=== PATIENT | female | born 1940 | race Caucasian/White ===

== ENCOUNTER 2019-05-14 12:31 | Outpatient (CLI) | payer MEDICARE, SELFPAY ==
--- NOTE | ~2019-05-14 | DEXA_ITS ---
Bone Density Report Name: Jacqueline Farmer Age: 78 Sex: Female Ethnicity: White Date of : 1940 Indication: osteopenia; height loss; hysterectomy; rheumatoid arthritis; Referring Provider: MONIKA DEJESUS Study: Bone densitometry was performed. Exam Date: May 14, 2019 Accession number: [id number] Bone Density: Region BMD T-score Z-score Classification AP Spine (L1, L2, L3) 0.872 -1.3 1.3 Osteopenia Femoral Neck (Left) 0.685 -1.5 0.9 Osteopenia Total Hip (Left) 0.930 -0.1 2.0 Normal Total Hip Bilateral Avg 0.899 -0.4 1.8 Normal Femoral Neck (Right) 0.734 -1.0 1.3 Normal Total Hip (Right) 0.868 -0.6 1.5 Normal World Health Organization criteria for BMD impression classify patients as: Normal (T-score at or above -1.0), Osteopenia (T-score between -1.0 and -2.5), or Osteoporosis (T-score at or below -2.5). 10-year Fracture Risk(1): Major Osteoporotic Fracture 17% Hip Fracture 4.3% Reported Risk Factors: [place] (), Neck BMD=0.685, BMI=29.3, rheumatoid arthritis (1) FRAX(R) Version 3.08. Fracture probability calculated for an untreated patient. Fracture probability may be lower if the patient has received treatment. Previous Exams: Region Exam Age BMD T-score BMD Change BMD Change Date g/cm2 vs Baseline vs Previous AP Spine(L1, L2, L3) 05/14/2019 78 0.872 -1.3 -0.013(-1.4%) -0.013(-1.4%) 02/16/2017 76 0.885 -1.2 Total Hip(Left) 05/14/2019 78 0.930 -0.1 0.018(1.9%) 0.018(1.9%) 02/16/2017 76 0.912 -0.2 Total Hip(Right) 05/14/2019 78 0.868 -0.6 -0.011(-1.3%) -0.011(-1.3%) 02/16/2017 76 0.879 -0.5 *Denotes significance at 95% confidence level, LSC for AP Spine = 0.022 g/cm2, LSC for Total Hip = 0.027 g/cm2 Clinical Information Provided by Patient: Has rheumatoid arthritis Has used the following medications: Vitamin D, Calcium Has the following medical conditions: Hysterectomy Patient maximum height was 61 Menopause Age: 42 Does not regularly consume dairy products Onset of menses at age 10 Number of children 1 Impression: The patient has low bone mass, based on the Left Femoral Neck T-score. The patient has an estimated ten-year risk of hip fracture of 4.3% and an estimated ten-year risk of major fracture of 17%, based on the WHO FRAX algorithm. No significant bone loss was observed. Discussion: BONE DENSITY IS LOW AT ONE OR MORE SKELETAL SITES. THE PATIENT'S BMD AND CLINICAL RISK FAC
--- NOTE | ~2019-05-14 | MM_ITS ---
EXAMINATION: MM screening pardeep BI w rhonda HISTORY: Screening mammogram TECHNIQUE: Craniocaudal and mediolateral oblique 3-D tomosynthesis images were obtained and synthetic 2-D images were generated. CAD analysis was submitted and interpreted. COMPARISON: 08/12/2018 bilateral diagnostic digital mammogram 03/06/2018 bilateral digital screening mammogram 02/01/2017 bilateral diagnostic digital mammogram 03/13/2016 bilateral digital screening BREAST PARENCHYMAL COMPOSITION: The breasts are heterogeneously dense, which may obscure small masses . FINDINGS: There is a biopsy marker overlying left subareolar area laterally; history of benign left b reast biopsy January 2019. Stable fibroglandular asymmetry since 03/13/2016. There is no evidence of suspicious mass, calcificat ion, or architectural distortion to suggest malignancy in either breast. There has been no suspicious interval change. IMPRESSION: 1. No mammographic evidence of malignancy. 2. Recommend routine screening mammography in one year. BI-RADS Category 2: Benign finding(s). Reviewed, dictated and finalized at location A. LL PERFORMER
== END 2019-05-14 12:32 | disposition home or self-care (01) ==
PROVIDERS: PCP Internal Medicine; Visit Provider Obstetrics & Gynecology
DX: Z12.31 Encounter for screening mammogram for malignant neoplasm of breast (principal); Z78.0 Asymptomatic menopausal state; M85.852 Other specified disorders of bone density and structure, left thigh
CPT/HCPCS: 77063; 77067; 77080

== ENCOUNTER → 2020-09-09 12:13 | Outpatient (CLI) | payer MEDICARE, SELFPAY ==
--- NOTE | ~2020-09-09 | MR_ITS ---
EXAMINATION: MR cervical spine wo con DATE: 09/09/2020 13:04 INDICATION: Cervical radiculopathy. TECHNIQUE: Magnetic resonance imaging (MRI) of the cervical spine was performed without intravenous c ontrast. Sequences included sagittal T2-weighted FSE, sagittal STIR FSE, sagittal T1-weighted FSE, ax ial MERGE, and axial T2-weighted FSE. COMPARISON: Neck CT 01/16/2017 FINDINGS: There is 6 degrees dextrocurvature of cervical spine. There is 2 mm anterolisthesis of C5 o n C6 and C6 on C7. There are chronic erosions of the dens with bone marrow edema. Bone marrow edema o bscures the definition of much of the bone at C1-C2. There is chronic soft tissue around the dens wit h moderate central canal stenosis with ventral and dorsal indentation of the spinal cord at C1-C2. Ve rtebral body heights are normal. There is mildly decreased disc height at C3-C4, C5-C6, and C6-C7. Th e spinal cord signal intensity is normal. The following disc levels are specifically discussed: C2-C3: The disc does not extend beyond the endplate margin. There is mild bilateral uncovertebral axel nt osteoarthritis. There is severe bilateral facet joint osteoarthritis. There is mild bilateral neur al foraminal stenosis. There is no central canal stenosis. C3-C4: The disc is bulging. There is mild bilateral uncovertebral joint osteoarthritis. There is gustavo re right facet joint osteoarthritis. There is ankylosis of left facet joint with severe hypertrophy. There is mild right and moderate left neural foraminal stenosis. There is mild central canal stenosis . C4-C5: The disc is bulging. There is mild left uncovertebral joint osteoarthritis. There is severe bi lateral facet joint osteoarthritis. There is mild bilateral neural foraminal stenosis. There is mild central canal stenosis. C5-C6: The disc is bulging. There is mild bilateral uncovertebral joint osteoarthritis. There is gustavo re bilateral facet joint osteoarthritis. There is mild bilateral neural foraminal stenosis. There is mild central canal stenosis. C6-C7: The disc is bulging. There is mild bilateral uncovertebral joint osteoarthritis. There is gustavo re bilateral facet joint osteoarthritis. There is mild bilateral neural foraminal stenosis. There is mild central canal stenosis. C7-T1: The disc does not extend beyond the endplate margin. There is no uncovertebral joint osteoarth ritis. There is severe bilateral facet joint osteoarthritis. There is mild bilateral neural foraminal stenosis. There is no central canal stenosis. IMPRESSION: 1. 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 Given the poor bone definition at C1-C2 by MRI, consider noncontra st cervical spine CT. 2. Moderate cervical spondylosis at other levels. Reviewed, dictated and finalized at location B. IMPRESSION: 1. 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 Given the poor bone de finition at C1-C2 by MRI, consider noncontrast cervical spine CT. 2. Moderate cervical spondylosis at other levels.
== END ==
PROVIDERS: PCP Nurse Practitioner; Visit Provider Nurse Practitioner Adult Health
DX: M47.23 Other spondylosis with radiculopathy, cervicothoracic region (principal); M48.03 Spinal stenosis, cervicothoracic region
CPT/HCPCS: 72141

== ENCOUNTER → 2020-11-22 11:38 | Outpatient (CLI) | payer MEDICARE, SELFPAY ==
--- NOTE | ~2020-11-22 | US_ITS ---
EXAMINATION: US renal BI DATE: 11/22/2020 12:00 INDICATION: Chronic kidney disease stage III TECHNIQUE: Multiple grayscale and Doppler ultrasound images of the kidneys were obtained. COMPARISON: None. FINDINGS: The right kidney measures 8.4 x 3.4 x 4.2 cm. The left kidney measures 9.7 x 4.1 x 4.7 cm. The kidneys demonstrate normal parenchymal echogenicity. There is no hydronephrosis. The bladder is n ormal. IMPRESSION: 1. Mild atrophy of the kidneys. Reviewed, dictated and finalized at location B.
== END ==
PROVIDERS: PCP Nurse Practitioner; Visit Provider Internal Medicine Nephrology
DX: N18.32 Chronic kidney disease, stage 3b (principal)
CPT/HCPCS: 76775

== ENCOUNTER 2021-03-14 16:00 | Emergency (ER) | payer MEDICARE, SELFPAY ==
--- NOTE | ~2021-03-14 | CT_ITS ---
EXAMINATION: CT brain wo con DATE: 03/14/2021 19:59 INDICATION: Head injury. TECHNIQUE: Computed tomography (CT) of the head was performed without intravenous contrast. The mA wa s adjusted according to patient size. Iterative reconstruction technique was employed. The dose-lengt h product was 529.67 mGy-cm. COMPARISON: None FINDINGS: There are scattered areas of low attenuation in the cerebral white matter, which is within normal limits for the patient's age. There is no intracranial hemorrhage, acute infarction, or abnorm al intracranial mass lesion. The ventricles are normal in size. There is mild mucosal thickening in t he paranasal sinuses. There are likely changes of ocular lens replacement surgeries. There is a trace left mastoid effusion. IMPRESSION: 1. Normal aging brain. Reviewed, dictated and finalized at location A. ING PRESS OPERATOR IMPRESSION: 1. Normal aging brain.
--- NOTE | ~2021-03-14 | CT_ITS ---
EXAMINATION: CT cervical spine wo con DATE: 03/14/2021 19:59 INDICATION: Neck pain. Fall. TECHNIQUE: Computed tomography (CT) of the cervical spine was performed without intravenous contrast. Automated exposure control and iterative reconstruction technique were employed. The dose-length pro duct was 140.85 mGy-cm. COMPARISON: CT neck 02/16/2019 FINDINGS: There is mild scarring at the lung apices. There is 2 mm anterolisthesis of C3 on C4, C4 on C5, C5 on C6, C6 on C7, and C7 on T1. There is 16 degrees dextroscoliosis of cervical spine. Vertebr al body heights are normal. There is a soft tissue around the dens with chronic erosions of C2 and an terior C1 arch with mild central canal stenosis. There is mildly decreased disc height at C2-C3, mode rately decreased disc height at C3-C4, mildly decreased disc height at C5-C6, and moderately decrease d disc height at C6-C7. The following disc levels are specifically discussed: C2-C3: There is no uncovertebral joint osteoarthritis. There is severe bilateral facet joint osteoart hritis. There is no neural foraminal stenosis. There is no central canal stenosis. C3-C4: There is moderate bilateral uncovertebral joint osteoarthritis. There is severe bilateral face t joint osteoarthritis. There is mild bilateral neural foraminal stenosis. There is mild central leroy l stenosis. C4-C5: There is mild bilateral uncovertebral joint osteoarthritis. There is severe bilateral facet allan int osteoarthritis. There is mild bilateral neural foraminal stenosis. There is mild central canal st enosis. C5-C6: There is moderate right and mild left uncovertebral joint osteoarthritis. There is severe bila teral facet joint osteoarthritis. There is mild bilateral neural foraminal stenosis. There is mild ce ntral canal stenosis. C6-C7: There is mild bilateral uncovertebral joint osteoarthritis. There is severe bilateral facet allan int osteoarthritis. There is mild bilateral neural foraminal stenosis. There is mild central canal st enosis. C7-T1: There is no uncovertebral joint osteoarthritis. There is severe bilateral facet joint osteoart hritis. There is mild bilateral neural foraminal stenosis. There is no central canal stenosis. IMPRESSION: 1. No fracture. 2. Moderate cervical spondylosis. 3. Chronic soft tissue around the dens with erosions of bone. The differential diagnosis includes pyr ophosphate arthropathy and rheumatoid arthritis. Reviewed, dictated and finalized at location A. BORER HELPER IMPRESSION: 1. No fracture. 2. Moderate cervical spondylosis. 3. Chronic soft tissue around the dens with erosions of bone. The differential diagnosis includes pyrophosphate arthropathy and rheumatoid arthritis.
--- NOTE | ~2021-03-14 | XR_ITS ---
EXAMINATION: XR chest 1V portable DATE: 03/14/2021 19:53 INDICATION: Weakness. TECHNIQUE: A single frontal view of the chest was obtained. COMPARISON: Chest 2 views 12/28/2011 FINDINGS: There is mild scarring at the lung apices. No pneumonia or pleural effusion. The heart size is normal. Surgical clips in the right upper quadrant are likely from cholecystectomy. There are sirena nges of distal right clavicle resection. IMPRESSION: 1. Mild scarring at the lung apices. Reviewed, dictated and finalized at location A. TIONAL TRAINING DIRECTOR
[2021-03-14 17:09] VITALS: BP 159/88; PULSE 80; RESP 18; TEMP 36.5; O2SAT 98
--- NOTE | 2021-03-14 17:21 | ECG_ITS ---
Measurements Intervals [place] Rate: 76 P: 51 NE: 172 QRS: -16 QRSD: 87 T: 41 QT: 346 QTc: 389 Interpretive Statements SINUS RHYTHM DELAYED PRECORDIAL R/S TRANSITION BASELINE ARTIFACT- I, II, III, AVR, AVL BORDERLINE ECG Electronically Signed On 03-15-2021 9:50:55 PIPE LINE REPAIRER by Raúl Chao D.O.
[2021-03-14 17:25] VITALS: BP 122/59; PULSE 75
[2021-03-14 18:01] LABS: Basophils Absolute Auto 0.1 K/mm3 (0.0-0.1); Basophils Percent Auto 0.5 % (0.2-1.2); Eosinophils Absolute Auto 0.2 K/mm3 (0-0.3); Eosinophils Percent Auto 1.8 % (0-4.4); Hemoglobin 12.5 g/dL (12.0-15.0); Immature Granulocyte Absolute 0.06 K/mm3 (0.00-0.031); Immature Granulocyte Percent A 0.6 % (0-0.5); Lymphocytes Absolute Auto 2.98 K/mm3 (0.9-3.2); Lymphocytes Percent Auto 28.6 % (18.3-44.2); Mean Corpuscular HGB Conc 34.7 g/dl (32-36); Mean Corpuscular Volume 100.8 fl (80-100); Mean Platelet Volume 9.1 fl (7.4-10.4); Monocytes Absolute Auto 1.2 K/mm3 (0.1-0.6); Monocytes Percent Auto 11.6 % (2.6-8.5); Neutrophils Absolute Auto 5.9 K/mm3 (1.3-6.7); Neutrophils Percent Auto 56.9 % (45.5-73.1); Platelet Count Result 260 k/mm3 (150-375); Red Blood Count 3.57 M/mm3 (4.2-5.4); Red Cell Distribution Width 12.5 % (11.5-14.5); White Blood Count 10.4 K/mm3 (4.5-10.0)
[2021-03-14 18:18] LABS: Alanine Aminotransferase 44 U/L (4-35); Albumin Level 4.1 g/dL (3.5-5.1); Alkaline Phosphatase 101 U/L (38-126); Anion Gap 7 mmol/L (8-16); Aspartate Amino Transferase 58 U/L (14-36); Bilirubin,Total 0.5 mg/dL (0.2-1.3); Blood Urea Nitrogen 30 mg/dL (7-17); Calcium 9.4 mg/dL (8.4-10.2); Carbon Dioxide 25 mmol/L (22-30); Chloride 100 mmol/L (98-107); Estimated CRCL calculation 24 ml/min; Estimated Glomerular Filt Rate 36; Glucose 134 mg/dL (65-110); Potassium 4.2 mmol/L (3.4-5.0); Sodium 132 mmol/L (137-145)
[2021-03-14 19:39] VITALS: BP 128/60; PULSE 79
[2021-03-14] MEDS: SODIUM CHLORIDE 0.9% IV 1,000 ML 999 ML IV CONT (20:10)
[2021-03-14 20:38] VITALS: BP 117/54; PULSE 73
[2021-03-14 20:43] LABS: Troponin I < 0.012 ng/mL (0.000-0.034)
[2021-03-14 21:00] LABS: Lactic Acid Reflex 0.7 mmol/L (0.7-2.1)
[2021-03-14 21:41] LABS: Add Urine Microscopic? YES; Amorphous Sediment Urine Few; Appearance Urine Cloudy (Clear); Bacteria Urine 4+ /hpf; Bilirubin Urine Negative (Negative); Blood Urine Negative (Negative); Color Urine Yellow (Yellow); Glucose Urine UA Negative (Negative); Ketones Urine Negative (Negative); Leukocyte Esterase Ur 3+ LEU/UL (Negative); Mucus Urine Rare /lpf; Nitrate Urine Negative (Negative); Protein Urine Negative (Negative); Specific Grav Ur 1.011 (1.001-1.035); Squamous Epithelial Cell Urine Many /hpf (Few); Urobilinogen Urine Negative mg/dL (<2.0); WBC Clumps Urine Present /HPF; WBC Urine 51-75 /hpf
--- NOTE | 2021-03-14 22:01 | ED.GENADULT ---
HPI - General Adult General Chief complaint: Fall Stated complaint: Fall. Head pain. Yesterday. Time Seen by Provider: 03/14/21 19:31 History of Present Illness HPI narrative: Patient 80-year-old female presents the emergency department with chief complaint of generalized weakness. Patient reports that she has had several episodes of falling reports she fell struck her head reports is also had some pain in her neck with this as well. The patient denies vomiting denies diarrhea denies abdominal pain patient denies chest pain. The patient states she is felt a little unsteady with this as well Related Data Home Medications Medication Instructions Recorded Confirmed cinnamon bark 500 mg capsule 500 mg PO DAILY 12/30/19 07/12/20 coenzyme Q10 10 mg capsule 10 mg PO ONCE 12/30/19 07/12/20 Allergies Allergy/AdvReac Type Severity Reaction Status Date / Time morphine Allergy Severe N/V Verified 01/12/21 13:04 ARM AND HAMMER WITH OXYCLEAN Allergy Unknown HIVES ALL Uncoded 01/12/21 13:04 LAUNDRY SOAP OVER BODY BANDAID / ADHESIVES Allergy Unknown RASH Uncoded 01/12/21 13:04 Review of Systems Review of Systems: A 10 system review of systems was completed on the patient and is negative except for what is stated in the HPI. Nursing and ancillary documentation was reviewed. [facility] Past Medical History Medical History Basal cell carcinoma CKD (chronic kidney disease) Prolapsed bladder Rectal vaginal fistula Restless legs syndrome Rotator cuff arthropathy Vitamin D deficiency Surgical History Surgical History H/O: hysterectomy History of cholecystectomy Family History Family History Mother Hypertension Heart disease Father , age 92 No problems noted. Social History Social History Social History: 2 cups of caffeine daily Smoking status: Never smoker Alcohol intake: current Alcohol use details: rarely Exam Narrative: GENERAL: Well-appearing, well-nourished, and in no acute distress. HEAD: Normocephalic, atraumatic. EYES: PERRLA and EOMI. ENT: Nares clear, no rhinorrhea or epistaxis. Mucous membranes moist. NECK: Supple. CHEST: Clear to auscultation. No respiratory distress. HEART: Regular rate and rhythm. No murmur heard. Normal peripheral pulses. ABDOMEN: Soft, nontender, nondistended, normal active bowel sounds. EXTREMITIES: Normal range of motion. No edema. SKIN: Warm, dry, no rash. NEURO: No focal deficits. Alert and oriented x3. PSYCH: Normal mood and affect. Course Vital Signs Vital signs: Vital Signs Temperature 36.5 C 03/14/21 17:09 Pulse Rate 80 03/14/21 17:09 Respiratory Rate 18 03/14/21 17:09 Blood Pressure 159/88 H 03/14/21 17:09 Pulse Oximetry 98 03/14/21 17:09 Temperature 36.5 C 03/14/21 17:09 Pulse Rate 73 03/14/21 20:38 Respiratory Rate 18 03/14/21 17:09 Blood Pressure 117/54 L 03/14/21 20:38 Pulse Oximetry 98 03/14/21 17:09 Medical Decision Making Vital Signs Vital Signs: Vital Signs Temperature 36.5 C 03/14/21 17:09 Pulse Rate 80 03/14/21 17:09 Respiratory Rate 18 03/14/21 17:09 Blood Pressure 159/88 H 03/14/21 17:09 Pulse Oximetry 98 03/14/21 17:09 Temperature 36.5 C 03/14/21 17:09 Pulse Rate 73 03/14/21 20:38 Respiratory Rate 18 03/14/21 17:09 Blood Pressure 117/54 L 03/14/21 20:38 Pulse Oximetry 98 03/14/21 17:09 Lab Data Result diagrams: 03/14/21 17:51 03/14/21 17:51 Labs: Lab Results 03/14/21 03/14/21 03/14/21 Range/Units 17:51 17:51 19:39 WBC 10.4 H (4.5-10.0) K/mm3 RBC 3.57 L (4.2-5.4) M/mm3 Hgb 12.5 (12.0-15.0) g/dL Hct 36.0 L (37.0-47.0) % MCV 100.8 H (
[2021-03-14 22:21] VITALS: BP 122/78; PULSE 65; RESP 18; O2SAT 100
== END 2021-03-14 22:22 | disposition home or self-care (01) ==
PROVIDERS: Emergency Medicine; Emergency Provider Emergency Medicine; PCP Internal Medicine
DX: N39.0 Urinary tract infection, site not specified (principal); S16.1XXA Strain of muscle, fascia and tendon at neck level, initial encounter; N18.9 Chronic kidney disease, unspecified; G25.81 Restless legs syndrome; E55.9 Vitamin D deficiency, unspecified; N81.10 Cystocele, unspecified; Z85.828 Personal history of other malignant neoplasm of skin; Z79.82 Long term (current) use of aspirin; R94.31 Abnormal electrocardiogram [ECG] [EKG]; M47.812 Spondylosis without myelopathy or radiculopathy, cervical region; R93.7 Abnormal findings on diagnostic imaging of other parts of musculoskeletal system; W19.XXXA Unspecified fall, initial encounter
CPT/HCPCS: 36415; 70450; 71045; 72125; 80053; 81001; 83605; 83735; 84484; 85025; 87077; 87086; 87186; 93005; 96360; 96361; 99284; J7030

== ENCOUNTER 2021-04-13 07:30 | Outpatient (CLI) | payer MEDICARE, SELFPAY ==
--- NOTE | 2021-04-26 21:11 | WPDSLEEPSTUD ---
Sleep Study Date of Study: 04/13/21 <Courtney Armijo DO - Last Filed: 04/27/21 17:17> Ordering Provider: Courtney Armijo DO <Courtney Armijo DO - Last Filed: 04/27/21 17:17> Interpreting Physician: Courtney Armijo DO <Courtney Armijo DO - Last Filed: 04/27/21 17:17> Sleep Study Type: Polysomnogram <Courtney Armijo DO - Last Filed: 04/27/21 17:17> Height: 1.52 m <Courtney Armijo DO - Last Filed: 04/27/21 17:17> Weight: 68.039 kg <Courtney Armijo DO - Last Filed: 04/27/21 17:17> Body Mass Index: 29.2 <Courtney Armijo DO - Last Filed: 04/27/21 17:17> Neck Circumference (inches): 14.5 <Courtney Armijo DO - Last Filed: 04/27/21 17:17> [place]: 1 <Courtney Armijo DO - Last Filed: 04/27/21 17:17> Reason for Sleep Study Difficulty falling asleep and maintaining sleep <Courtney Armijo DO - Last Filed: 04/27/21 17:17> Sleep History The patient is an 80-year-old female with CC restless leg syndrome, chronic kidney disease, rotator cuff arthropathy, vitamin-D deficiency stand bladder prolapse as had a sleep study due to issues falling asleep and maintaining sleep. The patient denies awakening from sleep short of breath. She denies awakening at night with heartburn, belching or cough. She occasionally snores but it is never loud enough that others complaint. She rarely has trouble sleeping when she has a cold. she denies sweating excessively at night. She denies heart palpitations or irregular heartbeats during the night. He denies falling asleep during the day and while driving. She denies sleep paralysis, cataplexy and hypnagogic /hypnopompic hallucinations. She denies having nightmares. She occasionally has thoughts racing through her mind. She denies feeling sad or depressed. She occasionally feels anxious. She rarely has muscular tension. She denies noticing parts of her body jerk as well as kicking during the night. She rarely experiences crawling and aching feelings in her legs. She frequently has leg pain during the night. She occasionally grinds her teeth during sleep but rarely awakens with soft pain. She is occasionally bothered by pain during the day and frequently awakened by pain during the night. She frequently wakes up feeling stiff in the morning with sore and achy muscles. She frequently wakes up with pain in the neck, spine and other joints. She goes to bed at midnight on both weekdays and weekends. It takes her 2 hours to fall asleep. She wakes up at least 4 times throughout the night. When she awakens, she will walk around the house or read. A contained a while for her to fall back asleep. She does not have a set wake up time. She typically gets 4-6 hours of sleep per night. When she awakens, she will get out of bed. She currently lives with her . She does not engage in physical exercise before bedtime. She denies consuming any caffeinated beverages within 2 hours of bedtime. She will read and watch television before falling asleep. She denies taking naps in the afternoon or the evening. She drinks 1 glass of COVID in 2 cups of coffee per day. She denies tobacco, alcohol and recreational drug use. <Courtney Armijo DO - Last Filed: 04/27/21 17:17> [facility] Past Medical History Medical History: Medical History Basal cell carcinoma CKD (chronic kidney disease) Prolapsed bladder Rectal vaginal fistula Restless legs syndrome Rotator cuff arthropathy Vitamin D deficiency <Courtney Armijo DO - Last Filed: 04/27/21 17:17> Surgical History Surgical History: Surgical History H/O: hysterectomy History of cholecystectomy <Courtney Armijo DO - Last Filed: 04/27/21 17:17> Family History Family History: Family History (Reviewed 04/26/21 @
[2021-04-27 17:16] VITALS: BMI 29.2
== END 2021-04-14 06:19 | disposition home or self-care (01) ==
LOC: ANHCSM 07:33
PROVIDERS: PCP Internal Medicine; Visit Provider Family Medicine
DX: G47.10 Hypersomnia, unspecified (principal); G47.33 Obstructive sleep apnea (adult) (pediatric); G47.61 Periodic limb movement disorder
CPT/HCPCS: 95810

== ENCOUNTER 2022-01-25 10:58 | Outpatient (CLI) | payer MEDICARE, SELFPAY ==
[2022-01-25 19:31] LABS: Basophils Absolute Auto 0.1 K/mm3 (0.0-0.1); Basophils Percent Auto 0.8 % (0.2-1.2); Eosinophils Absolute Auto 0.2 K/mm3 (0-0.3); Eosinophils Percent Auto 1.8 % (0-4.4); Hematocrit 42.6 % (37.0-47.0); Hemoglobin 13.4 g/dL (12.0-15.0); Immature Granulocyte Absolute 0.03 K/mm3 (0.00-0.031); Immature Granulocyte Percent A 0.3 % (0-0.5); Lymphocytes Absolute Auto 2.82 K/mm3 (0.9-3.2); Lymphocytes Percent Auto 26.8 % (18.3-44.2); Mean Corpuscular HGB Conc 31.5 g/dl (32-36); Mean Corpuscular Hemoglobin 33.8 pg (26-34); Mean Corpuscular Volume 107.6 fl (80-100); Mean Platelet Volume 9.9 fl (7.4-10.4); Monocytes Absolute Auto 1.2 K/mm3 (0.1-0.6); Monocytes Percent Auto 10.9 % (2.6-8.5); Neutrophils Absolute Auto 6.3 K/mm3 (1.3-6.7); Neutrophils Percent Auto 59.4 % (45.5-73.1); Platelet Count Result 316 k/mm3 (150-375); Red Blood Count 3.96 M/mm3 (4.2-5.4); Red Cell Distribution Width 12.9 % (11.5-14.5); White Blood Count 10.5 K/mm3 (4.5-10.0)
[2022-01-25 20:04] LABS: Hemoglobin A1C 6.8 % (<5.7)
[2022-01-25 20:15] LABS: Alanine Aminotransferase 33 U/L (6-35); Albumin Level 4.6 g/dL (3.5-5.1); Alkaline Phosphatase 108 U/L (38-126); Anion Gap 11 mmol/L (8-16); Aspartate Amino Transferase 40 U/L (14-36); Bilirubin,Total 0.7 mg/dL (0.2-1.3); Blood Urea Nitrogen 29 mg/dL (7-17); Calcium 9.8 mg/dL (8.4-10.2); Carbon Dioxide 24 mmol/L (22-30); Chloride 105 mmol/L (98-107); Cholesterol 190 mg/dL (0-200); Estimated Glomerular Filt Rate 39; Glucose 152 mg/dL (65-110); HDL Direct 42 mg/dL; Potassium 4.5 mmol/L (3.4-5.0); Sodium 140 mmol/L (137-145); Triglycerides 183 mg/dL (<150)
[2022-01-25 20:19] LABS: Hypochromasia 1+ (NORMAL); Platelet Estimate Adequate (Adequate); Schistocytes None Seen (NORMAL)
[2022-01-25 20:26] LABS: LDL Cholesterol Direct 90 mg/dL
[2022-01-25 20:32] LABS: Vitamin D 25 Hydroxy 82.3 ng/mL
[2022-01-26 14:17] LABS: Folic Acid > 20.0 ng/mL (2.76->20); Vitamin B12 > 1000.0 pg/mL (239-931)
== END 2022-01-25 10:59 | disposition home or self-care (01) ==
PROVIDERS: PCP Internal Medicine; Visit Provider Nurse Practitioner
DX: E55.9 Vitamin D deficiency, unspecified (principal); E11.9 Type 2 diabetes mellitus without complications; D53.1 Other megaloblastic anemias, not elsewhere classified
CPT/HCPCS: 36415; 80053; 80061; 82306; 82607; 82746; 83036; 85025

== ENCOUNTER → 2022-01-31 09:09 | Outpatient (CLI) | payer MEDICARE, SELFPAY ==
--- NOTE | ~2022-01-31 | DEXA_ITS ---
Bone Density Report Name: DAGOBERTO SAN Age: 81 Sex: Female Ethnicity: White Date of : 1940 Indication: osteopenia; height loss; hysterectomy; rheumatoid arthritis; secondary osteoporosis; postmenopausal Referring Provider: LOBO, ELSIE Stallings Study: Bone densitometry was performed. Exam Date: January 31, 2022 Accession number: [id number] Bone Density: Region BMD T-score Z-score Classification AP Spine (L1, L2, L3) 0.964 -0.5 2.3 Normal Femoral Neck (Left) 0.663 -1.7 0.8 Osteopenia Total Hip (Left) 0.902 -0.3 1.9 Normal Femoral Neck (Right) 0.724 -1.1 1.3 Osteopenia Total Hip (Right) 0.862 -0.7 1.6 Normal Total Hip Mean 0.882 -0.5 1.8 Normal World Health Organization criteria for BMD impression classify patients as: Normal (T-score at or above -1.0), Osteopenia (T-score between -1.0 and -2.5), or Osteoporosis (T-score at or below -2.5). 10-year Fracture Risk(1): Major Osteoporotic Fracture 17% Hip Fracture 5.2% Reported Risk Factors: [place] (), Neck BMD=0.663, BMI=30.6, rheumatoid arthritis, secondary osteoporosis (1) FRAX(R) Version 3.08. Fracture probability calculated for an untreated patient. Fracture probability may be lower if the patient has received treatment. Previous Exams: Region Exam Age BMD T-score BMD Change BMD Change Date g/cm2 vs Baseline vs Previous AP Spine(L1, L2, L3) 01/31/2022 81 0.964 -0.5 0.082* 0.089* 12/23/2008 68 0.875 -1.3 -0.007 -0.007 12/14/2006 66 0.882 -1.2 Total Hip(Left) 01/31/2022 81 0.902 -0.3 -0.060* -0.049* 12/23/2008 68 0.950 0.1 -0.012 -0.012 12/14/2006 66 0.962 0.2 Total Hip(Right) 01/31/2022 81 0.862 -0.7 -0.096* -0.058* 12/23/2008 68 0.920 -0.2 -0.039* -0.039* 12/14/2006 66 0.958 0.1 *Denotes significance at 95% confidence level, LSC for AP Spine = 0.022 g/cm2, LSC for Total Hip = 0.027 g/cm2 Clinical Information Provided by Patient: Has rheumatoid arthritis Has secondary osteoporosis Has used the following medications: Vitamin D, Calcium Has the following medical conditions: Hysterectomy Patient maximum height was 61 Menopause Age: 42 No regular weight bearing exercise Does not regularly consume dairy products Drinks caffeinated beverages Onset of menses at age 9 Number of children 2 Impression: The patient has low bone
== END ==
PROVIDERS: PCP Internal Medicine; Visit Provider Neurological Surgery
DX: Z78.0 Asymptomatic menopausal state (principal); M85.89 Other specified disorders of bone density and structure, multiple sites
CPT/HCPCS: 77080

== ENCOUNTER → 2022-02-13 11:50 | Outpatient (CLI) | payer MEDICARE, SELFPAY ==
--- NOTE | ~2022-02-13 | MR_ITS ---
EXAMINATION: MR lumbar spine wo con DATE: 02/13/2022 12:51 INDICATION: Lumbar spondylosis. TECHNIQUE: Magnetic resonance imaging (MRI) of the lumbar spine was performed without intravenous con trast. Sequences included sagittal T2-weighted FSE, sagittal T2-weighted FS FSE, sagittal T1-weighted FSE, and axial T2-weighted FSE. COMPARISON: Lumbar spine MRI 01/22/2008 FINDINGS: There is 8 degrees dextrocurvature of thoracolumbar spine. There is 3 mm anterolisthesis of of L3 on L4 and 3 mm retrolisthesis of L5 on S1. Vertebral body heights are normal. There is severel y decreased disc height at L2-L3, moderately decreased disc height at L3-L4, and severely decreased d isc height at L4-L5 and L5-S1 with endplate remodeling. The distal spinal cord signal intensity is no rmal. The conus medullaris is at L2. The following disc levels are specifically discussed: L1-L2: There is a central protrusion. There is mild right facet joint osteoarthritis. There is no ashly ral foraminal stenosis. There is mild central canal stenosis. L2-L3: The disc is bulging and has an annular fissure. There is moderate bilateral facet joint osteoa rthritis. There is mild bilateral neural foraminal stenosis. There is mild central canal stenosis. L3-L4: The disc is bulging and has an annular fissure. There is severe bilateral facet joint osteoart hritis. There is mild bilateral neural foraminal stenosis. There is mild central canal stenosis. L4-L5: The disc is bulging and has an annular fissure. There is severe bilateral facet joint osteoart hritis. There is mild bilateral neural foraminal stenosis. There is mild central canal stenosis. L5-S1: The disc is bulging and has an annular fissure. There is severe bilateral facet joint osteoart hritis. There is mild right and moderate left neural foraminal stenosis. There is mild central canal stenosis. IMPRESSION: 1. Severe lumbar spondylosis, worsened from 01/22/2008. Reviewed, dictated and finalized at location A.
--- NOTE | ~2022-02-13 | MR_ITS ---
EXAMINATION: MR cervical spine wo con DATE: 02/13/2022 12:50 INDICATION: Cervical spondylosis. TECHNIQUE: Magnetic resonance imaging (MRI) of the cervical spine was performed without intravenous c ontrast. Sequences included sagittal T2-weighted FSE, sagittal T2-weighted FS FSE, sagittal T1-weight ed FSE, axial MERGE, and axial T2-weighted FSE. COMPARISON: Cervical spine MRI 09/09/20, CT cervical spine 03/14/21 FINDINGS: There is 2 mm anterolisthesis of C4 on C5, 3 mm anterolisthesis of C5 on C6 and C6 on C7, a nd 2 mm anterolisthesis of C7 on T1. Vertebral body heights are normal. There are are erosions of the dens with peridens pannus causing severe central canal stenosis and ventral and dorsal indentation o f the spinal cord. There is mildly decreased disc height at C3-C4, C5-C6, and C6-C7. The following di sc levels are specifically discussed: C2-C3: The disc does not extend beyond the endplate margin. There is no uncovertebral joint osteoarth ritis. There is severe bilateral facet joint osteoarthritis. There is mild left neural foraminal sten osis. There is no central canal stenosis. C3-C4: The disc is bulging. There is mild bilateral uncovertebral joint osteoarthritis. There is gustavo re right facet joint osteoarthritis. There is ankylosis of left facet joint with severe hypertrophy. There is mild bilateral neural foraminal stenosis. There is mild central canal stenosis. C4-C5: The disc is bulging. There is mild right and moderate left uncovertebral joint osteoarthritis. There is severe bilateral facet joint osteoarthritis. There is mild bilateral neural foraminal steno sis. There is mild central canal stenosis. C5-C6: The disc is bulging. There is mild bilateral uncovertebral joint osteoarthritis. There is gustavo re bilateral facet joint osteoarthritis. There is mild bilateral neural foraminal stenosis. There is mild central canal stenosis. C6-C7: The disc is bulging. There is mild bilateral uncovertebral joint osteoarthritis. There is gustavo re bilateral facet joint osteoarthritis. There is mild bilateral neural foraminal stenosis. There is mild central canal stenosis. C7-T1: The disc does not extend beyond the endplate margin. There is no uncovertebral joint osteoarth ritis. There is severe bilateral facet joint osteoarthritis. There is mild bilateral neural foraminal stenosis. There is no central canal stenosis. IMPRESSION: 1. Worsened erosions of the dens with peridens pannus with worsened severe central canal stenosis. Th e etiology may be rheumatoid arthritis or pyrophosphate arthropathy. 2. Moderate spondylosis at other levels. Reviewed, dictated and finalized at location A. IMPRESSION: 1. Worsened erosions of the dens with peridens pannus with worsened severe cent ral canal stenosis. The etiology may be rheumatoid arthritis or pyrophosphate a rthropathy. 2. Moderate spondylosis at other levels.
== END ==
PROVIDERS: PCP Internal Medicine; Visit Provider Neurological Surgery
DX: Z78.0 Asymptomatic menopausal state (principal); M47.812 Spondylosis without myelopathy or radiculopathy, cervical region; M47.816 Spondylosis without myelopathy or radiculopathy, lumbar region; M48.02 Spinal stenosis, cervical region
CPT/HCPCS: 72141; 72148

== ENCOUNTER 2022-03-27 14:13 | Outpatient (CLI) | payer MEDICARE, SELFPAY ==
[2022-03-27 15:34] LABS: Basophils Absolute Auto 0.1 K/mm3 (0.0-0.1); Basophils Percent Auto 0.6 % (0.2-1.2); Eosinophils Absolute Auto 0.3 K/mm3 (0-0.3); Eosinophils Percent Auto 2.6 % (0-4.4); Hematocrit 37.7 % (37.0-47.0); Hemoglobin 12.2 g/dL (12.0-15.0); Immature Granulocyte Absolute 0.03 K/mm3 (0.00-0.031); Immature Granulocyte Percent A 0.3 % (0-0.5); Lymphocytes Absolute Auto 2.41 K/mm3 (0.9-3.2); Lymphocytes Percent Auto 24.8 % (18.3-44.2); Mean Corpuscular HGB Conc 32.4 g/dl (32-36); Mean Corpuscular Hemoglobin 33.8 pg (26-34); Mean Corpuscular Volume 104.4 fl (80-100); Mean Platelet Volume 9.5 fl (7.4-10.4); Monocytes Absolute Auto 1.1 K/mm3 (0.1-0.6); Monocytes Percent Auto 10.8 % (2.6-8.5); Neutrophils Absolute Auto 5.9 K/mm3 (1.3-6.7); Neutrophils Percent Auto 60.9 % (45.5-73.1); Platelet Count Result 237 k/mm3 (150-375); Red Blood Count 3.61 M/mm3 (4.2-5.4); Red Cell Distribution Width 12.7 % (11.5-14.5); White Blood Count 9.7 K/mm3 (4.5-10.0)
[2022-03-27 15:48] LABS: Anion Gap 8 mmol/L (8-16); Blood Urea Nitrogen 24 mg/dL (7-17); Calcium 9.3 mg/dL (8.4-10.2); Carbon Dioxide 25 mmol/L (22-30); Chloride 107 mmol/L (98-107); Estimated Glomerular Filt Rate 47; Glucose 149 mg/dL (65-110); Potassium 4.2 mmol/L (3.4-5.0); Sodium 140 mmol/L (137-145)
[2022-03-27 15:52] LABS: Partial Thromboplastin Time 27.2 SECONDS (22.3-36.8)
[2022-03-27 16:50] LABS: Appearance Urine Clear (Clear); Bilirubin Urine Negative (Negative); Blood Urine Negative (Negative); Color Urine Yellow (Yellow); Glucose Urine UA Negative (Negative); Ketones Urine Negative (Negative); Leukocyte Esterase Ur Trace LEU/UL (Negative); Nitrate Urine Negative (Negative); Protein Urine Negative (Negative); Specific Grav Ur <= 1.005 (1.001-1.035); Urobilinogen Urine 0.2 mg/dL (<2.0)
[2022-03-27 17:01] LABS: Mucus Urine Rare /lpf; RBC Urine 0-2 /hpf (0-2); WBC Urine 0-3 /hpf
[2022-03-27 17:03] LABS: Add Urine Microscopic? YES
== END 2022-03-27 14:14 | disposition home or self-care (01) ==
PROVIDERS: PCP Internal Medicine; Visit Provider Neurological Surgery
DX: Z01.818 Encounter for other preprocedural examination (principal); M79.609 Pain in unspecified limb
CPT/HCPCS: 36415; 80048; 81001; 85025; 85730

== ENCOUNTER 2022-07-31 12:29 | Outpatient (CLI) | payer MEDICARE, SELFPAY ==
[2022-07-31 19:16] LABS: Basophils Absolute Auto 0.1 K/mm3 (0.0-0.1); Basophils Percent Auto 0.7 % (0.2-1.2); Eosinophils Absolute Auto 0.3 K/mm3 (0-0.3); Eosinophils Percent Auto 3.2 % (0-4.4); Hematocrit 37.5 % (37.0-47.0); Hemoglobin 12.1 g/dL (12.0-15.0); Immature Granulocyte Absolute 0.03 K/mm3 (0.00-0.031); Immature Granulocyte Percent A 0.4 % (0-0.5); Immature Reticulocyte Fraction 15.5 % (3.0-15.9); Lymphocytes Absolute Auto 2.31 K/mm3 (0.9-3.2); Lymphocytes Percent Auto 27.7 % (18.3-44.2); Mean Corpuscular HGB Conc 32.3 g/dl (32-36); Mean Corpuscular Hemoglobin 33.2 pg (26-34); Mean Corpuscular Volume 102.7 fl (80-100); Mean Platelet Volume 9.8 fl (7.4-10.4); Monocytes Absolute Auto 0.9 K/mm3 (0.1-0.6); Monocytes Percent Auto 11.2 % (2.6-8.5); Neutrophils Absolute Auto 4.7 K/mm3 (1.3-6.7); Neutrophils Percent Auto 56.8 % (45.5-73.1); Platelet Count Result 304 k/mm3 (150-375); Red Blood Count 3.65 M/mm3 (4.2-5.4); Red Cell Distribution Width 13.4 % (11.5-14.5); Reticulocyte Percent 1.87 % (0.7-4.3); Reticulocytes Absolute 0.07 B/L (32.2-175.7); White Blood Count 8.3 K/mm3 (4.5-10.0)
[2022-07-31 20:06] LABS: Iron 123 ug/dL (37-170)
[2022-07-31 20:24] LABS: Percent Iron Saturation 38 % (20-50)
[2022-07-31 20:32] LABS: Alanine Aminotransferase 27 U/L (6-35); Albumin Level 4.4 g/dL (3.5-5.1); Alkaline Phosphatase 99 U/L (38-126); Anion Gap 6 mmol/L (8-16); Aspartate Amino Transferase 40 U/L (14-36); Bilirubin,Total 0.7 mg/dL (0.2-1.3); Blood Urea Nitrogen 43 mg/dL (7-17); Calcium 9.4 mg/dL (8.4-10.2); Carbon Dioxide 32 mmol/L (22-30); Chloride 102 mmol/L (98-107); Estimated Glomerular Filt Rate 33; Glucose 114 mg/dL (65-110); Potassium 4.6 mmol/L (3.4-5.0); Sodium 140 mmol/L (137-145)
[2022-07-31 21:02] LABS: Thyroid Stimulating Hormone 0.132 uIU/mL (0.465-4.680)
[2022-07-31 21:13] LABS: Hemoglobin A1C 6.2 % (<5.7)
== END 2022-07-31 12:30 | disposition home or self-care (01) ==
LOC: ANHGOSHLAB 12:31
PROVIDERS: PCP Internal Medicine; Visit Provider Nurse Practitioner
DX: D64.9 Anemia, unspecified (principal); E11.9 Type 2 diabetes mellitus without complications
CPT/HCPCS: 36415; 80053; 82728; 83036; 83540; 83550; 84443; 85025; 85046

== ENCOUNTER 2022-12-26 18:31 | Emergency (ER) | payer MEDICARE, SELFPAY ==
--- NOTE | 2022-12-26 18:34 | ED.FEMALEGU ---
HPI - Female Genitourinary General Chief complaint: Urogenital-Female Stated complaint: Uti symptoms Source: patient and RN notes reviewed Mode of arrival: ambulatory Limitations: no limitations History of Present Illness HPI Narrative: Patient is an 82-year-old female who presents to the [facility] with complaints of dysuria and pelvic pain with urination for the past 3 weeks. She states that her pain is only present when she urinates. She also reports urinary frequency. States that she has been waking up 4-5 times a night to urinate which is unusual for her. Patient states that within the last week, she notices small amounts of blood in the urine. She denies flank pain. Denies recent fevers. Related Data Home Medications Medication Instructions Recorded Confirmed cinnamon bark 500 mg capsule 500 mg PO DAILY 12/30/19 12/26/22 (Cinnamon) coenzyme Q10 10 mg capsule (Co 10 mg PO ONCE 12/30/19 12/26/22 Q-10) clobetasol 0.05 % shampoo 0.05 ml topical DIRECTED 12/05/21 12/26/22 Allergies Allergy/AdvReac Type Severity Reaction Status Date / Time morphine Allergy Severe N/V Verified 09/12/22 13:24 adhesive Allergy Rash Verified 12/26/22 18:38 ARM AND HAMMER WITH OXYCLEAN Allergy Unknown HIVES ALL Uncoded 09/12/22 13:24 LAUNDRY SOAP OVER BODY Review of Systems Review of Systems: CONSTITUTIONAL: Denies fever, chills, or sweats. EYES: Denies visual changes, redness, or discharge. ENT: Denies otalgia and sore throat CARDIOVASCULAR: Denies chest pain, palpitations, or edema. RESPIRATORY: Denies cough or dyspnea. GASTROINTESTINAL: Denies abdominal pain, nausea, vomiting, or diarrhea. GENITOURINARY: Reports dysuria or hematuria. Reports urinary frequency. SKIN: Denies rash or itching. MUSCULOSKELETAL: Denies back pain, joint pain, or myalgia. NEUROLOGIC: Denies headache, numbness, or weakness. Pertinent positives per HPI. COUNTS INCLUDE 234 BEDS AT THE [facility] Past Medical History Medical History Basal cell carcinoma CKD (chronic kidney disease) Prolapsed bladder Rectal vaginal fistula Restless legs syndrome Rotator cuff arthropathy Vitamin D deficiency Surgical History Surgical History H/O craniotomy (~03/2022) H/O toe surgery 11/2021 H/O: hysterectomy History of cholecystectomy Family History Family History Mother Hypertension Heart disease Father , age 92 No problems noted. Social History Social History Social History: 2 cups of caffeine daily Smoking status: Never smoker Alcohol intake: current Alcohol use details: rarely Substance use: never Lack of Transportation: No Lack of Food: Never True Current Housing: I Have Housing Concerned About Future Housing: No Difficulty Paying Gas/Electric Bills: No Difficulty Paying for Meds: No Currently Unemployed: No Education: High School Diploma/GED Difficulty w/ Childcare or Family Care: No Comments At the time of my signature, I reviewed and agree with the nursing past medical, surgical, social, and family history. There is no relevant family history pertinent to the patient complaint. Exam Narrative: GENERAL: This is a well-nourished, well-developed patient, in no apparent distress. HEAD: normocephalic, atraumatic. EYES: Sclera clear/white. Vision is grossly intact. EARS: External ears normal. Hearing grossly intact. NOSE: External nose normal with no obvious nasal discharge, nares without redness, no rhinorrhea. THROAT: Mucous membranes moist, posterior pharynx clear. NECK: Neck supple, non-tender without lymphadenopathy, masses or thyromegaly. CARDIOVASCULAR: Regular rate and rhythm without murmurs, gallops, or rubs. RESPIRATORY: Clear to auscultation. Breath sounds equal bilaterally. No wheezes,
[2022-12-26 18:37] VITALS: BP 149/66; PULSE 76; RESP 16; TEMP 36.4; O2SAT 96
[2022-12-26 18:41] VITALS: BP 149/66; PULSE 76; RESP 16; TEMP 36.4; O2SAT 96
== END 2022-12-26 18:52 | disposition home or self-care (01) ==
PROVIDERS: Emergency Provider Nurse Practitioner; PCP Internal Medicine
DX: N30.01 Acute cystitis with hematuria (principal); N18.9 Chronic kidney disease, unspecified
CPT/HCPCS: 81003; 87077; 87086; 87186; 99213; G0463

== ENCOUNTER 2023-01-16 10:54 | Outpatient (CLI) | payer MEDICARE, SELFPAY ==
[2023-01-16 18:27] LABS: Basophils Percent Auto 0.5 % (0.2-1.2); Eosinophils Absolute Auto 0.3 K/mm3 (0-0.3); Eosinophils Percent Auto 3.7 % (0-4.4); Hematocrit 34.5 % (37.0-47.0); Immature Granulocyte Absolute 0.02 K/mm3 (0.00-0.031); Immature Granulocyte Percent A 0.2 % (0-0.5); Lymphocytes Absolute Auto 2.33 K/mm3 (0.9-3.2); Lymphocytes Percent Auto 28.6 % (18.3-44.2); Mean Corpuscular HGB Conc 31.9 g/dl (32-36); Mean Corpuscular Hemoglobin 34.2 pg (26-34); Mean Corpuscular Volume 107.1 fl (80-100); Mean Platelet Volume 9.8 fl (7.4-10.4); Monocytes Percent Auto 12.6 % (2.6-8.5); Neutrophils Absolute Auto 4.4 K/mm3 (1.3-6.7); Neutrophils Percent Auto 54.4 % (45.5-73.1); Platelet Count Result 262 k/mm3 (150-375); Red Blood Count 3.22 M/mm3 (4.2-5.4); Red Cell Distribution Width 13.1 % (11.5-14.5); White Blood Count 8.2 K/mm3 (4.5-10.0)
[2023-01-16 19:26] LABS: Alanine Aminotransferase 26 U/L (6-35); Albumin Level 4.1 g/dL (3.5-5.1); Alkaline Phosphatase 81 U/L (38-126); Anion Gap 4 mmol/L (8-16); Aspartate Amino Transferase 41 U/L (14-36); Bilirubin,Total 0.8 mg/dL (0.2-1.3); Blood Urea Nitrogen 31 mg/dL (7-17); Calcium 9.5 mg/dL (8.4-10.2); Carbon Dioxide 30 mmol/L (22-30); Chloride 104 mmol/L (98-107); Cholesterol 153 mg/dL (0-200); Estimated Glomerular Filt Rate 39; Glucose 127 mg/dL (65-110); HDL Direct 37 mg/dL; Potassium 4.2 mmol/L (3.4-5.0); Sodium 138 mmol/L (137-145); Triglycerides 164 mg/dL (<150)
[2023-01-16 19:38] LABS: LDL Cholesterol Direct 79 mg/dL
[2023-01-16 20:01] LABS: Hemoglobin A1C 6.1 % (<5.7)
== END 2023-01-16 10:55 | disposition home or self-care (01) ==
PROVIDERS: PCP Internal Medicine; Visit Provider Nurse Practitioner
DX: E11.69 Type 2 diabetes mellitus with other specified complication (principal); E03.9 Hypothyroidism, unspecified; E78.5 Hyperlipidemia, unspecified
CPT/HCPCS: 36415; 80053; 80061; 83036; 84443; 85025

== ENCOUNTER → 2023-03-29 14:33 | Outpatient (CLI) | payer MEDICARE, SELFPAY ==
--- NOTE | ~2023-03-29 | MR_ITS ---
EXAMINATION: MR brain/brain stem wo con DATE: 03/29/2023 15:35 INDICATION: Recurrent headache. TECHNIQUE: Magnetic resonance imaging (MRI) of the brain and brainstem was performed without intraven ous contrast. COMPARISON: Head CT 03/14/2021 FINDINGS: There are scattered areas of nonspecific increased T2-weighted signal intensity in the cere bral white matter and adarsh, which is within normal limits for the patient's age. There is no intracra nial hemorrhage, acute infarction, or abnormal intracranial mass lesion. The ventricles are normal in size. There are trace bilateral mastoid effusions. The paranasal sinuses are clear. There are likely changes of ocular lens replacement surgeries. IMPRESSION: 1. Normal aging brain. Reviewed, dictated and finalized at location A. L AND PINION INSPECTOR IMPRESSION: 1. Normal aging brain.
== END ==
PROVIDERS: PCP Internal Medicine
DX: R51.9 Headache, unspecified (principal)
CPT/HCPCS: 70551

== ENCOUNTER 2023-07-17 13:07 | Outpatient (CLI) | payer MEDICARE, SELFPAY ==
--- NOTE | ~2023-07-17 | MMUS_ITS ---
EXAMINATION: MM diagnostic pardeep BI w rhonda, US breast RT limited HISTORY: Palpable right breast lump. TECHNIQUE: Additional 3-D tomosynthesis images of the breasts were performed and synthetic 2-D images were generated. CAD analysis was submitted and interpreted. High resolution Limited right breast ult rasound was performed. COMPARISON: Comparison to multiple prior studies sequentially, with oldest reviewed study dated 02/15. BREAST PARENCHYMAL COMPOSITION: Dense: The breasts are heterogeneously dense, which may obscure small masses FINDINGS: MAMMOGRAPHIC FINDINGS: The left breast is stable without evidence for malignancy. There is a new spiculated mass in the uppe r outer quadrant of the right breast with associated irregular calcifications. ULTRASOUND: Limited right breast ultrasound: There is an irregular shaped hypoechoic mass with posterior shadowin g at 10:00, 4 cm from the nipple measuring 2.6 x 2 x 1.6 cm. No internal vascularity. IMPRESSION: 1. Irregular shaped 2.6 cm right breast mass at 10:00, 4 cm from the nipple corresponding to the mass seen on mammography. 2. Ultrasound-guided right breast biopsy recommended. BI-RADS category 5, highly suggestive of malignancy. Reviewed, dictated and finalized at location A. IMPRESSION: 1. Irregular shaped 2.6 cm right breast mass at 10:00, 4 cm from the nipple cor responding to the mass seen on mammography. 2. Ultrasound-guided right breast biopsy recommended. BI-RADS category 5, highly suggestive of malignancy.
== END 2023-07-17 13:08 | disposition home or self-care (01) ==
PROVIDERS: PCP Internal Medicine; Visit Provider Nurse Practitioner
DX: R92.8 Other abnormal and inconclusive findings on diagnostic imaging of breast (principal)
CPT/HCPCS: 76642; 77062; 77066; G0279

== ENCOUNTER 2023-07-26 11:14 | Outpatient (CLI) | payer MEDICARE, SELFPAY ==
[2023-07-26 12:10] LABS: Basophils Absolute Auto 0.1 K/mm3 (0.0-0.1); Basophils Percent Auto 0.7 % (0.2-1.2); Eosinophils Absolute Auto 0.3 K/mm3 (0-0.3); Eosinophils Percent Auto 2.5 % (0-4.4); Hematocrit 39.3 % (37.0-47.0); Hemoglobin 12.5 g/dL (12.0-15.0); Immature Granulocyte Absolute 0.03 K/mm3 (0.00-0.031); Immature Granulocyte Percent A 0.3 % (0-0.5); Lymphocytes Absolute Auto 2.58 K/mm3 (0.9-3.2); Lymphocytes Percent Auto 25.4 % (18.3-44.2); Mean Corpuscular HGB Conc 31.8 g/dl (32-36); Mean Corpuscular Hemoglobin 33.7 pg (26-34); Mean Corpuscular Volume 105.9 fl (80-100); Mean Platelet Volume 9.8 fl (7.4-10.4); Monocytes Percent Auto 9.8 % (2.6-8.5); Neutrophils Absolute Auto 6.2 K/mm3 (1.3-6.7); Neutrophils Percent Auto 61.3 % (45.5-73.1); Platelet Count Result 270 k/mm3 (150-375); Red Blood Count 3.71 M/mm3 (4.2-5.4); Red Cell Distribution Width 12.4 % (11.5-14.5); White Blood Count 10.2 K/mm3 (4.5-10.0)
[2023-07-26 12:51] LABS: Platelet Estimate Adequate (Adequate); Schistocytes None Seen
[2023-07-26 12:52] LABS: Macrocytosis 1+ (NORMAL)
[2023-07-26 12:53] LABS: Anisocytosis 1+
[2023-07-26 12:56] LABS: Atypical Lymphocytes Present
[2023-07-26 14:59] LABS: Alanine Aminotransferase 26 U/L (6-35); Albumin Level 4.3 g/dL (3.5-5.1); Alkaline Phosphatase 89 U/L (38-126); Anion Gap 6 mmol/L (4-12); Aspartate Amino Transferase 55 U/L (14-36); Bilirubin,Total 0.8 mg/dL (0.2-1.3); Blood Urea Nitrogen 36 mg/dL (7-17); Carbon Dioxide 28 mmol/L (22-30); Chloride 105 mmol/L (98-107); Estimated Glomerular Filt Rate 36; Glucose 128 mg/dL (65-110); Potassium 4.9 mmol/L (3.4-5.0); Sodium 139 mmol/L (137-145)
[2023-07-26 15:26] LABS: Thyroid Stimulating Hormone 0.133 uIU/mL (0.465-4.680)
[2023-07-26 22:17] LABS: Hemoglobin A1C 6.5 % (<5.7)
== END 2023-07-26 11:15 | disposition home or self-care (01) ==
PROVIDERS: PCP Internal Medicine; Visit Provider Nurse Practitioner
DX: E11.9 Type 2 diabetes mellitus without complications (principal); E03.9 Hypothyroidism, unspecified
CPT/HCPCS: 36415; 80053; 83036; 84443; 85025

== ENCOUNTER 2023-08-01 07:59 | Outpatient (CLI) | payer MEDICARE, SELFPAY ==
--- NOTE | ~2023-08-01 | MMUS_ITS ---
MM post biopsy invasive RT, US breast biopsy RT w image EXAMINATION: US GUIDED NEEDLE BIOPSY WITH VACUUM ASSISTANCE DATE: 08/01/2023 09:54 CDT INDICATION: Right breast mass seen on prior examination. Ultrasound-guided core biopsy is requested to evaluate for malignancy. TECHNIQUE AND FINDINGS: The risks and potential benefits of the procedure were discussed with the patient, and written inform ed consent was obtained. After sterile preparation of the right breast, 1% lidocaine was utilized fo r local anesthesia. 1% lidocaine with epinephrine was used for deep anesthesia. A 10G vacuum-assisted biopsy gun needle was advanced through to the outer edge of the region of inter est from a lateral approach utilizing sonographic guidance. A total of 5 tissue core samples were ob tained through the lesion. An Inrad tissue marker clip was then placed at the biopsy site. Hemostasi s was achieved. The patient tolerated procedure well and there was no evidence of immediate complication. The patien t was given verbal instructions partly is from the department. Right breast mammograms to document t issue marker clip placement. The tissue samples were submitted to surgical pathology for histologic a nalysis. IMPRESSION: 1. Successful ultrasound-guided vacuum-assisted biopsy of left/right breast mass with tissue marker placement. Right the tissue marker is located approximately 5 mm from the mass along the posterior ma rgin. Please refer to pathology report for histologic analysis. Reviewed, dictated and finalized at location B. IMPRESSION: 1. Successful ultrasound-guided vacuum-assisted biopsy of left/right breast ma ss with tissue marker placement. Right the tissue marker is located approximate ly 5 mm from the mass along the posterior margin. Please refer to pathology rep ort for histologic analysis.
== END 2023-08-01 08:00 | disposition home or self-care (01) ==
PROVIDERS: PCP Internal Medicine; Visit Provider Nurse Practitioner
DX: R68.89 Other general symptoms and signs (principal); C50.911 Malignant neoplasm of unspecified site of right female breast; R92.8 Other abnormal and inconclusive findings on diagnostic imaging of breast
CPT/HCPCS: 19083; 88305; 88360; A4648

== ENCOUNTER 2023-08-15 09:37 | Outpatient (CLI) | payer MEDICARE, SELFPAY ==
--- NOTE | ~2023-08-15 | MM_ITS ---
EXAMINATION: MM_MAGSEEDRT_MG INDICATION: Right breast cancer TECHNIQUE: The procedure for a ultrasound -guided Magseed localization was discussed with the patient . Risks discussed included bleeding and infection. The patient verbalized understanding and agreed to proceed. The time out was performed to verify the patient's name, date of , and site of procedure. The s kin overlying the right breast was prepared in usual fashion. Utilizing mammographic guidance, the ne edle was advanced into the right breast. Confirmation of Magseed position was achieved with mammograp hy and subsequent mediolateral and craniocaudal mammogram. The patient tolerated procedure without im mediate complication. FINDINGS: Mammographic images demonstrate deployment of the Magseed device of the biopsy-proven right breast cancer. IMPRESSION: 1. Successful ultrasound-guided right breast Magseed localization. Reviewed, dictated and finalized at location B.
== END 2023-08-15 09:38 | disposition home or self-care (01) ==
PROVIDERS: PCP Nurse Practitioner; Visit Provider Surgery
DX: C50.911 Malignant neoplasm of unspecified site of right female breast (principal)
CPT/HCPCS: 19281; A4648

== ENCOUNTER 2023-08-21 12:15 | Outpatient (CLI) | payer MEDICARE, SELFPAY ==
--- NOTE | 2023-08-21 12:43 | ECG_ITS ---
SEE SCANNED COPY FOR CONFIRMED REPORT. MTDD
== END 2023-08-21 12:16 | disposition home or self-care (01) ==
PROVIDERS: PCP Nurse Practitioner; Visit Provider Surgery
DX: Z01.818 Encounter for other preprocedural examination (principal); I10 Essential (primary) hypertension
CPT/HCPCS: 93005

== ENCOUNTER 2023-08-27 00:56 | Day surgery (SDC) | payer MEDICARE, SELFPAY ==
--- NOTE | 2023-08-17 15:40 | PC.NURSE ---
Report to the Outpatient Waiting Room, entrance under the green pavilion located off [facility], at time __1000 on date 08/27/23 . Planned Procedure Time: _1200 . NUCLEAR MED AT 1115 Time changes happen often and if your time is changed the preop area will call you the afternoon before. - You and your visitor will be asked to self-screen and do not enter if you have any COVID symptoms. - A mask is optional within the hospital at this time. Patients may have clear liquids (water, carbonated beverages, clear teas, apple juice) until 3 hours prior to surgery ( 9:00 AM)with a maximum of 20 ounces. - No food from midnight until time of surgery - Infants may have breast milk until 4 hours before surgery, infant formula 6 hours prior to surgery. - Children will be allowed to drink immediately following surgery. If applicable, please bring a bottle or sippy cup to assist with drinking. Juice, water, soda, and popsicles are readily available. For infants on formula, please bring formula the day of surgery. Pacifiers are allowed. Take the following medications with a SIP of water the morning of surgery: __NONE DO NOT STOP ANY OF YOUR OTHER PRESCRIPTION MEDICATIONS PRIOR TO SURGERY ?EXCEPT THE FOLLOWING Medications to discontinue per physician ____HOLD ALL VITAMINS AND SUPPLEMENTS 3 DAYS PRE OP .LAST DOSE 08/23/23 . PT STATES LAST DOSE ASPIRIN WAS 08/07/23 Please no make-up, nail cameroonian, hairspray, perfume, deodorant, or body powder the day of surgery. No jewelry (including any body piercings) or valuables the day of surgery, leave them at home. Please take a shower or bath the night before, or the morning of, surgery with an antibacterial soap. Wear comfortable, loose fitting clothing. Children are encouraged to wear pajamas. - Jewelry must be removed prior to entering the operating room. Rings and piercings that are not removed may be cut off. - The hospital will not accept responsibility for valuables. - Please leave all valuables, including medications, at home the day of surgery. If you are going home after surgery, a licensed bulk delivery driver must drive you home. - NO public transportation without another adult if you receive anesthesia. - We recommend that an adult stay with you for 24 hours following discharge. - We also recommend that you do not drive, make important decision, drink alcoholic beverages, or take any drugs that were not prescribed by your health care provider for at least 24 hours after your discharge time. Follow any additional instructions given to you from your surgeon. If you or anyone in your household have experienced Covid symptoms in the past week, please notify your surgeon or the nurse liaison at the phone number below for possible testing. Telephone instructions given to __PATIENT and asked if any additional questions and then verbalized understanding. Patient advised to call surgeon office or pre surgery nurse liaison [phone] if any additional questions.
[2023-08-17 15:50] VITALS: BMI 29.0
[2023-08-27] VITALS (10 sets, daily range): BP systolic 143–182; BP diastolic 52–93; PULSE 59–80; RESP 12–18; TEMP 36.2–36.3; O2SAT 97–100
--- NOTE | ~2023-08-27 | NM_ITS ---
EXAMINATION: NM sentinel node inject only DATE: 08/27/2023 12:13 INDICATION: Right breast cancer TECHNIQUE: 0.998 mCi Tc-99m filtered sulfur colloid was injected in 4 aliquots in the anterior right breast near the areola. No images were obtained. IMPRESSION: 1. Right breast sentinel lymph node radiopharmaceutical injection. Reviewed, dictated and finalized at location A.
--- NOTE | ~2023-08-27 | MM_ITS ---
MM_FAXITRON_MG DATE: 08/27/2023 14:20 INDICATION: Specimen mammogram; invasive carcinoma at 10:00 4 cm from nipple TECHNIQUE: Single digital mammographic exposure of surgical soft tissue specimen COMPARISON: None FINDINGS: Irregular soft tissue mass, multiple calcifications and biopsy marker are present within th e surgical soft tissue specimen. IMPRESSION: Successful surgical excision of soft tissue mass and biopsy marker Reviewed, dictated and finalized at Location A. Reviewed, dictated and finalized at location A.
--- NOTE | 2023-08-27 10:57 | WPDANESEPPF ---
Anes - Initial Pre Proc Eval Procedure: Operation Date: 08/27/23 12:00 Proposed Procedures p Right Breast Lumpectomy with Mag Seed Localization, Right [place] Lymph Node Biopsy with Lymphoseek and Methylene Blue - Eli Pires MD Date/Time: 08/27/23 10:57 Surgeon: Eli Pires MD Pre Op Diagnosis: right breast CA Patient Data Age: 83 Gender: F Height: 1.49 m Weight: 63.4 kg Last Vital Signs Temp 97.3 F L 08/27/23 10:22 Pulse 73 08/27/23 10:22 Resp 18 08/27/23 10:22 BP 163/67 H 08/27/23 10:22 Pulse Ox 97 08/27/23 10:22 O2 Del Method Room Air 08/27/23 10:22 Allergies Allergy/AdvReac Type Severity Reaction Status Date / Time morphine Allergy Severe N/V Verified 08/27/23 10:32 adhesive Allergy Rash Verified 08/27/23 10:32 ARM AND HAMMER WITH OXYCLEAN Allergy Unknown HIVES ALL Uncoded 08/27/23 10:32 LAUNDRY SOAP OVER BODY Home Medications Medication Instructions Recorded Confirmed Type aspirin 81 mg tablet,delayed 81 mg PO DAILY #30 tabs 02/20/19 08/27/23 Rx release (Aspir-Low) calcium carbonate 600 mg PO DAILY #90 tabs 02/20/19 08/27/23 Rx cholecalciferol (vitamin D3) 25 1,000 unit PO DAILY #30 caps 02/20/19 08/27/23 Rx mcg (1,000 unit) capsule vitamin B complex (B 1 tablet PO DAILY #30 tabs 02/20/19 08/27/23 Rx Complex-Vitamin B12 tablet) blood sugar diagnostic (Blood #100 ea 02/21/19 08/16/23 Rx Glucose Test strips) ascorbic acid (vitamin C) 1,000 mg 3,000 mg PO DAILY #0 tabs 08/05/19 08/27/23 Rx tablet,extended release cinnamon bark 500 mg capsule 500 mg PO DAILY 12/30/19 08/27/23 History (Cinnamon) coenzyme Q10 10 mg capsule (Co 100 mg PO DAILY 12/30/19 08/17/23 History Q-10) clobetasol 0.05 % shampoo 0.05 ml topical DIRECTED 12/05/21 08/17/23 History fluticasone propionate 50 See Rx Instructions .Route 12/16/21 08/17/23 Rx mcg/actuation nasal .COMPLEX #48 mL spray,suspension celecoxib 200 mg capsule 200 mg PO DAILY PRN pain #90 caps 09/21/22 08/17/23 Rx olmesartan 20 mg tablet (Benicar) 20 mg PO DAILY #90 tabs 04/17/23 08/17/23 Rx omeprazole 40 mg capsule,delayed 40 mg PO DAILY #90 caps 05/21/23 08/17/23 Rx release ketoconazole 2 % topical cream 1 applic topical DAILY #60 grams 08/06/23 08/17/23 Rx ropinirole 0.5 mg tablet 1.5 mg PO QHS #270 tabs 08/06/23 08/17/23 Rx simvastatin 10 mg tablet 10 mg PO DAILY #90 tabs 08/06/23 08/17/23 Rx sumatriptan succinate 50 mg tablet See Rx Instructions PO .COMPLEX #9 08/06/23 08/17/23 Rx (Imitrex) tabs alprazolam 0.25 mg tablet (Xanax) 0.25 mg PO DAILY PRN anxiety #20 08/16/23 08/17/23 Rx tabs gabapentin 300 mg capsule 600 mg PO HS 08/17/23 08/17/23 History doxycycline hyclate 100 mg tablet 100 mg PO BID 7 days #14 tabs 08/21/23 Rx Patient hx anesthesia problems: post op nausea/vomiting Family hx anesthesia problems: none Results Review: All pre-operative results and documents have been reviewed as part of the pre-operative evaluation. [facility] Past Medical History Medical History Basal cell carcinoma CKD (chronic kidney disease) Prolapsed bladder Rectal vaginal fistula Restless legs syndrome Rotator cuff arthropathy Vitamin D deficiency Surgical History Surgical History H/O craniotomy (~03/2022) H/O toe surgery 11/2021 H/O: hysterectomy History of cholecystectomy Family History Family History Mother Hypertension Heart disease Father , age 92 No problems noted. Social History Social History (Updated 08/07/23 @ 13:14 by Cathleen Martinez [facility]) Social History: 2 cups of caffeine daily Smoking packs per day: 0 Smoking cigarettes per day: 0.0 Years smoked: 0 Smoking pack-years: 0.00 Smoking status: Never smoker Second hand tobacco smoke exposure: No Alcohol intake: curr
[2023-08-27] MEDS: LIDOCAINE/PRILOCAINE CREAM 2.5-2.5% TUBE 1 EACH TOPICAL (11:00)
[2023-08-27] MEDS: ACETAMINOPHEN 500 MG TABLET 1000 MG PO (11:05)
--- NOTE | 2023-08-27 11:10 | WPDHPUPDATE1 ---
History and Physical Update Update Date/Time: 08/27/23 11:10 - right breast lumpectomy with magseed localization and sentinel lymph node biopsy History and Physical has been reviewed, including an updated exam of the patient. There are NO changes in the patient's condition. Risks, benefits, and alternatives have been discussed and questions answered. Patient agrees to proceed with procedure.
[2023-08-27] MEDS: LACTATED RINGERS 1,000 ML 30 ML IV CONT ×3 (11:15→15:18)
--- NOTE | 2023-08-27 11:24 | SUR.PREOP ---
1123 PT TO NUCLEAR MED PER WHEELCHAIR
[2023-08-27] MEDS: ceFAZolin 2 GM/D5W 50 ML 2 GM/50 ML BAG IVPB (11:55)
[2023-08-27] MEDS: SODIUM CHLORIDE 0.9% IV 250 ML BAG 10 ML IRRIGATION (12:33)
[2023-08-27] MEDS: METHYLENE BLUE 0.5% INJ 10 ML AMPULE IRRIGATION (12:34)
[2023-08-27] MEDS: BUPIVACAINE/EPINEPHRINE 0.5% 50 ML VIAL 20 ML INFILTRATE (12:35)
--- NOTE | 2023-08-27 15:03 | W.PM.PROC2 ---
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 Right breast lumpectomy with Mag seed localization 2. Right axillary sentinel lymph node biopsy 3. Injection of methylene blue for sentinel lymph node mapping Surgeon Eli Pires MD Anesthesia General Description of Procedure Patient was identified in the pre-operative area and brought to the OR suite. She underwent tumor localization previously by IR with magseed placement and Lymphoseek injection by nuclear med for sentinel lymph node mapping. She was laid supine in the operating table and sequential compression devices were applied. General anesthesia was induced without difficulties. The right chest and right axilla were prepped and draped in a sterile fashion. The gamma probe was used to scan the axilla and a small incision was made overlying the area of highest radio activity. Dissection was carried down through the subcutaneous tissue and the clavipectoral fascia was encountered and opened. The gamma probe was again used to identify a lymph node that was high radio activity of approximately 171 count. This was carefully excised using the LigaSure device and sent to pathology of a fresh specimen. A 2nd lymph node was identified that appeared to be slightly nodular on exam and this was also excised and sent to pathology as the fresh specimen. The axilla was scanned and no other areas of radio activity were detected. The wound was irrigated with saline and hemostasis was assured. The clavipectoral fascia was approximated with a running 3-0 Vicryl. The deep dermal layer was then closed with interrupted 3-0 Vicryl followed by the skin with 4-0 Monocryl in a subcuticular fashion. Attention was then turned to the right breast. The sentimag probe was used to identify the area where the magseed was placed and a superior lateral curvilinear incision was made. Dissection was carried down through the subcutaneous tissue into the breast tissue. The tumor was identified with palpation and using sentimag probe, and a rim of normal breast tissue was excised along with the tumor as our lumpectomy specimen. Once the specimen was completely excised, it was oriented using surgical paint according to mapping engineer instructions. The specimen was placed in the faxitron and 2 radiographs were obtained and sent to Radiology for radiographic confirmation of Tumor, biopsy marker and magseed within the specimen. An additional posterior margin was excised and oriented with surgical paints and sent to pathology as a fresh specimen. Once the radiographic confirmation was received, the wound was irrigated with saline and hemostasis was assured. The deep dermal layer was approximated using interrupted 3-0 vicryl followed by 4-0 monocryl for the skin. Dermabond was applied followed by a surgical bra. Patient was awoken from anesthesia and taken to the recovery area in stable condition. All needles, instruments and sponge counts were correct as reported by the operating room staff. Patient tolerated the procedure well with no immediate complications. Estimated Blood Loss 20 Drains No Pathology Yes Complications No immediate complications Condition Stable Disposition PACU [facility] Billing Surgery - Charge Forward: Surgery Billing ( CPT 13952, [id number], [id number])
[2023-08-27] MEDS: fentaNYL CITRATE INJ (*CRX) 100 MCG/2 ML VIAL 25 MCG IV PUSH ×8 (15:34→16:38)
[2023-08-27] MEDS: traMADol HCL (*CRX) 50 MG TABLET PO (16:36)
== END 2023-08-27 18:14 | disposition home or self-care (01) ==
PROVIDERS: PCP Nurse Practitioner; Visit Provider Surgery
PROC: (CPT 19301; principal; 2023-08-27 12:00)
DX: C50.911 Malignant neoplasm of unspecified site of right female breast (principal); Z17.1 Estrogen receptor negative status [ER-]; D05.11 Intraductal carcinoma in situ of right breast; C77.3 Secondary and unspecified malignant neoplasm of axilla and upper limb lymph nodes; N18.9 Chronic kidney disease, unspecified; N81.10 Cystocele, unspecified; G25.81 Restless legs syndrome; E55.9 Vitamin D deficiency, unspecified; K60.4 Rectal fistula; Z79.51 Long term (current) use of inhaled steroids; Z98.890 Other specified postprocedural states; Z90.49 Acquired absence of other specified parts of digestive tract; Z85.828 Personal history of other malignant neoplasm of skin; Z82.49 Family history of ischemic heart disease and other diseases of the circulatory system
CPT/HCPCS: 19301; 38525; 38792; 76098; 88305; 88307; 93005; A9270; A9520; C1713; J0690; J1100; J2405; J2704; J3010; J7050; J7120; Q9968

== ENCOUNTER 2023-09-19 13:20 | Outpatient (CLI) | payer MEDICARE, SELFPAY ==
[2023-09-19 14:04] LABS: Prothrombin Time 13.4 Seconds (11.1-14.7)
[2023-09-19 14:11] LABS: Basophils Absolute Auto 0.1 K/mm3 (0.0-0.1); Basophils Percent Auto 0.7 % (0.2-1.2); Eosinophils Absolute Auto 0.4 K/mm3 (0-0.3); Eosinophils Percent Auto 3.9 % (0-4.4); Hematocrit 34.7 % (37.0-47.0); Hemoglobin 11.6 g/dL (12.0-15.0); Immature Granulocyte Absolute 0.04 K/mm3 (0.00-0.031); Immature Granulocyte Percent A 0.4 % (0-0.5); Lymphocytes Absolute Auto 2.43 K/mm3 (0.9-3.2); Lymphocytes Percent Auto 25.2 % (18.3-44.2); Mean Corpuscular HGB Conc 33.4 g/dl (32-36); Mean Corpuscular Hemoglobin 34.4 pg (26-34); Mean Platelet Volume 9.8 fl (7.4-10.4); Monocytes Absolute Auto 1.2 K/mm3 (0.1-0.6); Neutrophils Absolute Auto 5.6 K/mm3 (1.3-6.7); Neutrophils Percent Auto 57.8 % (45.5-73.1); Platelet Count Result 293 k/mm3 (150-375); Red Blood Count 3.37 M/mm3 (4.2-5.4); Red Cell Distribution Width 12.8 % (11.5-14.5); White Blood Count 9.6 K/mm3 (4.5-10.0)
== END 2023-09-19 13:21 | disposition home or self-care (01) ==
PROVIDERS: PCP Nurse Practitioner; Visit Provider Surgery
DX: Z01.812 Encounter for preprocedural laboratory examination (principal); C50.919 Malignant neoplasm of unspecified site of unspecified female breast
CPT/HCPCS: 36415; 85025; 85610; 85730

== ENCOUNTER 2023-09-24 00:34 | Day surgery (SDC) | payer MEDICARE, SELFPAY ==
--- NOTE | 2023-09-18 13:03 | PC.NURSE ---
PRE-OP INSTRUCTIONS, PLEASE READ CAREFULLY Report to the Outpatient Waiting Room, entrance under the green pavilion located off [facility], at time _0600_ on date _09/24/23_. Planned Procedure Time: _0730_. Time changes happen often and if your time is changed the preop area will call you the afternoon before. - You and your visitor will be asked to self-screen and do not enter if you have any COVID symptoms. - A mask is optional within the hospital at this time. Patients may have clear liquids (water, carbonated beverages, clear teas, apple juice) until 3 hours prior to surgery (0430 AM) with a maximum of 20 ounces. - No food from midnight until time of surgery Take the following medications with a SIP of water the morning of surgery: __CELECOXIB, GABAPENTIN, & ALPRAZOLAM, TRAMADOL IF NEEDED_ DO NOT STOP ANY OF YOUR OTHER PRESCRIPTION MEDICATIONS PRIOR TO SURGERY ?EXCEPT THE FOLLOWING Medications to discontinue per ANESTHESIA - _VITAMINS/SUPPLEMENTS 3 DAYS PRIOR TO SURGERY, Date to take last dose 09/20/23_ Please no make-up, nail uzbek, hairspray, perfume, deodorant, or body powder the day of surgery. No jewelry (including any body piercings) or valuables the day of surgery, leave them at home. Please take a shower or bath the night before, or the morning of, surgery with an antibacterial soap. Wear comfortable, loose fitting clothing. Children are encouraged to wear pajamas. - Jewelry must be removed prior to entering the operating room. Rings and piercings that are not removed may be cut off. - The hospital will not accept responsibility for valuables. - Please leave all valuables, including medications, at home the day of surgery. If you are going home after surgery, a licensed bellman driver must drive you home. - NO public transportation without another adult if you receive anesthesia. - We recommend that an adult stay with you for 24 hours following discharge. - We also recommend that you do not drive, make important decision, drink alcoholic beverages, or take any drugs that were not prescribed by your health care provider for at least 24 hours after your discharge time. Follow any additional instructions given to you from your surgeon. If you or anyone in your household have experienced Covid symptoms in the past week, please notify your surgeon or the nurse liaison at the phone number below for possible testing. Telephone instructions given to _PATIENT_and asked if any additional questions and then verbalized understanding. Patient advised to call surgeon office or pre surgery nurse liaison [phone] if any additional questions.
[2023-09-18 13:16] VITALS: BMI 29.2
[2023-09-24] VITALS (7 sets, daily range): BP systolic 131–171; BP diastolic 61–76; PULSE 74–97; RESP 12–18; TEMP 36.2–36.7; O2SAT 94–100
--- NOTE | ~2023-09-24 | XR_ITS ---
XR chest port-a-cath/central Ordering provider: Shruthi Bell MD History: 83 years Female with . POST INSERTION PARAM CATH . Comparison: March 14, 2021 FINDINGS: MEDIASTINUM: The cardiac silhouette is not enlarged. Left Port-A-Cath is noted with the tip overlying the superior vena cava. Slightly prominent leslye. LUNGS: No infiltrates, effusions or pneumothorax. OTHER: Degenerative changes of the spine. No free air under the diaphragm. IMPRESSION: No acute cardiopulmonary pathology. Reviewed, dictated and finalized at location A.
--- NOTE | ~2023-09-24 | XR_ITS ---
EXAMINATION: XR fl guide central line place DATE: 09/24/2023 08:19 INDICATION: Port catheter insertion TECHNIQUE: Fluoroscopic images of the upper chest were obtained during procedure performed by Dr. Ace wilcox. Radiologist was not present for the imaging or procedure. The amount of fluoroscopy time used dur ing this procedure was 0.5 minutes. COMPARISON: None. FINDINGS: Left subclavian central venous port catheter with distal tip projecting over the mid superi or vena cava. No evident pneumothorax although portions of the lungs are excluded from the field-of-v iew. IMPRESSION: 1. Tip of a left subclavian central venous port catheter in the midsuperior vena cava. Reviewed, dictated and finalized at location A. IMPRESSION: 1. Tip of a left subclavian central venous port catheter in the midsuperior jw a cava.
--- NOTE | 2023-09-24 07:16 | WPDANESEPPF ---
Anes - Initial Pre Proc Eval Procedure: Operation Date: 09/24/23 07:30 Proposed Procedures p Insertion Karuna Cath - Shruthi Bell MD Date/Time: 09/24/23 07:16 Surgeon: Shruthi Bell MD Pre Op Diagnosis: Malig Neoplasm Right Breast Patient Data Age: 83 Gender: F Height: 1.47 m Weight: 64.1 kg Last Vital Signs Temp 97.9 F 09/24/23 06:12 Pulse 74 09/24/23 06:12 Resp 18 09/24/23 06:12 BP 171/71 H 09/24/23 06:12 Pulse Ox 98 09/24/23 06:12 O2 Del Method Room Air 09/24/23 06:12 Allergies Allergy/AdvReac Type Severity Reaction Status Date / Time morphine Allergy Severe N/V Verified 09/24/23 06:39 adhesive Allergy Rash Verified 09/24/23 06:39 ARM AND HAMMER WITH OXYCLEAN Allergy Unknown HIVES ALL Uncoded 09/24/23 06:39 LAUNDRY SOAP OVER BODY Home Medications Medication Instructions Recorded Confirmed Type aspirin 81 mg tablet,delayed 81 mg PO DAILY #30 tabs 02/20/19 09/24/23 Rx release (Aspir-Low) calcium carbonate 600 mg PO DAILY #90 tabs 02/20/19 09/24/23 Rx cholecalciferol (vitamin D3) 25 1,000 unit PO DAILY #30 caps 02/20/19 09/24/23 Rx mcg (1,000 unit) capsule vitamin B complex (B 1 tablet PO DAILY #30 tabs 02/20/19 09/24/23 Rx Complex-Vitamin B12 tablet) blood sugar diagnostic (Blood #100 ea 02/21/19 09/24/23 Rx Glucose Test strips) ascorbic acid (vitamin C) 1,000 mg 3,000 mg PO DAILY #0 tabs 08/05/19 09/24/23 Rx tablet,extended release cinnamon bark 500 mg capsule 500 mg PO DAILY 12/30/19 09/24/23 History (Cinnamon) coenzyme Q10 10 mg capsule (Co 100 mg PO DAILY 12/30/19 09/24/23 History Q-10) clobetasol 0.05 % shampoo 0.05 ml topical DIRECTED 12/05/21 09/24/23 History fluticasone propionate 50 See Rx Instructions .Route 12/16/21 09/24/23 Rx mcg/actuation nasal .COMPLEX #48 mL spray,suspension celecoxib 200 mg capsule 200 mg PO DAILY PRN pain #90 caps 09/21/22 09/24/23 Rx omeprazole 40 mg capsule,delayed 40 mg PO DAILY #90 caps 05/21/23 09/24/23 Rx release ketoconazole 2 % topical cream 1 applic topical DAILY #60 grams 08/06/23 09/24/23 Rx ropinirole 0.5 mg tablet 1.5 mg PO QHS #270 tabs 08/06/23 09/24/23 Rx simvastatin 10 mg tablet 10 mg PO DAILY #90 tabs 08/06/23 09/24/23 Rx sumatriptan succinate 50 mg tablet See Rx Instructions PO .COMPLEX #9 08/06/23 09/24/23 Rx (Imitrex) tabs alprazolam 0.25 mg tablet (Xanax) 0.25 mg PO DAILY PRN anxiety #20 08/16/23 09/24/23 Rx tabs gabapentin 300 mg capsule 600 mg PO HS 08/17/23 09/24/23 History tramadol 50 mg tablet 50 mg PO Q6H PRN pain #6 tabs 08/27/23 09/24/23 Rx olmesartan 20 mg tablet (Benicar) 20 mg PO DAILY #90 tabs 09/21/23 09/24/23 Rx Patient hx anesthesia problems: none Family hx anesthesia problems: none Results Review: All pre-operative results and documents have been reviewed as part of the pre-operative evaluation. [facility] Past Medical History Medical History Basal cell carcinoma CKD (chronic kidney disease) Prolapsed bladder Rectal vaginal fistula Restless legs syndrome Rotator cuff arthropathy Vitamin D deficiency Surgical History Surgical History H/O craniotomy (~03/2022) H/O toe surgery 11/2021 H/O: hysterectomy History of cholecystectomy Family History Family History Mother Hypertension Heart disease Father , age 92 No problems noted. Social History Social History (Updated 08/07/23 @ 13:14 by Cathleen Martinez CMA) Social History: 2 cups of caffeine daily Smoking packs per day: 0 Smoking cigarettes per day: 0.0 Years smoked: 0 Smoking pack-years: 0.00 Smoking status: Never smoker Second hand tobacco smoke exposure: No Alcohol intake: never Alcohol use details: rarely Substance use: never Substance use type: does not use Do You Feel Safe in you
--- NOTE | 2023-09-24 07:21 | PM.IMHP ---
H&P: HPI History of Present Illness Date/Time: 09/24/23 07:21 Chief Complaint: Right breast cancer Narrative: The patient is an 83-year-old female presenting port placement for chemotherapy access. Patient recently with triple negative right breast cancer status post lumpectomy. The patient also noted to have 1 of 2 positive lymph nodes. The patient is no adjuvant chemo radiation. The patient denies any previous history central venous catheterization. Review of Systems Review of Systems: All systems reviewed & are unremarkable except as noted in HPI and below PMFSH Past Medical History Medical History Basal cell carcinoma CKD (chronic kidney disease) Prolapsed bladder Rectal vaginal fistula Restless legs syndrome Rotator cuff arthropathy Vitamin D deficiency Surgical History Surgical History H/O craniotomy (~03/2022) H/O toe surgery 11/2021 H/O: hysterectomy History of cholecystectomy Family History Family History Mother Hypertension Heart disease Father , age 92 No problems noted. Social History Social History Social History: 2 cups of caffeine daily Smoking packs per day: 0 Smoking cigarettes per day: 0.0 Years smoked: 0 Smoking pack-years: 0.00 Smoking status: Never smoker Second hand tobacco smoke exposure: No Alcohol intake: never Alcohol use details: rarely Substance use: never Substance use type: does not use Do You Feel Safe in your Home?: Yes Lack of Transportation: No Lack of Food: Never True Current Housing: I Do Not Have Housing Concerned About Future Housing: No Difficulty Paying Gas/Electric Bills: No Difficulty Paying for Meds: No Currently Unemployed: No Education: High School Diploma/GED Difficulty w/ Childcare or Family Care: No Living arrangements: with family Spiritual care concerns: No Meds Home Medications and Allergies Home Medications Medication Instructions Recorded Confirmed Type aspirin 81 mg tablet,delayed 81 mg PO DAILY #30 tabs 02/20/19 09/24/23 Rx release (Aspir-Low) calcium carbonate 600 mg PO DAILY #90 tabs 02/20/19 09/24/23 Rx cholecalciferol (vitamin D3) 25 1,000 unit PO DAILY #30 caps 02/20/19 09/24/23 Rx mcg (1,000 unit) capsule vitamin B complex (B 1 tablet PO DAILY #30 tabs 02/20/19 09/24/23 Rx Complex-Vitamin B12 tablet) blood sugar diagnostic (Blood #100 ea 02/21/19 09/24/23 Rx Glucose Test strips) ascorbic acid (vitamin C) 1,000 mg 3,000 mg PO DAILY #0 tabs 08/05/19 09/24/23 Rx tablet,extended release cinnamon bark 500 mg capsule 500 mg PO DAILY 12/30/19 09/24/23 History (Cinnamon) coenzyme Q10 10 mg capsule (Co 100 mg PO DAILY 12/30/19 09/24/23 History Q-10) clobetasol 0.05 % shampoo 0.05 ml topical DIRECTED 12/05/21 09/24/23 History fluticasone propionate 50 See Rx Instructions .Route 12/16/21 09/24/23 Rx mcg/actuation nasal .COMPLEX #48 mL spray,suspension celecoxib 200 mg capsule 200 mg PO DAILY PRN pain #90 caps 09/21/22 09/24/23 Rx omeprazole 40 mg capsule,delayed 40 mg PO DAILY #90 caps 05/21/23 09/24/23 Rx release ketoconazole 2 % topical cream 1 applic topical DAILY #60 grams 08/06/23 09/24/23 Rx ropinirole 0.5 mg tablet 1.5 mg PO QHS #270 tabs 08/06/23 09/24/23 Rx simvastatin 10 mg tablet 10 mg PO DAILY #90 tabs 08/06/23 09/24/23 Rx sumatriptan succinate 50 mg tablet See Rx Instructions PO .COMPLEX #9 08/06/23 09/24/23 Rx (Imitrex) tabs alprazolam 0.25 mg tablet (Xanax) 0.25 mg PO DAILY PRN anxiety #20 08/16/23 09/24/23 Rx tabs gabapentin 300 mg capsule 600 mg PO HS 08/17/23 09/24/23 History tramadol 50 mg tablet 50 mg PO Q6H PRN pain #6 tabs 08/27/23 09/24/23 Rx olmesartan 20 mg tablet (Benicar) 20 mg PO DAILY #90 tabs
--- NOTE | 2023-09-24 07:24 | WPDHPUPDATE1 ---
History and Physical Update Update Date/Time: 09/24/23 07:24 History and Physical has been reviewed, including an updated exam of the patient. There are NO changes in the patient's condition. Risks, benefits, and alternatives have been discussed and questions answered. Patient agrees to proceed with procedure.
[2023-09-24] MEDS: LACTATED RINGERS 1,000 ML 30 ML IV CONT (07:26)
[2023-09-24] MEDS: KETOROLAC 15 MG/ML VIAL (*BKC) IV PUSH (07:27)
[2023-09-24] MEDS: ceFAZolin 2 GM/D5W 50 ML 2 GM/50 ML BAG IVPB (07:37)
[2023-09-24] MEDS: HEPARIN SODIUM, PORCINE 10,000 UNITS/10 ML VIAL 10000 UNITS IRRIGATION (08:02)
[2023-09-24] MEDS: HEPARIN SODIUM 5,000 UNITS/ML VIAL 5000 UNITS IRRIGATION (08:03)
[2023-09-24] MEDS: BUPIVACAINE/EPINEPHRINE 0.5% 10 ML VIAL 20 ML INFILTRATE (08:04)
--- NOTE | 2023-09-24 09:04 | W.PM.PROC2 ---
Procedure Note - Detailed Date of Procedure 09/24/23 Pre-op Diagnosis right breast cancer Post-op Diagnosis Same Procedure Performed placement of left subclavian venous access device under fluoroscopic guidance Surgeon Shruthi Bell MD Anesthesia General and Local Indications 83 y/o F needing access for adjuvant chemotherapy for R breast cancer. Findings first stick L SCV Description of Procedure Patient was brought into the operating room and placed in the supine position. After adequate induction of general anesthesia, the patient was prepped and draped in normal sterile fashion. Time-out was then done to verify the patient's identity, as well as the procedure being performed. I began by making a small incision in the left chest, I then gained access into the left subclavian vein with an 18 gauge needle. I then placed the guidewire into the vein and confirmed placement via fluoroscopic guidance. I then locally anesthetized the area in the left chest. I then enlarged the incision around the guidewire including making a subcutaneous pocket inferiorly to allow placement of the port itself. I then placed a dilating sheath over the guidewire into the left subclavian vein via sterile Seldinger technique. This was once again done and confirmed via fluoroscopic guidance. I then removed the dilator and the guidewire, now just leaving the sheath in the vein. I then fed the previously flushed catheter into the left subclavian vein under fluoroscopic guidance. At approximately 20 cm, the catheter was noted to be near the atrial caval junction. I then peeled away the sheath, now just leaving the catheter in the vein. I then was able to easily draw and flush from the catheter. The catheter was cut to fit and attached to the port itself. The port was placed into the previously made subcutaneous pocket and sutured in with 0 Ethibond suture. Final fluoroscopic view showed the termination of the catheter at the atrial caval junction with a nice smooth curvature back to the port itself. I was able to gain access to the port with a Way needle and was able to easily draw and flush from the port. I then flushed 4 cc of a final heparin flush into the port. The incision was closed with 3 0 Vicryl suture in the subcutaneous tissue and the skin was closed with 4 O Monocryl subcuticular suture. Dermabond was then placed on wound. The patient tolerated the procedure well and will be sent to the recovery room in stable condition. Implants L SCV VAD Estimated Blood Loss 5 Drains No Packing No Pathology None sent Complications No immediate complications Condition Stable Disposition PACU [facility] Billing Surgery - Charge Forward: Surgery Billing
== END 2023-09-24 09:52 | disposition home or self-care (01) ==
PROVIDERS: PCP Nurse Practitioner; Visit Provider Surgery
PROC: (CPT 36561; principal; 2023-09-24 07:30)
DX: C50.911 Malignant neoplasm of unspecified site of right female breast (principal); E55.9 Vitamin D deficiency, unspecified; N18.9 Chronic kidney disease, unspecified; Z79.82 Long term (current) use of aspirin
CPT/HCPCS: 36561; 36415; 77001; 85025; 85610; 85730; C1788; J0690; J1100; J1596; J1644; J1885; J2405; J2704; J3010; J7030; J7040; J7120

== ENCOUNTER 2023-10-09 13:06 | Emergency (ER) | payer MEDICARE, SELFPAY ==
[2023-10-09 13:16] VITALS: BP 117/59; PULSE 87; RESP 20; TEMP 36.5; O2SAT 98
--- NOTE | 2023-10-09 13:44 | ED.SKABFB ---
HPI - Skin/Abscess/Foreign Bdy General Chief complaint: Skin/Abscess/Foreign Body Stated complaint: SORE ON GROIN AREA Source: patient Mode of arrival: ambulatory Limitations: no limitations History of Present Illness HPI narrative: 83-year-old female with a history of right breast cancer presented for complaint rash to the left groin over the last 2 weeks. She states the rash has been itchy and over the past 2 days has started to bleed when she is cleansed it. She was prescribed ketoconazole by PCP but reports minimal improvement. Also using Ivory soap and applying a gauze to the site. Denies lip, tongue, or throat swelling, shortness of breath or wheezing. Denies changes to soap, detergent, lotion, or any other exposures. No one else in the house or any contacts with similar symptoms. Related Data Home Medications Medication Instructions Recorded Confirmed cinnamon bark 500 mg capsule 500 mg PO DAILY 12/30/19 10/01/23 (Cinnamon) coenzyme Q10 10 mg capsule (Co 100 mg PO DAILY 12/30/19 10/01/23 Q-10) clobetasol 0.05 % shampoo 0.05 ml topical DIRECTED 12/05/21 10/01/23 gabapentin 300 mg capsule 600 mg PO HS 08/17/23 10/01/23 Allergies Allergy/AdvReac Type Severity Reaction Status Date / Time morphine Allergy Severe N/V Verified 10/08/23 14:52 adhesive Allergy Rash Verified 10/08/23 14:52 ARM AND HAMMER WITH OXYCLEAN Allergy Unknown HIVES ALL Uncoded 10/08/23 14:52 LAUNDRY SOAP OVER BODY Review of Systems Review of Systems: CONSTITUTIONAL: Denies body aches, fever, chills, or sweats. EYES: Denies visual changes, redness, or discharge. ENT: Denies rhinorrhea, congestion CARDIOVASCULAR: Denies chest pain, palpitations, or edema. RESPIRATORY: Denies cough or dyspnea. GASTROINTESTINAL: Denies abdominal pain, nausea, vomiting, or diarrhea. SKIN: reports rash left groing MUSCULOSKELETAL: Denies back pain, joint pain, or myalgia. NEUROLOGIC: Denies headache, numbness, tingling, or weakness. [facility] Past Medical History Medical History (Updated 10/09/23 @ 13:58 by Wendy Higgins, EQUAL OPPORTUNITY REPRESENTATIVE) Basal cell carcinoma CKD (chronic kidney disease) Prolapsed bladder Rectal vaginal fistula Restless legs syndrome Rotator cuff arthropathy Triple negative malignant neoplasm of breast Vitamin D deficiency Surgical History Surgical History H/O craniotomy (~03/2022) H/O toe surgery 11/2021 H/O: hysterectomy History of cholecystectomy Family History Family History Mother Hypertension Heart disease Father , age 92 No problems noted. Social History Social History Social History: 2 cups of caffeine daily Smoking packs per day: 0 Smoking cigarettes per day: 0.0 Years smoked: 0 Smoking pack-years: 0.00 Smoking status: Never smoker Second hand tobacco smoke exposure: No Alcohol intake: never Alcohol use details: rarely Substance use: never Substance use type: does not use Do You Feel Safe in your Home?: Yes Lack of Transportation: No Lack of Food: Never True Current Housing: I Do Not Have Housing Concerned About Future Housing: No Difficulty Paying Gas/Electric Bills: No Difficulty Paying for Meds: No Currently Unemployed: No Education: High School Diploma/GED Difficulty w/ Childcare or Family Care: No Living arrangements: with family Spiritual care concerns: No Comments At time of signature, I have reviewed and agree with nursing past medical, surgical, social and family history unless otherwise noted. Please see nursing chart for further information. There is no relevant family history pertinent to the presenting complaint Exam Narrative: GENERAL: Well-appearing ENT: Mucous membranes moist. Oropharynx without edema, erythema or lesions. CHEST: Clear to auscultation.
== END 2023-10-09 13:57 | disposition home or self-care (01) ==
PROVIDERS: Emergency Provider Nurse Practitioner Family; PCP Nurse Practitioner
DX: B37.2 Candidiasis of skin and nail (principal); G25.81 Restless legs syndrome; N28.9 Disorder of kidney and ureter, unspecified; Z85.828 Personal history of other malignant neoplasm of skin; Z85.3 Personal history of malignant neoplasm of breast
CPT/HCPCS: 99213; G0463

== ENCOUNTER 2023-12-13 13:02 | Outpatient (CLI) | payer MEDICARE, SELFPAY | END 2023-12-13 13:03 | disposition home or self-care (01) | LOC: ANHAUDIO 13:02 | PROVIDERS: PCP Nurse Practitioner; Visit Provider Otolaryngology | DX: H90.6 Mixed conductive and sensorineural hearing loss, bilateral (principal); H74.02 Tympanosclerosis, left ear; M26.622 Arthralgia of left temporomandibular joint; H93.13 Tinnitus, bilateral; H72.92 Unspecified perforation of tympanic membrane, left ear | CPT/HCPCS: 92557; 92567 ==

== ENCOUNTER 2024-05-22 17:16 | Outpatient (NON) | payer MEDICARE, SELFPAY ==
--- OUTSIDE RECORDS SUMMARY | 2024-05-22 17:21 | XMS_ITS | Continuity of Care Document ---
Author Organization [facility] Address [address] [place] [address] Phone Care Team Providers Care Electrical Installation Inspector Name Role Phone Doser Mason ELDRIDGE Unavailable Unavailable Allergies, Adverse Reactions, Alerts Substance Reaction Status Criticality morphine Other Active No Information Medications Medication Instructions Dosage Effective Dates (start - stop) Status Comments [place] 5 mg-325 mg tablet take 1 tablet by oral route every 6 hours as needed for pain for Pain - Active Celebrex 50 mg capsule - Active Procedures Procedure Date X-ray exam foot, minimum 3 views 2021 Global/Postop followup visit Foot insert, Removable, Molded T Patient Model, ucb Type, shona shell Foot insert, Removable, Molded T Patient Model, ucb Type, shona shell Global/Postop followup visit Foot/Ankle Carbon Fiber Insert X-ray exam foot, minimum 3 views 2021 Global/Postop followup visit Post Op Shoe Hammertoe Correction Incision of toe flexor tendon X-ray exam foot, minimum 3 views 2021 [facility]patient visit,[facility] [place] 2021 Advance Directives Directive Yes / No Effective Date File Name No Information Encounters Encounter Description Practice Location Reason(s) For Visit Diagnoses Date Provider Providers Copied on Encounter [facility] [employer] [facility] [employer], [address], [place], [place], [address], [place] tel:[phone] [facility] [employer] [facility] worm picker orthotics (chief complaint) No Information 2 2 Doser Mason. [address], [address], [place], [place], [id number] , [place]. tel: [phone] Referring Provider: Mason Cardona, [address] [facility] [address], [place], [address] . tel:[phone] [facility], [address], [place], [place], [address], [place] tel:[phone] [facility] [employer] [facility] No Information 0 2 Doser Mason. [address] [facility], [address], [place], [place], [address] , [place]. tel:[phone] [facility] [employer] [facility], [address] [place] [address], [place], [place], [address], [place] tel:[phone] [facility] [employer] [facility] Pain in left footOther acquired hammer toes of left foot Aug-0 2 Doser Mason. [address] [facility], [address], [place], [place], [address] , [place]. tel: [phone] Referring Provider: Mason Cardona, [address] [facility] [address], [place], [address] . tel:[phone] [facility], [address] [place] [address], [place], [place], [address], [place] tel:[phone] [facility] No Information 0 2 Doser Mason. [address] [facility], [address], [place], [place], [address] , [place]. tel:[phone] Referring Provider: Mason Cardona, [address] [facility] [address], [place], [address] . tel:[phone] [facility], [address] [place] [address], [place], [place], [address], [place] tel:[phone] [facility] Other acquired hammer toes of left footPain in left foot 2 Doser Mason. [address] [facility], [place] [address], [place], [place], [address] , [place]. tel:[phone] Referring Provider: Mason Cardona, [facility] [facility] [address] [facility], [place], [address] . tel:[phone] [facility], [address] [address], [place], [place], [address], [place] tel:[phone] [facility] Follow Up of left foot sx 09/26/21 (chief complaint) Pain in left footOther acquired hammer toes of left foot 2 Doser Mason. [address] [place] [address], [place] [address], [place], [place], [address] , [place]. tel:[phone] Referring Provider: Mason Cardona, [address] [place] [address] [address] [facility], [place], [address] . tel:[phone] [facility], [facility] [place] [address], [place], [place], [address], [place] tel:[phone] [facility] Pain in left foot 2 Doser Mason. [address] [place] [address], [facility], [place], [place], [address] , [place]. tel:[phone] Referring Provider: Mason Cardona, [address] [facility] [address], [place], [address] . tel:[phone] [facility], [address] [address], [place], [place], [address], [place] tel:[phone] [facility] No Information 2 Doser Mason. [address] [place] [address], [place] [address], [place], [place], [address] , [place]. tel:[phone] Referring Provider: Mason Cardona, [address] [place] [address] [address], [place], [address] . tel:[phone] Office/outpat ient visit,new, mod [facility], [address], [place], [place], [address], tel:[phone] [facility] Toes (chief complaint) Pain in left footOther acquired hammer toes of left foot Mike Cuevas. [address] [facility], [address], [place], [place], [address] , . tel:[phone] Referring Provider: Mason Cardona, [address] [facility] [address], [place], [address] . tel:[phone] Family History Family Member Type Diagnosis Age At Onset Brother Problem (finding) Gout Mother Problem (finding) Osteoarthritis Mother Problem (finding) Hypertension Father Problem (finding) Gout Mother Problem (finding) Heart Disease Father Problem (finding) Osteoarthritis Brother Problem (finding) Hypertension Payers Payer name Insurance type Covered green party ID Mary nelson(s) [employer] Medicare CI [id number] Social History Type Description Quantity Date Captured Comments Alcohol Use Details Unknown Caffeine Use Details Unknown Tobacco Use Status Current non-smoker Smoking Status Never smoker Sex Female Chief Complaint And Reason For Visit From encounter dated '12/06/2021 13:25'. worm picker orthotics (chief complaint) Reason For Referral Reason For Referral No Information Plan Of Treatment Date Type Action Status Referral Ordered: X-ray exam foot, minimum 3 views LT ordered History Of Present Illness Encounter Date Complaint History Of Prese nt Illness worm picker orthotics Follow Up of left foot sx 2 Toes Functional Status Date Functional Assessmen t No Information Instructions Date Instruction Additional Infor mation No Information Assessments Type Assessment Date No Information Patient Care Teams Name Effective Dates (start - stop) Status Members No Information
--- OUTSIDE RECORDS SUMMARY | 2024-05-22 17:21 | XMS_ITS | Encounter Summary ---
Author Organization [facility] Address [address] [facility] [place] [address] Care Team Providers Care Airline Counter Agent Name Role Phone Robert Celis MD Primary Care Provider [phone] Encounter Details Date Type Department Care Team (Late st Contact Info) Description 02/11/2014 [facility] Visit EXTERNAL NON-[facility] DEPT David Cuevas MD Social History Tobacco Use Types Packs/Day Years Used Date Smoking Tobacco: Never Smokeless Tobacco: Never Alcohol Use Standard Drinks/Week Comments Yes 0 (1 standard drink = 0.6 oz pur e alcohol) couple times a year Sex and Gender Information Value Date Recorded Sex Assigned at Not on file Gender Identity Not on file Sexual Orientation Not on file documented as of this encounter Plan of Treatment Not on file documented as of this encounter Visit Diagnoses Not on filedocumented in this encounter Care Teams Airline Counter Agent Relationship Specialty Start Date End Date Robert Celis MD [address] [place] [address] PCP - General Internal Medicine 09/13/12 documented as of this encounter
--- OUTSIDE RECORDS SUMMARY | 2024-05-22 17:21 | XMS_ITS | Referral Summary ---
Author Organization [facility] Address [address] [place] [address] Care Team Providers Care Softball Coach Name Role Phone Robert Celis MD Primary Care Provider [phone] Source Comments [facility],non-[facility] Affiliates and Associated Physician Practices is amultiple site organization consisting of ambulatory clinics and hospital sitesin [place], [place], [place] and [place]. This disclosure is being madepursuant to the Care Everywhere program and may not contain all information available regarding this patient. Last updated 18.[facility] Allergies Active Allergy Reactions Criticality Noted Date Comments Metformin Diarrhea 02/02/2014 Trazodone Dizziness 08/04/2013 Medications * Be aware that medications may not be up to date on this document. Alwaysverify current medications with the patient. Medication Sig Dispensed Refills Start Date End Date Status omeprazole (PRILOSEC) 20 MG capsule Take 20 mg by mouth daily before breakfast. Active potassium chloride (KLOR-CON) 20 MEQ packet Take 20 mEq by mouth once daily. Active Loratadine (CLARITIN) 10 MG CAPS Take by mouth. Active rosuvastatin (CRESTOR) 10 MG tablet Take 10 mg by mouth once daily. Active carbidopa-levodopa (SINEMET) 25-100 MG tablet Take 1 Tab by mouth once daily. Active vitamin B-12 (CYANOCOBALAMIN) 1000 MCG tablet Take 1,000 mcg by mouth once daily. Active olmesartan (BENICAR) 20 MG tablet Take 20 mg by mouth once daily. Active aspirin 81 MG tablet Take 81 mg by mouth once daily. Active clonazePAM (KLONOPIN) 1 MG tablet Take 1 mg by mouth 3 times daily as needed. Active Cholecalciferol (VITAMIN D-3 PO) Take by mouth. Acti ve linagliptin (TRADJENTA) 5 MG tablet Take 5 mg by mouth once daily. Active gabapentin (NEURONTIN) 100 MG capsuleIndications :Insomnia Take 1-3 Caps by mouth at bedtime. 90 Cap 12 02/02/2014 Active calcium carbonate (TUMS) 500 MG chew tabletIndications: Osteopenia Take 1 Tab by mouth 2 times daily with morning and evening meal. 90 Tab 0 02/02/2014 Active acetaminophen (TYLENOL) 500 MG tabletIndications: RA (rheumatoid arthritis) ([facility]) Take 2 Tabs by mouth 3 times daily. Maximum allowable Acetaminophen amount = 4 Grams (4000 mg) / 24 hours. 02/02/2014 Active celecoxib (CELEBREX) 200 MG capsuleIndications :RA (rheumatoid arthritis) (HCC) Take 1 Cap by mouth once daily. For 7 days for flare ups of arthritis 90 Cap 2 02/02/2014 Active folic acid (FOLVITE) 1 MG tabletIndications: RA (rheumatoid arthritis) (HCC) Take 1 Tab by mouth once daily. 90 Tab 3 02/02/2014 Active predniSONE (DELTASONE) 2.5 MG tabletIndications: RA (rheumatoid arthritis) (HCC) Take 1-2 Tabs by mouth once daily. 60 Tab 12 05/06/2014 Active methotrexate 2.5 MG tabletIndications: RA (rheumatoid arthritis) (HCC) Take 8 Tabs by mouth every 7 days before meal. 96 Tab 3 05/06/2014 Active Additional Information Patient not taking.Reported on 08/01/2017 Tuberculin-Allergy Syringes 25G X 5/8 1 ML MISCIndications:RA (rheumatoid arthritis) ([facility]) Inject 1 mL subcutaneously every 7 days. 4 Each 11 08/11/2014 Active methotrexate 25 MG/ML injectionIndicatio ns:RA (rheumatoid arthritis) ([facility]) Inject 1 mL subcutaneously every 7 days. 6 mL 12 08/11/2014 Active Additional Information Patient not taking.Reported on 08/01/2017 ciprofloxacin-dexa methasone (CIPRODEX) 0.3-0.1 % otic suspensionIndicati ons:Other infective acute otitis externa of left ear Instill 4 Drops into both ears 2 times daily Shake well before using. 7.5 mL 02/19/2016 Active naproxen (NAPROSYN) 500 MG tabletIndications: Right shoulder pain, unspecified chronicity Take 1 tablet by mouth 2 times daily 60 tablet 1 08/01/2017 Active Active Problems Problem Noted Date Diagnosed Date High risk medications (not anticoagulants) long- term use 02/03/2013 Overview (02/03/2013): 02/03/2013 CBC and CMP every three to 6 months. RA (rheumatoid arthritis) 10/04/2012 Overview (02/03/2013): 12/05/2012 starting MTX and using celebrex daily 02/03/2013 tolerates MTX well Flared yesterday starting Celebrex Has been on MTX for several weeks. Hand pain 10/04/2012 Overview (02/03/2013): 02/03/2013 combined features of DJD and RA Social History Tobacco Use Types Packs/Day Years Used Date Smoking Tobacco: Never Smokeless Tobacco: Never Alcohol Use Standard Drinks/Week Comments Yes 0 (1 standard drink = 0.6 oz pur e alcohol) couple times a year Sex and Gender Information Value Date Recorded Sex Assigned at Not on file Gender Identity Not on file Sexual Orientation Not on file Last Filed Vital Signs Vital Sign Reading Time Taken Comments Blood Pressure 111/71 08/01/2017 9:58 AM CDT Pulse 68 08/01/2017 9:58 AM CDT Temperature 36.2 C (97.1 F) 08/01/2017 9:58 AM CDT Respiratory Rate 16 02/19/2016 10:52 AM CDT Oxygen Saturation - - Inhaled Oxygen Concentration - - Weight 69.7 kg (153 lb 9.6 oz) 08/01/2017 9:58 A M CDT Height 149.9 cm (4' 11 ) 08/01/2017 9:58 AM CDT Body Mass Index 31.02 08/01/2017 9:58 AM CDT Plan of Treatment Not on file Insurance Payer Benefit Plan / Group Subscriber ID Effective Dates Phone Address Type AETNA MEDICARE ADV AETNA MEDICARE ADV HMO/PPO/PFFS [id number] Effective for all dates [address] [place] [address] Medicare -Managed Care SELF PAY NO INSURANCE SELF PAY NO INSURANCE Effective for all dates [facility] [place] Self Pay AETNA MEDICARE ADV AETNA MEDICARE ADV HMO/PPO/PFFS [id number] Effective for all dates [address] [place] [address] Medicare -Managed Care SELF PAY NO INSURANCE SELF PAY NO INSURANCE Effective for all dates [place] Self Pay AETNA MEDICARE ADV AETNA MEDICARE ADV HMO/PPO/PFFS [id number] Effective for all dates [address] [place] [address] Medicare -Managed Care SELF PAY NO INSURANCE SELF PAY NO INSURANCE Effective for all dates [place] Self Pay A[place] MEDICARE ADV AETNA MEDICARE ADV HMO/PPO/PFFS [id number] Effective for all dates [address] [place] [address] Medicare -Managed Care SELF PAY NO INSURANCE SELF PAY NO INSURANCE Effective for all dates [place] Self Pay A[place] MEDICARE ADV AETNA MEDICARE ADV HMO/PPO/PFFS [id number] Effective for all dates [address] [place] [address] Medicare -Managed Care SELF PAY NO INSURANCE SELF PAY NO INSURANCE Effective for all dates [facility] Self Pay AET[place] MEDICARE ADV AETNA MEDICARE ADV HMO/PPO/PFFS [id number] Effective for all dates [address] [place] [address] Medicare -Managed Care SELF PAY NO INSURANCE SELF PAY NO INSURANCE Effective for all dates [facility] [place] Self Pay AET[place] AETNA PPO/POS/OA [id number] 11/27/2019-Pres ent [address] [place] [address] PPO AETNA AETNA MEDICARE ADV HMO [id number] 08/22/2016-Prese nt [address] [place] [address] Medicare -Managed Care Care Teams Softball Coach Relationship Specialty Start Date End Date Robert Celis MD [address] [place] [address] PCP - General Internal Medicine 09/13/12
--- OUTSIDE RECORDS SUMMARY | 2024-05-22 17:21 | XMS_ITS | Encounter Summary ---
Author Organization [facility] Address 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 Contact Info) Description 04/03/2022 Telephone [facility] Admitting [address] [place] [address] Anthony Mendoza MD [address] [place] [phone] Post op (Spoke w/Grace at Dr. Melvin'kalyn exchange/COIN MACHINE COLLECTOR Franky fire prevention specialist) Social History Tobacco Use Types Packs/Day Years Used Date Smoking Tobacco: Never Smokeless Tobacco: Never Alcohol Use Standard Drinks/Week Comments Yes 1 (1 standard drink = 0.6 oz pur e alcohol) occ Comments No Sex and Gender Information Value Date Recorded Sex Assigned at Not on file Legal Sex Female 10:53 AM CDT Gender Identity Not on file Sexual Orientation Not on file COVID-19 Exposure Response Date Recorded In the last 10 days, have yo u been in contact with someone who was confirmed or suspected to have Coronavirus/COVID-19? No / Unsure 04/03/2022 8:20 AM STRIPPER OPAQUER documented as of this encounter Plan of Treatment Upcoming Encounters Date Type Department Care Team ([facility] Contact Info) Description 06/11/2024 1:00 PM STRIPPER OPAQUER Office Visit [facility] Oncology and Hematology - [place] [address] [place] [phone] Kwadwo Barrios MD [address] [facility] [address] [place] [address] documented as of this encounter Visit Diagnoses Not on filedocumented in this encounter Additional Health Concerns Infection Onset Date Last Indicated Resolved Time R/O COVID-19 04/05/2022 04/05/2022 04/05/2022 1:59 PM STRIPPER OPAQUER documented as of this encounter Care Teams Corporate Sales Trainer Relationship Specialty Start Date End Date Atif Cartagena DO [address] [facility] [address] [place] [address] PCP - General Internal Medicine 03/15/22 documented as of this encounter
--- OUTSIDE RECORDS SUMMARY | 2024-05-22 17:21 | XMS_ITS | Clinical Summary ---
Author Organization [facility] Address [address] [place] [address] Care Team Providers Care Youth Coordinator Name Role Phone UrmilaAtif waldron Christiano Primary Care Provider Allergies Active Allergy Reactions Criticality Noted Date Comments Metformin Diarrhea Low 02/02/2014 Morphine Nausea and Vomiting Low 09/27/2020 Trazodone Dizziness Low 08/04/2013 Medications ONETOUCH ULTRA BLUE TEST STRIP Strip USE ONE TIME DAILY 0 9 Active calcium as carbonate (CALCI-CHEW) 1,250 mg (500 mg elemental) Tablet, Chewable Take 1 Tablet by mouth 1 time daily as needed. 4 Active celecoxib (CeleBREX) 200 mg capsule Take 200 mg by mouth daily. 9 Active cholecalcifero l, Vitamin D3, (VITAMIN D3) 1,000 unit Capsule Take 4,000 Units by mouth daily. Active clobetasol (TEMOVATE) 0.05 % Solution Apply to affected area every 7 days. Weekly prn to scalp Active cyanocobalamin 1,000 mcg Tablet Take 1,000 mcg by mouth daily. Active fluticasone propionate (FLONASE) 50 mcg/spray [place], Suspension nasal inhaler Administer 1 [place] in each nostril 1 time daily as needed. 9 Active hydroCHLOROthi azide (HYDRODIURIL) 12.5 mg tablet Take 12.5 mg by mouth every 7 days. Active ketoconazole (NIZORAL) 2 % Shampoo Apply to affected area every 7 days. Prn to scalp 3 9 Active olmesartan (BENICAR) 20 mg tablet Take 20 mg by mouth daily at bedtime. 9 Active omeprazole (PriLOSEC) 40 mg Capsule, Delayed Release(E.C.) Take 40 mg by mouth daily. 9 Active aspirin (ECOTRIN EC) 81 mg Tablet, Delayed Release (E.C.) Take 81 mg by mouth daily. Active GABAPENTIN ORAL Take 200 mg by mouth daily at bedtime. Active docusate sodium (COLACE) 100 mg capsule Take 1 Capsule (100 mg) by mouth 2 times daily. 60 Capsule 04/07/2022 1:21 PM VICTIMS ADVOCATE CLERK/SPECIALIST 2 Active simvastatin (ZOCOR) 10 mg tablet Take 10 mg by mouth daily. 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 30 Gram 1 4 Active dexAMETHasone (DECADRON) 2 mg tablet Take 1 Tablet by mouth BID day before treatment, day of treatment, and day after treatment. 6 Tablet 3 4 Active mometasone (ELOCON) 0.1 % Cream Apply to affected area daily. 45 Gram 3 4 Active Active Problems Problem Noted Date Diagnosed Date Chronic low back pain 04/07/2022 Type 2 diabetes mellitus with hyperglycemia 03/17 Trigger point 11/25/2018 Abnormal ultrasound of breast 10/15/2018 Nipple tenderness 10/02/2018 Mastodynia of left breast 10/02/2018 Other signs and symptoms in breast 10/02/2018 Encounters Date Type Department Care Team Description 05/09/2024 Orders Only [facility] Oncology and Hematology - [place] [address] [place] [phone] Kwadwo Barrios MD 05/08/2024 External Device Data ST[facility] ABSTRACTION Provider, Abstract 05/08/2024 Orders Only [facility] Oncology and Hematology - [place] [address] Kwadwo Barrios MD 04/28/[address] [facility] Oncology and Hematology - [place] [address] [place] [phone] Kwadwo Barrios MD Malignant neoplasm of upper-outer quadrant of right breast in female, estrogen receptor negative (CMS/HCC) 04/14/[address] [facility] Oncology and Hematology - [place] [address] [place] [phone] Kwadwo Barrios MD Malignant neoplasm of upper-outer quadrant of right breast in female, estrogen receptor negative (CMS/HCC) 03/31/[address] [facility] Oncology and Hematology - [place] [address] [place] [phone] Kwadwo Barrios MD Malignant neoplasm of upper-outer quadrant of right breast in female, estrogen receptor negative (CMS/HCC) 03/17/[address] [facility] Oncology and [facility]ematology - [place] [address] [place] [id number] Kwadwo Barrios MD Malignant neoplasm of upper-outer quadrant of right breast in female, estrogen receptor negative (CMS/HCC) 03/03/[address] [facility] Oncology and Hematology - [place] [address] [place] [phone] Kwadwo Barrios MD Malignant neoplasm of upper-outer quadrant of right breast in female, estrogen receptor negative (CMS/HCC) from Last 3 Months Family History Medical History Relation Name Comments No Known Problems Brother No Known Problems Child 1 No Known Problems Child 2 No Known Problems Father Arthritis-osteo Maternal Grandmother No Known Problems Mother Relation Name Status Comments Brother Alive Child 1 Alive Child 2 Alive Father Maternal Grandmother Mother Social History Tobacco Use Types Packs/Day Years Used Date Smoking Tobacco: Never Smokeless Tobacco: Never Tobacco Cessation:Counseling Given: Not Answered Alcohol Use Standard Drinks/Week Comments Yes 1 (1 standard drink = 0.6 oz pur e alcohol) occ Comments No Sex and Gender Information Value Date Recorded Sex Assigned at Not on file Legal Sex Female 10:53 AM CDT Gender Identity Not on file Sexual Orientation Not on file Last Filed Vital Signs Vital Sign Reading Time Taken Comments Blood Pressure 136/69 02/05/2024 11:41 AM CDT Pulse 80 02/05/2024 11:41 AM CDT Temperature 36.9 C (98.4 F) 02/05/2024 11:41 AM CDT Respiratory Rate 16 02/05/2024 11:41 AM CDT Oxygen Saturation 95% 02/05/2024 11:41 AM CDT Inhaled Oxygen Concentration - - Weight 60.1 kg (132 lb 9.6 oz) 02/05/2024 11:41 AM CDT Height 149.9 cm (4' 11 ) 08/08/2023 3:01 PM CDT Body Mass Index 26.78 08/08/2023 3:01 PM CDT Plan of Treatment Upcoming Encounters Date Type Department Care Team (Late st Contact Info) Description 06/11/2024 1:00 PM VICTIMS ADVOCATE CLERK/SPECIALIST Office Visit [facility] Oncology and Hematology - [place] [address] [facility] [address] [place] [address] Kwadwo Barrios MD [address] [facility] [address] [place] [address] Health Maintenance Due Date Last Done Comments DIABETES ANNUAL FOOT EXAM 1958 DIABETES ANNUAL RETINAL EXAM 1956 DIABETES MICROALBUMIN ANNUAL SCREEN 1956 LDL CHOLESTEROL ANNUAL 1956 DTAP/TDAP/TD VACCINES (1 - Tdap) 1957 PNEUMOCOCCAL VACCINE 65+ YEARS (1 of 2 - PCV) 05/22/18 58 ZOSTER VACCINE (1 of 2) 1988 OSTEOPOROSIS SCREENING 2003 RSV VACCINE (60+ or ) (1 - 1-dose 75+ series) 2013 DIABETES HBA1C Q 6 MONTHS 10/03/2022 04/04/2022 INFLUENZA VACCINE (#1) 2023 Medicare [place] ([place] Prev entative Visit/Annual Wellness Visit 04/16/2024 Medical Devices Implanted Type Area Tool Repairer Bench Device Identifier Shelf Expiration Date Model / Serial / Lot Hemostatic Surgiflo 8ml W/ Thrombin 2994 - [id number] Implanted:Qty : 1 on 04/03/2022 by Anthony Mendoza MD at [facility] Hemostatic N/A: Spine Cervical Posterior [employer] 05/16/2023 [id number] / / [id number] Procedures Procedure Name Priority Date/Time Associated Diagnosis Comments CANCER ANTIGEN 15-3 Routine 05/07/2024 4 :21 PM VICTIMS ADVOCATE CLERK/SPECIALIST COMPREHENSIVE METABOLIC PANEL Routine 05/07/2024 2:00 PM VICTIMS ADVOCATE CLERK/SPECIALIST HEMOGLOBIN A1C Routine 04/04/2022 4:18 AM VICTIMS ADVOCATE CLERK/SPECIALIST from Last 3 Months or Most Recently Relevant to Health Maintenance Results * CANCER ANTIGEN 15-3 (05/07/2024 4:21 PM VICTIMS ADVOCATE CLERK/SPECIALIST) Blood us Kwadwo Barrios MD CHEMISTRY ORDERABLES Final Resu lt * COMPREHENSIVE METABOLIC PANEL (05/07/2024 2:00 PM VICTIMS ADVOCATE CLERK/SPECIALIST) Blood us Kwadwo Barrios MD CHEMISTRY ORDERABLES Final Resu lt * (ABNORMAL) HEMOGLOBIN A1C (04/04/2022 4:18 AM VICTIMS ADVOCATE CLERK/SPECIALIST) HEMOGLOBIN A1C 6.6(H) <=5.6 % 04/04/2022 8:17 AM VICTIMS ADVOCATE CLERK/SPECIALIST [facility] EST. AVG GLUCOSE, A1C 143 mg/dL 04/04/2022 8:17 AM VICTIMS ADVOCATE CLERK/SPECIALIST [facility] Blood Venipuncture / Unknown 04/04/2022 4:18 AM VICTIMS ADVOCATE CLERK/SPECIALIST 04/04/2022 4:24 AM VICTIMS ADVOCATE CLERK/SPECIALIST Narrative [facility] - 04/04/2022 8:17 AM VICTIMS ADVOCATE CLERK/SPECIALIST HGB A1C INTERPRETATION NORMAL: <5.7% PRE-DIABETES: 5.7 - 6.4% DIABETES: 6.5% OR GREATER us Rubina Rosario MD CHEMISTRY ORDERABLES Final Resul t [facility] [id number] [place] [address] from Last 3 Months or Most Recently Relevant to Health Maintenance Insurance AETNA [facility] RX AETNA Medicare Part D RX [employer] (INTERNAL) [facility] AETNA [facility] Advance Directives For more information, please contact: [phone] * Full Code (Latest Code Status on File) Date Activated Date Inactivated Comments 04/03/2022 2:48 PM 04/07/2022 5:46 PM Care Teams Youth Coordinator Relationship Specialty Start Date End Date Atif Cartagena DO [address] [address] PCP - General Internal Medicine 03/15/22
--- OUTSIDE RECORDS SUMMARY | 2024-05-22 17:21 | XMS_ITS | Clinical Summary ---
Author Organization [facility] Address [address] [place] [address] Phone Care Team Providers Care Patient Access Director Name Role Phone Atif Cartagena DO Primary Care Provider [phone] Allergies Active Allergy Reactions Criticality Noted Date Comments Metformin Diarrhea Low 02/02/2014 Morphine Nausea & Vomiting,Vo miting,Nausea And Vomiting,Other (See comments) Low 09/27/2020 Trazodone Dizziness Low 08/04/2013 Medications omeprazole (PriLOSEC) 40 mg capsule 2 Active cyanocobalamin (Vitamin B-12) 1,000 mcg tablet Take 1 tablet (1,000 mcg total) by mouth Active clonazePAM (KlonoPIN) 2 mg tablet TAKE 1 TABLET BY ORAL ROUTE EVERY DAY AT BED TIME 9 Active celecoxib (CeleBREX) 200 mg capsule 2 Active aspirin-calcium carbonate 81 mg-300 mg calcium(777 mg) tablet Take 81 mg by mouth Active bacitracin 500 unit/gram ointment Per instructions DAILY (route: topical) 2 Active gabapentin (NEURONTIN) 100 mg capsule 1 capsule DAILY (route: oral) 2 Active olmesartan (BENICAR) 20 mg tablet 1 tablet EVERY DAY (route: oral) 2 Active simvastatin (ZOCOR) 10 mg tablet 1 tablet DAILY (route: oral) 2 Active aspirin 81 mg enteric coated tablet Take 1 tablet (81 mg total) by mouth daily Active clobetasoL (CLOBEX) 0.05 % shampoo SHAMPOO TO SCALP TWICE A WEEK (LEAVE ON FOR 10 MINUTES AND RINSE OFF) 3 Active docusate sodium (COLACE) 100 mg capsule Take 1 capsule (100 mg total) by mouth 2 (two) times a day 2 Active methocarbamoL (ROBAXIN) 500 mg tablet Take 1 tablet (500 mg total) by mouth 4 (four) times a day as needed 2 Active oxyBUTYnin (DITROPAN) 5 mg tablet Take 1 tablet (5 mg total) by mouth 2 (two) times a day 3 Active polyethylene glycol (MIRALAX) 17 gram/dose powder Take 17 g by mouth daily 2 Active timoloL (ISTALOL) 0.5 % drops, once daily ophthalmic solution USE 1 DROP IN LEFT EYE IN THE MORNING DAILY. 3 Active Active Problems No known active problems Surgical History Surgery Date Site/Laterality Comments KNEE SURGERY HAND SURGERY HYSTERECTOMY CHOLECYSTECTOMY Medical History Medical History Date Comments Rheumatoid arthritis (HCC) Osteoporosis GERD (gastroesophageal reflux disease) Gastric reflux Hiatal hernia Social History Tobacco Use Types Packs/Day Years Used Date Smoking Tobacco: Never Personal Safety Answer Date Recorded Getting School Help Needed Not on file 04/17 Comments Unknown Sex and Gender Information Value Date Recorded Sex Assigned at Not on file Legal Sex Female 2:18 AM BOX SORTER Gender Identity Not on file Sexual Orientation Not on file Obstetrics History Last Filed Vital Signs Vital Sign Reading Time Taken Comments Blood Pressure 134/71 10/18/2022 2:06 PM CDT Pulse 62 10/18/2022 2:06 PM CDT Temperature - - Respiratory Rate - - Oxygen Saturation - - Inhaled Oxygen Concentration - - Weight 64 kg (141 lb) 10/18/2022 2:06 PM CDT Height 144.8 cm (4' 9 ) 10/18/2022 2:06 PM CDT Body Mass Index 30.51 10/18/2022 2:06 PM CDT Plan of Treatment Health Maintenance Due Date Last Done Comments Depression Screening 1938 Fall Risk Assessment 1940 Osteoporosis Screening-Bone Density Scan 1938 Hepatitis B Screening 1956 Well Visit 65+ 2003 Zoster Vaccine (3 of 3) 09/13/2017 07/19/2017, 01/23 Pneumococcal vaccine 65+ (2 of 2 - PPSV23 or PCV20) 02/05/2018 02/05/2017, 01/23/2005 Covid-19 Vaccine (2023-2 5 season) 2023 01/10/2021, 07/04/2020, 06/13/2020 Influenza Vaccine (#1) 2023 , 01/20/2020, 01/27/2019, Additional history exists DTaP/Tdap/Td Vaccine (2 - Td or Tdap) 02/09/2031 02/09/2021 Insurance AETNA MEDICARE on file [facility] MEDICARE [id number] [id number] Care Teams Patient Access Director Relationship Specialty Start Date End Date Atif Cartagena DO PCP - General Internal Medicine 09/05/21
--- OUTSIDE RECORDS SUMMARY | 2024-05-22 17:21 | XMS_ITS | Clinical Summary ---
Author Organization [facility] Address [address] [place] [address] Care Team Providers Care Laboratory Miller Name Role Phone Robert Celis MD Primary Care Provider Source Comments [facility],non-owned Affiliates and Associated Physician Practices is amultiple site organization consisting of ambulatory clinics and hospital sitesin [place], [place], [place] and [place]. This disclosure is being madepursuant to the Care Everywhere program and may not contain all information available regarding this patient. Last updated 18.[facility] [employer] Allergies Active Allergy Reactions Criticality Noted Date [...] (TYLENOL) 500 MG tabletIndications: RA (rheumatoid arthritis) ([facility]) Take 2 Tabs by mouth 3 times [...] X 5/8 1 ML MISCIndications:RA (rheumatoid arthritis) ([facility]) Inject 1 mL subcutaneously every 7 days. 4 Each 11 08/11/2014 Active methotrexate 25 MG/ML injectionIndicatio ns:RA (rheumatoid arthritis) ([facility]) Inject 1 mL subcutaneously every 7 days. [...] 02/03/2013 combined features of DJD and RA Family History Medical History Relation Name Comments Gout Brother Gout Father Relation Name Status Comments Brother Father Social History Tobacco Use Types Packs/Day Years [...] 08/01/2017 9:58 AM CDT Plan of Treatment Health Maintenance Due Date Last Done Comments BONE DENSITY TESTING 1938 COVID-19 VACCINE (#1) 1943 DTAP/TDAP/TD VACCINES (1 - Tdap) 1957 PNEUMOCOCCAL VACCINE 50+ (1 of 2 - PCV) 1957 ZOSTER VACCINE (1 of 2) 1957 Respiratory Syncytial Virus (RSV) Vaccine Pt: or over 60 yrs (1 - 1-dose 75+ series) 2013 INFLUENZA VACCINE (#1) 2023 DEPRESSION SCREENING 04/16/2024 HEPATITIS B VACCINE Aged Out No longe r eligible based on patient's age to complete this topic HIB VACCINE Aged Out No longer eligi ble based on patient's age to complete this topic HPV VACCINE Aged Out No longer eligi ble based on patient's age to complete this topic MENINGOCOCCAL (Group B) VACCINE Aged Out No longer eligible based on patient's age to complete this topic MENINGOCOCCAL VACCINE Aged Out No eloise davon eligible based on patient's age to complete this topic Insurance Payer Benefit Plan / Group Subscriber ID Effective Dates Phone Address Type AETNA MEDICARE ADV AETNA MEDICARE ADV HMO/PPO/PFFS [id number] Effective for all dates [address] [place] [address] Medicare -Managed Care SELF PAY NO INSURANCE SELF PAY NO INSURANCE Effective for all dates [place] Self Pay AETNA MEDICARE ADV AETNA MEDICARE ADV HMO/PPO/PFFS [id number] Effective for all dates [address] [place] [address] Medicare -Managed Care SELF PAY NO INSURANCE SELF PAY NO INSURANCE Effective for all dates [place] A[place] MEDIC[place] ADV AETNA MEDICARE ADV HMO/PPO/PFFS [id number] Effective for all dates [address] [place] [address] Medicare -Managed Care SELF PAY NO INSURANCE SELF PAY NO INSURANCE Effective for all dates [place] Self [place] MEDIC[place] ADV AETNA MEDICARE ADV HMO/PPO/PFFS [id number] Effective for all dates [address] [place] [address] Medicare -Managed Care SELF PAY NO INSURANCE SELF PAY NO INSURANCE Effective for all dates [place] Self [place] MEDIC[place] ADV AETNA MEDICARE ADV HMO/PPO/PFFS [id number] Effective for all dates [address] [place] [address] Medicare -Managed Care SELF PAY NO INSURANCE SELF PAY NO INSURANCE Effective for all dates [place] Self Pay AETNA MEDICARE ADV AETNA MEDICARE ADV HMO/PPO/PFFS [id number] Effective for all dates [address] [place] [address] Medicare -Managed Care SELF PAY NO INSURANCE SELF PAY NO INSURANCE Effective for all dates [place] Self Pay AETNA AETNA PPO/POS/OA [id number] 11/27/2019-Pres ent [address] [place] [address] PPO AETNA AETNA MEDICARE ADV HMO [id number] 08/22/2016-Prese nt [address] [place] [address] Medicare -Managed Care Care Teams Laboratory Miller Relationship Specialty Start Date End Date Robert Celis MD [address] [place] [address] PCP - General Internal Medicine 09/13/12
--- OUTSIDE RECORDS SUMMARY | 2024-05-22 17:21 | XMS_ITS | Referral Summary ---
Author Organization [facility] Address [address] [place] [address] Phone Care Team Providers Care Zig Zag Spring Machine Operator Name Role Phone Atif Cartagena DO Primary Care Provider [phone] Allergies Active Allergy Reactions Criticality Noted Date [...] Active Active Problems No known active problems Social History Tobacco Use Types Packs/Day Years Used Date Smoking Tobacco: Never Personal Safety Answer Date Recorded Getting School Help Needed Not on file 04/17 Comments Unknown Sex and Gender Information Value Date Recorded Sex Assigned at Not on file Legal 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
--- OUTSIDE RECORDS SUMMARY | 2024-05-22 17:21 | XMS_ITS | Continuity of Care Document ---
Author Organization [facility] Address [address] [place] [address] Phone Care Team Providers Care Sr Community Manager Name Role Phone Santi Leigh DO Unavailable Unavailable Advance Directives Directive Yes / No Effective Date File Name No Information Encounters Encounter Description Practice Location Reason(s) For Visit Diagnoses Date Provider Providers Copied on Encounter [facility], [address], [place], [place], [id number], tel:[phone] [facility] No Information [facility] Manuel. [address] [place], [address], [place]. tel: [phone] Family History Family Member Type Diagnosis Age At Onset No Information Payers Payer name Insurance type Covered democrat ID Authoriza tion(s) [place] [id number] Social History Type Description Quantity Date Captured Comments Sex Female Smoking Status No Information Chief Complaint And Reason For Visit No Information Reason For Referral Reason For Referral No Information History Of Present Illness Encounter Date Complaint History Of Prese nt Illness No Information Functional Status Date Functional Assessmen t No Information Instructions Date Instruction Additional Infor mation No Information Assessments Type Assessment Date No Information Patient Care Teams Name Effective Dates (start - stop) Status Members No Information
--- OUTSIDE RECORDS SUMMARY | 2024-05-22 17:21 | XMS_ITS | Patient Health Summary ---
Author Organization [facility] Address [address] [place] [address] Care Team Providers Care [employer] Name Role Phone Robert Celis MD Primary Care Provider [phone] Note from [facility],non-owned Affiliates and Associated Physician Practices is amultiple site organization consisting of ambulatory clinics and hospital sitesin [place], [place], [place] and [place]. This disclosure is being madepursuant to the Care Everywhere program and may not contain all information available regarding this patient. Last updated 18.[facility] Allergies * Metformin(Diarrhea) * Trazodone(Dizziness) Medications * Be aware that medications may not be up to date on this document. Alwaysverify current medications with the patient. * omeprazole (PRILOSEC) 20 MG capsule Take 20 mg by mouth daily before breakfast. * potassium chloride (KLOR-CON) 20 MEQ packet Take 20 mEq by mouth once daily. * Loratadine (CLARITIN) 10 MG CAPS Take by mouth. * rosuvastatin (CRESTOR) 10 MG tablet Take 10 mg by mouth once daily. * carbidopa-levodopa (SINEMET) 25-100 MG tablet Take 1 Tab by mouth once daily. * vitamin B-12 (CYANOCOBALAMIN) 1000 MCG tablet Take 1,000 mcg by mouth once daily. * olmesartan (BENICAR) 20 MG tablet Take 20 mg by mouth once daily. * aspirin 81 MG tablet Take 81 mg by mouth once daily. * clonazePAM (KLONOPIN) 1 MG tablet Take 1 mg by mouth 3 times daily as needed. * Cholecalciferol (VITAMIN D-3 PO) Take by mouth. * linagliptin (TRADJENTA) 5 MG tablet Take 5 mg by mouth once daily. * gabapentin (NEURONTIN) 100 MG capsule(Started 02/02/2014) Take 1-3 Caps by mouth at bedtime. 12 refills left * calcium carbonate (TUMS) 500 MG chew tablet(Started 02/02/2014) Take 1 Tab by mouth 2 times daily with morning and evening meal. * acetaminophen (TYLENOL) 500 MG tablet(Started 02/02/2014) Take 2 Tabs by mouth 3 times daily. Maximum allowable Acetaminophen amount = 4 Grams (4000 mg) / 24hours. * celecoxib (CELEBREX) 200 MG capsule(Started 02/02/2014) Take 1 Cap by mouth once daily. For 7 days for flare ups of arthritis 2 refills left * folic acid (FOLVITE) 1 MG tablet(Started 02/02/2014) Take 1 Tab by mouth once daily. 3 refills left * predniSONE (DELTASONE) 2.5 MG tablet(Started 05/06/2014) Take 1-2 Tabs by mouth once daily. 12 refills left * methotrexate 2.5 MG tablet(Started 05/06/2014) Take 8 Tabs by mouth every 7 days before meal. 3 refills left * Tuberculin-Allergy Syringes 25G X 5/8 1 ML MISC(Started 08/11/2014) Inject 1 mL subcutaneously every 7 days. 11 refills left * methotrexate 25 MG/ML injection(Started 08/11/2014) Inject 1 mL subcutaneously every 7 days. 12 refills left * ciprofloxacin-dexamethasone (CIPRODEX) 0.3-0.1 % otic suspension(Started 02/19/2016) Instill 4 Drops into both ears 2 times daily Shake well before using. * naproxen (NAPROSYN) 500 MG tablet(Started 08/01/2017) Take 1 tablet by mouth 2 times daily 1 refill remaining Active Problems Problem Noted Date Diagnosed Date High risk medications (not anticoagulants) long- term use 02/03/2013 RA (rheumatoid arthritis) 10/04/2012 Hand pain 10/04/2012 Social History Tobacco Use Types Packs/Day Years [...] Mass Index 31.02 08/01/2017 9:58 AM CDT Procedures * XR SHOULDER BILAT 2VW OR MORE(Performed 08/01/2017) Performed for Bilateral shoulder pain, unspecified chronicity * XR KNEE BILAT 3VW(Performed 08/22/2016) Performed for Right knee pain, unspecified chronicity * LAB RESULTS ORDER(Performed 08/14/2014) * CULTURE STOOL+ E COLI SHIGA-LIKE TOXIN(Performed 01/26/2014) * CRYPTOSPORIDIUM ANTIGEN(Performed 01/26/2014) * GIARDIA SCREEN DFA(Performed 01/26/2014) * C DIFFICILE GDH AG + TOXIN A+B(Performed 01/26/2014) * XR SI JOINTS 3VW OR MORE(Performed 12/25/2012) Performed for Polyarthritis * US EXTREMITY LEFT COMP JOINT(Performed 10/04/2012) Performed for Hand pain * US EXTREMITY NON VASCULAR RIGHT(Performed 10/04/2012) Performed for Hand pain * URIC ACID BLOOD(Performed 10/04/2012) Performed for Polyarthritis * RHEUMATOID FACTOR BLOOD QUANTITATIVE(Performed 10/04/2012) Performed for Polyarthritis * HLA TYPING B27(Performed 10/04/2012) Performed for Polyarthritis * C-REACTIVE PROTEIN(Performed 10/04/2012) Performed for Polyarthritis * IMAGING/RADIOLOGY/XRAY RESULTS ORDER(Performed 09/05/2012) * LAB RESULTS ORDER(Performed 08/19/2012) Results * XR SHOULDER BILAT 2VW (08/01/2017 9:46 AM CDT) Anatomical Region Laterality Modality Upper Extremity Radiographic Caitlin ging 08/01/2017 9:51 AM CDT Narrative 08/01/2017 10:00 AM CDT PROCEDURE: XR SHOULDER BILAT 2VW 08/01/2017 9:51 AM HISTORY: Pain in right shoulder. FINDINGS AND IMPRESSION: COMPARISON: No comparison. No acute fracture, dislocation, or destructive process. Severe osteoarthrosis of right glenohumeral joint. Osteopenia. No osseous erosive changes. Mild osteoarthritic changes of left shoulder. Surrounding soft tissue structures are normal. Edited by Gaby Caal on 08/01/2017 10:00 AM Procedure Note Kelsea Mackay MD - 08/01/2017 PROCEDURE: XR SHOULDER BILAT 2VW 08/01/2017 9:51 AM HISTORY: Pain in right shoulder. FINDINGS AND IMPRESSION: COMPARISON: No comparison. No acute fracture, dislocation, or destructive process. Severe osteoarthrosis of right glenohumeral joint. Osteopenia. No osseous erosive changes. Mild osteoarthritic changes of left shoulder. Surrounding soft tissue structures are normal. Edited by Gaby Caal on 08/01/2017 10:00 AM Demian Schulz MD DIAGNOSTIC IMAGING O RDERABLES * XR KNEE 3 VW BILAT 67812 X 2 (08/22/2016 10:27 AM CDT) Anatomical Region Laterality Modality Lower Extremity Radiographic Caitlin ging 08/22/2016 11:0 0 AM CDT Narrative 08/22/2016 11:16 AM CDT BILATERAL KNEE JOINTS (08/22/2016) CLINICAL HISTORY: Bilateral knee pain. FINDINGS AND IMPRESSION: 1. Standing view of both knee joints. 2. No acute fracture, dislocation or destructive process. 3. No evidence of significant joint space narrowing. 4. Bilateral knee arthroplasties. 5. Alignment is anatomic. 6. No complicating features. Procedure Note Kelsea Mackay MD - 08/22/2016 BILATERAL KNEE JOINTS (08/22/2016) CLINICAL HISTORY: Bilateral knee pain. FINDINGS AND IMPRESSION: 1. Standing view of both knee joints. 2. No acute fracture, dislocation or destructive process. 3. No evidence of significant joint space narrowing. 4. Bilateral knee arthroplasties. 5. Alignment is anatomic. 6. No complicating features. Demian Schulz MD DIAGNOSTIC IMAGING O RDERABLES * LAB RESULTS ORDER (08/14/2014) Only the most recent of2 resultswithin the time period is included. David Cuevas MD LAB - THERAPEUTIC DR UG MONITORING ORDERABLES * GIARDIA SCREEN DFA (01/26/2014 8:36 AM CDT) Giardia Antigen Screen No Giardia Lamblia Cysts seen. Negative [facility] Stool specimen (specimen) STOOL SPECIMEN / Unknown 01/26/2014 8:36 AM CDT 01/26/2014 2:08 PM CDT Narrative [facility] - 01/29/2014 3:14 PM CDT AndersonSpecimen#[id number] Angel Loc/Rm/Bed: SURG CENTR// Historical Provider LAB - MICROBIOLOG Y ORDERABLES Performing Organization Address [facility] Co de Phone Number [address] [phone] * CULTURE STOOL+ E COLI SHIGA-LIKE TOXIN (01/26/2014 8:36 AM CDT) Culture Feces No Salmonella, Shigella, Yersinia, Campylobacter or Escherichia Coli 0157:H7 isolated. Negative for Shiga Toxin by Immunoassay. [facility] Stool specimen (specimen) STOOL SPECIMEN / Unknown 01/26/2014 8:36 AM CDT 01/26/2014 2:08 PM CDT Narrative [facility] - 01/30/2014 1:40 PM CDT AndersonSpecimen#[id number] Angel Loc/Rm/Bed: SURG CENTR// Historical Provider LAB - MICROBIOLOG Y ORDERABLES Performing Organization Address [facility] Co de Phone Number [address] [phone] * CLOSTRIDIUM DIFFICILE [facility] AG + TOXIN A+B (01/26/2014 8:36 AM CDT) C difficile Antigen Negative Negative [facility] C difficile Toxin Negative Negative [facility] Stool specimen (specimen) STOOL SPECIMEN / Unknown 01/26/2014 8:36 AM CDT 01/26/2014 2:08 PM CDT Narrative [facility] - 01/26/2014 11:03 PM CDT AndersonSpecimen#[id number] Angel Loc/Rm/Bed: SURG CENTR// Historical Provider LAB - MICROBIOLOG Y ORDERABLES Performing Organization Address City/[facility]/ZIP Co de Phone Number [address] [phone] * CRYPTOSPORIDIUM ANTIGEN (01/26/2014 8:36 AM CDT) Cryptosporidium Antigen Screen No Cryptosporidium Oocysts seen. Negative [facility] Stool specimen (specimen) STOOL SPECIMEN / Unknown 01/26/2014 8:36 AM CDT 01/26/2014 2:08 PM CDT Narrative [facility] - 01/29/2014 3:14 PM CDT AndersonSpecimen#[id number] Angel Loc/Rm/Bed: SURG CENTR// Historical Provider LAB - MICROBIOLOG Y ORDERABLES Performing Organization Address City/[facility] Co de Phone Number [address] [phone] * XR SACROILIAC JOINTS 3+ VW (12/25/2012 5:07 PM CDT) Anatomical Region Laterality Modality Pelvis, Lower Extremity Other Narrative 12/25/2012 5:07 PM CDT David Cuevas MD 12/25/2012 5:07 PM NAD Procedure Note David Cuevas MD - 12/25/2012 5:07 PM CDT NAD David Cuevas MD DIAGNOSTIC IMAGING O RDERABLES * US EXTREMITY NON VASCULAR RIGHT (10/04/2012 4:51 PM CDT) Anatomical Region Laterality Modality Lower Extremity, Upper Extremity Other Narrative 10/04/2012 4:51 PM CDT David Cuevas MD 10/04/2012 4:51 PM Bilateral Hand Ultrasound Protocol: Complete Bilateral Hand Study for RA Activity and Median nerve dimensions using MyLab5 with a 438 probe at 18mHz or [employer] M7 with a L14-6s probe at 14 mHz . This standardized study consists of dorsal and volar views of the MCP (2,3,5) and PIP (2,3) joints, with medial and lateral views as clinically indicated to show erosive change. The wrists are evaluated with medial dorsal views (combined as PW ) and a transverse volar view (AW). The median nerve is identified using a sweep technique starting in the mid forearm and measured at the proximal margin of the Quadratus and at the entrance to the carpal tunnel wrist crease immediately proximal to the carpal tunnel. An increase in median nerve cross section area of over 4 mm2 immediately proximal the flexor retinaculum or an overall median nerve cross section >10 mm2 suggests significant Median nerve compression. Synovitis, erosions and power doppler signal are recorded as 0-3. Tenosynovitis is noted when present. Incidental findings of tophi, crystal deposition, that might effect the diagnostic impression are recorded by the insight leader under the direction of the attending physician and interpreted by Dr Cuevas. Right Synovitis Erosion Doppler Left Synovitis Erosion Doppler C1 2 Postop 0 C1 2 Postop 0 2M 2 2 0 2M 2 D 0 2P 0 D 0 2P 0 D 0 3M 2 0 0 3M 2 0 0 3P 0 0 0 3P 0 0 0 5M 0 0 0 5M 0 0 0 PW 0 0 0 PW 0 0 0 RMN 5-11 mm2 LMN -mm2 Findings : Joint damage is DJD with erosions at second MCP. Synovitis is compatible with Mild without PDUS. Median nerve changes are enlarged on right left not reviewed. 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 Procedure Note David Cuevas MD - 10/04/2012 4:45 PM CDT Bilateral Hand Ultrasound Protocol: Complete Bilateral Hand Study for RA Activity and Median nerve dimensionsusing MyLab5 with a 438 probe at 18mHz or [employer] M7 with a L14-6s probeat 14 mHz . This standardized study consists of dorsal and volar views ofthe MCP (2,3,5) and PIP (2,3) joints, with medial and lateral views asclinically indicated to show erosive change. The wrists are evaluatedwith medial dorsal views (combined as PW ) and a transverse volar view(AW). The median nerve is identified using a sweep technique starting inthe mid forearm and measured at the proximal margin of the Quadratus andat the entrance to the carpal tunnel wrist crease immediately proximal tothe carpal tunnel. An increase in median nerve cross section area of over4 mm2 immediately proximal the flexor retinaculum or an overall mediannerve cross section >10 mm2 suggests significant Median nerve compression.Synovitis, erosions and power doppler signal are recorded as 0-3.Tenosynovitis is noted when present. Incidental findings of tophi,crystal deposition, that might effect the diagnostic impression arerecorded by the insight leader under the direction of the attendingphysician and interpreted by Dr Cuevas. Right Synovitis Erosion Doppler Left Synovitis Erosion Doppler C1 2 Postop 0 C1 2 Postop 0 2M 2 2 0 2M 2 D 0 2P 0 D 0 2P 0 D 0 3M 2 0 0 3M 2 0 0 3P 0 0 0 3P 0 0 0 5M 0 0 0 5M 0 0 0 PW 0 0 0 PW 0 0 0 RMN 5-11 mm2 LMN -mm2 Findings : Joint damage is DJD with erosions at second MCP. Synovitis iscompatible with Mild without PDUS. Median nerve changes are enlarged onright left not reviewed. 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 David Cuevas MD US ORDERABLES * US EXTREMITY LEFT COMPLT NONVASC (10/04/2012 4:51 PM CDT) Anatomical Region Laterality Modality Lower Extremity, Upper Extremity Other Narrative 10/04/2012 4:51 PM CDT Davdi Cuevas MD 10/04/2012 4:51 PM Bilateral Hand Ultrasound Protocol: Complete Bilateral Hand Study for RA Activity and Median nerve dimensions using MyLab5 with a 438 probe at 18mHz or [employer] M7 with a L14-6s probe at 14 mHz . This standardized study consists of dorsal and volar views of the MCP (2,3,5) and PIP (2,3) joints, with medial and lateral views as clinically indicated to show erosive change. The wrists are evaluated with medial dorsal views (combined as PW ) and a transverse volar view (AW). The median nerve is identified using a sweep technique starting in the mid forearm and measured at the proximal margin of the Quadratus and at the entrance to the carpal tunnel wrist crease immediately proximal to the carpal tunnel. An increase in median nerve cross section area of over 4 mm2 immediately proximal the flexor retinaculum or an overall median nerve cross section >10 mm2 suggests significant Median nerve compression. Synovitis, erosions and power doppler signal are recorded as 0-3. Tenosynovitis is noted when present. Incidental findings of tophi, crystal deposition, that might effect the diagnostic impression are recorded by the insight leader under the direction of the attending physician and interpreted by Dr Cuevas. Right Synovitis Erosion Doppler Left Synovitis Erosion Doppler C1 2 Postop 0 C1 2 Postop 0 2M 2 2 0 2M 2 D 0 2P 0 D 0 2P 0 D 0 3M 2 0 0 3M 2 0 0 3P 0 0 0 3P 0 0 0 5M 0 0 0 5M 0 0 0 PW 0 0 0 PW 0 0 0 RMN 5-11 mm2 LMN -mm2 Findings : Joint damage is DJD with erosions at second MCP. Synovitis is compatible with Mild without PDUS. Median nerve changes are enlarged on right left not reviewed. 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 Procedure Note David Cuevas MD - 10/04/2012 4:45 PM CDT Bilateral Hand Ultrasound Protocol: Complete Bilateral Hand Study for RA Activity and Median nerve dimensionsusing MyLab5 with a 438 probe at 18mHz or [employer] M7 with a L14-6s probeat 14 mHz . This standardized study consists of dorsal and volar views ofthe MCP (2,3,5) and PIP (2,3) joints, with medial and lateral views asclinically indicated to show erosive change. The wrists are evaluatedwith medial dorsal views (combined as PW ) and a transverse volar view(AW). The median nerve is identified using a sweep technique starting inthe mid forearm and measured at the proximal margin of the Quadratus andat the entrance to the carpal tunnel wrist crease immediately proximal tothe carpal tunnel. An increase in median nerve cross section area of over4 mm2 immediately proximal the flexor retinaculum or an overall mediannerve cross section >10 mm2 suggests significant Median nerve compression.Synovitis, erosions and power doppler signal are recorded as 0-3.Tenosynovitis is noted when present. Incidental findings of tophi,crystal deposition, that might effect the diagnostic impression arerecorded by the insight leader under the direction of the attendingphysician and interpreted by Dr Cuevas. Right Synovitis Erosion Doppler Left Synovitis Erosion Doppler C1 2 Postop 0 C1 2 Postop 0 2M 2 2 0 2M 2 D 0 2P 0 D 0 2P 0 D 0 3M 2 0 0 3M 2 0 0 3P 0 0 0 3P 0 0 0 5M 0 0 0 5M 0 0 0 PW 0 0 0 PW 0 0 0 RMN 5-11 mm2 LMN -mm2 Findings : Joint damage is DJD with erosions at second MCP. Synovitis iscompatible with Mild without PDUS. Median nerve changes are enlarged onright left not reviewed. 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 David Cuevas MD US ORDERABLES * URIC ACID BLOOD (10/04/2012 2:10 PM CDT) Uric Acid 6.2 2.5 - 7.1 mg/dL [facility] ACCOUNT BILL Comment:Therapeutic target f or gout patients: <6.0 Blood specimen (specimen) BLOOD SPECIMEN / Unknown 10/04/2012 2:10 PM CDT 10/04/2012 4:08 PM CDT Narrative Resulting Agency Comment [address] [id number] David Cuevas MD LAB - CHEMISTRY ASHLY WODOS [facility] ACCOUNT BILL * (ABNORMAL) RHEUMATOID FACTOR BLOOD QUANTITATIVE (10/04/2012 2:10 PM CDT) Rheumatoid Factor 20.7(H) 0.0 - 13.9 IU/mL [facility] ACCOUNT BILL Blood specimen (specimen) BLOOD SPECIMEN / Unknown 10/04/2012 2:10 PM CDT 10/04/2012 4:08 PM CDT Narrative Resulting Agency [facility] [address] [facility] [id number] David Cuevas MD LAB - CHEMISTRY ASHLY WOODS [facility] ACCOUNT BILL * (ABNORMAL) C-REACTIVE PROTEIN (10/04/2012 2:10 PM CDT) C-Reactive Protein 6.6(H) 0.0 - 4.9 mg/L [facility] ACCOUNT BILL Blood specimen (specimen) BLOOD SPECIMEN / Unknown 10/04/2012 2:10 PM CDT 10/04/2012 4:08 PM CDT Narrative Resulting Agency Comment [address] [phone] David Cuevas MD LAB - CHEMISTRY ASHLY WOODS [facility] ACCOUNT BILL * HLA TYPING B27 (10/04/2012 2:10 PM CDT) HLA-B27 Positive [facility] ACCOUNT BILL Comment: HLA-B*27 Positive 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 This procedure rules out the B*27:06 and 27:09 alleles, which the literature suggests are not associated with spondyloarthropathies. . This test was performed using PCR (Polymerase Chain Reaction)/SSOP (Sequence Specific Oligonucleotide Probes) technique. SBT (Sequence Based Typing) and/or SSP (Sequence Specific Primers) may be used as supplemental methods when necessary. Please contact [facility] Customer Service at if you have any questions. . Director of HLA Laboratory Dr Ilan Champagne, PhD Blood specimen (specimen) BLOOD SPECIMEN / Unknown 10/04/2012 2:10 PM CDT 10/04/2012 4:08 PM CDT Narrative Resulting Agency Comment [facility] [address] [facility] [id number] David Cuevas MD LAB - CHEMISTRY [facility] Organization Address City/State/ZIP Co de Phone Number [facility] ACCOUNT BILL * IMAGING/RADIOLOGY/XRAY RESULTS ORDER (09/05/2012) Anatomical Region Laterality Modality Other David Cuevas MD IMAGING Care Teams [employer] Relationship Specialty Start Date End Date Robert Celis MD [address] [place] [id number] PCP - General Internal Medicine 09/13/12
--- OUTSIDE RECORDS SUMMARY | 2024-05-22 17:21 | XMS_ITS | Clinical Summary ---
Author Organization [facility] Address [address] [place] [id number] Phone Care Team Providers Care General Worker Name Role Phone UrmilaAtif waldron Primary Care Provider [phone] Allergies Active Allergy Reactions Criticality Noted Date Comments Metformin Diarrhea Low 02/02/2014 Morphine And Codeine Vomiting,nausea 09/27/2020 Trazodone Dizziness Low 08/04/2013 Medications Medication Sig Dispensed Refills Start Date End Date Status Aspirin Buf,CaCarb-MgCar b-MgO, 81 MG tablet Take 81 mg by mouth daily Active calcium carbonate (OS-MARIE) 1250 (500 Ca) MG chewable tablet Chew 1 tablet 02/02/2014 Active celecoxib (CeleBREX) 200 MG capsule 02/02/2014 Active cholecalciferol (D 1000) 25 MCG (1000 UT) capsule Take by mouth Active cyanocobalamin (VITAMIN B-12) 1000 MCG tablet Take 1,000 mcg by mouth Active folic acid (FOLVITE) 1 MG tablet Take 1 mg by mouth 02/02/2014 Active gabapentin (NEURONTIN) 100 MG capsule Take 100-300 mg by mouth 02/02/2014 Active hydroCHLOROthiaz rambo (HYDRODIURIL) 12.5 MG tablet hydrochlorothiazide 12.5 mg tablet Active olmesartan (BENICAR) 20 MG tablet 10/01/2018 Active omeprazole (PriLOSEC) [address] capsule 04/18/2018 Active simvastatin (ZOCOR) 10 MG tablet Take 10 mg by mouth every night Active Clobetasol Propionate 0.05 % shampoo SHAMPOO TO SCALP TWICE A WEEK (LEAVE ON FOR 10 MINUTES AND RINSE OFF) 11/28/2020 Activ e ketoconazole (NIZORAL) 2 % cream APPLY TO AFFECTED AREA EVERY DAY 11/28/2020 Active ketoconazole (NIZORAL) 2 % shampoo SHAMPOO TWICE WEEKLY TO SCALP 11/28/2020 Active rOPINIRole (REQUIP) 1 MG tablet TAKE 1 OR 2 TABLETS BY MOUTH EVERY DAY AT BEDTIME 11/28/2020 Active Active Problems Problem Noted Date Diagnosed Date Muscle pain 11/25/2018 Ultrasonography of breast abnormal 10/15/2018 Mastodynia of left breast 10/02/2018 Nipple tenderness 10/02/2018 Hand pain 10/04/2012 Overview (09/27/2020): 02/03/2013 combined features of DJD and RA Rheumatoid arthritis 10/04/2012 Overview (09/27/2020): 12/05/2012 starting MTX and using celebrex daily 02/03/2013 tolerates MTX well Flared yesterday starting Celebrex Has been on MTX for several weeks. Family History Medical History Relation Comments Heart disease Mother Hypertension Mother Relation Status Comments Mother Social History Tobacco Use Types Packs/Day Years Used Date Smoking Tobacco: Never Smokeless Tobacco: Never Alcohol Use Standard Drinks/Week Comments Yes 0 (1 standard drink = 0.6 oz pur e alcohol) Sex and Gender Information Value Date Recorded Sex Assigned at Not on file Gender Identity Not on file Sexual Orientation Not on file Last Filed Vital Signs Vital Sign Reading Time Taken Comments Blood Pressure 132/76 01/10/2021 3:03 PM CDT Pulse - - Temperature 36.6 C (97.9 F) 01/10/2021 3:03 PM CDT Respiratory Rate 18 01/10/2021 3:03 PM CDT Oxygen Saturation - - Inhaled Oxygen Concentration - - Weight 67.1 kg (148 lb) 01/10/2021 3:03 PM CDT Height 152.4 cm (5') 01/10/2021 3:03 PM CDT Body Mass Index 28.9 01/10/2021 3:03 PM CDT Plan of Treatment Health Maintenance Due Date Last Done Comments Pneumococcal PPSV23/PCV13 65 + Years / Low and Medium Risk (1 of 4 - PCV) 2003 Influenza Vaccine (#1) 2023 Care Teams General Worker Relationship Specialty Start Date End Date Atif Cartagena DO [address] [place] [address] PCP - General Internal Medicine 09/02/20
== END 2024-05-22 17:17 | disposition home or self-care (01) ==
PROVIDERS: PCP Internal Medicine; Visit Provider Surgery
DX: C50.911 Malignant neoplasm of unspecified site of right female breast (principal); Z98.890 Other specified postprocedural states
CPT/HCPCS: 87070; 87075; 87077; 87186; 87205

== ENCOUNTER 2024-05-23 09:07 | Outpatient (CLI) | payer MEDICARE, SELFPAY ==
--- NOTE | ~2024-05-23 | US_ITS ---
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 TECHNIQUE: Targeted sonographic evaluation of the right breast was performed. INTERPRETATION: There is irregular fluid collection extending about the 10:00 region of the right breast near the reg ion of the scar, extending to 9:00 position. IMPRESSION: Irregular fluid collection of the 9:00-10:00 positions right breast. This could reflect evolving sero ma versus possibly abscess. Correlate clinically for signs or symptoms of infection. There is been no mammography at this institution since previous pre-lumpectomy diagnostic workup from July 2023. Rose gnostic mammography advised at this time as well to complete evaluation. BI-RADS CATEGORY: BI-RADS 0: Needs additional imaging Reviewed, dictated and finalized at [facility]. MOLD LABORATORY TECHNICIAN IMPRESSION: Irregular fluid collection of the 9:00-10:00 positions right breast. This could reflect evolving seroma versus possibly abscess. Correlate clinically for sign s or symptoms of infection. There is been no mammography at this institution si nce previous pre-lumpectomy diagnostic workup from July 2023. Diagnostic mammo graphy advised at this time as well to complete evaluation. BI-RADS CATEGORY: BI-RADS 0: Needs additional imaging
--- OUTSIDE RECORDS SUMMARY | 2024-05-23 09:36 | XMS_ITS ---
Author Organization [facility] Address [address] [place] [address] Care Team Providers Care Food Safety Auditor Name Role Phone Atif Cartagena Primary Care Provider Unavailab Dr. Stefano Stone Unavailable [phone] Araceli Ambrosio Unavailable Unavailable ZZ-Migration, Provider Unavailable Unavailab le REASON FOR VISIT [facility] To [facility] Conversion Encounter Medications Medication SIG (Take, Route, [...] Active Encounters Encounter Location Date Provider Diagnosis [address] [address] 09/29/2023 Provider CASEY-Migration Plan Of Treatment No Information Progress Notes * Jacqueline SANDOB: 9 (84 yo F)Acc No.[id number]:09/29/2023 Patient: Jacqueline MADRID Provider: Gracie Molina :1940 A ge:83 Y S ex:Female Date:09/29/2023 Address:[facility] Pcp:Atif Cartagena Subjective: * Chief Complaints: * [...] Procedure Codes: * Electronic signature of Laina chaudhary ZZ-Migration on 05/23/2024 at 09:36 AM HEAVY EQUIPMENT RENTAL MANAGER Sign off status: Pending * Provider: Gracie Molina Date: 0 09/29/2023 Generated for Suman wilcox/Olga/Megitting on: 0 05/23/2024 09:36 AM HEAVY EQUIPMENT RENTAL MANAGER
--- OUTSIDE RECORDS SUMMARY | 2024-05-23 09:36 | XMS_ITS ---
Author Organization [facility] Address [address] [place] [address] Care Team Providers Care Dinkey Motor Operator Name Role Phone Atif Cartagena Primary Care Provider Unavailab Dr. Stefano Stone Unavailable [phone] Araceli Ambrosio Unavailable Unavailable REASON FOR VISIT Headache follow-up Encounters Encounter Location Date Provider Diagnosis [facility] [address] [place] [address] 08/08/2023 Stefano Cramer Plan Of Treatment No Information Progress Notes * Jacqueline SANDOB: 9 (84 yo F)Acc No.[id number]:08/08/2023 Progress Notes Patient: Jacqueline MADRID Provider: Skip Cramer MD :1940 A ge:83 Y S ex:Female Date:08/08/2023 Address:[address], [id number] Pcp:Atif Cartagena Subjective: * Chief Complaints: * 1 . Headache follow-up. * Medical History: Objective: * Vitals: Assessment: Plan: * Treatment: * Billing Information: * Visit Code: * Procedure Codes: * Electronic signature of Dr. Stefano Cramer MD on 05/23/2024 at 09:36 AM OUTBOARD MOTORBOAT OPERATOR Sign off status: Pending * Provider: Skip Cramer MD Date: 08/08/2023 Generated for Suman wilcox/Olga/Megitting on: 0 05/23/2024 09:36 AM OUTBOARD MOTORBOAT OPERATOR
--- OUTSIDE RECORDS SUMMARY | 2024-05-23 09:37 | XMS_ITS | Continuity of Care Document ---
Author Organization [facility] Address [address] [place] [address] Phone Care Team Providers Care Chain Maker Machine Name Role Phone Doser Mason ELDRIDGE Unavailable Unavailable Allergies, Adverse Reactions, Alerts Substance Reaction Status Criticality morphine Other Active No Information Medications Medication Instructions Dosage Effective Dates (start - stop) Status Comments [place] 5 mg-325 mg tablet take 1 tablet [...] exam foot, minimum 3 views 2021 [facility]patient [facility] [place] Advance Directives Directive Yes / No Effective Date File Name No Information Encounters Encounter Description Practice Location Reason(s) For Visit Diagnoses Date Provider Providers Copied on Encounter [facility], [address], [place], [place], [address], [place] tel:[phone] [email or web address] 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 [address] [facility] [address], [address], [place], [place], [address] , [place]. tel: [phone] Referring Provider: Mason Cardona, [address], [place], [address] . tel:[phone] [facility], [address] [facility] [address], [place], [place], [address], [place] tel:[phone] [email or web address] No Information 0 [address] [facility] [facility] [address], [address], [place], [place], [address] , [place]. tel:[phone] [email or web address], [address] [place] [address], [place], [place], [address], [place] tel:[phone] [email or web address] Pain in left footOther acquired hammer toes of left foot Aug-0 [address] [facility] [address], [address], [place], [place], [address] , [place]. tel: [phone] Referring Provider: Mason Cardona, [address], [place], [address] . tel:[phone] [facility], [address] [place] [address], [place], [address], [place] tel:[phone] [facility] No Information 0 [address] [facility] [facility] [address], [address], [place], [place], [address] , [place]. tel:[phone] Referring Provider: Mason Cardona, [address] [facility] [address], [place], [address] . tel:[phone] [facility], [address] [place] [address], [place], [address], [place] tel:[phone] [facility] Other acquired hammer toes of left footPain in left foot [address] [facility] [address] [place] [address], [place], [place], [address] , [place]. tel:[phone] Referring Provider: Mason Cardona, [facility] [facility] [address] [facility], [place], [address] . tel:[phone] [facility], [address] [address], [place], [place], [address], [place] tel:[phone] [facility] Follow Up of left foot sx 09/26/21 (chief complaint) Pain in left footOther acquired hammer toes of left foot 2 Doser Mason. [address] [place] [address], [place] [address], [place], [place], [address] , [place]. tel:[phone] Referring Provider: Mason Cardona, [address] [place] [address] Suite [facility], [place], [address] . tel:[phone] [facility], [facility] [place] [address], [place], [place], [address], [place] tel:[phone] [facility] Pain in left foot 2 Doser Mason. [address] [place] [address], [facility] [address], [place], [place], [address] , [place]. tel:[phone] Referring Provider: Mason Cardona, [address] [facility] [address], [place], [address] . tel:[phone] [facility], [address] [address], [place], [place], [address], [place] tel:[phone] [facility] No Information 2 Doser Mason. [address] [place] [address], [place] [address], [place], [place], [address] , [place]. tel:[phone] Referring Provider: Mason Cardona, [address] [place] [address] [address], [place], [address] . tel:[phone] Office/outpat ient visit,new, mod [facility], [address], [place], [place], [address], tel:[phone] [facility] Toes (chief complaint) Pain in left footOther acquired hammer toes of left foot Mike Cuevas. [address] [facility] [address], [address], [place], [place], [address] , . tel:[phone] Referring Provider: Mason Cardona, [address], [place], [address] . tel:[phone] Family History Family Member Type Diagnosis Age At Onset Brother Problem (finding) Gout Mother Problem (finding) Osteoarthritis Mother Problem (finding) Hypertension Father Problem (finding) Gout Mother Problem (finding) Heart Disease Father Problem (finding) Osteoarthritis Brother Problem (finding) Hypertension Payers Payer name Insurance type Covered libertarian ID Mary nelson(s) Aetna Medicare CI [id number] Social History Type Description Quantity Date Captured Comments Alcohol Use Details Unknown Caffeine Use Details Unknown Tobacco Use Status Current non-smoker Smoking Status Never smoker Sex Female Chief Complaint And Reason For Visit From encounter dated '12/06/2021 13:25'. 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
--- OUTSIDE RECORDS SUMMARY | 2024-05-23 09:37 | XMS_ITS | Clinical Summary ---
Author Organization [facility] Address [address] [place] [address] Care Team Providers Care Artists' Model Name Role Phone UrmilaAtif waldron Christiano Primary [...] daily. Active fluticasone propionate (FLONASE) 50 mcg/spray [place], Suspension nasal inhaler Administer 1 [place] in each nostril 1 time daily as [...] times daily. 60 Capsule 04/07/2022 1:21 PM RESEARCH QUALITY ASSURANCE SPECIALIST 2 Active simvastatin (ZOCOR) 10 mg tablet [...] Department Care Team Description 05/09/2024 Orders Only [facility] - [address] [place] [phone] Kwadwo Barrios MD 05/08/2024 External Device Data STL ABSTRACTION Provider, Abstract 05/08/2024 Orders Only [facility] - [place] [address] Kwadwo Barrios MD 04/28/2024 [facility] - [place] [address] [place] [phone] Kwadwo Barrios MD Malignant neoplasm of upper-outer quadrant of right breast in female, estrogen receptor negative (CMS/HCC) 04/14/2024 [facility] - [place] [address] [place] [phone] Kwadwo Barrios MD Malignant neoplasm of upper-outer quadrant of right breast in female, estrogen receptor negative (CMS/HCC) 03/31/2024 [facility] - [place] [address] [place] [phone] Kwadwo Barrios MD Malignant neoplasm of upper-outer quadrant of right breast in female, estrogen receptor negative (CMS/HCC) 03/17/2024 [facility] - [place] [address] [place] [phone] Kwadwo Barrios MD Malignant neoplasm of upper-outer quadrant of right breast in female, estrogen receptor negative (CMS/HCC) 03/03/2024 [facility] - [place] [address] [place] [phone] Kwadwo Barrios MD Malignant neoplasm of upper-outer [...] st Contact Info) Description 06/11/2024 1:00 PM RESEARCH QUALITY ASSURANCE SPECIALIST Office Visit [facility] - [place] [address] [facility] [address] [place] [address] Kwadwo Barrios MD [address] [facility] [address] [place] [address] Health Maintenance Due Date Last [...] MONTHS 10/03/2022 04/04/2022 INFLUENZA VACCINE (#1) 2023 Medical Devices Implanted Type Area Social Work Msw Device Identifier Shelf Expiration Date Model / Serial / Lot Hemostatic Surgiflo 8ml W/ Thrombin 2994 - [id number] Implanted:Qty : 1 on 04/03/2022 by Anthony Mendoza MD at [facility] Hemostatic N/A: Spine Cervical Posterior [employer] 05/16/2023 [id number] / / [id number] Procedures Procedure Name Priority Date/Time Associated Diagnosis Comments CANCER ANTIGEN 15-3 Routine 05/07/2024 4 :21 PM RESEARCH QUALITY ASSURANCE SPECIALIST COMPREHENSIVE METABOLIC PANEL Routine 05/07/2024 2:00 PM RESEARCH QUALITY ASSURANCE SPECIALIST HEMOGLOBIN A1C Routine 04/04/2022 4:18 AM RESEARCH QUALITY ASSURANCE SPECIALIST from Last 3 Months or Most Recently Relevant to Health Maintenance Results * CANCER ANTIGEN 15-3 (05/07/2024 4:21 PM RESEARCH QUALITY ASSURANCE SPECIALIST) Blood Kwadwo Barrios MD CHEMISTRY ORDERABLES Final Resu lt * COMPREHENSIVE METABOLIC PANEL (05/07/2024 2:00 PM RESEARCH QUALITY ASSURANCE SPECIALIST) Blood us Kwadwo Barrios MD CHEMISTRY ORDERABLES Final Resu lt * (ABNORMAL) HEMOGLOBIN A1C (04/04/2022 4:18 AM RESEARCH QUALITY ASSURANCE SPECIALIST) HEMOGLOBIN A1C 6.6(H) <=5.6 % 04/04/2022 8:17 AM RESEARCH QUALITY ASSURANCE SPECIALIST [facility] EST. AVG GLUCOSE, A1C 143 mg/dL 04/04/2022 8:17 AM RESEARCH QUALITY ASSURANCE SPECIALIST [facility] Blood Venipuncture / Unknown 04/04/2022 4:18 AM RESEARCH QUALITY ASSURANCE SPECIALIST 04/04/2022 4:24 AM RESEARCH QUALITY ASSURANCE SPECIALIST Narrative [facility] - 04/04/2022 8:17 AM RESEARCH QUALITY ASSURANCE SPECIALIST HGB A1C INTERPRETATION NORMAL: <5.7% PRE-DIABETES: 5.7 - 6.4% DIABETES: 6.5% OR GREATER us Rubina Rosario MD CHEMISTRY ORDERABLES Final Resul t [facility] CLIA# [id number] [address] [place] [address] from Last 3 Months or Most Recently Relevant to Health Maintenance Insurance AETNA O [facility] RX AETNA Medicare Part D RX [employer] [facility]INTERNAL) [facility] Plans AETNA PPO [facility] Advance Directives For more information, please contact: [phone] * Full Code (Latest Code Status on File) Date Activated Date Inactivated Comments 04/03/2022 2:48 PM 04/07/2022 5:46 PM Care Teams Artists' Model Relationship Specialty Start Date End Date Atif Cartagena DO [address] [address] PCP - General Internal Medicine 03/15/22
--- OUTSIDE RECORDS SUMMARY | 2024-05-23 09:37 | XMS_ITS | Clinical Summary ---
Author Organization 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
--- OUTSIDE RECORDS SUMMARY | 2024-05-23 09:37 | XMS_ITS | Referral Summary ---
Author Organization [facility] Address [address] [place] [address] Phone Care Team Providers Care Psych Specialist Name Role Phone Atif Cartagena DO Primary Care Provider [phone] Allergies Active Allergy Reactions Criticality Noted Date [...] on file Legal Sex Female 2:18 AM COUNTER SUPERVISOR Gender Identity Not on file Sexual Orientation [...] on file Insurance AETNA MEDICARE on file [facility] MEDIC[facility] Care Teams Psych Specialist Relationship Specialty Start Date End Date Atif Cartagena DO PCP - General Internal Medicine 09/05/21
--- OUTSIDE RECORDS SUMMARY | 2024-05-23 09:37 | XMS_ITS | Encounter Summary ---
Author Organization [facility] Address [address] [address] Care Team Providers Care Business Banker Name Role Phone Robert Celis MD Primary Care Provider [phone] Encounter Details Date Type Department Care Team [...] on filedocumented in this encounter Care Teams Business Banker Relationship Specialty Start Date End Date Robert Celis MD [address] [place] [address] PCP - General Internal Medicine 09/13/12 documented as of this encounter
--- OUTSIDE RECORDS SUMMARY | 2024-05-23 09:37 | XMS_ITS | Clinical Summary ---
Author Organization [facility] Address [address] [place] [address] Care Team Providers Care Leasing Director Name Role Phone Robert Celis MD Primary Care Provider [phone] Source Comments [facility],non-owned Affiliates and Associated Physician Practices is amultiple site organization consisting of ambulatory clinics and hospital sitesin [place], [place], [place] and [place]. This disclosure is being madepursuant to the Care Everywhere program and may not contain all information available regarding this patient. Last updated 18.[facility] [employer] Allergies Active Allergy Reactions Criticality Noted Date [...] (TYLENOL) 500 MG tabletIndications: RA (rheumatoid arthritis) ([facility]) Take 2 Tabs by mouth 3 times [...] X 5/8 1 ML MISCIndications:RA (rheumatoid arthritis) ([facility]) Inject 1 mL subcutaneously every 7 days. 4 Each 11 08/11/2014 Active methotrexate 25 MG/ML injectionIndicatio ns:RA (rheumatoid arthritis) ([facility]) Inject 1 mL subcutaneously every 7 days. [...] AETNA MEDICARE ADV AETNA MEDICARE ADV HMO/PPO/PFFS [id number] Effective for all dates [address] [place] [address] Medicare -Managed Care SELF PAY NO INSURANCE SELF PAY NO INSURANCE Effective for all dates [place] Self Pay AETNA MEDICARE ADV AETNA MEDICARE ADV HMO/PPO/PFFS [id number] Effective for all dates [address] [place] [address] Medicare -Managed Care SELF PAY NO INSURANCE SELF PAY NO INSURANCE Effective for all dates [place] Self Pay AETNA MEDICARE ADV AETNA MEDICARE ADV HMO/PPO/PFFS [id number] Effective for all dates [address] [place] [address] Medicare -Managed Care SELF PAY NO INSURANCE SELF PAY NO INSURANCE Effective for all dates [place] Self Pay AETNA MEDICARE ADV AETNA MEDICARE ADV HMO/PPO/PFFS [id number] Effective for all dates [address] [place] [address] Medicare -Managed Care SELF PAY NO INSURANCE SELF PAY NO INSURANCE Effective for all dates [place] Self Pay AETNA MEDICARE ADV AETNA MEDICARE ADV HMO/PPO/PFFS [id number] Effective for all dates [address] [place] [address] Medicare -Managed Care SELF PAY NO INSURANCE SELF PAY NO INSURANCE Effective for all dates [place] Self Pay AETNA MEDICARE ADV AETNA MEDICARE ADV HMO/PPO/PFFS [id number] Effective for all dates [address] [facility] [place] [address] Medicare -Managed Care SELF PAY NO INSURANCE SELF PAY NO INSURANCE Effective for all dates [place] Self Pay AETNA AETNA PPO/POS/OA [id number] 11/27/2019-Pres ent [address] [place] [address] PPO AETNA AETNA MEDICARE ADV HMO [id number] 08/22/2016-Prese nt [address] [facility] [place] [address] Medicare -Managed Care Care Teams Leasing Director Relationship Specialty Start Date End Date Roebrt Celis MD [address] [place] [address] PCP - General Internal Medicine 09/13/12
--- OUTSIDE RECORDS SUMMARY | 2024-05-23 09:37 | XMS_ITS | Patient Health Record ---
Author Organization [facility] Address [address] [place] [address] Care Team Providers Care Director Style Name Role Phone Atif Cartagena Primary Care Provider Unavailab Dr. Stefano Stone Unavailable [phone] Araceli Ambrosio Unavailable Unavailable [facility], Provider Unavailable Unavailab le Allergies No Known Allergies Reason For Referral Reason Xeomin 200u q 12 wee ks Diagnosis 1 Spasmodic torticolli s (G24.3) Referral Organization [facility] Referring Provider First Name Stefano Referring Provider Last Name Bela Referring Provider Speciality Neurology General Notes Michelle Pace 04:58:22 PM > PA submitted by phone to [facility] team [phone] Referral Priority Routine Medications Medication SIG (Take, Route, Frequency, Duration) Notes Start Date End Date Status Vitamin C 1000 MG 1 tab(s) orally once a day Active Vitamin D3 25 MCG 1 tab(s) orally once a day Active Cinnamon 500 MG 2 tab(s) orally once a day Active CINNAMON 500 mg 2 tab(s) orally once a day Active B-12 1000 MCG 1 tab(s) orally once a day Active CLONAZEPAM 2 mg 1 tab(s) orally daily Active OMEPRAZOLE 40 mg 1 cap(s) orally once a day Active HYDROCHLOROTHIAZIDE 12.5 mg 1 tab(s) orally two times per week As needed Active Omeprazole 40 MG 1 cap(s) orally once a day Active CALCIUM CARBONATE 600 mg 2 tab(s) orally once a day Active clonazePAM 2 MG 1 tab(s) orally daily Active Olmesartan Medoxomil 20 MG 1 tab(s) oral ly once a day Active Simvastatin 10 MG 1 tab(s) orally once a day (in the evening) Active SIMVASTATIN 10 mg 1 tab(s) orally once a day (in the evening) Active Gabapentin 300 MG 2 cap(s) orally at bedtime Active OLMESARTAN 20 mg 1 tab(s) orally once a day Active rOPINIRole HCl 0.5 MG 1 tab(s) orally at bedtime Active ROPINIROLE 0.5 mg 1 tab(s) orally at bedtime Active Calcium Carbonate 600 MG 2 tab(s) orally once a day Active GABAPENTIN 300 mg 2 cap(s) orally at bedtime Active hydroCHLOROthiazide 12.5 MG 1 tab(s) ora lly two times per week Active COQ10 100 mg 2 cap(s) orally once a day Active Co Q 10 100 MG 2 cap(s) orally once a day Active VITAMIN B12 1000 mcg 1 tab(s) orally onc e a day Active Aspirin Low Dose 81 MG 1 tab(s) orally o nce a day Active VITAMIN D3 25 mcg 1 tab(s) orally once a day Active VITAMIN C 1000 mg 1 tab(s) orally once a day Active ASPIRIN LOW DOSE 81 mg 1 tab(s) orally o nce a day Active Immunizations Vaccine Route Administration Date Status Comme nts Influenza Unknown 01/14/2023 Administered Portal Infor mation Problems Problem Type SNOMED Code ICD Code Onset Dates Problem Status W/U Status Risk Notes Problem Spasmodic torticollis (77015537) Spasmodic torticollis (G24.3) Active confirmed Problem Chronic migraine without aura, non-refractory (disorder) (322189562985732 ) Migraine without aura, not intractable, without status migrainosus (G43.009) Active confirmed Problem Migraine with aura (7207701) Migraine with aura, not intractable, without status migrainosus (G43.109) Active confirmed Problem Chronic migraine without aura, non-intractable (092640143139071 ) Chronic migraine without aura, not intractable, without status migrainosus (G43.709) Active confirmed Problem Neuralgia (34755511) Neuralgia and neuritis, unspecified (M79.2) Active confirmed Vital Signs Respiratory Rate 18 /min 07/12/2023 Oximetry 96 % 07/12/2023 Blood pressure diastolic 79 mm Hg 07/12/2023 Height 60 in 07/12/2023 Blood pressure systolic 151 mm Hg 07/12/2023 Weight 141.6 lbs 07/12/2023 BMI 27.65 kg/m2 07/12/2023 Encounters Encounter Location Date Provider Diagnosis [address] [address] 09/29/2023 Provider [facility] [address] [facility] [address] [address] 06/07/2023 Stefano Cramer Spasmodic torticollis G24.3 and Neuralgia and neuritis, unspecified M79.[address] [address] 06/21/2023 Stefano Cramer Spasmodic torticollis G24.[address] [address] 07/12/2023 Stefano Cramer Spasmodic torticollis G24.3 and Neuralgia and neuritis, unspecified M79.[address] [address] 05/28/2023 Stefano Cramer [address] [address] 06/06/2023 Stefano Cramer Assessments Encounter Date Diagnosis (ICD Code) Assessment Notes Treatment Notes Treatment Clinical Notes Section Notes 06/07/2023 Spasmodic torticollis (ICD-10 - G24.3) [place] for Xeomin Recommend botulinum toxin injections. She will need R trapezius, L trapezius, L levator, L longissimus, L scalene, and I may also put injections in the left occipitalis. I would anticipate starting with 100-120 Units. 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 She will need R trapezius, L trapezius, L levator, L longissimus, L scalene, and I may also put injections in the left occipitalis. I would anticipate starting with 100-120 Units. 06/21/2023 Spasmodic torticollis (ICD-10 - G24.3) 07/12/2023 Spasmodic torticollis (ICD-10 - G24.3) She needs higher dose in L levator, L scalene, R trap, needs dosing in R Splenius. Would increase overall dose 07/12/2023 Neuralgia and neuritis, unspecified (ICD-10 - M79.2) She needs higher dose in L levator, L scalene, R trap, needs dosing in R Splenius. Would increase overall dose 09/13/2023 She needs higher dose in L levator, L scalene, R trap, needs dosing in R Splenius. Would increase overall dose Plan Of Treatment No Information Insurance Providers Payer Name Payer Address Payer Phone Subscriber Number Group Number Insured Name Patient Relationship to Insured Coverage Start Date Coverage End Date [employer] Medicare [address] [place] [address] [id number] Jacqueline Farmer Self - patient is the insured 4 Medical (General) History Medical History History ICD Code DM2 PIEDAD HTN RA OA Hypothyroidism HLD Osteoporosis CKD3 GERD/HH Gout RLS/PLMD Cervical dystonia Surgical History Surgery Date(Month/Year) Craniotomy and C1/C2 laminectomy
--- OUTSIDE RECORDS SUMMARY | 2024-05-23 09:37 | XMS_ITS | Clinical Summary ---
Author Organization [facility] Address [address] [place] [address] Phone Care Team Providers Care Travel Money Advisor Name Role Phone UrmilaAtif waldron Primary Care Provider [phone] Allergies Active Allergy Reactions Criticality Noted Date [...] 2003 Influenza Vaccine (#1) 2023 Care Teams Travel Money Advisor Relationship Specialty Start Date End Date Atif Cartagena DO [address] [place] [address] PCP - General Internal Medicine 09/02/20
--- OUTSIDE RECORDS SUMMARY | 2024-05-23 09:37 | XMS_ITS ---
Author Organization [facility] Address [address] [place] [address] Care Team Providers Care Drafter Geophysical Name Role Phone Atif Cartagena Primary Care Provider Unavailab Dr. 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 * Initial [...] Age of carpet? 1, Do you have vgvd-oy-ezhr carpeting? Yes, What is the age of [...] Management) * Billing Information: * Visit Code: 60660 Office Visit, Est Pt., Level 4. Modifiers: 25 10516 Office Visit, Est Pt., Level 3. Modifiers: 25 * Procedure Codes: 24567 PT-FOCUSED HLTH RISK ASSMT. G8427 DOC MEDS VERIFIED W/PT OR RE. * Electronic signature of Dr. Stefano Cramer MD on 05/23/2024 at 09:37 AM CASK MAKER Sign off status: Pending * Provider: Skip Cramer MD Date: 0 09/13/2023 Generated for Suman wilcox/Olga/Ramone on: 05/23/2024 09:37 AM CASK MAKER History and Physical Notes * HPI (History of Present Illness) Category Sub-Category Detail Notes Category Not es *Introduction I had the pleasure of seeing who presented for follow-up for headaches *Initial History INITIAL VISIT [...]
--- OUTSIDE RECORDS SUMMARY | 2024-05-23 09:37 | XMS_ITS | Patient Health Summary ---
Author Organization [facility] Address [address] [place] [address] Care Team Providers Care Office Technologist Name Role Phone Robert Celis MD Primary Care Provider Note from [facility],non-owned Affiliates and Associated Physician Practices is amultiple site organization consisting of ambulatory clinics and hospital sitesin [place], [place], [place] and [place]. This disclosure is being madepursuant to the Care Everywhere program and may not contain all information available regarding this patient. Last updated 18.[facility] Allergies * Metformin(Diarrhea) * Trazodone(Dizziness) [...] RDERABLES * XR KNEE 3 VW BILAT 37830 X 2 (08/22/2016 10:27 AM CDT) Anatomical [...] [place] - 01/29/2014 3:14 PM CDT AndersonSpecimen#[id number] Angel Loc/Rm/Bed: SURG CENTR// Historical Provider LAB - MICROBIOLOG Y ORDERABLES Performing Organization Address [facility] Co de Phone Number [address] [phone] * CULTURE STOOL+ E COLI SHIGA-LIKE TOXIN (01/26/2014 8:36 AM CDT) Culture Feces No Salmonella, Shigella, Yersinia, Campylobacter or Escherichia Coli 0157:H7 isolated. Negative for Shiga Toxin by Immunoassay. [facility] Stool specimen (specimen) STOOL SPECIMEN / Unknown 01/26/2014 8:36 AM CDT 01/26/2014 2:08 PM CDT Narrative [facility] - 01/30/2014 1:40 PM CDT AndersonSpecimen#[id number] Angel Loc/Rm/Bed: SURG CENTR// Historical Provider LAB - MICROBIOLOG Y ORDERABLES Performing Organization Address [facility] Co de Phone Number [address] [phone] * CLOSTRIDIUM DIFFICILE [facility] + TOXIN A+B (01/26/2014 8:36 AM CDT) C difficile Antigen Negative Negative [facility] C difficile Toxin Negative Negative [facility] Stool specimen (specimen) STOOL SPECIMEN / Unknown 01/26/2014 8:36 AM CDT 01/26/2014 2:08 PM CDT Narrative [facility] - 01/26/2014 11:03 PM CDT AndersonSpecimen#[id number] Angel Loc/Rm/Bed: SURG CENTR// Historical Provider LAB - MICROBIOLOG Y ORDERABLES Performing Organization Address City/[facility]/ZIP Co de Phone Number [address] [phone] * CRYPTOSPORIDIUM ANTIGEN (01/26/2014 8:36 AM CDT) Cryptosporidium Antigen Screen No Cryptosporidium Oocysts seen. Negative [facility] Stool specimen (specimen) STOOL SPECIMEN / Unknown 01/26/2014 8:36 AM CDT 01/26/2014 2:08 PM CDT Narrative [facility] - 01/29/2014 3:14 PM CDT AndersonSpecimen#[id number] Angel Loc/Rm/Bed: SURG CENTR// Historical Provider LAB - MICROBIOLOG Y ORDERABLES Performing Organization Address City/[facility] Co de Phone Number [address] [phone] * XR SACROILIAC JOINTS 3+ VW (12/25/2012 [...] with a 438 probe at 18mHz or Plutora M7 with a L14-6s probe at 14 [...] the diagnostic impression are recorded by the sheepskin pickler under the direction of the attending physician [...] MD directly to discuss this case at [phone] or via TalkTo messaging at: [employer]. Procedure Note David Cuevas MD - 10/04/2012 [...] effect the diagnostic impression arerecorded by the sheepskin pickler under the direction of the attendingphysician and [...] MD directly to discuss this case at [phone] Swapferit messaging at: [employer]. David Cuevas MD US ORDERABLES * US EXTREMITY LEFT COMPLT NONVASC (10/04/2012 4:51 PM CDT) Anatomical Region Laterality Modality Lower Extremity, Upper Extremity Other Narrative 10/04/2012 4:51 PM CDT David Cuevas MD 10/04/2012 4:51 PM Bilateral Hand Ultrasound Protocol: Complete Bilateral Hand Study for RA Activity and Median nerve dimensions using MyLab5 with a 438 probe at 18mHz or [employer] incray M7 with a L14-6s probe at 14 [...] the diagnostic impression are recorded by the sheepskin pickler under the direction of the attending physician [...] MD directly to discuss this case at [phone] or via TalkTo messaging at: [employer]. Procedure Note David Cuevas MD - 10/04/2012 [...] effect the diagnostic impression arerecorded by the sheepskin pickler under the direction of the attendingphysician and [...] by ultrasound criteria consider furthertesting Contact David uCevas MD directly to discuss this case at [phone] [employer] messaging at: [employer]. David Cuevas MD US ORDERABLES * URIC ACID BLOOD (10/04/2012 2:10 PM CDT) Uric Acid 6.2 2.5 - 7.1 mg/dL [facility] ACCOUNT BILL Comment:Therapeutic target f or gout patients: <6.0 Blood specimen (specimen) BLOOD SPECIMEN / Unknown 10/04/2012 2:10 PM CDT 10/04/2012 4:08 PM CDT Narrative Resulting Agency Comment [address] [phone] David Cuevas MD LAB - CHEMISTRY ASHLY WOODS [facility] ACCOUNT BILL * (ABNORMAL) RHEUMATOID FACTOR BLOOD QUANTITATIVE (10/04/2012 2:10 PM CDT) Rheumatoid Factor 20.7(H) 0.0 - 13.9 IU/mL [facility] ACCOUNT BILL Blood specimen (specimen) BLOOD SPECIMEN / Unknown 10/04/2012 2:10 PM CDT 10/04/2012 4:08 PM CDT Narrative Resulting Agency [facility] [address] [facility] [id number] David Cuevas MD LAB - CHEMISTRY ASHLY WOODS [facility] ACCOUNT BILL * (ABNORMAL) C-REACTIVE PROTEIN (10/04/2012 2:10 PM CDT) C-Reactive Protein 6.6(H) 0.0 - 4.9 mg/L [facility] ACCOUNT BILL Blood specimen (specimen) BLOOD SPECIMEN / Unknown 10/04/2012 2:10 PM CDT 10/04/2012 4:08 PM CDT Narrative Resulting Agency Comment [address] [phone] David Cuevas MD LAB - CHEMISTRY ASHLY [...] PM CDT Narrative Resulting Agency Comment [facility] [address] [facility] [id number] David Cuevas MD LAB - CHEMISTRY [facility] Organization Address City/State/ZIP Co de Phone Number [facility] ACCOUNT BILL * IMAGING/RADIOLOGY/XRAY RESULTS ORDER (09/05/2012) Anatomical Region Laterality Modality Other David Cuevas MD IMAGING Care Teams Office Technologist Relationship Specialty Start Date End Date Robert Celis MD [address] [place] [address] PCP - General Internal Medicine 09/13/12
--- OUTSIDE RECORDS SUMMARY | 2024-05-23 09:37 | XMS_ITS | Continuity of Care Document ---
Author Organization [facility] Address [address] [place] [address] Phone Care Team Providers Care Recycling Operations Manager Name Role Phone Santi Leigh DO Unavailable Unavailable Advance Directives Directive Yes / No Effective Date File Name No Information Encounters Encounter Description Practice Location Reason(s) For Visit Diagnoses Date Provider Providers Copied on Encounter [facility], [address], [place], [place], [address], tel:[phone] [facility] No Information [address]. [address] [place], [address], [place]. tel: [phone] Family History Family Member Type Diagnosis Age At Onset No Information Payers Payer name Insurance type Covered constitution party ID Authoriza tion(s) [place] [id number] Social History Type Description Quantity Date Captured [...]
--- OUTSIDE RECORDS SUMMARY | 2024-05-23 09:37 | XMS_ITS | Referral Summary ---
Author Organization [facility] Address [address] [place] [address] Care Team Providers Care Road Train Driver Name Role Phone Robert Celis MD Primary Care Provider [phone] Source Comments [facility] Affiliates and Associated Physician Practices is amultiple site organization consisting of ambulatory clinics and hospital sitesin [place], [place], [place] and [place]. This disclosure is being madepursuant to the Care Everywhere program and may not contain all information available regarding this patient. Last updated 18.[facility] Allergies Active Allergy Reactions Criticality Noted Date [...] (TYLENOL) 500 MG tabletIndications: RA (rheumatoid arthritis) ([facility]) Take 2 Tabs by mouth 3 times [...] X 5/8 1 ML MISCIndications:RA (rheumatoid arthritis) ([facility]) Inject 1 mL subcutaneously every 7 days. 4 Each 11 08/11/2014 Active methotrexate 25 MG/ML injectionIndicatio ns:RA (rheumatoid arthritis) ([facility]) Inject 1 mL subcutaneously every 7 days. [...] AETNA MEDICARE ADV AETNA MEDICARE ADV HMO/PPO/PFFS [id number] Effective for all dates [address] [place] [address] Medicare -Managed Care SELF PAY NO INSURANCE SELF PAY NO INSURANCE Effective for all dates [facility] [place] Self Pay AETNA MEDICARE ADV AETNA MEDICARE ADV HMO/PPO/PFFS [id number] Effective for all dates [address] [place] [address] Medicare -Managed Care SELF PAY NO INSURANCE SELF PAY NO INSURANCE Effective for all dates [facility] Self Pay AETNA MEDICARE ADV AETNA MEDICARE ADV HMO/PPO/PFFS [id number] Effective for all dates [address] [place] [address] Medicare -Managed Care SELF PAY NO INSURANCE SELF PAY NO INSURANCE Effective for all dates [facility] Self Pay AETNA MEDICARE ADV AETNA MEDICARE ADV HMO/PPO/PFFS [id number] Effective for all dates [address] [place] [address] Medicare -Managed Care SELF PAY NO INSURANCE SELF PAY NO INSURANCE Effective for all dates [facility] Self Pay AETNA MEDICARE ADV AETNA MEDICARE ADV HMO/PPO/PFFS [id number] Effective for all dates [address] [place] [address] Medicare -Managed Care SELF PAY NO INSURANCE SELF PAY NO INSURANCE Effective for all dates [facility] Self Pay AETNA MEDICARE ADV AETNA MEDICARE ADV HMO/PPO/PFFS [id number] Effective for all dates [address] [place] [address] Medicare -Managed Care SELF PAY NO INSURANCE SELF PAY NO INSURANCE Effective for all dates [facility] Self Pay AETNA AETNA PPO/POS/OA [id number] 11/27/2019-Pres ent [address] [place] [address] PPO AETNA AETNA MEDICARE ADV HMO [id number] 08/22/2016-Prese nt [address] [place] [address] Medicare -Managed Care Care Teams Road Train Driver Relationship Specialty Start Date End Date Robert Celis MD [address] [place] [address] PCP - General Internal Medicine 09/13/12
--- OUTSIDE RECORDS SUMMARY | 2024-05-23 09:37 | XMS_ITS | Encounter Summary ---
Author Organization [facility] Address [address] [place] [address] Care Team Providers Care Dog Groomer Name Role Phone Atif Cartagena DO Primary Care Provider Reason for Visit * Reason Onset Date Comments Post op 04/03/2022 Spoke w/Grace at Dr. Melvin's exchange/COMBINE MECHANIC Franky cushion gum applicator Encounter Details Date Type Department Care Team ([facility] Contact Info) Description 04/03/2022 Telephone [facility] Admitting [address] [place] [address] Anthony Mendoza MD [address] [place] [phone] Post op (Spoke w/Grace at Dr. Melvin'kalyn exchange/COMBINE MECHANIC Franky cushion gum applicator) Social History Tobacco Use Types Packs/Day Years [...] Coronavirus/COVID-19? No / Unsure 04/03/2022 8:20 AM CAPACITOR PACK PRESS OPERATOR documented as of this encounter Plan of Treatment Upcoming Encounters Date Type Department Care Team ([facility] Contact Info) Description 06/11/2024 1:00 PM CAPACITOR PACK PRESS OPERATOR Office Visit [facility] [place] [address] [place] [address] Kwadwo Barrios MD [address] [facility] [address] [place] [address] documented as of this encounter Visit Diagnoses Not on filedocumented in this encounter Additional Health Concerns Infection Onset Date Last Indicated Resolved Time R/O COVID-19 04/05/2022 04/05/2022 04/05/2022 1:59 PM CAPACITOR PACK PRESS OPERATOR documented as of this encounter Care Teams Dog Groomer Relationship Specialty Start Date End Date Atif Cartagena DO [address] [facility] [address] [place] [address] PCP - General Internal Medicine 03/15/22 documented as of this encounter
== END 2024-05-23 09:08 | disposition home or self-care (01) ==
LOC: ANHIMG 09:13
PROVIDERS: PCP Internal Medicine; Visit Provider Surgery
DX: C50.911 Malignant neoplasm of unspecified site of right female breast (principal); R92.8 Other abnormal and inconclusive findings on diagnostic imaging of breast; Z98.890 Other specified postprocedural states
CPT/HCPCS: 76642

== ENCOUNTER 2024-06-06 10:25 | Outpatient (CLI) | payer MEDICARE, SELFPAY ==
--- NOTE | ~2024-06-06 | MR_ITS ---
EXAMINATION: MR breast BI wo/w con INDICATION: Status post lumpectomy, seroma TECHNIQUE: Axial VIBRANT pre and dynamic post contrast, Sagittal VIBRANT post contrast, Axial T2 STIR ASSET COMPARISON: Ultrasound dated 05/23/2024 CONTRAST: Multihance, 11 cc BREAST COMPOSITION: Heterogeneous fibroglandular tissue FINDINGS: RIGHT BREAST: There is moderate background parenchymal enhancement. There is an irregular peripherall y enhancing fluid collection in the central right breast measuring up to 8.1 x 2.8 x 3.5 cm in size. There is mild amorphous soft tissue enhancement surrounding fluid collection without discrete mass cl early identified. There is distortion of the right breast, compatible with postoperative change. Ther e is skin thickening of the right breast diffusely. No pathologically enlarged axillary or internal m ammary lymph nodes are identified. LEFT BREAST: There is moderate background parenchymal enhancement. No abnormal enhancement is present after contrast administration. No pathologically enlarged axillary or internal mammary lymph nodes a re identified. IMPRESSION: 8.1 x 2.8 x 3.5 cm complex fluid collection the central right breast with mild surrounding amorphous soft tissue enhancement. Findings suggest seroma versus possibly abscess. Amorphous soft tissue priscilla a is likely reactive/inflammatory in nature. No definite evidence to suggest recurrent neoplasm, thou gh this is difficult to completely exclude given the abnormalities which are present. Clinical follow -up advised. Consider repeat imaging in 6 months, or an appropriate clinical interval, depending on e volution of clinical findings. BI-RADS category 3, probably benign findings. Reviewed, dictated and finalized at [facility]. UCT TESTER FIBERGLASS IMPRESSION: 8.1 x 2.8 x 3.5 cm complex fluid collection the central right breast with mild surrounding amorphous soft tissue enhancement. Findings suggest seroma versus possibly abscess. Amorphous soft tissue edema is likely reactive/inflammatory i n nature. No definite evidence to suggest recurrent neoplasm, though this is di fficult to completely exclude given the abnormalities which are present. Clinic al follow-up advised. Consider repeat imaging in 6 months, or an appropriate cl inical interval, depending on evolution of clinical findings. BI-RADS category 3, probably benign findings.
--- OUTSIDE RECORDS SUMMARY | 2024-06-06 10:58 | XMS_ITS | Continuity of Care Document ---
Author Organization [facility] Address [address] [place] [address] Phone Care Team Providers Care Manager Business Development Hospice Name Role Phone Santi Leigh DO Unavailable Unavailable Advance Directives Directive Yes / No Effective Date File Name No Information Encounters Encounter Description Practice Location Reason(s) For Visit Diagnoses Date Provider Providers Copied on Encounter [facility], [address], [place], [place], [address], tel:[phone] [facility] No Information Lu Manuel. [address] [place], [address], [place]. tel: [phone] Family History Family Member Type Diagnosis Age At Onset No Information Payers Payer name Insurance type Covered alliance party ID Authoriza tion(s) [place] [id number] Social History Type Description Quantity Date Captured [...]
--- OUTSIDE RECORDS SUMMARY | 2024-06-06 10:58 | XMS_ITS ---
Author Organization [facility] Address [address] [place] [address] Care Team Providers Care Heel Painter Name Role Phone Atif Cartagena Primary Care Provider Unavailab Dr. Stefano Stone Unavailable [phone] Araceli Ambrosio Unavailable Unavailable ZZ-Migration, Provider Unavailable Unavailab le REASON FOR VISIT [facility] Conversion Encounter Medications Medication SIG (Take, [...] Active Encounters Encounter Location Date Provider Diagnosis [address] [address] 09/29/2023 Provider CASEY-Migration Plan Of Treatment No Information Progress Notes * Jacqueline SANDOB: 9 (84 yo F)Acc No.[id number]:09/29/2023 Patient: Jacqueline MADRID Provider: Gracie Molina :1940 A ge:83 Y S ex:Female Date:09/29/2023 Address:[facility] [address] Pcp:Atif Cartagena Subjective: * Chief Complaints: * [...] Electronic signature of Laina chaudhary ZZ-Migration on 06/06/2024 at 10:58 AM PROGRAM COORDINATOR Sign off status: Pending * Provider: Gracie Molina Date: 0 09/29/2023 Generated for Suman wilcox/Olga/Megitting on: 0 06/06/2024 10:58 AM PROGRAM COORDINATOR
--- OUTSIDE RECORDS SUMMARY | 2024-06-06 10:58 | XMS_ITS | Patient Health Summary ---
Author Organization [facility] Address [address] [facility] [place] [address] Care Team Providers Care Sonography Technologist Name Role Phone Robert Celis MD Primary Care Provider [phone] Note from [facility],non-owned Affiliates and Associated Physician Practices is amultiple site organization consisting of ambulatory clinics and hospital sitesin [place], [place], [place] and [place]. This disclosure is being madepursuant to the Care Everywhere program and may not contain all information available regarding this patient. Last updated 18.[facility] Allergies * Metformin(Diarrhea) * Trazodone(Dizziness) Medications * [...] RDERABLES * XR KNEE 3 VW BILAT 76658 X 2 (08/22/2016 10:27 AM CDT) Anatomical [...] Screen No Giardia Lamblia Cysts seen. Negative [facility] Stool specimen (specimen) STOOL SPECIMEN / Unknown 01/26/2014 8:36 AM CDT 01/26/2014 2:08 PM CDT Narrative [facility] - 01/29/2014 3:14 PM CDT AndersonSpecimen#[id number] Angel Loc/Rm/Bed: SURG CENTR// Historical Provider LAB - MICROBIOLOG Y ORDERABLES Performing Organization Address [facility] Co de Phone Number [address] [phone] * CULTURE STOOL+ E COLI SHIGA-LIKE TOXIN (01/26/2014 8:36 AM CDT) Culture Feces No Salmonella, Shigella, Yersinia, Campylobacter or Escherichia Coli 0157:H7 isolated. Negative for Shiga Toxin by Immunoassay. [facility] Stool specimen (specimen) STOOL SPECIMEN / Unknown 01/26/2014 8:36 AM CDT 01/26/2014 2:08 PM CDT Narrative [facility] - 01/30/2014 1:40 PM CDT AndersonSpecimen#[id number] Angel Loc/Rm/Bed: SURG CENTR// Historical Provider LAB - MICROBIOLOG Y ORDERABLES Performing Organization Address [facility] Co de Phone Number [address] [phone] * CLOSTRIDIUM DIFFICILE [facility] + TOXIN A+B (01/26/2014 8:36 AM CDT) C difficile Antigen Negative Negative [facility] C difficile Toxin Negative Negative [facility] Stool specimen (specimen) STOOL SPECIMEN / Unknown 01/26/2014 8:36 AM CDT 01/26/2014 2:08 PM CDT Narrative [facility] - 01/26/2014 11:03 PM CDT AndersonSpecimen#[id number] Angel Loc/Rm/Bed: SURG CENTR// Historical Provider LAB - MICROBIOLOG Y ORDERABLES Performing Organization Address City/[facility]/ZIP Co de Phone Number [address] [phone] * CRYPTOSPORIDIUM ANTIGEN (01/26/2014 8:36 AM CDT) Cryptosporidium Antigen Screen No Cryptosporidium Oocysts seen. Negative [facility] Stool specimen (specimen) STOOL SPECIMEN / Unknown 01/26/2014 8:36 AM CDT 01/26/2014 2:08 PM CDT Narrative [facility] - 01/29/2014 3:14 PM CDT AndersonSpecimen#[id number] Angel Loc/Rm/Bed: SURG CENTR// Historical Provider LAB - MICROBIOLOG Y ORDERABLES Performing Organization Address City/[facility] Co de Phone Number [address] [phone] * XR SACROILIAC JOINTS 3+ VW (12/25/2012 [...] with a 438 probe at 18mHz or CanoP M7 with a L14-6s probe at 14 [...] the diagnostic impression are recorded by the voice over announcer under the direction of the attending physician [...] MD directly to discuss this case at [phone] or via VisuMotion messaging at: [email or web address]. Procedure Note David Cuevas MD - 10/04/2012 [...] effect the diagnostic impression arerecorded by the voice over announcer under the direction of the attendingphysician and [...] MD directly to discuss this case at [phone] The Smart [employer] messaging at: [email or web address]. David Cuevas MD US ORDERABLES * US EXTREMITY LEFT COMPLT NONVASC (10/04/2012 4:51 PM CDT) Anatomical Region Laterality Modality Lower Extremity, Upper Extremity Other Narrative 10/04/2012 4:51 PM CDT David Cuevas MD 10/04/2012 4:51 PM Bilateral Hand Ultrasound Protocol: Complete Bilateral Hand Study for RA Activity and Median nerve dimensions using MyLab5 with a 438 probe at 18mHz or Ykoneray M7 with a L14-6s probe at 14 [...] the diagnostic impression are recorded by the voice over announcer under the direction of the attending physician [...] MD directly to discuss this case at [phone] or via VisuMotion messaging at: [email or web address]. Procedure Note David Cuevas MD - 10/04/2012 [...] effect the diagnostic impression arerecorded by the voice over announcer under the direction of the attendingphysician and [...] MD directly to discuss this case at [phone] The Smart Baker messaging at: [email or web address]. David Cuevas MD US ORDERABLES * URIC ACID BLOOD (10/04/2012 2:10 PM CDT) Uric Acid 6.2 2.5 - 7.1 mg/dL [facility] ACCOUNT BILL Comment:Therapeutic target f or gout patients: <6.0 Blood specimen (specimen) BLOOD SPECIMEN / Unknown 10/04/2012 2:10 PM CDT 10/04/2012 4:08 PM CDT Narrative Resulting Agency Comment [address] [id number] David Cuevas MD LAB - CHEMISTRY ASHLY WOODS [facility] ACCOUNT BILL * (ABNORMAL) RHEUMATOID FACTOR BLOOD QUANTITATIVE (10/04/2012 2:10 PM CDT) Rheumatoid Factor 20.7(H) 0.0 - 13.9 IU/mL [facility] ACCOUNT BILL Blood specimen (specimen) BLOOD SPECIMEN / Unknown 10/04/2012 2:10 PM CDT 10/04/2012 4:08 PM CDT Narrative Resulting Agency Comment [facility] [address] [facility] [id number] David Cuevas MD LAB - CHEMISTRY ASHLY WOOSD [facility] ACCOUNT BILL * (ABNORMAL) C-REACTIVE PROTEIN (10/04/2012 2:10 PM CDT) C-Reactive Protein 6.6(H) 0.0 - 4.9 mg/L [facility] ACCOUNT BILL Blood specimen (specimen) BLOOD SPECIMEN / Unknown 10/04/2012 2:10 PM CDT 10/04/2012 4:08 PM CDT Narrative Resulting Agency Comment [address] [id number] David Cuevas MD LAB - CHEMISTRY ASHLY [...] PM CDT Narrative Resulting Agency Comment [facility] [address] [facility] [id number] David Cuevas MD LAB - CHEMISTRY [facility] Organization Address City/State/ZIP Co de Phone Number [facility] ACCOUNT BILL * IMAGING/RADIOLOGY/XRAY RESULTS ORDER (09/05/2012) Anatomical Region Laterality Modality Other David Cuevas MD IMAGING Care Teams Sonography Technologist Relationship Specialty Start Date End Date Robert Celis MD [address] [place] [address] PCP - General Internal Medicine 09/13/12
--- OUTSIDE RECORDS SUMMARY | 2024-06-06 10:58 | XMS_ITS ---
Author Organization [facility] Address [address] [place] [address] Care Team Providers Care Chemical Educator Name Role Phone Atif Cartagena Primary Care Provider Unavailab Dr. Stefano Stone Unavailable [phone] Araceli Ambrosio Unavailable Unavailable REASON FOR VISIT Headache follow-up Encounters Encounter Location Date Provider Diagnosis [facility] [address] [place] [address] 08/08/2023 Stefano Cramer Plan Of Treatment No Information Progress Notes * Tala SANrobbieDOB: 9 (84 yo F)Acc No.[id number]:08/08/2023 Progress Notes Patient: Jacqueline MADRID Provider: Skip Cramer MD :1940 A ge:83 Y S ex:Female Date:08/08/2023 Address:[address], [place]-[id number] Pcp:Atif Cartagena Subjective: * Chief Complaints: * 1 . Headache follow-up. * Medical History: Objective: * Vitals: Assessment: Plan: * Treatment: * Billing Information: * Visit Code: * Procedure Codes: * Electronic signature of Dr. Stefano Cramer MD on 06/06/2024 at 10:57 AM FIREBRICK LAYER HELPER Sign off status: Pending * Provider: Skip Cramer MD Date: 08/08/2023 Generated for Suman wilcox/Olga/Megitting on: 0 06/06/2024 10:57 AM FIREBRICK LAYER HELPER
--- OUTSIDE RECORDS SUMMARY | 2024-06-06 10:58 | XMS_ITS | Clinical Summary ---
Author Organization [facility] Address [address] [place] [address] Care Team Providers Care Veneer Sorter Name Role Phone UrmilaAtif waldron Christiano Primary [...] daily. Active fluticasone propionate (FLONASE) 50 mcg/spray [place], Suspension nasal inhaler Administer 1 [place] in each nostril 1 time daily as [...] times daily. 60 Capsule 04/07/2022 1:21 PM SUPPORT MANAGER 2 Active simvastatin (ZOCOR) 10 mg tablet [...] Encounters Date Type Department Care Team Description 06/04/2024 External Device Data STL ABSTRACTION Provider, Abstract 05/26/2024 Orders Only [facility] - [place] [address] [address] [place] [address] Kwadwo Barrios MD Malignant neoplasm of upper-outer quadrant of right breast in female, estrogen receptor negative (CMS/HCC) 05/09/2024 Orders Only [facility] - [place] [address] Kwadwo Barrios MD 05/08/2024 External Device Data STL ABSTRACTION Provider, Abstract 05/08/2024 Orders Only [facility] - [place] [address] Kwadwo Barrios MD 04/28/2024 Orders Only [facility] - [place] [address] Kwadwo Barrios MD Malignant neoplasm of upper-outer quadrant of right breast in female, estrogen receptor negative (CMS/HCC) 04/14/2024 Orders Only [facility] - [place] [address] Kwadwo Barrios MD Malignant neoplasm of upper-outer quadrant of right breast in female, estrogen receptor negative (CMS/HCC) 03/31/2024 [facility] - [place] [address] Kwadwo Barrios MD Malignant neoplasm of upper-outer quadrant of right breast in female, estrogen receptor negative (CMS/HCC) 03/17/2024 Orders Only [facility] - [place] [address] [place] [phone] Kwadwo Barrios MD Malignant neoplasm of upper-outer [...] st Contact Info) Description 06/11/2024 1:00 PM SUPPORT MANAGER Office Visit [facility] - [place] [address] [facility] [address] [place] [address] Kwadwo Barrios MD [address] [facility] [address] [place] [address] Health Maintenance Due Date Last [...] 04/04/2022 INFLUENZA VACCINE (#1) 2023 Medicare [place]) Prev entative Visit/Annual Wellness Visit 04/16/2024 Medical Devices Implanted Type Area Clinic Manager Device Identifier Shelf Expiration Date Model / Serial / Lot Hemostatic Surgiflo 8ml W/ Thrombin 2994 - [id number] Implanted:Qty : 1 on 04/03/2022 by Anthony Mendoza MD at [facility] Hemostatic N/A: Spine Cervical Posterior [employer] 05/16/2023 [id number] / / [id number] Procedures Procedure Name Priority Date/Time Associated Diagnosis Comments CANCER ANTIGEN 15-3 Routine 05/07/2024 4 :21 PM SUPPORT MANAGER COMPREHENSIVE METABOLIC PANEL Routine 05/07/2024 2:00 PM SUPPORT MANAGER HEMOGLOBIN A1C Routine 04/04/2022 4:18 AM SUPPORT MANAGER from Last 3 Months or Most Recently Relevant to Health Maintenance Results * CANCER ANTIGEN 15-3 (05/07/2024 4:21 PM SUPPORT MANAGER) Blood Kwadwo Barrios MD CHEMISTRY ORDERABLES Final Resu lt * COMPREHENSIVE METABOLIC PANEL (05/07/2024 2:00 PM SUPPORT MANAGER) Blood us Kwadwo Barrios MD CHEMISTRY ORDERABLES Final Resu lt * (ABNORMAL) HEMOGLOBIN A1C (04/04/2022 4:18 AM SUPPORT MANAGER) HEMOGLOBIN A1C 6.6(H) <=5.6 % 04/04/2022 8:17 AM SUPPORT MANAGER [facility] EST. AVG GLUCOSE, A1C 143 mg/dL 04/04/2022 8:17 AM SUPPORT MANAGER [facility] Airsynergy [facility] Blood Venipuncture / Unknown 04/04/2022 4:18 AM SUPPORT MANAGER 04/04/2022 4:24 AM SUPPORT MANAGER Narrative [facility] - 04/04/2022 8:17 AM SUPPORT MANAGER HGB A1C INTERPRETATION NORMAL: <5.7% PRE-DIABETES: 5.7 - 6.4% DIABETES: 6.5% OR GREATER [facility] Abraham FALCON CHEMISTRY ORDERABLES Final Resul t [facility] CLIA# [id number] [place] [address] from Last 3 Months or Most Recently Relevant to Health Maintenance Insurance AETNA PPO [facility] RX AETNA Medicare Part D RX [employer] (INTERNAL) [facility] Plans AETNA PPO MCR Advance Directives For more information, please contact: [phone] * Full Code (Latest Code Status on File) Date Activated Date Inactivated Comments 04/03/2022 2:48 PM 04/07/2022 5:46 PM Care Teams Veneer Sorter Relationship Specialty Start Date End Date Atif Cartagena DO [address] [address] PCP - General Internal Medicine 03/15/22
--- OUTSIDE RECORDS SUMMARY | 2024-06-06 10:58 | XMS_ITS | Clinical Summary ---
Author Organization [facility] Address [address] [place] [address] Care Team Providers Care Chief Maintenance Supervisor Name Role Phone Robert Celis MD Primary Care Provider [phone] Source Comments [facility],non-owned Affiliates and Associated Physician Practices is amultiple site organization consisting of ambulatory clinics and hospital sitesin [place], [place], [place] and [place]. This disclosure is being madepursuant to the Care Everywhere program and may not contain all information available regarding this patient. Last updated 18.[facility] Allocab Allergies Active Allergy Reactions Criticality Noted Date [...] (TYLENOL) 500 MG tabletIndications: RA (rheumatoid arthritis) ([facility]) Take 2 Tabs by mouth 3 times [...] X 5/8 1 ML MISCIndications:RA (rheumatoid arthritis) ([facility]) Inject 1 mL subcutaneously every 7 days. 4 Each 11 08/11/2014 Active methotrexate 25 MG/ML injectionIndicatio ns:RA (rheumatoid arthritis) ([facility]) Inject 1 mL subcutaneously every 7 days. [...] AETNA MEDICARE ADV AETNA MEDICARE ADV HMO/PPO/PFFS [id number] Effective for all dates [address] [place] [address] Medicare -Managed Care SELF PAY NO INSURANCE SELF PAY NO INSURANCE Effective for all dates [place] Self Pay AETNA MEDICARE ADV AETNA MEDICARE ADV HMO/PPO/PFFS [id number] Effective for all dates [address] [place] [address] Medicare -Managed Care SELF PAY NO INSURANCE SELF PAY NO INSURANCE Effective for all dates [place] Self Pay AET[place] MEDICARE ADV AETNA MEDICARE ADV HMO/PPO/PFFS [id number] Effective for all dates [address] [place] [address] Medicare -Managed Care SELF PAY NO INSURANCE SELF PAY NO INSURANCE Effective for all dates [place] Self Pay A[place] MEDICARE ADV AETNA MEDICARE ADV HMO/PPO/PFFS [id number] Effective for all dates [address] [place] [address] Medicare -Managed Care SELF PAY NO INSURANCE SELF PAY NO INSURANCE Effective for all dates [place] Self Pay AET[place] MEDICARE ADV AETNA MEDICARE ADV HMO/PPO/PFFS [id number] Effective for all dates [address] [place] [address] Medicare -Managed Care SELF PAY NO INSURANCE SELF PAY NO INSURANCE Effective for all dates [place], [place] Self Pay AETNA MEDICARE ADV AETNA MEDICARE ADV HMO/PPO/PFFS [id number] Effective for all dates [address] [place] [address] Medicare -Managed Care SELF PAY NO INSURANCE SELF PAY NO INSURANCE Effective for all dates [place], [place] Self Pay AETNA AETNA PPO/POS/OA [id number] 11/27/2019-Pres ent [address] [place] [address] PPO AETNA AETNA MEDICARE ADV HMO [id number] 08/22/2016-Prese nt [address] [place] [address] Medicare -Managed Care Care Teams Chief Maintenance Supervisor Relationship Specialty Start Date End Date Robert Celis MD [address] [place] [address] PCP - General Internal Medicine 09/13/12
--- OUTSIDE RECORDS SUMMARY | 2024-06-06 10:58 | XMS_ITS | Clinical Summary ---
Author Organization [facility] Address [address] [place] [address] Phone Care Team Providers Care Head Strength And Conditioning Coach Name Role Phone UrmilaAtif waldron Primary Care Provider Allergies Active Allergy Reactions [...] 2003 Influenza Vaccine (#1) 2023 Care Teams Head Strength And Conditioning Coach Relationship Specialty Start Date End Date Atif Cartagena DO [address] [place] [address] PCP - General Internal Medicine 09/02/20
--- OUTSIDE RECORDS SUMMARY | 2024-06-06 10:58 | XMS_ITS | Patient Health Record ---
Author Organization [facility] Address [address] [place] [address] Care Team Providers Care Crop Adjuster Name Role Phone Atif Cartagena Primary Care Provider Unavailab Dr. Stefano Stone Unavailable [phone] Araceli Ambrosio Unavailable Unavailable ZZ-Migration, Provider Unavailable Unavailab le Allergies No Known Allergies Reason For Referral Reason Xeomin 200u q 12 wee ks Diagnosis 1 Spasmodic torticolli s (G24.3) Referral Organization 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 Problem Chronic migraine without aura, non-refractory (disorder) (663134699104929 ) Migraine without aura, not intractable, without status migrainosus (G43.009) Active confirmed Problem Migraine with aura (5335878) Migraine with aura, not intractable, without status migrainosus (G43.109) Active confirmed Problem Chronic migraine without aura, non-intractable (709972395847948 ) Chronic migraine without aura, not intractable, without status migrainosus (G43.709) Active confirmed Problem Neuralgia (44961266) Neuralgia and neuritis, unspecified (M79.2) Active confirmed Vital Signs Respiratory Rate 18 /min 07/12/2023 Blood pressure diastolic 79 mm Hg 07/12/2023 Oximetry 96 % 07/12/2023 Height 60 in 07/12/2023 Blood pressure systolic 151 mm Hg 07/12/2023 Weight 141.6 lbs 07/12/2023 BMI 27.65 kg/m2 07/12/2023 Encounters Encounter Location Date Provider Diagnosis [address] [address] 09/29/2023 Provider ZZ-Migration [address] [employer] [address] [address] 06/07/2023 Stefano Cramer Spasmodic torticollis G24.3 and Neuralgia and neuritis, unspecified M79.[address] [address] 06/21/2023 Stefano Cramer Spasmodic torticollis G24.[address] [address] 07/12/2023 Stefano Cramer Spasmodic torticollis G24.3 and Neuralgia and neuritis, unspecified M79.[address] [address] 06/06/2023 Stefano Chamberser Assessments Encounter Date Diagnosis (ICD Code) Assessment Notes Treatment Notes Treatment Clinical Notes Section Notes 06/07/2023 Spasmodic torticollis (ICD-10 - G24.3) PA for Xeomin Recommend botulinum toxin injections. She [...] Coverage End Date Aetna Medicare [address] [place] [address] [id number] Jacqueline Farmer Self - patient is the insured 4 Medical (General) History Medical History History ICD Code DM2 PIEDAD HTN RA OA Hypothyroidism HLD Osteoporosis CKD3 GERD/HH Gout RLS/PLMD Cervical dystonia Surgical History Surgery Date(Month/Year) Craniotomy and C1/C2 laminectomy
--- OUTSIDE RECORDS SUMMARY | 2024-06-06 10:58 | XMS_ITS | Referral Summary ---
Author Organization [facility] Address [address] [facility] [place] [address] Care Team Providers Care Bariatric Physician Name Role Phone Robert Celis MD Primary Care Provider [phone] Source Comments [facility],non-[facility] Affiliates and Associated Physician Practices is amultiple site organization consisting of ambulatory clinics and hospital sitesin [place], [place], [place] and [place]. This disclosure is being madepursuant to the Care Everywhere program and may not contain all information available regarding this patient. Last updated 18.[facility] Allergies Active Allergy Reactions Criticality Noted Date [...] (TYLENOL) 500 MG tabletIndications: RA (rheumatoid arthritis) ([facility]) Take 2 Tabs by mouth 3 [...] X 5/8 1 ML MISCIndications:RA (rheumatoid arthritis) ([facility]) Inject 1 mL subcutaneously every 7 days. 4 Each 11 08/11/2014 Active methotrexate 25 MG/ML injectionIndicatio ns:RA (rheumatoid arthritis) ([facility]) Inject 1 mL subcutaneously every 7 [...] AETNA MEDICARE ADV AETNA MEDICARE ADV HMO/PPO/PFFS [id number] Effective for all dates [address] [place] [address] Medicare -Managed Care SELF PAY NO INSURANCE SELF PAY NO INSURANCE Effective for all dates [facility] [place] Self Pay AETNA MEDICARE ADV AETNA MEDICARE ADV HMO/PPO/PFFS [id number] Effective for all dates [address] [place] [address] Medicare -Managed Care SELF PAY NO INSURANCE SELF PAY NO INSURANCE Effective for all dates [place] Self Pay AETNA MEDICARE ADV AETNA MEDICARE ADV HMO/PPO/PFFS [id number] Effective for all dates [address] [place] [address] Medicare -Managed Care SELF PAY NO INSURANCE SELF PAY NO INSURANCE Effective for all dates [place] Self Pay AETNA MEDICARE ADV AETNA MEDICARE ADV HMO/PPO/PFFS [id number] Effective for all dates [address] [place] [address] Medicare -Managed Care SELF PAY NO INSURANCE SELF PAY NO INSURANCE Effective for all dates [place] Self Pay AETNA MEDICARE ADV AETNA MEDICARE ADV HMO/PPO/PFFS [id number] Effective for all dates [address] [place] [address] Medicare -Managed Care SELF PAY NO INSURANCE SELF PAY NO INSURANCE Effective for all dates [facility] Self Pay AETNA MEDICARE ADV AETNA MEDICARE ADV HMO/PPO/PFFS [id number] Effective for all dates [address] [place] [address] Medicare -Managed Care SELF PAY NO INSURANCE SELF PAY NO INSURANCE Effective for all dates [facility] Self Pay AETNA AETNA PPO/POS/OA [id number] 11/27/2019-Pres ent [address] [place] [address] PPO AETNA AETNA MEDICARE ADV HMO [id number] 08/22/2016-Prese nt [address] [place] [address] Medicare -Managed Care Care Teams Bariatric Physician Relationship Specialty Start Date End Date Robert Celis MD [address] [place] [address] PCP - General Internal Medicine 09/13/12
--- OUTSIDE RECORDS SUMMARY | 2024-06-06 10:58 | XMS_ITS | Data Portability ---
Author Organization [facility] Address [address] [place] [address] Care Team Providers Care Shuttle Van Driver Name Role Phone ALONZO WISEMAN Primary Care Provider Assessment No assessment recorded. Plan of Treatment Reminders Order Date Submit Date Provider Last Modified By Organization Details Last Modified Time Details Appointments None record ed. Lab None record ed. Referral None record ed. Procedures None record ed. Surgeries None record ed. Imaging None record ed. Medication Orders None record ed. Patient TargetsNo targets recorded. Patient InstructionsNo instructions recorded. Reason for Referral None Reported. Results Created Date Observation Date Name Description Value Unit Range Abnormal Flag Note LastModifiedBy Organization Detail LastModifiedTime Result Notes None recorded. Problems Name Problem SNOMED Code Status Onset Date Resolution Date Notes Provider Name and Address Organization Details Recorded Time Specializ ed medical examinati on Active 2012 Routine gynecologi milagro examinatio n;Practice ID: 0001 Not Available [facility] 0 21:51:03 Screening for malignant neoplasm of cervix Active 2012 Pap Smear;Prac tamika ID: 0001 Not Available [facility] 0 21:51:03 Screening for malignant neoplasm of rectum Active 2012 Screening for malignant neoplasms of the rectum;Pra ctice ID: 0001 Not Available [facility] 0 21:51:03 Urinary tract infectiou s disease 74390694 Active 2013 Urinary tract infection, site not specified; Practice ID: 0001 Not Available [facility] 0 21:51:03 Microscop ic hematuria 468735914 Active 2013 HEMATURIA MICROSCOPI C;Practice ID: 0001 Not Available [facility] 0 21:51:[address] Concept Active 2014 Encntr for general adult medical exam w/o abnormal findings;P ractice ID: 0001 Not Available [facility] 0 21:51:[address] Concept Active 2014 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 for rim roller setter exam (general) (routine) w/o abn findings;P ractice ID: 0001 Not Available [facility] 0 21:51:03 Finding of sensation of breast Active 2016 Mastodynia ;Practice ID: 0001 Not Available [facility] 0 21:[facility]:03 Disorder of breast 38789037 Active 2016 Disorder of breast, unspecifie d;Practice ID: 0001 Not Available [facility] 0 21:51:03 Tinea corporis 67239643 Active 2016 Tinea corporis;P ractice ID: 0001 Not Available [facility] 0 21:51:03 Menopause present 859570960 Active 2016 Menopausal and female climacteri c states;Pra ctice ID: 0001 Not Available [facility] 0 21:51:04 Micturiti on finding Active 2016 Unspecifie d urinary incontinen ce;Practic e ID: 0001 Not Available [facility] 0 21:51:04 Bone density finding 940334088 Active 2019 Oth disrd of bone density and structure, unspecifie d site;Pract ice ID: 0001 Not Available [facility] 0 21:51:04 Vaginitis and vulvovagi nitis Active 2011 Vaginitis; Recorded Elsewhere: No Locatio n: [facility] r[facility]: EHR Chroni c: N Practice ID: 0001 Billa ble Time: 11:45:00 AM Not Available [facility] 0 21:51:05 Adult health examinati on Active 2010 Routine Medical Exam;Recor ded Elsewhere: No Locatio n: [facility] rce: EHR Chroni c: N Practice ID: 0001 Billa ble Time: 09:15:00 AM Not Available [facility] 0 21:51:05 Urinary incontine nce 686990586 Active 2010 Urinary incontinen ce, unspecifie d;Recorded Elsewhere: No Locatio n: [facility] rce: EHR Chroni c: N Practice ID: 0001 Billchery ble Time: 09:15:00 AM Not Available [facility] 0 21:51:05 Pain of breast 12537360 Active 2010 Mastodynia ;Practice ID: 0001 Not Available [facility] 0 21:51:06 Menopausa l symptom 33076187 Active 2011 Menopausal or female climacteri c states;Pra ctice ID: 0001 Not Available [facility] 0 21:51:06 Problem Notes None recorded. Procedures Surgical History Date Name Laterality Status Provider Name and Address Organization Details Recorded Time 018 Date of Last Pap Smear completed [facility] 12/13/2022 14:06:26 hysterectomy completed GUEVARA Mcclelland [address], [place], [address], [facility] 12/13/2022 14:29:07 cholecystectomy completed [facility] 12/13/2022 14:11:42 total replacement of left knee joint completed [facility] 12/13/2022 14:12:04 procedure on urinary bladder completed GUEVARA Mcclelland [address], [place], [address], [facility] 12/13/2022 14:26:03 repair of rectovaginal fistula completed GUEVAR[address], [place], [address], [facility] 12/13/2022 14:26:12 Imaging Results None recorded. Procedure Notes None recorded. Medical Equipment None Reported. Allergies Allergen ID Allergen Name Allergen Category Reaction Reaction Severity Criticality Documentation Date Start Date Code Code System Note Provider Name and Address Organization Details Recorded Time 73380 morphine medicatio n Not available Not available Not available 04/02/2020 7052 RxNorm Comme nt: Locat ion: Joshua Nice r; Not Available [facility] 0 14:24:35 Medications Name Sig Start Date Stop Date Status Note LastModified by Organization Details LastModified Time celecoxib 200 mg capsule TAKE 1 CAPSULE BY MOUTH EVERY DAY NEEDED FOR PAIN active Not Available Not Available No t Available methocarb pascual 500 mg tablet TAKE 1 TABLET BY MOUTH EVERY 6 HOURS 12/13 completed Not Available Not Available Not Available neomycin- polymyxin -hydrocor t 3.5 mg/mL-10, 000 unit/mL-1 % ear solution USE 4 DROPS IN EACH EAR EVERY 8 HOURS FOR 7 DAYS 12/13 completed Not Available Not Available Not Available nystatin 100,000 unit/mL oral suspensio n take 5 millilit er (854172H NITS) by oral route 4 times every day 09/30 completed Prescrib ed Elsewher e: No Locat ion: Jarad goodwin [facility] M odify By: shane neville DateTime : 08/25/19 12 10:44:30 AM Not Available Not Available Not Available ketoconaz ole 2 % shampoo SHAMPOO TWICE WEEKLY TO SCALP 12/13 completed Not Available Not Available Not Available simvastat in 10 mg tablet TAKE 1 TABLET BY MOUTH EVERY DAY active Not Available Not Available No t Available clonazepa m 1 mg tablet TAKE 1.5 TABLETS ORALLY EVERY DAY AT BEDTIME ADMINIST ER 30 MINUTES BEFORE BEDTIME active Not Available Not Available No t Available Diflucan 150 mg tablet take 1 tablet (150MG) by oral route once 09/30 completed Prescrib ed Elsewher e: No Locat ion: Maia buddy [facility] M odify By: shane neville DateTime : 08/25/19 12 10:44:30 AM Not Available Not Available Not Available penicilli n V potassium 500 mg tablet TAKE 1 TABLET BY MOUTH EVERY 8 HOURS UNTIL GONE 12/13 completed Not Available Not Available Not Available omeprazol e 40 mg capsule,d elayed release TAKE 1 CAPSULE BY MOUTH DAILY active Not Available Not Available No t Available Macrobid 100 mg capsule take 1 capsule by oral route every 12 hours with food 12/13 completed Prescrib ed Elsewher e: No Locat ion: Jarad goodwin [facility] odify By: gurpreet cabezas DateTime : 10/30/19 14 09:42:58 AM Not Available Not Available Not Available oxycodone -acetamin ophen 5 mg-325 mg tablet TAKE 1 TABLET BY MOUTH EVERY 6 HOURS NEEDED FOR 7 DAYS 12/13 completed Not Available Not Available Not Available alprazola m 0.25 mg tablet PLEASE SEE ATTACHED FOR DETAILED DIRECTIO NS active Not Available Not Available No t Available Duricef 500 mg capsule take 2 capsule (1G) by oral route every day 09/30 completed Prescrib ed Elsewher e: No Locat ion: Jarad goodwin [facility] odify By: shane neville DateTime : 01/31/20 11 09:00:00 AM Not Available Not Available Not Available docusate sodium 100 mg capsule TAKE 1 CAPSULE BY MOUTH EVERY DAY NEEDED FOR 30 DAYS 12/13 completed Not Available Not Available Not Available gabapenti n 300 mg capsule 600 MG ORALLY EVERY DAY AT BEDTIME 12/13 completed Not Available Not Available Not Available Actos 15 mg tablet take 1 tablet by oral route every day 02/08 completed Prescrib ed Elsewher e: Yes Loca tion: Jarad goodwin [facility] odify By: dale Goodwin ncounter DateTime : 12/24/19 11 09:08:36 AM Not Available Not Available Not Available folic acid 1 mg tablet take 1 tablet by oral route every day 12/13 completed Prescrib ed Elsewher e: Yes Loca tion: Jarad goodwin [facility] odify By: dale Goodwin ncounter DateTime : 01/16/20 17 10:00:00 AM Not Available Not Available Not Available magnesium 250 mg tablet 03/06 completed Prescrib ed Elsewher e: No Locat ion: Jarad goodwin [facility] odify By: doc Goodwin ncounter DateTime : 12/27/19 11 09:15:00 AM Not Available Not Available Not Available gabapenti n 100 mg capsule TAKE 1 CAPSULE BY MOUTH AT BEDTIME active Not Available Not Available No t Available diazepam 10 mg tablet TAKE 1 TABLET BY MOUTH 30 MIN PRIOR TO MRI NEEDED 12/13 completed Not Available Not Available Not Available Vitamin C 250 mg tablet active Prescrib ed Elsewher e: Yes Loca tion: Jarad goodwin [facility] odify By: dale de la rosauntraulito DateTime : 02/13/20 17 11:00:00 AM Not Available Not Available Not Available ketoconaz ole 2 % topical cream APPLY TO AFFECTED AREA EVERY DAY 12/13 completed Not Available Not Available Not Available oxybutyni n chloride 5 mg tablet TAKE 1 TABLET BY MOUTH TWICE A DAY 12/13 completed Not Available Not Available Not Available Centrum oral liquid 12/13 completed Prescrib ed Elsewher e: Yes Loca tion: Jarad goodwin [facility] odify By: mary Felipe ntraulito DateTime : 12/24/19 11 09:08:36 AM Not Available Not Available Not Available Sandee Aspirin 325 mg tablet take 1 tablet by oral route every day active Prescrib ed Elsewher e: Yes Loca tion: Jarad goodwin [facility] odify By: jorge herrera DateTime : 12/27/19 11 09:15:00 AM Not Available Not Available Not Available vitamin E 268 mg (400 unit) capsule active Prescrib ed Elsewher e: Yes Loca tion: Jarad goodwin [facility] odify By: dale graham DateTime : 02/13/20 17 11:00:00 AM Not Available Not Available Not Available Estrace 1 mg tablet take 1 tablet (1MG) by oral route every day 12/27 completed Prescrib ed Elsewher e: No Locat ion: Jarad goodwin [facility] odify By: shane neville DateTime : 12/27/19 11 09:15:00 AM Not Available Not Available Not Available oxycodone 5 mg tablet 12/13 completed Not Available Not Available Not Available Estrace 0.01% (0.1 mg/gram) vaginal cream insert (1G) by vaginal route every other day for a month once weekly 02/14 completed Prescrib ed Elsewher e: No Locat ion: Jarad goodwin [facility] odify By: mary Felipe nter DateTime : 02/13/20 17 11:00:00 AM Not Available Not Available Not Available olmesarta n 20 mg tablet TAKE 1 TABLET BY MOUTH EVERY DAY active Not Available Not Available No t Available Benicar 5 mg tablet take 2 tablet by oral route every day 12/13 completed Prescrib ed Elsewher e: Yes Loca tion: Jarad goodwin [facility] odify By: mary Felipe nter DateTime : 12/24/19 11 09:08:36 AM Not Available Not Available Not Available Methotrex ate (Anti-Rhe umatic) 2.5 mg tablets in a dose pack take 2 tablet by oral route every week 03/06 completed Prescrib ed Elsewher e: Yes Loca tion: Jarad goodwin [facility] odify By: doc de la rosauntraulito DateTime : 10/01/19 14 01:30:00 PM Not Available Not Available Not Available Vitamin D3 25 mcg (1,000 unit) capsule 2010 active Prescrib ed Elsewher e: No Locat ion: Jarad goodwin [facility] odify By: jorge herrera DateTime : 12/27/19 11 09:15:00 AM Not Available Not Available Not Available Stalevo 100 25 mg-100 mg-200 mg tablet take 2 tablet by oral route 4 times every day 01/15 completed Prescrib ed Elsewher e: No Locat ion: Jarad goodwin [facility] odify By: dale de la rosauntraulito DateTime : 12/27/19 11 09:15:00 AM Not Available Not Available Not Available Crestor 5 mg tablet take 2 tablet by oral route every day 12/13 completed Prescrib ed Elsewher e: Yes Loca tion: Jarad goodwin [facility] odify By: mary Felipe nter DateTime : 12/24/19 11 09:08:36 AM Not Available Not Available Not Available Klor-Con M10 mEq tablet,ex tended release take 2 tablet (20MEQ) by oral route every day with food 2010 active Prescrib ed Elsewher e: No Locat ion: Jarad goodwin [facility] odify By: jorge Carty r DateTime : 12/27/19 11 09:15:00 AM Not Available Not Available Not Available Prilosec OTC 20 mg tablet,de layed release 12/13 completed Prescrib ed Elsewher e: No Locat ion: Jarad goodwin [facility] odify By: jorge Carty r DateTime : 12/27/19 11 09:15:00 AM Not Available Not Available Not Available clobetaso l 0.05 % shampoo SHAMPOO TO SCALP TWICE A WEEK (LEAVE ON FOR 10 MINUTES AND RINSE OFF) 12/13 completed Not Available Not Available Not Available timolol maleate 0.5 % once daily eye drops USE 1 DROP IN LEFT EYE IN THE MORNING DAILY. 12/13 completed Not Available Not Available Not Available Calcio Nithin 500 mg tablet 09/30 completed Prescrib ed Elsewher e: Yes Loca tion: Jarad goodwin [facility] odify By: mary gonzalez DateTime : 12/24/19 11 09:08:36 AM Not Available Not Available Not Available oxybutyni n active Not Available Not Available Not Available hydrochlo rothiazid e 12.5 mg tablet Take 1 tablet every day by oral route. active Not Available Not Available No t Available Co Q-10 (with Vit E) 100 mg-5 unit capsule 2010 active Prescrib ed Elsewher e: No Locat ion: Jarad goodwin [facility] odify By: jorge Carty r DateTime : 12/27/19 11 09:15:00 AM Not Available Not Available Not Available Fish Oil 360 mg-1,200 mg capsule 09/30 completed Prescrib ed Elsewher e: Yes Loca tion: Jarad [facility] odify By: shane neville DateTime : 12/24/19 11 09:08:36 AM Not Available Not Available Not Available Vitals Date Recorded Body height Body mass index (BMI) Body weight Systolic blood pressure Diastolic blood pressure Provider Name and Address Organization Details Last Updated DateTime 12/13/2022 149.86 cm 28.9 kg/m2 11779.71 g 122 mm[Hg] 70 mm[Hg] Nishi Snyder [facility] 14:01:37 Social History Question Answer Notes LastModified by Organizat ion Details LastModified Time Tobacco Smoking Status Never Smoker Nishi Snyder null, [facility] 12/13/2022 14:10:57 What Is Your Level Of Alcohol Consumption? None Information not available 12/13/2022 Are You Blind Or Do You Have Difficulty Seeing? No Information not available 12/13/2022 Are You Deaf Or Do You Have Serious Difficulty Hearing? No Information not available 12/13/2022 Sex: Unknown Functional Status Question Answer Note LastModified by Organizat ion Details LastModified Time Do you have difficulty walking or climbing stairs? No Information not available 12/13/2022 Are you able to walk? YESWOREST Information not available 12/13/2022 Are you able to care for yourself? Yes Information not available 12/13/2022 Do you have difficulty dressing or bathing? No Information not available 12/13/2022 Mental Status None recorded. Family History Relationship Description Onset Age of this Age Resolved Age Notes LastModified by Organization Details LastModified Time Maternal Aunt Malignant tumor of breast vschroedter Not available 11/16 14:08:58 Mother Heart disease vschroedter Not available 11/16 14:09:15 Mother Diabetes mellitus vschroedter Not available 11/16 14:10:03 Mother Essential hypertension vschroedter Not available 0 12/13/2022 14:10:22 Mother Disorder of thyroid gland vschroedter Not available 11/16 14:10:35 Maternal Grandmother Diabetes mellitus vschroedter Not available 11/16 14:10:03 Brother Essential hypertension vschroedter Not available 0 12/13/2022 14:10:22 Notes:Daughter: age 16 mva Father: tracheal Trauma Mother: Thyroid disease, Coronary artery disease, Hypertension Paternal grandmother: Diabetes mellitus Medical History Condition Response Allergies (Food, seasonal, environmental ) N Other N Breast Cancer N Drug/Latex Allergies/Reactions N Blood Transfusion N Dermatologic Disorders N Lung Disease N Defects or Inherited Disease N Breast Problem N Gestational Diabetes N Hematologic disorders N Anesthesia Complications N History of STI N Deep Vein Thrombosis N Polycystic ovary syndrome N Anxiety Disorder N Autoimmune disease N Arthritis N Infertility N Polyps N Acid Reflux (GERD) N History of abnormal pap N Cancer N Stroke N Varicosities N Neurologic/Epilepsy N Endometriosis Y High Cholesterol Y Headaches N Fibromyalgia N Kidney Disease N Heart Problems N Kidney or Bladder Problems N Thyroid Problems N GI Problems N Eating Disorder N Anemia N Art (IVF or FET) N Psychiatric Illness N Ovarian Cancer N Diabetes N Pulmonary (TB, Asthma) N Hepatitis/Liver Disease N No Past Medical History N Eczema N Urinary Tract Infection N Abuse/Domestic Violence N Asthma N Trauma/Violence N Depression/ depression N Heart Disease N Pre-Eclampsia N Hypertension Y Osteoporosis N Thrombophilias N Gynecological History Statement/Question Response STIs/STDs N Age of first menstrual cycle 10 HPV Vaccine N Date of Last Pap Smear 03/06/2018 Sexual Problems? N Current Control Method Hysterectom y Sexually Active? Y Obstetrics History GPAL:G 2 P 0 0 0 2 Type Value Living 2 Total 2 Past Encounters Encounter ID Performer Location Encounter Start Date Encounter Closed Date Diagnosis/Indication Diagnosis SNOMED-CT Code Diagnosis ICD10 Code Diagnosis Note [id number] GUEVARA Mcclelland [place] [address] [address] 12/13/2022 13:29:36 12/13/2022 15:05:42 Vaginal discharge 627913214 N89.8 exam wnlvaginit is panel sentdiscus sed normal vaginal d/c characteri sticsvulva r care guidelines discussed (limit panty liner/pad usage if possible, avoid vaginal washes/wip es/product s, water/fing ers to cleanse the vulva, cotton underwear only).we agreed to await vaginitis panel, will update pt with results when available Time spent in visit is a total of 25 mins with at least 50% of visit consisting of counseling and review of plan of care. Health Concerns Section Related Observation LastModified by Organization Detai ls LastModified Time None Recorded Concern Status LastModified by Organization Details LastModified Time None Recorded Advance Directives Directive None Recorded Payers Encounter Date Sequence Insurance Name Policy Number Policy Lew Covered Member ID Lwe Member ID Guarantor Name 12/13/2022 1 [employer] (MEDICARE REPLACEMENT PPO) [id number] 1 Jacqueline Farmer [id number] Jacqueline Farmer Notes Date Note Type Note Provider Name and Address Organization Details Recorded Time 12/13/2022 text/html 82yopresents for evaluation of vaginal dischargenoticed clear/thin discharge on her panty liner a few times throughout the past weekdenies any itching, irritationhas noticed an odor a few timesstarted oxybutynin recently for OAB, since then has not been leaking urine as muchSA with her husbanddenies any pain or bleeding hx of TORI, BSO for endometriosis GUEVARA Mcclelland [address], [place], [address], [facility] 12/13/2022 15:03:53 OBGyn Episode Ob Episode Information Episode Created Date Number of Fetuses Patient Bloodtype Patient rh Status Prepregnancy Weight lbs Domestic Partner Domestic Partner Phone Father Name Intravenous Therapy Nurse Status 12/14/19 23 1 CLOSED Fetus Data First Name Last Name Admitted to NICU Weight (g) Sex Living Outcome Pediatric Complications Fetus ID Race Codes Race Delivery Type 3770.25 [id number] F Full Term [id number] Thierry Calculation Initial Thierry Date Initial Exam Date Initial Exam Provider Initial Ultrasound Date Last Menstrual Period Date Ultra Sound Weeks Gestation 0 Eighteen To Twenty Week Thierry Update Ultra Sound Date Fundal Height At Umbil Quickening Date Ultra Sound Latest Weeks Gestation Final Thierry Confirmed By Final Thierry Confirmed Date Final Thierry Date Ultra Sound Latest Days Gestation 0 0 Menstrual History Last Menstrual Date Menses Monthly On Bcp Conception Prior Menses Frequency Hcg Plus Date Menarche Onset Age Delivery Information Delivery Date Delivery Type Labor Anesthesia Weeks Gestation Incision Type Labor Labor Length Hrs Delivered By Post Complications Tubal Sterilization Discharge Date Comments 9 38 Discharge Information Feeding Method Contraceptive Method Maternal HG B and HCT Levels Ob Episode Information Episode Created Date Number of Fetuses Patient Bloodtype Patient rh Status Prepregnancy Weight lbs Domestic Partner Domestic Partner Phone Father Name Intravenous Therapy Nurse Status 12/14/19 23 1 CLOSED Fetus Data First Name Last Name Admitted to NICU Weight (g) Sex Living Outcome Pediatric Complications Fetus ID Race Codes Race Delivery Type 2863.07 [id number] F Full Term [id number] Thierry Calculation Initial Thierry Date Initial Exam Date Initial Exam Provider Initial Ultrasound Date Last Menstrual Period Date Ultra Sound Weeks Gestation 0 Eighteen To Twenty Week Thierry Update Ultra Sound Date Fundal Height At Umbil Quickening Date Ultra Sound Latest Weeks Gestation Final Thierry Confirmed By Final Thierry Confirmed Date Final Thierry Date Ultra Sound Latest Days Gestation 0 0 Menstrual History Last Menstrual Date Menses Monthly On Bcp Conception Prior Menses Frequency Hcg Plus Date Menarche Onset Age Delivery Information Delivery Date Delivery Type Labor Anesthesia Weeks Gestation Incision Type Labor Labor Length Hrs Delivered By Post Complications Tubal Sterilization Discharge Date Comments 8 38 Discharge Information Feeding Method Contraceptive Method Maternal HG B and HCT Levels
--- OUTSIDE RECORDS SUMMARY | 2024-06-06 10:58 | XMS_ITS | Clinical Summary ---
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
--- OUTSIDE RECORDS SUMMARY | 2024-06-06 10:58 | XMS_ITS | Continuity of Care Document ---
Author Organization [facility] Address [address] [place] [address] Phone Care Team Providers Care Faculty Administrator Name Role Phone Doser Mason ELDRIDGE Unavailable Unavailable Allergies, Adverse Reactions, Alerts Substance Reaction Status Criticality morphine Other Active No Information Medications Medication Instructions Dosage Effective Dates (start - stop) Status Comments [place] 5 mg-325 mg tablet take 1 tablet [...] exam foot, minimum 3 views 2021 [facility], 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 [address] [facility] [address], [place], [place], [address] , [place]. tel: [phone] Referring Provider: Mason Cardona, [address], [place], [address] . tel:[phone] [facility], [address], [place], [place], [id number], [place] tel:[phone] [facility] [employer] [facility] No Information 0 2 Doser Mason. [address], [address], [place], [place], [address] , [place]. tel:[phone] [facility] [employer] [facility], [address] [place] [address], [place], [place], [address], [place] tel:[phone] [facility] [employer] [facility] Pain in left footOther acquired hammer toes of left foot Aug-0 2 Doser Mason. [address], [address], [place], [place], [address] , [place]. tel: [phone] Referring Provider: Mason Cardona, [address], [place], [address] . tel:[phone] [facility], [address] [place] [address], [place], [place], [address], [place] tel:[phone] [facility] No Information 0 2 Doser Mason. [address], [address], [place], [place], [address] , [place]. tel:[phone] Referring Provider: Mason Cardona, [address], [place], [address] . tel:[phone] [facility], [address] [place] [address], [place], [place], [address], [place] tel:[phone] [facility] Other acquired hammer toes of left footPain in left foot 2 Doser Mason. [address] [facility], [place] [address], [place], [place], [address] , [place]. tel:[phone] Referring Provider: Mason Cardona, [facility] [facility] [address] [facility], [place], [address] . tel:[phone] [facility], [address] [address], [place], [place], [address], [place] tel:[phone] [facility] Follow Up of left foot sx 09/26/21 (chief complaint) Pain in left footOther acquired hammer toes of left foot 2 Doser Mason. [address] [place] [address], [place] [address] [address], [place], [place], [address] , [place]. tel:[phone] Referring Provider: Mason Cardona, [address] [place] [address] [address] [facility], [place], [address] . tel:[phone] [facility], [facility] [address], [place], [place], [address], [place] tel:[phone] [facility] Pain in left foot 2 Doser Mason. [address] [place] [address], [facility] [address], [place], [place], [address] , [place]. tel:[phone] Referring Provider: Mason Cardona, [address], [place], [address] . tel:[phone] [facility], [address] [address], [place], [place], [address], [place] tel:[phone] [facility] No Information 2 Doser Mason. [address] [place] [address], [place] [address], [place], [place], [address] , [place]. tel:[phone] Referring Provider: Mason Cardona, [address] [place] [address] [address], [place], [address] . tel:[phone] Office/outpat ient visit,new, [facility], [address], [place], [place], [address], tel:[phone] [facility] Toes (chief complaint) Pain in left footOther acquired hammer toes of left foot Mike Cuevas. [address], [address], [place], [place], [address] , . tel:[phone] Referring Provider: Mason Cardona, [address], [place], [address] . tel:[phone] Family History Family Member Type Diagnosis Age At Onset Brother Problem (finding) Gout Mother Problem (finding) Osteoarthritis Mother Problem (finding) Hypertension Father Problem (finding) Gout Mother Problem (finding) Heart Disease Father Problem (finding) Osteoarthritis Brother Problem (finding) Hypertension Payers Payer name Insurance type Covered libertarian ID Mary nelson(s) A[employer] Medicare CI [id number] Social History Type Description Quantity Date Captured Comments Alcohol Use Details Unknown Caffeine Use Details Unknown Tobacco Use Status Current non-smoker Smoking Status Never smoker Sex Female Chief Complaint And Reason For Visit From encounter dated '12/06/2021 13:25'. 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
--- OUTSIDE RECORDS SUMMARY | 2024-06-06 10:58 | XMS_ITS | Encounter Summary ---
Author Organization [facility] Address [address] [place] [address] Care Team Providers Care Technician Semiconductor Development Name Role Phone Atif Cartagena DO Primary Care Provider Reason for Visit * Reason Onset Date Comments Post op 04/03/2022 Spoke w/Grace at Dr. Melvin's exchange/CROZER OPERATOR Franky national account executive Encounter Details Date Type Department Care Team ([facility] Contact Info) Description 04/03/2022 Telephone Replaced By [facility] Admitting [address] [place] [address] Anthony Mendoza MD [address] [place] [address] Post op (Spoke w/Grace at Dr. Melvin'kalyn exchange/CROZER OPERATOR Franky national account executive) Social History Tobacco Use Types Packs/Day Years [...] Coronavirus/COVID-19? No / Unsure 04/03/2022 8:20 AM STAFF ASSISTANT documented as of this encounter Plan of Treatment Upcoming Encounters Date Type Department Care Team ([facility] Contact Info) Description 06/11/2024 1:00 PM STAFF ASSISTANT Office Visit [facility] Oncology and Hematology - [place] [address] [place] [address] Kwadwo Barrios MD [address] [facility] [address] [place] [address] documented as of this encounter Visit Diagnoses Not on filedocumented in this encounter Additional Health Concerns Infection Onset Date Last Indicated Resolved Time R/O COVID-19 04/05/2022 04/05/2022 04/05/2022 1:59 PM STAFF ASSISTANT documented as of this encounter Care Teams Technician Semiconductor Development Relationship Specialty Start Date End Date Atif Cartagena DO [address] [facility] [address] [place] [address] PCP - General Internal Medicine 03/15/22 documented as of this encounter
--- OUTSIDE RECORDS SUMMARY | 2024-06-06 10:59 | XMS_ITS | Referral Summary ---
Author Organization [facility] Address [address] [place] [address] Phone Care Team Providers Care Free Lance Artist Name Role Phone Atif Cartagena DO Primary Care Provider [phone] Allergies Active Allergy Reactions Criticality Noted Date [...] on file Legal Sex Female 2:18 AM EDUCATION PROFESSIONAL Gender Identity Not on file Sexual Orientation [...] on file Insurance [employer] MEDICARE on file [facility] MEDICARE Care Teams Free Lance Artist Relationship Specialty Start Date End Date Atif Cartagena DO PCP - General Internal Medicine 09/05/21
--- OUTSIDE RECORDS SUMMARY | 2024-06-06 10:59 | XMS_ITS | Encounter Summary ---
Author Organization [facility] Address [address] [place] [address] Care Team Providers Care Hide Spreader Name Role Phone Atif Cartagena DO Primary Care Provider Encounter Details Date Type Department Care Team (Late st Contact Info) Description 06/04/2024 External Device Data STL ABSTRACTION Provider, Abstract NO ADDRESS ON FILE Social History Tobacco Use Types Packs/Day Years [...] st Contact Info) Description 06/11/2024 1:00 PM INFORMATION SYSTEMS ANALYST Office Visit [facility] Oncology and Hematology - [place] [address] [place] [address] [facility] [address] [place] [address] Kwadwo Barrios MD [address] [facility] [address] [place] [address] documented as of this encounter Visit Diagnoses Not on filedocumented in this encounter Care Teams Hide Spreader Relationship Specialty Start Date End Date Atif Cartagena DO [address] [facility] [address] [place] [address] PCP - General Internal Medicine 03/15/22 documented as of this encounter
--- OUTSIDE RECORDS SUMMARY | 2024-06-06 10:59 | XMS_ITS | Encounter Summary ---
Author Organization [facility] Address [address] [place] [address] Care Team Providers Care Tab Machine Operator Name Role Phone Robert Celis MD Primary Care Provider [phone] Encounter Details Date Type Department Care Team [...] on filedocumented in this encounter Care Teams Tab Machine Operator Relationship Specialty Start Date End Date Robert Celis MD [address] [place] [address] PCP - General Internal Medicine 09/13/12 documented as of this encounter
--- OUTSIDE RECORDS SUMMARY | 2024-06-06 10:59 | XMS_ITS ---
Author Organization [facility] Address [address] [place] [address] Care Team Providers Care Senior Sales Assistant Name Role Phone Atif Cartagena Primary Care Provider Unavailab Dr. Stefano Stone Unavailable [phone] Araceli Ambrosio Unavailable Unavailable Medications Medication SIG [...] Active Encounters Encounter Location Date Provider Diagnosis [facility] [address] [place] [address] 09/13/2023 Stefano Cramer Spasmodic torticolli s G24.3 [...] * Jacqueline SANDOB: 9 (84 yo F)Acc No.[id number]:09/13/2023 Progress Notes Patient: Jacqueline MADRID Provider: Skip Cramer MD :1940 A ge:83 Y S ex:Female Date:09/13/2023 Address:[facility] [id number] Pcp:Atif Cartagena Subjective: * Chief Complaints: * [...] Age of carpet? 1, Do you have [id number] carpeting? Yes, What is the age of [...] Management) * Billing Information: * Visit Code: 89261 Office Visit, Est Pt., Level 4. Modifiers: 25 89348 Office Visit, Est Pt., Level 3. Modifiers: 25 * Procedure Codes: 17795 PT-FOCUSED HLTH RISK ASSMT. G8427 DOC MEDS VERIFIED W/PT OR RE. * Electronic signature of Dr. Stefano Cramer MD on 06/06/2024 at 10:58 AM PARTS DEPARTMENT MANAGER Sign off status: Pending * Provider: Skip Cramer MD Date: 0 09/13/2023 Generated for Suman wilcox/Olga/Ramone on: 0 06/06/2024 10:58 AM PARTS DEPARTMENT MANAGER History and Physical Notes * HPI (History [...]
== END 2024-06-06 10:26 | disposition home or self-care (01) ==
PROVIDERS: PCP Internal Medicine; Visit Provider Physician Assistant Surgical
DX: C50.911 Malignant neoplasm of unspecified site of right female breast (principal)
CPT/HCPCS: 77049; A9577; C8908

== ENCOUNTER 2024-07-07 12:46 | Outpatient (CLI) | payer MEDICARE, SELFPAY ==
[2024-07-07 13:47] LABS: Prothrombin Time 13.1 Seconds (11.1-14.7)
[2024-07-07 13:48] LABS: Partial Thromboplastin Time 27.8 Seconds (22.3-36.8)
--- OUTSIDE RECORDS SUMMARY | 2024-07-07 14:30 | XMS_ITS ---
Author Organization [facility] Address [address] [place] [address] Care Team Providers Care Picture Frames Inspector Name Role Phone Atif Cartagena Primary Care Provider Unavailab Dr. Stefano Stone Unavailable [phone] Araceli Ambrosio Unavailable Unavailable REASON FOR VISIT Headache follow-up Encounters Encounter Location Date Provider Diagnosis [facility] [address] [place] [address] 08/08/2023 Stefano Cramer Plan Of Treatment No Information Progress Notes * Jacqueline SANDOB: 9 (84 yo F)Acc No.[id number]:08/08/2023 Progress Notes Patient: Jacqueline MADRID Provider: Skip Cramer MD :1940 A ge:83 Y S ex:Female Date:08/08/2023 Address:[address], [id number] Pcp:Atif Cartagena Subjective: * Chief Complaints: * 1 . Headache follow-up. * Medical History: Objective: * Vitals: Assessment: Plan: * Treatment: * Billing Information: * Visit Code: * Procedure Codes: * Electronic signature of Dr. Stefano Cramer MD on 07/07/2024 at 02:30 PM CDT Sign off status: Pending * Provider: Skip Cramer MD Date: 08/08/2023 Generated for Suman wilcox/Olga/Megitting on: 0 07/07/2024 02:30 PM CDT
--- OUTSIDE RECORDS SUMMARY | 2024-07-07 14:30 | XMS_ITS | Encounter Summary ---
Author Organization [facility] [address] [place] [address] Care Team Providers Care Inside Steward/Stewardess Name Role Phone Atif Cartagena Primary Care Provider Encounter Details Date Type Department Care Team (Late Contact Info) Description 07/07/[address] [facility] [address] [place] [address] Kwadwo Barrios MD [address] [place] [address] [employer] [address] [place] [address] Malignant neoplasm of upper-outer quadrant of right breast in female, estrogen receptor negative (CMS/HCC) Social History Tobacco Use Types Packs/Day Years [...] Care Team (Late st Contact Info) Description 10/09/2024 1:00 PM CDT Office Visit [facility] Oncology and Hematology [facility] [address] [place] [address] [place] [address] [place] [address] [employer] [address] [place] [address] documented as of this encounter Visit Diagnoses Diagnosis Malignant neoplasm of upper-outer quadrant of right breast in female, estrogen receptor negative (CMS/HCC) documented in this encounter Care Teams Inside Steward/Stewardess Relationship Specialty Start Date End Date Atif Cartagena DO [address] [address] PCP - General Internal Medicine 03/15/22 documented as of this encounter
--- OUTSIDE RECORDS SUMMARY | 2024-07-07 14:31 | XMS_ITS | Encounter Summary ---
Author Organization [facility] Address [address] [place] [address] Care Team Providers Care Manager Inventory Management Name Role Phone Atif Cartagena DO Primary Care Provider Reason for Visit * Reason Onset Date Comments Post op 04/03/2022 Spoke w/Grace at Dr. Melvin's exchange/COMMUNITY RECREATION PROGRAMMER Franky aviation technical systems specialist Encounter Details Date Type Department Care Team ([facility] Contact Info) Description 04/03/2022 Telephone [facility] Admitting [address] [place] [address] Anthony Mendoza MD [address] [place] [address] Post op (Spoke w/Grace at Dr. Melvin'kalyn exchange/COMMUNITY RECREATION PROGRAMMER Franky aviation technical systems specialist) Social History Tobacco Use Types Packs/Day [...] Coronavirus/COVID-19? No / Unsure 04/03/2022 8:20 AM FOOD STYLIST documented as of this encounter Plan of Treatment Upcoming Encounters Date Type Department Care Team ([facility] Contact Info) Description 10/09/2024 1:00 PM CDT Office Visit [facility] Oncology and Hematology - [place] [address] [address] Kwadwo Barrios MD [address] [facility] [address] [place] [address] documented as of this encounter Visit Diagnoses Not on filedocumented in this encounter Additional Health Concerns Infection Onset Date Last Indicated Resolved Time R/O COVID-19 04/05/2022 04/05/2022 04/05/2022 1:59 PM FOOD STYLIST documented as of this encounter Care Teams Manager Inventory Management Relationship Specialty Start Date End Date Atif Cartagena DO [address] [facility] [address] [place] [address] PCP - General Internal Medicine 03/15/22 documented as of this encounter
--- OUTSIDE RECORDS SUMMARY | 2024-07-07 14:31 | XMS_ITS ---
Author Organization [facility] Address [address] [place] [address] Care Team Providers Care Senior Hydrogeologist Name Role Phone Atif aCrtagena Primary Care Provider Unavailab Dr. Stefano Stone Unavailable [phone] Araceli Ambrosio Unavailable Unavailable [facility], Provider Unavailable Unavailab le REASON FOR VISIT [facility] Conversion Encounter Medications Medication SIG (Take, [...] Active Encounters Encounter Location Date Provider Diagnosis [address] [address] 09/29/2023 Provider CASEY-Migration Plan Of Treatment No Information Progress Notes * Jacqueline SANDOB: 9 (84 yo F)Acc No.[id number]:09/29/2023 Patient: Jacqueline MADRID Provider: Gracie Molina :1940 A ge:83 Y S ex:Female Date:09/29/2023 Address:[id number] Pcp:Atif Cartagena Subjective: * Chief Complaints: * [...] * Procedure Codes: * Electronic signature of Prov jet [facility]-M[employer] on 07/07/2024 at 02:31 PM CDT Sign off status: Pending * Provider: Gracie Molina Date: 0 09/29/2023 Generated for Suman wilcox/Olga/Ramone on: 0 07/07/2024 02:31 PM CDT
--- OUTSIDE RECORDS SUMMARY | 2024-07-07 14:31 | XMS_ITS | Clinical Summary ---
Author Organization [facility] Address [address] [place] [address] Phone Care Team Providers Care Fish Hatchery Superintendent Name Role Phone UrmilaAtif waldron Primary Care Provider [phone] Allergies Active Allergy Reactions Criticality Noted Date [...] 2003 Influenza Vaccine (#1) 2023 Care Teams Fish Hatchery Superintendent Relationship Specialty Start Date End Date Atif Cartagena DO [address] [place] [address] PCP - General Internal Medicine 09/02/20
--- OUTSIDE RECORDS SUMMARY | 2024-07-07 14:31 | XMS_ITS | Patient Health Record ---
Author Organization [facility] Address [address] [place] [address] Care Team Providers Care Sharepoint Trainer Name Role Phone Atif Cartagena Primary Care Provider Unavailab Dr. 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 Problem Chronic migraine without aura, non-refractory (disorder) (926226247504700 ) Migraine without aura, not intractable, without status migrainosus (G43.009) Active confirmed Problem Migraine with aura (9583517) Migraine with aura, not intractable, without status migrainosus (G43.109) Active confirmed Problem Chronic migraine without aura, non-intractable (086143762773863 ) Chronic migraine without aura, not intractable, without status migrainosus (G43.709) Active confirmed Problem Neuralgia (35986652) Neuralgia and neuritis, unspecified (M79.2) Active confirmed Vital Signs Respiratory Rate 18 /min 07/12/2023 Oximetry 96 % 07/12/2023 Blood pressure diastolic 79 mm Hg 07/12/2023 Height 60 in 07/12/2023 Blood pressure systolic 151 mm Hg 07/12/2023 Weight 141.6 lbs 07/12/2023 BMI 27.65 kg/m2 07/12/2023 Encounters Encounter Location Date Provider Diagnosis [facility]IL[facility] [address] [address] 09/29/2023 Provider Madeline VO - [place] [address] [facility] [address] [place] [address] 07/12/2023 Stefano Cramer Spasmodic torticollis 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 and Neuralgia and neuritis, unspecified M79.2 Assessments Encounter Date Diagnosis (ICD Code) Assessment Notes Treatment Notes Treatment Clinical Notes Section Notes 07/12/2023 Spasmodic torticollis (ICD-10 - G24.3) She [...] Coverage End Date [employer] Medicare [address] [place] [address] [id number] Jacqueline Farmer Self - patient is the insured 4 Medical (General) History Medical History History ICD Code DM2 PIEDAD HTN RA OA Hypothyroidism HLD Osteoporosis CKD3 GERD/HH Gout RLS/PLMD Cervical dystonia Surgical History Surgery Date(Month/Year) Craniotomy and C1/C2 laminectomy
--- OUTSIDE RECORDS SUMMARY | 2024-07-07 14:31 | XMS_ITS | Encounter Summary ---
Author Organization [facility] Address [address] [place] [address] Care Team Providers Care Packing Line Worker Name Role Phone Robert Celis MD Primary Care Provider [phone] Encounter Details Date Type Department Care Team [...] on filedocumented in this encounter Care Teams Packing Line Worker Relationship Specialty Start Date End Date Robert Celis MD [address] [place] [address] PCP - General Internal Medicine 09/13/12 documented as of this encounter
--- OUTSIDE RECORDS SUMMARY | 2024-07-07 14:31 | XMS_ITS | Referral Summary ---
Author Organization [facility] Address [address] [place] [address] Phone Care Team Providers Care Tourist Home Keeper Name Role Phone Atif Cartagena DO Primary Care Provider [phone] Allergies Active Allergy Reactions Criticality Noted Date [...] on file Legal Sex Female 2:18 AM ERP PM Gender Identity Not on file Sexual Orientation [...] on file Insurance AETNA MEDICARE on file [facility] MEDICARE Care Teams Tourist Home Keeper Relationship Specialty Start Date End Date Atif Cartaegna DO PCP - General Internal Medicine 09/05/21
--- OUTSIDE RECORDS SUMMARY | 2024-07-07 14:31 | XMS_ITS | Data Portability ---
Author Organization [facility] Address [address] [place] [address] Care Team Providers Care Project Manager Senior Name Role Phone ALONZO WISEMAN Primary Care [...] 0 21:51:03 Urinary tract infectiou s disease 90353012 Active 2013 Urinary tract infection, site not specified; Practice ID: 0001 Not Available [facility] 0 21:51:03 Microscop ic hematuria 784880466 Active 2013 HEMATURIA MICROSCOPI C;Practice ID: 0001 Not Available [facility] 0 21:51:[address] Concept Active 2014 Encntr for general adult medical exam w/o abnormal findings;P ractice ID: 0001 Not Available [facility] 0 21:51:[address] Concept Active 2014 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 (general) (routine) w/o abn findings;P ractice ID: 0001 Not Available [facility] 0 21:51:03 Finding of sensation of breast Active 2016 Mastodynia ;Practice ID: 0001 Not Available [facility] 0 21:51:03 Disorder of breast 22262200 Active 2016 Disorder of breast, unspecifie d;Practice ID: 0001 Not Available [facility] 0 21:51:03 Tinea corporis 71904496 Active 2016 Tinea corporis;P ractice ID: 0001 Not Available [facility] 0 21:51:03 Menopause present 272643047 Active 2016 Menopausal and female climacteri c states;Pra ctice ID: 0001 Not Available [facility] 0 21:51:04 Micturiti on finding Active 2016 Unspecifie d urinary incontinen ce;Practic e ID: 0001 Not Available [facility] 0 21:51:04 Bone density finding 452603494 Active 2019 Oth disrd of bone density and structure, unspecifie d site;Pract ice ID: 0001 Not Available [facility] 0 21:51:04 Vaginitis and vulvovagi nitis Active 2011 Vaginitis; Recorded Elsewhere: No Locatio n: [facility] Aubrie rce: EHR Chroni c: N Practice ID: 0001 Billa ble Time: 11:45:00 AM Not Available [facility] 0 21:51:05 Adult health examinati on Active 2010 Routine Medical Exam;Recor ded Elsewhere: No Locatio n: [facility] Aubrie rce: EHR Chroni c: N Practice ID: 0001 Billa ble Time: 09:15:00 AM Not Available [facility] 0 21:51:05 Urinary incontine nce 598254735 Active 2010 Urinary incontinen ce, unspecifie d;Recorded Elsewhere: No Locatio n: [facility] Aubrie rce: EHR Chroni c: N Practice ID: 0001 Billchery ble Time: 09:15:00 AM Not Available [facility] 0 21:51:05 Pain of breast 14244029 Active 2010 Mastodynia ;Practice ID: 0001 Not Available [facility] 0 21:51:06 Menopausa l symptom 92015973 Active 2011 Menopausal or female climacteri c states;Pra ctice ID: 0001 Not Available [facility] 0 21:51:06 Problem Notes None recorded. Procedures Surgical History Date Name Laterality Status Provider Name and Address Organization Details Recorded Time 018 Date of Last Pap Smear completed [facility] 12/13/2022 14:06:26 hysterectomy completed GUEVARA Mcclelland [address], [place], [address], [facility] 12/13/2022 14:29:07 cholecystectomy completed [facility] 12/13/2022 14:11:42 total replacement of left knee joint completed [facility] 12/13/2022 14:12:04 procedure on urinary bladder completed GUEVARA Mcclelland [address], [place], [address], [facility] 12/13/2022 14:26:03 repair of rectovaginal fistula completed [address], [place], [address], [facility] 12/13/2022 14:26:12 Imaging Results None recorded. Procedure Notes None recorded. Medical Equipment None Reported. Allergies Allergen ID Allergen Name Allergen Category Reaction Reaction Severity Criticality Documentation Date Start Date Code Code System Note Provider Name and Address Organization Details Recorded Time 02560 morphine medicatio n Not available Not available Not available 04/02/2020 7052 RxNorm Comme nt: Locat ion: Joshua Nice r; Not Available [facility] 0 14:24:35 Medications Name Sig Start Date [...] oral suspensio n take 5 millilit er (811110U NITS) by oral route 4 times every day 09/30 completed Prescrib ed Elsewher e: No Locat ion: Jarad goodwin [facility] M odify By: shane neville DateTime : [...] Elsewher e: No Locat ion: Maia buddy [facility] M odify By: shane neville DateTime : [...] Elsewher e: No Locat ion: Jarad goodwin [facility] odify By: gurpreet cabezas DateTime : 10/30/19 [...] Elsewher e: No Locat ion: Jarad goodwin [facility] odify By: shane neville DateTime : 01/31/20 [...] Elsewher e: Yes Loca tion: Jarad goodwin [facility] odify By: dale Goodwin ncounter DateTime : 12/24/19 11 09:08:36 AM Not Available Not Available Not Available folic acid 1 mg tablet take 1 tablet by oral route every day 12/13 completed Prescrib ed Elsewher e: Yes Loca tion: Jarad goodwin [facility] odify By: dale Goodwin ncounter DateTime : 01/16/20 17 10:00:00 AM Not Available Not Available Not Available magnesium 250 mg tablet 03/06 completed Prescrib ed Elsewher e: No Locat ion: Jarad goodwin [facility] odify By: doc Goodwin ncounter DateTime : [...] Elsewher e: Yes Loca tion: Jarad goodwin [facility] odify By: dale de la rosauntraulito DateTime [...] Elsewher e: Yes Loca tion: Jarad goodwin [facility] odify By: mary Felipe ntraulito DateTime : 12/24/19 11 09:08:36 AM Not Available Not Available Not Available Sandee Aspirin 325 mg tablet take 1 tablet by oral route every day active Prescrib ed Elsewher e: Yes Loca tion: Jarad goodwin [facility] odify By: jorge herrera DateTime : 12/27/19 11 09:15:00 AM Not Available Not Available Not Available vitamin E 268 mg (400 unit) capsule active Prescrib ed Elsewher e: Yes Loca tion: Jarad goodwin [facility] odify By: dale graham DateTime : 02/13/20 17 11:00:00 AM Not Available Not Available Not Available Estrace 1 mg tablet take 1 tablet (1MG) by oral route every day 12/27 completed Prescrib ed Elsewher e: No Locat ion: Jarad goodwin [facility] odify By: shane neville DateTime : 12/27/19 11 09:15:00 AM Not Available Not Available Not Available oxycodone 5 mg tablet 12/13 completed Not Available Not Available Not Available Estrace 0.01% (0.1 mg/gram) vaginal cream insert (1G) by vaginal route every other day for a month once weekly 02/14 completed Prescrib ed Elsewher e: No Locat ion: Jarad goodwin [facility] odify By: mary Felipe nter DateTime : 02/13/20 17 11:00:00 AM Not Available Not Available Not Available olmesarta n 20 mg tablet TAKE 1 TABLET BY MOUTH EVERY DAY active Not Available Not Available No t Available Benicar 5 mg tablet take 2 tablet by oral route every day 12/13 completed Prescrib ed Elsewher e: Yes Loca tion: Jarad goodwin [facility] odify By: mary Felipe nter DateTime : 12/24/19 11 09:08:36 AM Not Available Not Available Not Available Methotrex ate (Anti-Rhe umatic) 2.5 mg tablets in a dose pack take 2 tablet by oral route every week 03/06 completed Prescrib ed Elsewher e: Yes Loca tion: Jarad goodwin [facility] odify By: doc de la rosauntraulito DateTime : 10/01/19 14 01:30:00 PM Not Available Not Available Not Available Vitamin D3 25 mcg (1,000 unit) capsule 2010 active Prescrib ed Elsewher e: No Locat ion: Jarad goodwin [facility] odify By: jorge herrera DateTime : 12/27/19 11 09:15:00 AM Not Available Not Available Not Available Stalevo 100 25 mg-100 mg-200 mg tablet take 2 tablet by oral route 4 times every day 01/15 completed Prescrib ed Elsewher e: No Locat ion: Jarad goodwin [facility] odify By: dale de la rosauntraulito DateTime : 12/27/19 11 09:15:00 AM Not Available Not Available Not Available Crestor 5 mg tablet take 2 tablet by oral route every day 12/13 completed Prescrib ed Elsewher e: Yes Loca tion: Jarad goodwin [facility] odify By: mary Felipe nter DateTime : 12/24/19 11 09:08:36 AM Not Available Not Available Not Available Klor-Con M10 mEq tablet,ex tended release take 2 tablet (20MEQ) by oral route every day with food 2010 active Prescrib ed Elsewher e: No Locat ion: Jarad goodwin [facility] odify By: jorge Carty r DateTime : 12/27/19 11 09:15:00 AM Not Available Not Available Not Available Prilosec OTC 20 mg tablet,de layed release 12/13 completed Prescrib ed Elsewher e: No Locat ion: Jarad goodwin [facility] odify By: jorge Carty r DateTime : [...] Elsewher e: Yes Loca tion: Jarad goodwin [facility] odify By: mary gonzalez DateTime : 12/24/19 [...] Elsewher e: No Locat ion: Jarad goodwin [facility] odify By: jorge Carty r DateTime : 12/27/19 11 09:15:00 AM Not Available Not Available Not Available Fish Oil 360 mg-1,200 mg capsule 09/30 completed Prescrib ed Elsewher e: Yes Loca tion: Jarad [facility] odify By: shane neville DateTime : 12/24/19 11 09:08:36 AM Not Available Not Available Not Available Vitals Date Recorded Body height Body mass index (BMI) Body weight Systolic blood pressure Diastolic blood pressure Provider Name and Address Organization Details Last Updated DateTime 12/13/2022 149.86 cm 28.9 kg/m2 93557.71 g 122 mm[Hg] 70 mm[Hg] Nishi Snyder [facility] 14:01:37 Social History Question Answer Notes LastModified by Organizat ion Details LastModified Time Tobacco Smoking Status Never Smoker Nishi Snyder null, [facility] 12/13/2022 14:10:57 What Is Your Level [...] (Food, seasonal, environmental ) N Other N Drug/Latex Allergies/Reactions N Breast Cancer N Blood Transfusion N Dermatologic Disorders N Lung Disease N Defects or Inherited Disease N Breast Problem N Gestational Diabetes N Hematologic disorders N Anesthesia Complications N History of STI N Deep Vein Thrombosis N Polycystic ovary syndrome N Anxiety Disorder N Autoimmune disease N Arthritis N Polyps N Infertility N Acid Reflux (GERD) N History of abnormal pap N Cancer N Varicosities N Stroke N Neurologic/Epilepsy N Endometriosis Y High Cholesterol Y Fibromyalgia N Headaches N Kidney Disease N Heart Problems N Thyroid Problems N Kidney or Bladder Problems N GI Problems N Eating Disorder [...] SNOMED-CT Code Diagnosis ICD10 Code Diagnosis Note [id number] GUEVARA Mcclelland [place] [address] [address] 12/13/2022 13:29:36 12/13/2022 15:05:42 Vaginal discharge [id number] N89.8 exam wnlvaginit is panel sentdiscus sed [...] Policy Number Policy Lew Covered Member ID Lew Member ID Guarantor Name 12/13/2022 1 [employer] (MEDICARE REPLACEMENT PPO) [id number] Jacqueline Farmer [id number] Jacqueline Farmer Notes Date Note Type Note [...] for endometriosis GUEVARA Mcclelland [address], [place], [address], [facility] 12/13/2022 15:03:53 OBGyn Episode Ob Episode Information Episode Created Date Number of Fetuses Patient Bloodtype Patient rh Status Prepregnancy Weight lbs Domestic Partner Domestic Partner Phone Father Name Dinkey Driver Status 12/14/19 23 1 CLOSED Fetus Data First Name Last Name Admitted to NICU Weight (g) Sex Living Outcome Pediatric Complications Fetus ID Race Codes Race Delivery Type 3770.25 6704 F Full Term 70092 Thierry Calculation Initial Thierry Date Initial Exam [...] Domestic Partner Domestic Partner Phone Father Name Dinkey Driver Status 12/14/19 23 1 CLOSED Fetus Data First Name Last Name Admitted to NICU Weight (g) Sex Living Outcome Pediatric Complications Fetus ID Race Codes Race Delivery Type 0483.07 2704 F Full Term [id number] Thierry Calculation Initial Thierry Date Initial Exam [...]
--- OUTSIDE RECORDS SUMMARY | 2024-07-07 14:31 | XMS_ITS | Clinical Summary ---
Author Organization [facility] Address [address] [place] [address] Care Team Providers Care Charger Operator Helper Name Role Phone Robert Celis MD Primary Care Provider [phone] Source Comments [facility],non-owned Affiliates and Associated Physician Practices is amultiple site organization consisting of ambulatory clinics and hospital sitesin [place], [place], [place] and [place]. This disclosure is being madepursuant to the Care Everywhere program and may not contain all information available regarding this patient. Last updated 18.[facility] [employer] Allergies Active Allergy Reactions Criticality Noted Date [...] (TYLENOL) 500 MG tabletIndications: RA (rheumatoid arthritis) ([facility]) Take 2 Tabs by mouth [...] X 5/8 1 ML MISCIndications:RA (rheumatoid arthritis) ([facility]) Inject 1 mL subcutaneously every 7 days. 4 Each 11 08/11/2014 Active methotrexate 25 MG/ML injectionIndicatio ns:RA (rheumatoid arthritis) ([facility]) Inject 1 mL subcutaneously every [...] INFLUENZA VACCINE (#1) 2023 DEPRESSION SCREENING 04/16/2024 MEDICARE AWV CALENDAR YEAR 2024 HEPATITIS B VACCINE Aged Out No longe r eligible based on patient's age to complete this topic HIB VACCINE Aged Out No longer eligi ble based on patient's age to complete this topic HPV VACCINE Aged Out No longer eligi ble based on patient's age to complete this topic MENINGOCOCCAL (Group B) VACC INE SHARED DECISION-MAKING Aged Out No longer eligibl e based on patient's age to complete this topic MENINGOCOCCAL GROUPS A/C/Y/W VACCINE Aged Out No longer eligible b ased on patient's age to complete this topic Insurance Payer Benefit Plan / Group Subscriber ID Effective Dates Phone Address Type AETNA MEDICARE ADV AETNA MEDICARE ADV HMO/PPO/PFFS [id number] Effective for all dates [address] [place] [address] Medicare -Managed Care SELF PAY NO INSURANCE SELF PAY NO INSURANCE Effective for all dates [facility] [place] Self Pay AETNA MEDICARE ADV AETNA MEDICARE ADV HMO/PPO/PFFS [id number] Effective for all dates [address] [place] [address] Medicare -Managed Care SELF PAY NO INSURANCE SELF PAY NO INSURANCE Effective for all dates [facility] [place] Self Pay AETNA MEDICARE ADV AETNA MEDICARE ADV HMO/PPO/PFFS [id number] Effective for all dates [address] [place] [address] Medicare -Managed Care SELF PAY NO INSURANCE SELF PAY NO INSURANCE Effective for all dates [facility] [place] Self Pay AETNA MEDICARE ADV AETNA MEDICARE ADV HMO/PPO/PFFS [id number] Effective for all dates [address] [place] [address] Medicare -Managed Care SELF PAY NO INSURANCE SELF PAY NO INSURANCE Effective for all dates [facility] Self Pay AETNA MEDICARE ADV AETNA MEDICARE ADV HMO/PPO/PFFS [id number] Effective for all dates [address] [place] [address] Medicare -Managed Care SELF PAY NO INSURANCE SELF PAY NO INSURANCE Effective for all dates [place], [place] Self Pay AETNA MEDICARE ADV AETNA MEDICARE ADV HMO/PPO/PFFS [id number] Effective for all dates [address] [place] [address] Medicare -Managed Care SELF PAY NO INSURANCE SELF PAY NO INSURANCE Effective for all dates [place], [place] Self Pay AETNA AETNA PPO/POS/OA [id number] 11/27/2019-Pres ent [address] [place] [address] PPO AETNA AETNA MEDICARE ADV HMO [id number] 08/22/2016-Prese nt [address] [place] [address] Medicare -Managed Care Care Teams Charger Operator Helper Relationship Specialty Start Date End Date Robert Celis MD [address] [place] [address] PCP - General Internal Medicine 09/13/12
--- OUTSIDE RECORDS SUMMARY | 2024-07-07 14:31 | XMS_ITS | Clinical Summary ---
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 Gender Identity Not on file Sexual Orientation [...] Depression Screening 1938 Fall Risk Assessment 1938 Hepatitis B Screening 1958 Well Visit 65+ 2003 Zoster Vaccine (3 of 3) 09/13/2017 07/19/2017, 01/23 Pneumococcal vaccine 65+ (2 of 2 - PPSV23) 02/05/2018 02/05/2017, 01/23/2005 Covid-19 Vaccine (4 - 2023-2 5 season) 2023 01/10/2021, 07/04/2020, 06/13/2020 Influenza Vaccine (#1) 2023 , 01/20/2020, 01/27/2019, Additional history exists DTaP/Tdap/Td Vaccine (2 - Td or Tdap) 02/09/2031 02/09/2021 Insurance AETNA MEDICARE on file [facility] MEDICARE Care Teams Shuttler Relationship Specialty Start Date End Date Atif Cartagena DO PCP - General Internal Medicine 09/05/21
--- OUTSIDE RECORDS SUMMARY | 2024-07-07 14:31 | XMS_ITS | Clinical Summary ---
Author Organization [facility] Address [address] [place] [address] Care Team Providers Care Cranberry Grower Name Role Phone UrmilaAtif waldron Christiano Primary Care Provider Allergies Active Allergy Reactions Criticality Noted Date Comments Metformin Diarrhea Low 02/02/2014 Morphine Nausea and Vomiting Low 09/27/2020 Trazodone Dizziness Low 08/04/2013 Medications ONETOUCH ULTRA BLUE TEST STRIP Strip USE ONE TIME DAILY 0 08/03/19 19 Active calcium as carbonate (CALCI-CHEW) 1,250 mg (500 mg elemental) Tablet, Chewable Take 1 Tablet by mouth 1 time daily as needed. 02/03/20 Active celecoxib (CeleBREX) 200 mg capsule Take 200 mg by mouth daily. 08/02/19 19 Active cholecalcifero l, Vitamin D3, (VITAMIN D3) 1,000 unit Capsule Take 4,000 Units by mouth daily. Active clobetasol (TEMOVATE) 0.05 % Solution Apply to affected area every 7 days. Weekly prn to scalp Active cyanocobalamin 1,000 mcg Tablet Take 1,000 mcg by mouth daily. Active fluticasone propionate (FLONASE) 50 mcg/spray Norcatur, Suspension nasal inhaler Administer 1 Norcatur in each nostril 1 time daily as needed. 09/24/19 Active hydroCHLOROthi azide (HYDRODIURIL) 12.5 mg tablet Take 12.5 mg by mouth every 7 days. Active ketoconazole (NIZORAL) 2 % Shampoo Apply to affected area every 7 days. Prn to scalp 3 08/16/19 Active olmesartan (BENICAR) 20 mg tablet Take 20 mg by mouth daily at bedtime. 10/02/19 19 Active omeprazole (PriLOSEC) 40 mg Capsule, Delayed Release(E.C.) Take 40 mg by mouth daily. 08/02/19 19 Active aspirin (ECOTRIN EC) 81 mg Tablet, Delayed Release (E.C.) Take 81 mg by mouth daily. Active GABAPENTIN ORAL Take 200 mg by mouth daily at bedtime. Active docusate sodium (COLACE) 100 mg capsule Take 1 Capsule (100 mg) by mouth 2 times daily. 60 Capsule 2 1:[address] TECHNOLOGIST 04/07/20 Active simvastatin (ZOCOR) 10 mg tablet Take 10 mg by mouth daily. 03/15/20 22 Active lidocaine-pril ocaine (EMLA) 2.5-2.5 % CreamIndicatio ns:Malignant neoplasm of upper-outer quadrant of right breast in female, estrogen receptor negative (CMS/HCC) Apply to affected area see administration instructions. 30 Gram 1 09/17/19 24 Active dexAMETHasone (DECADRON) 2 mg tablet Take 1 Tablet by mouth BID day before treatment, day of treatment, and day after treatment. 6 Tablet 3 11/02/19 24 Active mometasone (ELOCON) 0.1 % Cream Apply to affected area daily. 45 Gram 3 01/01/20 24 Active ondansetron (ZOFRAN ODT) 8 mg Tablet, Rapid DissolveIndica tions:Malignan t neoplasm of upper-outer quadrant of right breast in female, estrogen receptor negative (CMS/HCC) Dissolve 1 tablet on top of tongue then swallow with saliva every 8 hours as needed for nausea or vomiting 30 Tablet 1 06/11/19 25 Active ondansetron (ZOFRAN ODT) 8 mg Tablet, Rapid DissolveIndica tions:Malignan t neoplasm of upper-outer quadrant of right breast in female, estrogen receptor negative (CMS/HCC) Dissolve 1 tablet on top of tongue then swallow with saliva every 8 hours as needed for nausea or vomiting 30 Tablet 1 09/17/19 24 025 Discontin ued(Reord er) Active Problems Problem Noted Date Diagnosed Date Chronic low back pain 04/07/2022 Type 2 diabetes mellitus with hyperglycemia 03/17 Trigger point 11/25/2018 Abnormal ultrasound of breast 10/15/2018 Nipple tenderness 10/02/2018 Mastodynia of left breast 10/02/2018 Other signs and symptoms in breast 10/02/2018 Encounters Date Type Department Care Team Description 07/07/2024 Orders Only [facility] Oncology and Hematology - Angel Lizet Cash [address] [id number] Kwadwo Barrios MD Malignant neoplasm of upper-outer quadrant of right breast in female, estrogen receptor negative (CMS/HCC) 06/23/2024 Orders Only [facility] Oncology and Hematology - Angel Lizet Cash [address] Kwadwo Barrios MD Malignant neoplasm of upper-outer quadrant of right breast in female, estrogen receptor negative (CMS/HCC) 06/19/2024 Telephone [facility] Oncology and Hematology - Angel Sarah Cash [address] Kwadwo Barrios MD [place] 06/16/2024 Telephone [facility] Oncology and Hematology - Angel Sarah Cash [address] Kwadwo Barrios MD [place] 06/11/2024 1:[address] TECHNOLOGIST Office Visit [facility] Oncology and Hematology - Angel Sarah Cash [address] Kwadwo Barrios MD Malignant neoplasm of upper-outer quadrant of right breast in female, estrogen receptor negative (CMS/HCC) (Primary Dx) 06/09/2024 Orders Only [facility] Oncology and Hematology - Angel Lizet Cash [address] Kwadwo Barrios MD Malignant neoplasm of upper-outer quadrant of right breast in female, estrogen receptor negative (CMS/HCC) 06/06/2024 Orders Only [facility] Oncology and Hematology - Angel Lizet Cash [address] [place] [place] [id number] Kwadwo Barrios MD 06/04/2024 External Device Data STL ABSTRACTION Provider, Abstract 05/26/2024 Orders Only [facility] Oncology and Hematology - Angel Lizet Cash [address] [place] [address] Kwadwo Barrios MD Malignant neoplasm of upper-outer quadrant of right breast in female, estrogen receptor negative (CMS/HCC) 05/09/2024 Orders Only [facility] Oncology and Hematology - Angel [address] [place] [address] Kwadwo Barrios MD 05/08/2024 External Device Data STL ABSTRACTION Provider, Abstract 05/08/2024 Orders Only [facility] Oncology and Hematology - Angel [address] [place] [address] Kwadwo Barrios MD 04/28/2024 Orders Only [facility] Oncology and Hematology - Angel [address] [place] [address] Kwadwo Barrios MD Malignant neoplasm of upper-outer quadrant of right breast in female, estrogen receptor negative (CMS/HCC) 04/14/2024 Orders Only [facility] Oncology and Hematology - Angel [address] [place] [address] Kwadwo Barrios MD Malignant neoplasm of upper-outer [...] Sign Reading Time Taken Comments Blood Pressure 129/69 06/11/2024 12:[address] TECHNOLOGIST Pulse 80 06/11/2024 12:[address] TECHNOLOGIST Temperature 36.4 C (97.5 F) 06/11/2024 12:[address] TECHNOLOGIST Respiratory Rate 15 06/11/2024 12:[address] TECHNOLOGIST Oxygen Saturation 93% 06/11/2024 12:[address] TECHNOLOGIST Inhaled Oxygen Concentration - - Weight 58.5 kg (129 lb) 06/11/2024 12:[address] TECHNOLOGIST Height 149.9 cm (4' 11 ) 08/08/2023 3:01 PM CDT Body Mass Index 26.05 08/08/2023 3:01 PM CDT Plan of Treatment Upcoming Encounters Date Type Department Care Team (Late st Contact Info) Description 10/09/2024 1:00 PM CDT Office Visit [facility] Oncology and Hematology - Angel [address] [facility] [address] [place] [address] Kwadwo Barrios MD [address] [facility] [address] [place] [address] Health Maintenance Due Date Last Done Comments DIABETES ANNUAL FOOT EXAM 1956 DIABETES ANNUAL RETINAL EXAM 1956 DIABETES MICROALBUMIN ANNUAL SCREEN 1956 LDL CHOLESTEROL ANNUAL 1956 DTAP/TDAP/TD VACCINES (1 - Tdap) 1957 PNEUMOCOCCAL VACCINE 50+ YEARS (1 of 2 - PCV) 05/22/18 58 ZOSTER VACCINE (1 of 2) 1988 OSTEOPOROSIS SCREENING 2003 RSV VACCINE (60+ or ) (1 - 1-dose 75+ series) 2013 DIABETES HBA1C Q 6 MONTHS 10/03/2022 04/04/2022 INFLUENZA VACCINE (#1) 2023 [place] Prev entative Visit/Annual Wellness Visit 04/16/2024 Medical Devices Implanted Type Area Outside Industrial Sales Representative Device Identifier Shelf Expiration Date Model / Serial / Lot Hemostatic Surgiflo 8ml W/ Thrombin 2994 - [id number] Implanted:Qty : 1 on 04/03/2022 by Anthony Mendoza MD at [facility] Hemostatic N/A: Spine Cervical Posterior [employer] 05/16/2023 [id number] / / [id number] Procedures Procedure Name Priority Date/Time Associated Diagnosis Comments CHG CA 15 3 Routine 06/04/2024 11:[address] TECHNOLOGIST CANCER ANTIGEN 15-3 Routine 05/07/2024 4 :[address] TECHNOLOGIST COMPREHENSIVE METABOLIC PANEL Routine 05/07/2024 2:[address] TECHNOLOGIST HEMOGLOBIN A1C Routine 04/04/2022 4:[address] TECHNOLOGIST from Last 3 Months or Most Recently Relevant to Health Maintenance Results * CHG CA 15 3 (06/04/2024 11:[address] TECHNOLOGIST) us Kwadwo Barrios MD CHG - LABORATORY Final Result * CANCER ANTIGEN 15-3 (05/07/2024 4:[address] TECHNOLOGIST) Blood us Kwadwo Barrios MD CHEMISTRY ORDERABLES Final Resu lt * COMPREHENSIVE METABOLIC PANEL (05/07/2024 2:[address] TECHNOLOGIST) Blood us Kwadwo Barrios MD CHEMISTRY ORDERABLES Final Resu lt * (ABNORMAL) HEMOGLOBIN A1C (04/04/2022 4:[address] TECHNOLOGIST) HEMOGLOBIN A1C 6.6(H) <=5.6 % 04/04/2022 8:[address] TECHNOLOGIST [facility] [employer] [facility] EST. AVG GLUCOSE, A1C 143 mg/dL 04/04/2022 8:[address] TECHNOLOGIST [facility] [employer] [facility] Blood Venipuncture / Unknown 04/04/2022 4:[address] TECHNOLOGIST 04/04/2022 4:[address] TECHNOLOGIST Narrative [facility] [employer] [facility] - 04/04/2022 8:[address] TECHNOLOGIST HGB A1C INTERPRETATION NORMAL: <5.7% PRE-DIABETES: 5.7 - 6.4% DIABETES: 6.5% OR GREATER us Rubina Rosario MD CHEMISTRY ORDERABLES Final Resul t [facility]# [id number] [place] [address] from Last 3 Months or Most Recently Relevant to Health Maintenance Insurance AETNA PPO [facility] RX AETNA Medicare Part D RX [employer] (INTERNAL) [facility] Internal Plans AETNA O [facility] Advance Directives For more information, please contact: [phone] * Full Code (Latest Code Status on File) Date Activated Date Inactivated Comments 04/03/2022 2:48 PM 04/07/2022 5:46 PM Care Teams Cranberry Grower Relationship Specialty Start Date End Date Atif Cartagena DO [address] [address] PCP - General Internal Medicine 03/15/22
--- OUTSIDE RECORDS SUMMARY | 2024-07-07 14:31 | XMS_ITS | Continuity of Care Document ---
Author Organization [facility] Address [address] [place] [address] Phone Care Team Providers Care Tool Shaper Setup Operator Name Role Phone Doser Mason ELDRIDGE Unavailable Unavailable Allergies, Adverse Reactions, Alerts Substance Reaction Status Criticality morphine Other Active No Information Medications Medication Instructions Dosage Effective Dates (start - stop) Status Comments [place] 5 mg-325 mg tablet take 1 tablet [...] exam foot, minimum 3 views 2021 Office/outpatient visit,[facility] [place] Advance Directives Directive Yes / No Effective Date File Name No Information Encounters Encounter Description Practice Location Reason(s) For Visit Diagnoses Date Provider Providers Copied on Encounter [facility], 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 [address], [address], [place], [place], [address] , [place]. tel: [phone] Referring Provider: Mason Cardona, [address], [place], [address] . tel:[phone] [facility], [address], [place], [place], [address], [place] tel:[phone] [facility] No Information 0 2 Doser Mason. [address], [address], [place], [place], [address] , [place]. tel:[phone] [facility], [address] [place] [address], [place], [place], [address], [place] tel:[phone] [facility] Pain in left footOther acquired hammer toes of left foot Aug-0 2 Doser Mason. [address], [address], [place], [place], [address] , [place]. tel: [phone] Referring Provider: Mason Cardona, [address], [place], [address] . tel:[phone] [facility], [address] [place] [address], [place], [place], [address], [place] tel:[phone] [facility] No Information 0 2 Doser Mason. [address], [address], [place], [place], [address] , [place]. tel:[phone] Referring Provider: Mason Cardona, [address], [place], [address] . tel:[phone] [facility], [address] [place] [address], [place], [place], [address], [place] tel:[phone] [facility] Other acquired hammer toes of left footPain in left foot 2 Doser Mason. [address] [place] [address], [place], [place], [address] , [place]. tel:[phone] Referring Provider: Mason Cardona, [facility] [facility] [address] [facility], [place], [address] . tel:[phone] [facility], [address] [address], [place], [place], [address], [place] tel:[phone] [facility] Follow Up of left foot sx 09/26/21 (chief complaint) Pain in left footOther acquired hammer toes of left foot [address] [place] [address], [place] [address], [place], [place], [address] , [place]. tel:[phone] Referring Provider: Mason aCrdona, [address] [place] [address] Suite [facility], [place], [address] . tel:[phone] [facility], [facility] [address], [place], [place], [address], [place] tel:[phone] [facility] Pain in left foot [address] Doser Mason[address] [place] [address], [facility] [address], [place], [place], [address] , [place]. tel:[phone] Referring Provider: Mason Cardona, [address], [place], [address] . tel:[phone] [facility], [address] [address], [place], [place], [address], [place] tel:[phone] [facility] No Information 2 Doser Mason. [address] [place] [address], [place] [address], [place], [place], [address] , [place]. tel:[phone] Referring Provider: Mason Cardona, [address] [place] [address] [address], [place], [address] . tel:[phone] Office/outpat ient visit,new, mod [facility], [address], [place], [place], [address], tel:[phone] [facility] Toes (chief complaint) Pain in left footOther acquired hammer toes of left foot Mike Cuevas. [address] [facility], [address], [place], [place], [address] , . tel:[phone] Referring Provider: Mason Cardona, [address] [facility] [address], [place], [address] . tel:[phone] Family History Family Member Type Diagnosis Age At Onset Brother Problem (finding) Gout Mother Problem (finding) Osteoarthritis Mother Problem (finding) Hypertension Father Problem (finding) Gout Mother Problem (finding) Heart Disease Father Problem (finding) Osteoarthritis Brother Problem (finding) Hypertension Payers Payer name Insurance type Covered constitution party ID Mary nelson(s) Aetna Medicare [place] [id number] Social History Type Description Quantity Date Captured Comments Alcohol Use Details Unknown Caffeine Use Details Unknown Tobacco Use Status Current non-smoker Smoking Status Never smoker Sex Female Chief Complaint And Reason For Visit From encounter dated '12/06/2021 13:25'. 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
--- OUTSIDE RECORDS SUMMARY | 2024-07-07 14:31 | XMS_ITS | Continuity of Care Document ---
Author Organization [facility] Address [address] [place] [address] Phone Care Team Providers Care Bulb Grader Name Role Phone Santi Leigh DO Unavailable Unavailable Advance Directives Directive Yes / No Effective Date File Name No Information Encounters Encounter Description Practice Location Reason(s) For Visit Diagnoses Date Provider Providers Copied on Encounter [facility], [address], [place], [place], [address], tel:[phone] [facility] No Information Lu Manuel. [address] [place], [address], [place]. tel: [phone] Family History Family Member Type Diagnosis Age At Onset No Information Payers Payer name Insurance type Covered democrat ID Authoriza tion(s) [place] [id number] Social History Type Description Quantity Date Captured [...]
--- OUTSIDE RECORDS SUMMARY | 2024-07-07 14:32 | XMS_ITS ---
Author Organization [facility] Address [address] [place] [address] Care Team Providers Care Early Morning Babysitter Name Role Phone Atif Cartagena Primary Care Provider Unavailab Dr. 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 1, Do you have pucv-sf-axat carpeting? Yes, What is the age of [...] Management) * Billing Information: * Visit Code: 23346 Office Visit, Est Pt., Level 4. Modifiers: 25 44971 Office Visit, Est Pt., Level 3. Modifiers: 25 * Procedure Codes: 99484 PT-FOCUSED HLTH RISK ASSMT. G8427 DOC MEDS VERIFIED W/PT OR RE. * Electronic signature of Dr. Stefano Cramer MD on 07/07/2024 at 02:31 PM CDT Sign off status: Pending * Provider: Skip Cramer MD Date: 0 09/13/2023 Generated for Suman wilcox/Olga/Ramone on: 0 07/07/2024 02:31 PM CDT History and Physical Notes * [...]
== END 2024-07-07 12:47 | disposition home or self-care (01) ==
LOC: ANHSURGERY 12:50
PROVIDERS: Anesthesiology; PCP Internal Medicine; Visit Provider Surgery
DX: N18.9 Chronic kidney disease, unspecified (principal)
CPT/HCPCS: 36415; 85610; 85730

== ENCOUNTER 2024-07-09 00:20 | Day surgery (SDC) | payer MEDICARE, SELFPAY ==
[2024-07-04 09:34] VITALS: BMI 25.8
--- NOTE | 2024-07-04 09:46 | PC.NURSE ---
Report to the Outpatient Waiting Room, entrance under the green pavilion located off [facility], at time __11:30am on date __07/09/24 . Planned Procedure Time: __1:30pm .? Time changes happen often and if your time is changed the preop area will call you the afternoon before. - You and your visitor will be asked to self-screen and do not enter if you have any COVID symptoms. Please call surgeon if you need to reschedule. - A mask is optional within the hospital at this time. Patients may have clear liquids (water, carbonated beverages, clear teas, apple juice) until 3 hours prior to surgery with a maximum of 20 ounces. - No food from midnight until time of surgery and no smoking, or chewing tobacco (or any form of nicotine). No chewing gum, candy or mints. (1030am) Take only the following medications with a SIP of water on the morning of surgery: ___Gabapentin, Hydrocodone and Tylelol as needed DO NOT STOP ANY OF YOUR OTHER PRESCRIPTION MEDICATIONS PRIOR TO SURGERY EXCEPT THE FOLLOWING Hold all vitamins and supplements for 3 days per anesthesiologist. Date to take last dose is 07/05/24 Medications to discontinue per physician ____Aspirin and NSAIDS for [address] Pires Date to take last dose____06/30/24 Please no make-up, nail belizean, hairspray, perfume, deodorant, or body powder the day of surgery.? No jewelry (including any body piercings) or valuables the day of surgery, leave them at home.? Please take a shower or bath the night before, or the morning of, surgery with an antibacterial soap. Scrub per Dr. Pires ? Wear comfortable, loose fitting clothing.? - Jewelry must be removed prior to entering the operating room.? Rings and piercings that are not removed may be cut off. - The hospital will not accept responsibility for valuables.? - Please leave all valuables, including medications, at home the day of surgery. If you are going home after surgery, a licensed reach lift truck driver must drive you home.? - NO public transportation without another adult if you receive anesthesia. - We recommend that an adult stay with you for 24 hours following discharge. - We also recommend that you do not drive, make important decision, drink alcoholic beverages, or take any drugs that were not prescribed by your health care provider for at least 24 hours after your discharge time. Follow any additional instructions given to you from your surgeon. Telephone instructions given to ___Patient and asked if any additional questions and then verbalized understanding. Patient advised to call surgeon office or pre surgery nurse liaison [phone] if any additional questions.
[2024-07-09] VITALS (7 sets, daily range): BP systolic 124–167; BP diastolic 58–74; PULSE 70–79; RESP 12–14; TEMP 36.1–36.6; O2SAT 97–100
--- OUTSIDE RECORDS SUMMARY | 2024-07-09 00:24 | XMS_ITS | Encounter Summary ---
Author Organization [facility] Address [address] [place] [address] Care Team Providers Care Wheel Polisher Name Role Phone Atif Cartagena DO Primary Care Provider Reason for Visit * Reason Onset Date Comments Post op 04/03/2022 Spoke w/Grace at Dr. 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 Melvin'kalyn exchange/RIGHT OF WAY MANAGER Franky marketing database consultant) Social History Tobacco Use Types Packs/Day Years [...] Coronavirus/COVID-19? No / Unsure 04/03/2022 8:20 AM MEDICAL NURSE documented as of this encounter Plan of Treatment Upcoming Encounters Date Type Department Care Team ([facility] Contact Info) Description 10/09/2024 1:00 PM CDT Office Visit [facility] Oncology and Hematology - Angel [address] [address] Kwadwo Barrios MD [address] [facility] [address] [place] [address] documented as of this encounter Visit Diagnoses Not on filedocumented in this encounter Additional Health Concerns Infection Onset Date Last Indicated Resolved Time R/O COVID-19 04/05/2022 04/05/2022 04/05/2022 1:59 PM MEDICAL NURSE documented as of this encounter Care Teams Wheel Polisher Relationship Specialty Start Date End Date Atif Cartagena DO [address] [facility] [address] [place] [address] PCP - General Internal Medicine 03/15/22 documented as of this encounter
--- OUTSIDE RECORDS SUMMARY | 2024-07-09 00:24 | XMS_ITS | Clinical Summary ---
Author Organization [facility] Address [address] [place] [address] Care Team Providers Care Vocational Ed Instructor Name Role Phone UrmilaAtif waldron Christiano Primary [...] daily. Active fluticasone propionate (FLONASE) 50 mcg/spray H[place]go, Suspension nasal inhaler Administer 1 Hidalgo in each nostril 1 time daily as [...] times daily. 60 Capsule 2 1:21 PM TRAVELING CRANE OPERATOR 04/07/20 Active simvastatin (ZOCOR) 10 mg tablet [...] Department Care Team Description 07/07/2024 Orders Only [facility] - Angel Lizet Cash [address] [place] [id number] Kwadwo Barrios MD Malignant neoplasm of upper-outer quadrant of right breast in female, estrogen receptor negative (CMS/HCC) 06/23/2024 Orders Only [facility] - Angel Lizet Cash [address] Kwadwo Barrios MD Malignant neoplasm of upper-outer quadrant of right breast in female, estrogen receptor negative (CMS/HCC) 06/19/2024 Telephone [facility] - Angel Sarah Cash [address] Kwadwo Barrios MD [place] 06/16/2024 Telephone [facility] - Angel Sarah Cash [address] Kwadwo Barrios MD [place] 06/11/2024 1:00 PM TRAVELING CRANE OPERATOR Office Visit [facility] - Angel Sarah Cash [address] Kwadwo Barrios MD Malignant neoplasm of upper-outer quadrant of right breast in female, estrogen receptor negative (CMS/HCC) (Primary Dx) 06/09/2024 Orders Only [facility] - Angel Lizet Cash [address] Kwadwo Barrios MD Malignant neoplasm of upper-outer quadrant of right breast in female, estrogen receptor negative (CMS/HCC) 06/06/2024 Orders Only [facility] - Angel Lizet Cash [address] [id number] Kwadwo Barrios MD 06/04/2024 External Device Data STL ABSTRACTION Provider, Abstract 05/26/2024 Orders Only [facility] - Angel Lizet Cash [address] [place] [address] Kwadwo Barrios MD Malignant neoplasm of upper-outer quadrant of right breast in female, estrogen receptor negative (CMS/HCC) 05/09/2024 Orders Only [facility] - Angel [address] [place] [address] Kwadwo Barrios MD 05/08/2024 External Device Data STL ABSTRACTION Provider, Abstract 05/08/2024 Orders Only [facility] - Angel [address] [place] [address] Kwadwo Barrios MD 04/28/2024 Orders Only [facility] - Angel [address] [place] [address] Kwadwo Barrios MD Malignant neoplasm of upper-outer quadrant of right breast in female, estrogen receptor negative (CMS/HCC) 04/14/2024 Orders Only [facility] - Angel [address] [place] [address] Kwadwo Barrios MD Malignant neoplasm of upper-outer [...] Comments Blood Pressure 129/69 06/11/2024 12:59 PM TRAVELING CRANE OPERATOR Pulse 80 06/11/2024 12:59 PM TRAVELING CRANE OPERATOR Temperature 36.4 C (97.5 F) 06/11/2024 12:59 PM TRAVELING CRANE OPERATOR Respiratory Rate 15 06/11/2024 12:59 PM TRAVELING CRANE OPERATOR Oxygen Saturation 93% 06/11/2024 12:59 PM TRAVELING CRANE OPERATOR Inhaled Oxygen Concentration - - Weight 58.5 kg (129 lb) 06/11/2024 12:59 PM TRAVELING CRANE OPERATOR Height 149.9 cm (4' 11 ) 08/08/2023 3:01 PM CDT Body Mass Index 26.05 08/08/2023 3:01 PM CDT Plan of Treatment Upcoming Encounters Date Type Department Care Team (Late st Contact Info) Description 10/09/2024 1:00 PM CDT Office Visit [facility] - Angel [address] [facility] [address] [place] [address] Kwadwo Barrios MD [address] [facility] [address] [place] [address] Health Maintenance Due Date Last [...] Visit 04/16/2024 Medical Devices Implanted Type Area Set O Type Operator Device Identifier Shelf Expiration Date Model / Serial / Lot Hemostatic Surgiflo 8ml W/ Thrombin 2994 - [id number] Implanted:Qty : 1 on 04/03/2022 by Anthony Mendoza MD at [facility] Hemostatic N/A: Spine Cervical Posterior [employer] 05/16/2023 [id number] / / [id number] Procedures Procedure Name Priority Date/Time Associated Diagnosis Comments CHG CA 15 3 Routine 06/04/2024 11:41 AM TRAVELING CRANE OPERATOR CANCER ANTIGEN 15-3 Routine 05/07/2024 4 :21 PM TRAVELING CRANE OPERATOR COMPREHENSIVE METABOLIC PANEL Routine 05/07/2024 2:00 PM TRAVELING CRANE OPERATOR HEMOGLOBIN A1C Routine 04/04/2022 4:18 AM TRAVELING CRANE OPERATOR from Last 3 Months or Most Recently Relevant to Health Maintenance Results * CHG CA 15 3 (06/04/2024 11:41 AM TRAVELING CRANE OPERATOR) us Kwadwo Barrios MD CHG - LABORATORY Final Result * CANCER ANTIGEN 15-3 (05/07/2024 4:21 PM TRAVELING CRANE OPERATOR) Blood us Kwadwo Barrios MD CHEMISTRY ORDERABLES Final Resu lt * COMPREHENSIVE METABOLIC PANEL (05/07/2024 2:00 PM TRAVELING CRANE OPERATOR) Blood us Kwadwo Barrios MD CHEMISTRY ORDERABLES Final Resu lt * (ABNORMAL) HEMOGLOBIN A1C (04/04/2022 4:18 AM TRAVELING CRANE OPERATOR) HEMOGLOBIN A1C 6.6(H) <=5.6 % 04/04/2022 8:17 AM TRAVELING CRANE OPERATOR [facility] [employer] [facility] EST. AVG GLUCOSE, A1C 143 mg/dL 04/04/2022 8:17 AM TRAVELING CRANE OPERATOR [facility] [employer] [facility] Blood Venipuncture / Unknown 04/04/2022 4:18 AM TRAVELING CRANE OPERATOR 04/04/2022 4:24 AM TRAVELING CRANE OPERATOR Narrative [facility] [employer] [facility] - 04/04/2022 8:17 AM TRAVELING CRANE OPERATOR HGB A1C INTERPRETATION NORMAL: <5.7% PRE-DIABETES: 5.7 - 6.4% DIABETES: 6.5% OR GREATER us Rubina Rosario MD CHEMISTRY ORDERABLES Final Resul t [facility]# [id number] [address] [place] [address] from Last 3 Months or Most Recently Relevant to Health Maintenance Insurance AETNA PPO [facility] RX AETNA Medicare Part D RX [employer] PLANS (INTERNAL) [facility] Internal Plans AETNA O [facility] Advance Directives For more information, please contact: [phone] * Full Code (Latest Code Status on File) Date Activated Date Inactivated Comments 04/03/2022 2:48 PM 04/07/2022 5:46 PM Care Teams Vocational Ed Instructor Relationship Specialty Start Date End Date Atif Cartagena DO [address] [address] PCP - General Internal Medicine 03/15/22
--- OUTSIDE RECORDS SUMMARY | 2024-07-09 00:24 | XMS_ITS ---
Author Organization [facility] Address [address] [place] [address] Care Team Providers Care Family Support Coordinator Name Role Phone Atif Cartagena Primary Care Provider Unavailab Dr. Stefano Stone Unavailable [phone] Araceli Ambrosio Unavailable Unavailable REASON FOR VISIT Headache follow-up Encounters Encounter Location Date Provider Diagnosis [facility] [address] [place] [address] 08/08/2023 Stefano Cramer Plan Of Treatment No Information Progress Notes * Tala SANrobbieDOB: 9 (84 yo F)Acc No.[id number]:08/08/2023 Progress Notes Patient: Jacqueline MADRID Provider: Skip Cramer MD :1940 A ge:83 Y S ex:Female Date:08/08/2023 Address:[address], [place] Pcp:Atif Cartagena Subjective: * Chief Complaints: * 1 . Headache follow-up. * Medical History: Objective: * Vitals: Assessment: Plan: * Treatment: * Billing Information: * Visit Code: * Procedure Codes: * Electronic signature of Dr. Stefano Cramer MD on 07/09/2024 at 12:23 AM CDT Sign off status: Pending * Provider: Skip Cramer MD Date: 08/08/2023 Generated for Suman wilcox/Olga/Megitting on: 0 07/09/2024 12:23 AM CDT
--- OUTSIDE RECORDS SUMMARY | 2024-07-09 00:24 | XMS_ITS | Encounter Summary ---
Author Organization [facility] Address [address] [facility] [place] [address] Care Team Providers Care Quality Control Inspector Name Role Phone Robert Celis MD Primary Care Provider [phone] Encounter Details Date Type Department Care Team [...] on filedocumented in this encounter Care Teams Quality Control Inspector Relationship Specialty Start Date End Date Robert Celis MD [address] [place] [address] PCP - General Internal Medicine 09/13/12 documented as of this encounter
--- OUTSIDE RECORDS SUMMARY | 2024-07-09 00:24 | XMS_ITS | Clinical Summary ---
Author Organization [facility] Address [address] [place] [address] Care Team Providers Care Command And Control Name Role Phone Robert Celsi MD Primary Care Provider [phone] Source Comments [facility],non-owned Affiliates and Associated Physician Practices is amultiple site organization consisting of ambulatory clinics and hospital sitesin [place], [place], [place] and [place]. This disclosure is being madepursuant to the Care Everywhere program and may not contain all information available regarding this patient. Last updated 18.[facility] [employer] Allergies Active Allergy Reactions Criticality Noted [...] 500 MG tabletIndications: RA (rheumatoid arthritis) (FORMERLY [facility]) Take 2 Tabs by mouth 3 times [...] 5/8 1 ML MISCIndications:RA (rheumatoid arthritis) ([facility]ER[facility]) Inject 1 mL subcutaneously every 7 days. 4 Each 11 08/11/2014 Active methotrexate 25 MG/ML injectionIndicatio ns:RA (rheumatoid arthritis) (FORMERLY [facility]) Inject 1 mL subcutaneously every 7 days. [...] AETNA MEDICARE ADV AETNA MEDICARE ADV HMO/PPO/PFFS [id number] Effective for all dates [address] [place] [address] Medicare -Managed Care SELF PAY NO INSURANCE SELF PAY NO INSURANCE Effective for all dates [facility], [place] Self Pay AETNA MEDICARE ADV AETNA MEDICARE ADV HMO/PPO/PFFS [id number] Effective for all dates [address] [place] [address] Medicare -Managed Care SELF PAY NO INSURANCE SELF PAY NO INSURANCE Effective for all dates [facility] Self Pay AETNA MEDICARE ADV AETNA MEDICARE ADV HMO/PPO/PFFS [id number] Effective for all dates [address] [place] [address] Medicare -Managed Care SELF PAY NO INSURANCE SELF PAY NO INSURANCE Effective for all dates [facility] Self Pay AETNA MEDICARE ADV AETNA MEDICARE ADV HMO/PPO/PFFS [id number] Effective for all dates [address] [place] [address] Medicare -Managed Care SELF PAY NO INSURANCE SELF PAY NO INSURANCE Effective for all dates [facility] [place], [place] Self Pay AETNA MEDICARE ADV AETNA MEDICARE ADV HMO/PPO/PFFS [id number] Effective for all dates [address] [place] [address] Medicare -Managed Care SELF PAY NO INSURANCE SELF PAY NO INSURANCE Effective for all dates [place], [place] Self Pay AETNA MEDICARE ADV AETNA MEDICARE ADV HMO/PPO/PFFS [id number] Effective for all dates [address] [place] [address] Medicare -Managed Care SELF PAY NO INSURANCE SELF PAY NO INSURANCE Effective for all dates [place], [place] Self Pay AETNA AETNA PPO/POS/OA [id number] 11/27/2019-Pres ent [address] [place] [address] PPO AETNA AETNA MEDICARE ADV HMO [id number] 08/22/2016-Prese nt [address] [place] [address] Medicare -Managed Care Care Teams Command And Control Relationship Specialty Start Date End Date Robert Celis MD [address] [place] [address] PCP - General Internal Medicine 09/13/12
--- OUTSIDE RECORDS SUMMARY | 2024-07-09 00:24 | XMS_ITS | Continuity of Care Document ---
Author Organization [facility] Address [address] [place] [address] Phone Care Team Providers Care Roving Can Tender Name Role Phone Doser Mason ELDRIDGE Unavailable Unavailable Allergies, Adverse Reactions, Alerts Substance Reaction Status Criticality morphine Other Active No Information Medications Medication Instructions Dosage Effective Dates (start - stop) Status Comments [place] 5 mg-325 mg tablet take 1 tablet [...] exam foot, minimum 3 views 2021 Office/outpatient visit,[facility], [facility] 2021 Advance Directives Directive Yes / No Effective Date File Name No Information Encounters Encounter Description Practice Location Reason(s) For Visit Diagnoses Date Provider Providers Copied on Encounter [facility], [address], [place], [place], [address], [place] tel:[phone] [facility] tow picker orthotics (chief complaint) No Information 2 2 Doser Mason. [address] [facility], [address], [place], [place], [address] , [place]. tel: [phone] Referring Provider: Mason Cardona, [address] [facility] [place] [facility] [address], [place], [address] . tel:[phone] [facility], [address] [facility] [place] [facility] [address], [place], [place], [address], [place] tel:[phone] [facility] No Information 0 2 Doser Mason. [address] [facility] [place] [facility], [address], [place], [place], [address] , [place]. tel:[phone] [facility], [address] [place] [address], [place], [place], [address], [place] tel:[phone] [facility] Pain in left footOther acquired hammer toes of left foot Aug-0 2 Doser Mason. [address] [facility] [place] [facility], [address], [place], [place], [address] , [place]. tel: [phone] Referring Provider: Mason Cardona, [address] [facility] [place] [facility] [address], [place], [address] . tel:[phone] [facility], [address] [place] [address], [place], [place], [address], [place] tel:[phone] [facility] No Information 0 2 Doser Mason. [address] [facility] [place] [facility], [address], [place], [place], [address] , [place]. tel:[phone] Referring Provider: Mason Cardona, [address] [facility] [place] [facility] [address], [place], [address] . tel:[phone] [facility], [address] [place] [address], [place], [place], [address], [place] tel:[phone] [facility] Other acquired hammer toes of left footPain in left foot 2 Doser Mason. [address] [facility] [place] [facility], [place] [address], [place], [place], [address] , [place]. tel:[phone] Referring Provider: Mason Cardona, [facility] [facility] [place] [facility] [address] [place] [facility], [place], [address] . tel:[phone] [facility], [address] [address], [place], [place], [address], [place] tel:[phone] [facility] Follow Up of left foot sx 09/26/21 (chief complaint) Pain in left footOther acquired hammer toes of left foot [address] [place] [address], [place] [address], [place], [place], [address] , [place]. tel:[phone] Referring Provider: Mason Cardona, [address] [place] [address] [address] [facility], [place], [address] . tel:[phone] [facility], [facility] [place] [address], [place], [place], [address], [place] tel:[phone] [facility] Pain in left foot [address] [place] [address], [facility] [address], [place], [place], [address] , [place]. tel:[phone] Referring Provider: Mason Cardona, [address] [facility] [place] [facility] [address], [place], [address] . tel:[phone] [facility], [address] [address], [place], [place], [address], [place] tel:[phone] [facility] No Information 2 Doser Mason. [address] [place] [address], [place] [address], [place], [place], [address] , [place]. tel:[phone] Referring Provider: Mason Cardona, [address] [place] [address] [address], [place], [address] . tel:[phone] Office/outpat ient visit,new, mod [facility], [address], [place], [place], [address], tel:[phone] [facility] Toes (chief complaint) Pain in left footOther acquired hammer toes of left foot Mike Cuevas. [address] [facility], [address], [place], [place], [address] , . tel:[phone] Referring Provider: Mason Cardona, [address] [facility] [address], [place], [address] . tel:[phone] Family History Family Member Type Diagnosis Age At Onset Brother Problem (finding) Gout Mother Problem (finding) Osteoarthritis Mother Problem (finding) Hypertension Father Problem (finding) Gout Mother Problem (finding) Heart Disease Father Problem (finding) Osteoarthritis Brother Problem (finding) Hypertension Payers Payer name Insurance type Covered democrat ID Mary nelson(s) Aetna Medicare CI [id number] Social History Type Description Quantity Date Captured Comments Alcohol Use Details Unknown Caffeine Use Details Unknown Tobacco Use Status Current non-smoker Smoking Status Never smoker Sex Female Chief Complaint And Reason For Visit From encounter dated '12/06/2021 13:25'. tow picker orthotics (chief complaint) Reason For Referral Reason For Referral No Information Plan Of Treatment Date Type Action Status Referral Ordered: X-ray exam foot, minimum 3 views LT ordered History Of Present Illness Encounter Date Complaint History Of Prese nt Illness tow picker orthotics Follow Up of left foot sx 2 Toes Functional Status Date Functional Assessmen t No Information Instructions Date Instruction Additional Infor mation No Information Assessments Type Assessment Date No Information Patient Care Teams Name Effective Dates (start - stop) Status Members No Information
--- OUTSIDE RECORDS SUMMARY | 2024-07-09 00:24 | XMS_ITS | Encounter Summary ---
Author Organization [facility] Address [address] [place] [address] Care Team Providers Care Cabinet Finisher Name Role Phone Atif Cartagena Primary Care Provider Encounter Details Date Type Department Care Team (Late Contact Info) Description 07/07/2024 Orders Only [facility] and [facility] [address] [place] [address] Kwadwo Barrios MD [address] [place], [place] [email or web address] [address] [place] [address] Malignant neoplasm of upper-outer quadrant of [...] Description 10/09/2024 1:00 PM CDT Office Visit [facility] H[facility]ology [facility] Sarah Cash [address] [place] [address] [place] [address] [place] [address] [employer] [address] [place] [address] documented as of this encounter Visit Diagnoses Diagnosis Malignant neoplasm of upper-outer quadrant of right breast in female, estrogen receptor negative (CMS/HCC) documented in this encounter Care Teams Cabinet Finisher Relationship Specialty Start Date End Date Atif Cartagena DO [address] [address] PCP - General Internal Medicine 03/15/22 documented as of this encounter
--- OUTSIDE RECORDS SUMMARY | 2024-07-09 00:24 | XMS_ITS | Clinical Summary ---
Author Organization [facility] Address [address] [place] [address] Phone Care Team Providers Care Grommet Machine Operator Name Role Phone UrmilaAtif waldron Primary Care [...] 2003 Influenza Vaccine (#1) 2023 Care Teams Grommet Machine Operator Relationship Specialty Start Date End Date Atif Cartagena DO [address] [place] [address] PCP - General Internal Medicine 09/02/20
--- OUTSIDE RECORDS SUMMARY | 2024-07-09 00:24 | XMS_ITS ---
Author Organization [facility] Address [address] [place] [address] Care Team Providers Care Aeronautics Commission Director Name Role Phone Atif Cartagena Primary Care Provider Unavailab Dr. Stefano Stone Unavailable [phone] Araceli Ambrosio Unavailable Unavailable [facility], Provider Unavailable Unavailab le REASON FOR VISIT [facility] Encounter Medications Medication SIG [...] Active Encounters Encounter Location Date Provider Diagnosis [address] [address] 09/29/2023 Provider CASEY-Migration Plan Of Treatment No Information Progress Notes * Jacqueline SANDOB: 9 (84 yo F)Acc No.[id number]:09/29/2023 Patient: Jacqueline MADRID Provider: Gracie Molina :1940 A ge:83 Y S ex:Female Date:09/29/2023 Address:[facility] Pcp:Atif Cartagena Subjective: * Chief Complaints: * [...] Electronic signature of Laina chaudhary [facility] on 07/09/2024 at 12:24 AM CDT Sign off status: Pending * Provider: Gracie Molina Date: 0 09/29/2023 Generated for Suman wilcox/Olga/Ramone on: 0 07/09/2024 12:24 AM CDT
--- OUTSIDE RECORDS SUMMARY | 2024-07-09 00:24 | XMS_ITS | Patient Health Record ---
Author Organization [facility] Address [address] [place] [address] Care Team Providers Care Spring Internship Name Role Phone Atif Cartagena Primary Care Provider Unavailab Dr. 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 Problem Chronic migraine without aura, non-refractory (disorder) (624929593364605 ) Migraine without aura, not intractable, without status migrainosus (G43.009) Active confirmed Problem Migraine with aura (7127927) Migraine with aura, not intractable, without status migrainosus (G43.109) Active confirmed Problem Chronic migraine without aura, non-intractable (901573225567179 ) Chronic migraine without aura, not intractable, without status migrainosus (G43.709) Active confirmed Problem Neuralgia (34753021) Neuralgia and neuritis, unspecified (M79.2) Active confirmed Vital Signs Respiratory Rate 18 /min 07/12/2023 Oximetry 96 % 07/12/2023 Blood pressure diastolic 79 mm Hg 07/12/2023 Height 60 in 07/12/2023 Blood pressure systolic 151 mm Hg 07/12/2023 Weight 141.6 lbs 07/12/2023 BMI 27.65 kg/m2 07/12/2023 Encounters Encounter Location Date Provider Diagnosis GIL[address] [address] 09/29/2023 Provider Madeline VO - [facility] [address] [facility] [address] [place] [address] 07/12/2023 Stefano Cramer Spasmodic torticollis G24.3 and [...] Coverage End Date Aetna Medicare [address] [place] [address] [id number] Jacqueline Farmer Self - patient is the insured 4 Medical (General) History Medical History History ICD Code DM2 PIEDAD HTN RA OA Hypothyroidism HLD Osteoporosis CKD3 GERD/HH Gout RLS/PLMD Cervical dystonia Surgical History Surgery Date(Month/Year) Craniotomy and C1/C2 laminectomy
--- OUTSIDE RECORDS SUMMARY | 2024-07-09 00:24 | XMS_ITS | Referral Summary ---
Author Organization [facility] Address [address] [place] [address] Phone Care Team Providers Care Continuous Pickling Line Pickler Name Role Phone Atif Cartagena DO Primary Care Provider [phone] Allergies Active Allergy Reactions Criticality Noted Date [...] on file Legal Sex Female 2:18 AM MEDIA RELATIONS ASSOCIATE Gender Identity Not on file Sexual Orientation [...] on file Insurance AETNA MEDICARE on file COUNT INCLUDES THE [facility] MEDICARE Care Teams Continuous Pickling Line Pickler Relationship Specialty Start Date End Date Atif Cartagena DO PCP - General Internal Medicine 09/05/21
--- OUTSIDE RECORDS SUMMARY | 2024-07-09 00:24 | XMS_ITS | Data Portability ---
Author Organization [facility] Address [address] [place] [address] Care Team Providers Care Security Alarm Installer Name Role Phone ALONZO WISEMAN Primary Care Provider [phone] Assessment No assessment recorded. 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) w/o abn findings;P ractice ID: 0001 Not Available [facility] 0 21:51:03 Finding of sensation of breast Active 2016 Mastodynia ;Practice ID: 0001 Not Available [facility] 0 21:51:03 Disorder of breast 64475318 Active 2016 Disorder of breast, unspecifie d;Practice ID: 0001 Not Available [facility] 0 21:51:03 Tinea corporis 10939709 Active 2016 Tinea corporis;P ractice ID: 0001 Not Available [facility] 0 21:51:03 Menopause present 055215290 Active 2016 Menopausal and female climacteri c states;Pra ctice ID: 0001 Not Available [facility] 0 21:51:04 Micturiti on finding Active 2016 Unspecifie d urinary incontinen ce;Practic e ID: 0001 Not Available [facility] 0 21:51:04 Bone density finding 955917296 Active 2019 Oth disrd of bone density and structure, unspecifie d site;Pract ice ID: 0001 Not Available [facility] 0 21:51:04 Vaginitis and vulvovagi nitis Active 2011 Vaginitis; Recorded Elsewhere: No Locatio n: [facility] Aubrie rce: EHR Chroni c: N Practice ID: 0001 Billa ble Time: 11:45:00 AM Not Available [facility] 0 21:51:05 Adult health examinati on Active 2010 Routine Medical Exam;Recor ded Elsewhere: No Locatio n: [facility] Aubrie rce: EHR Chroni c: N Practice ID: 0001 Billa ble Time: 09:15:00 AM Not Available [facility] 0 21:51:05 Urinary incontine nce 105236011 Active 2010 Urinary incontinen ce, unspecifie d;Recorded Elsewhere: No Locatio n: [facility] Aubrie rce: EHR Chroni c: N Practice ID: 0001 Billchery ble Time: 09:15:00 AM Not Available [facility] 0 21:51:05 Pain of breast 77928890 Active 2010 Mastodynia ;Practice ID: 0001 Not Available [facility] 0 21:51:06 Menopausa l symptom 55869847 Active 2011 Menopausal or female climacteri c states;Pra ctice ID: 0001 Not Available [facility] 0 21:51:06 Problem Notes None recorded. Procedures Surgical History Date Name Laterality Status Provider Name and Address Organization Details Recorded Time 018 Date of Last Pap Smear completed [facility] 12/13/2022 14:06:26 hysterectomy completed GUEVARA Mcclelland [address], [place], [address], [facility] 12/13/2022 14:29:07 cholecystectomy completed [facility] 12/13/2022 14:11:42 total replacement of left knee joint completed [facility] 12/13/2022 14:12:04 procedure on urinary bladder completed GUEVARA Mcclelland [address], [place], [address], [facility] 12/13/2022 14:26:03 repair of rectovaginal fistula completed [address]UEVAR[address], [place], [address], [facility] 12/13/2022 14:26:12 Imaging Results None recorded. Procedure Notes None recorded. Medical Equipment None Reported. Allergies Allergen ID Allergen Name Allergen Category Reaction Reaction Severity Criticality Documentation Date Start Date Code Code System Note Provider Name and Address Organization Details Recorded Time 37424 morphine medicatio n Not available Not available Not available 04/02/2020 7052 RxNorm Comme nt: Locat ion: Joshua Nice r; Not Available [facility] 0 14:24:35 Medications Name Sig Start Date [...] oral suspensio n take 5 millilit er (878193S NITS) by oral route 4 times every day 09/30 completed Prescrib ed Elsewher e: No Locat ion: Jarad goodwin [facility] M odify By: shane neville DateTime : [...] Elsewher e: No Locat ion: Maia buddy [facility] M odify By: shane neville DateTime : [...] Elsewher e: No Locat ion: Jarad goodwin [facility] odify By: gurpreet cabezas DateTime : 10/30/19 [...] Elsewher e: No Locat ion: Jarad goodwin [facility] odify By: shane neville DateTime : 01/31/20 [...] Elsewher e: Yes Loca tion: Jarad goodwin [facility] odify By: dale Goodwin ncounter DateTime : 12/24/19 11 09:08:36 AM Not Available Not Available Not Available folic acid 1 mg tablet take 1 tablet by oral route every day 12/13 completed Prescrib ed Elsewher e: Yes Loca tion: Jarad goodwin [facility] odify By: dale Goodwin ncounter DateTime : 01/16/20 17 10:00:00 AM Not Available Not Available Not Available magnesium 250 mg tablet 03/06 completed Prescrib ed Elsewher e: No Locat ion: Jarad goodwin [facility] odify By: doc Goodwin ncounter DateTime : [...] Elsewher e: Yes Loca tion: Jarad goodwin [facility] odify By: dale de la rosauntraulito DateTime [...] Elsewher e: Yes Loca tion: Jarad goodwin [facility] odify By: mary Felipe ntraulito DateTime : 12/24/19 11 09:08:36 AM Not Available Not Available Not Available Sandee Aspirin 325 mg tablet take 1 tablet by oral route every day active Prescrib ed Elsewher e: Yes Loca tion: Jarad goodwin [facility] odify By: jorge herrera DateTime : 12/27/19 11 09:15:00 AM Not Available Not Available Not Available vitamin E 268 mg (400 unit) capsule active Prescrib ed Elsewher e: Yes Loca tion: Jarad goodwin [facility] odify By: dale graham DateTime : 02/13/20 17 11:00:00 AM Not Available Not Available Not Available Estrace 1 mg tablet take 1 tablet (1MG) by oral route every day 12/27 completed Prescrib ed Elsewher e: No Locat ion: Jarad goodwin [facility] odify By: shane neville DateTime : 12/27/19 11 09:15:00 AM Not Available Not Available Not Available oxycodone 5 mg tablet 12/13 completed Not Available Not Available Not Available Estrace 0.01% (0.1 mg/gram) vaginal cream insert (1G) by vaginal route every other day for a month once weekly 02/14 completed Prescrib ed Elsewher e: No Locat ion: Jarad goodwin [facility] odify By: mary Felipe nter DateTime : 02/13/20 17 11:00:00 AM Not Available Not Available Not Available olmesarta n 20 mg tablet TAKE 1 TABLET BY MOUTH EVERY DAY active Not Available Not Available No t Available Benicar 5 mg tablet take 2 tablet by oral route every day 12/13 completed Prescrib ed Elsewher e: Yes Loca tion: Jarad goodwin [facility] odify By: mary Felipe nter DateTime : 12/24/19 11 09:08:36 AM Not Available Not Available Not Available Methotrex ate (Anti-Rhe umatic) 2.5 mg tablets in a dose pack take 2 tablet by oral route every week 03/06 completed Prescrib ed Elsewher e: Yes Loca tion: Jarad goodwin [facility] odify By: doc de la rosauntraulito DateTime : 10/01/19 14 01:30:00 PM Not Available Not Available Not Available Vitamin D3 25 mcg (1,000 unit) capsule 2010 active Prescrib ed Elsewher e: No Locat ion: Jarad goodwin [facility] odify By: jorge herrera DateTime : 12/27/19 11 09:15:00 AM Not Available Not Available Not Available Stalevo 100 25 mg-100 mg-200 mg tablet take 2 tablet by oral route 4 times every day 01/15 completed Prescrib ed Elsewher e: No Locat ion: Jarad goodwin [facility] odify By: dale de la rosauntraulito DateTime : 12/27/19 11 09:15:00 AM Not Available Not Available Not Available Crestor 5 mg tablet take 2 tablet by oral route every day 12/13 completed Prescrib ed Elsewher e: Yes Loca tion: Jarad goodwin [facility] odify By: mary Felipe nter DateTime : 12/24/19 11 09:08:36 AM Not Available Not Available Not Available Klor-Con M10 mEq tablet,ex tended release take 2 tablet (20MEQ) by oral route every day with food 2010 active Prescrib ed Elsewher e: No Locat ion: Jarad goodwin [facility] odify By: jorge Carty r DateTime : 12/27/19 11 09:15:00 AM Not Available Not Available Not Available Prilosec OTC 20 mg tablet,de layed release 12/13 completed Prescrib ed Elsewher e: No Locat ion: aJrad goodwin [facility] odify By: jorge Carty r DateTime : [...] Elsewher e: Yes Loca tion: Jarad goodwin [facility] odify By: mary gonzalez DateTime : 12/24/19 [...] Elsewher e: No Locat ion: Jarad goodwin [facility] odify By: jorge Carty r DateTime : 12/27/19 11 09:15:00 AM Not Available Not Available Not Available Fish Oil 360 mg-1,200 mg capsule 09/30 completed Prescrib ed Elsewher e: Yes Loca tion: Jarad [facility] odify By: shane neville DateTime : 12/24/19 11 09:08:36 AM Not Available Not Available Not Available Vitals Date Recorded Body height Body mass index (BMI) Body weight Systolic blood pressure Diastolic blood pressure Provider Name and Address Organization Details Last Updated DateTime 12/13/2022 149.86 cm 28.9 kg/m2 90643.71 g 122 mm[Hg] 70 mm[Hg] Nishi Snyder [facility] 14:01:37 Social History Question Answer Notes LastModified by Organizat ion Details LastModified Time Tobacco Smoking Status Never Smoker Nishi Snyder null, [facility] 12/13/2022 14:10:57 What Is Your Level [...] ) N Other N Drug/Latex Allergies/Reactions N Blood Transfusion N Breast Cancer N Dermatologic Disorders N Lung Disease N [...] SNOMED-CT Code Diagnosis ICD10 Code Diagnosis Note [id number] GUEVARA Mcclelland [place] [address] [address] 12/13/2022 13:29:36 12/13/2022 15:05:42 Vaginal discharge [id number] N89.8 exam wnlvaginit is panel sentdiscus sed [...] Name 12/13/2022 1 [employer] (MEDICARE REPLACEMENT PPO) [id number] Jacqueline Farmer [id number] Jacqueline Farmer Notes Date Note Type Note [...] for endometriosis GUEVARA Mcclelland [address], [place], [address], [facility] 12/13/2022 15:03:53 OBGyn Episode Ob Episode Information Episode Created Date Number of Fetuses Patient Bloodtype Patient rh Status Prepregnancy Weight lbs Domestic Partner Domestic Partner Phone Father Name Acquisitions Librarian Status 12/14/19 23 1 CLOSED Fetus Data First Name Last Name Admitted to NICU Weight (g) Sex Living Outcome Pediatric Complications Fetus ID Race Codes Race Delivery Type 3770.25 6704 F Full Term 84202 Thierry Calculation Initial Thierry Date Initial Exam [...] Domestic Partner Domestic Partner Phone Father Name Acquisitions Librarian Status 12/14/19 23 1 CLOSED Fetus Data First Name Last Name Admitted to NICU Weight (g) Sex Living Outcome Pediatric Complications Fetus ID Race Codes Race Delivery Type 0293.07 2704 F Full Term 18180 Thierry Calculation Initial Thierry Date Initial Exam [...]
--- OUTSIDE RECORDS SUMMARY | 2024-07-09 00:24 | XMS_ITS | Continuity of Care Document ---
Author Organization [facility] Address [address] [place] [address] Phone Care Team Providers Care Technical System Analyst Name Role Phone Santi Leigh DO Unavailable Unavailable Advance Directives Directive Yes / No Effective Date File Name No Information Encounters Encounter Description Practice Location Reason(s) For Visit Diagnoses Date Provider Providers Copied on Encounter [facility], [address], [place], [place], [address], tel:[phone] [facility] No Information Lu Manuel. [address] [place], [address], [place]. tel: [phone] Family History Family Member Type Diagnosis Age At Onset No Information Payers Payer name Insurance type Covered constitution party ID Authoriza tion(s) [place] [id number] Social History Type Description Quantity Date Captured [...]
--- OUTSIDE RECORDS SUMMARY | 2024-07-09 00:24 | XMS_ITS | Clinical Summary ---
Author Organization [facility] Address [address] [place] [address] Phone Care Team Providers Care Bowling Alley Mechanic Name Role Phone tAif Cartagena DO Primary Care Provider [phone] Allergies Active Allergy Reactions Criticality Noted Date [...] on file Legal Sex Female 2:18 AM PE MANAGER Gender Identity Not on file Sexual Orientation [...] 02/09/2031 02/09/2021 Insurance [employer] MEDICARE on file [facility] MEDICARE Care Teams Bowling Alley Mechanic Relationship Specialty Start Date End Date Atif Cartagena DO PCP - General Internal Medicine 09/05/21
--- OUTSIDE RECORDS SUMMARY | 2024-07-09 00:25 | XMS_ITS ---
Author Organization [facility] Address [address] [place] [address] Care Team Providers Care Forest Economics Professor Name Role Phone Atif Cartagena Primary Care Provider Unavailab Dr. 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 1, Do you have bpfe-rx-[id number] carpeting? Yes, What is the age of [...] Management) * Billing Information: * Visit Code: 89044 Office Visit, Est Pt., Level 4. Modifiers: 10830 Office Visit, Est Pt., Level 3. Modifiers: 25 * Procedure Codes: 91080 PT-FOCUSED HLTH RISK ASSMT. G8427 DOC MEDS VERIFIED W/PT OR RE. * Electronic signature of Dr. Stefano Cramer MD on 07/09/2024 at 12:24 AM CDT Sign off status: Pending * Provider: Skip Cramer MD Date: 0 09/13/2023 Generated for Suman wilcox/Olga/Ramone on: 0 07/09/2024 12:24 AM CDT History and Physical Notes * HPI [...]
--- NOTE | 2024-07-09 10:52 | WPDHPUPDATE1 ---
History and Physical Update Update Date/Time: 07/09/24 10:52 - Incision and drainage of right breast abscess with possible debridement and removal of the left chest MediPort. History and Physical has been reviewed, including an updated exam of the patient. There are NO changes in the patient's condition. Risks, benefits, and alternatives have been discussed and questions answered. Patient agrees to proceed with procedure.
[2024-07-09] MEDS: LACTATED RINGERS 1,000 ML 30 ML IV CONT (12:13)
[2024-07-09] MEDS: ACETAMINOPHEN 500 MG TABLET 1000 MG PO (12:14)
[2024-07-09 12:41] LABS: Glucose Point of Care 115 mg/dl (65-105)
--- NOTE | 2024-07-09 13:37 | P.PNAN_ITS ---
Anes - Initial Pre Proc Eval Procedure: Operation Date: 07/09/24 13:30 Proposed Procedures p Incision and Drainage Right Breast Abscess, Possible Debridement - Eli Pires MD s Removal MediPort - Eli Pires MD Date/Time: 07/09/24 13:37 Surgeon: Eli Pires MD Pre Op Diagnosis: right breast abscess, hx breas CA Patient Data Age: 84 Gender: F Height: 1.5 m Weight: 58.2 kg Last Vital Signs Temp 97.9 F 07/09/24 12:15 Pulse 72 07/09/24 12:15 Resp 14 07/09/24 12:15 BP 167/63 H 07/09/24 12:15 Pulse Ox 99 07/09/24 12:15 O2 Del Method Room Air 07/09/24 12:15 Allergies Allergy/AdvReac Type Severity Reaction Status Date / Time morphine Allergy Severe SEVERE N/V Verified 07/09/24 12:02 PREFERS NOT TO RECEIVE adhesive Allergy Rash Verified 07/09/24 12:02 ARM AND HAMMER WITH OXYCLEAN Allergy Unknown HIVES ALL Uncoded 07/09/24 12:02 LAUNDRY SOAP OVER BODY Home Medications ?Medication ?Instructions ?Recorded ?Confirmed ?Type aspirin 81 mg tablet,delayed 81 mg PO DAILY #30 tabs 02/20/19 07/09/24 Rx release (Aspir-Low) calcium carbonate 600 mg PO DAILY #90 tabs 02/20/19 07/04/24 Rx cholecalciferol (vitamin D3) 25 1,000 unit PO DAILY #30 caps 02/20/19 07/04/24 Rx mcg (1,000 unit) capsule vitamin B complex (B 1 tablet PO DAILY #30 tabs 02/20/19 07/04/24 Rx Complex-Vitamin B12 tablet) blood sugar diagnostic (Blood #100 ea 02/21/19 07/04/24 Rx Glucose Test strips) ascorbic acid (vitamin C) 1,000 mg 3,000 mg (3 x 1,000 mg) PO DAILY 08/05/19 07/04/24 Rx tablet,extended release #0 tabs cinnamon bark 500 mg capsule 500 mg PO DAILY 12/30/19 07/04/24 History (Cinnamon) coenzyme Q10 10 mg capsule (Co 100 mg PO DAILY 12/30/19 07/04/24 History Q-10) clobetasol 0.05 % shampoo 0.05 ml topical DIRECTED 12/05/21 07/04/24 History simvastatin 10 mg tablet 10 mg PO DAILY #90 tabs 08/06/23 07/04/24 Rx sumatriptan succinate 50 mg tablet See Rx Instructions PO .COMPLEX #9 08/06/23 07/04/24 Rx (Imitrex) tabs azelastine 137 mcg (0.1 %) nasal 137 mcg (0.137 mL) intranasal . 02/04/24 07/04/24 Rx spray q.h.s. chronic seasonal allergic rhinitis #30 mL olmesartan 20 mg tablet (Benicar) 20 mg PO DAILY #90 tabs 03/21/24 07/04/24 Rx gabapentin 300 mg capsule See Rx Instructions PO .COMPLEX 04/02/24 07/04/24 Rx #270 caps celecoxib 200 mg capsule 200 mg PO DAILY PRN pain #90 caps 04/03/24 07/09/24 Rx fluticasone propionate 50 1 spray intranasal BID #48 grams 04/03/24 07/04/24 Rx mcg/actuation nasal spray,suspension (Flonase Allergy Relief) ropinirole 0.5 mg tablet 1.5 mg (3 x 0.5 mg) PO QHS #270 04/17/24 07/04/24 Rx tabs omeprazole 40 mg capsule,delayed 40 mg PO DAILY #90 caps 06/04/24 07/04/24 Rx release hydrocodone 5 mg-acetaminophen 325 1 tablet PO Q6H PRN pain #12 tabs 07/09/24 Rx mg tablet Laboratory Tests 07/09/24 12:25 POC Capillary Glucose 115 H mg/dl (65-105) Patient hx anesthesia problems: none Family hx anesthesia problems: none Results Review: All pre-operative results and documents have been reviewed as part of the pre- operative evaluation. [facility] Past Medical History Medical History Triple negative malignant neoplasm of breast CKD (chronic kidney disease) Vitamin D deficiency Basal cell carcinoma Rectal vaginal fistula Rotator cuff arthropathy Prolapsed bladder Restless legs syndrome Surgical History Surgical History H/O craniotomy (~03/2022) H/O toe surgery 11/2021 History of cholecystectomy H/O: hysterectomy Family History Family History Mother Hypertension Heart disease Father , age 92 No problems noted. Social History Social History Social History: 2 cups of caffeine daily Smoking packs per day: 0 Smoking cigarettes per day: 0.0 Years smoked: 0 Smoking pack-years: 0.00 Smoking status: Never smoker Second hand tobacco smoke exposure: No Alcohol intake: never Alcohol use details: rarely Substance use: never Substance use type: does not use Do You Feel Safe in your Home?: Yes Lack of Transportation: No Lack of Food: Never True Current Housing: Decline to Answer Concerned About Future Housing: Decline to Answer Difficulty Paying Gas/Electric Bills: Decline to Answer Difficulty Paying for Meds: Decline to Answer Currently Unemployed: Decline to Answer Education: High School Diploma/GED Difficulty w/ Childcare or Family Care: Decline to Answer Living arrangements: with family Additional living arrangements comments: Spiritual care concerns: No Anes - Eval Final PreProcedure Day of Procedure 07/09/24 13:37 Patient weight: normal Lungs: normal air movement Airway: Mallampati scale class II and special considerations (Two upper caps. ) Neurological: alert and oriented Last oral intake: >/= 8 hours ASA classification: III Emergent: no Anesthetic plan: proceed Anesthesia type and monitoring: general GIVS and standard monitoring Results Review: All pre-operative results and documents have been reviewed as part of the pre- operative evaluation. Hx reviewed w pt and her daughter. Informed Consent: The patient's anesthetic plan and its attendant risks and benefits were discussed with the patient/family/POA. Questions were solicited and answers provided to the satisfaction of the patient/family/POA.
[2024-07-09] MEDS: ceFAZolin 2 GM/D5W 50 ML 2 GM/50 ML BAG IVPB (13:45)
[2024-07-09] MEDS: BUPivacaine HCL 0.5% PF 30 ML VIAL INFILTRATE (14:24)
--- NOTE | 2024-07-09 14:49 | W.PM.PROC2 ---
Procedure Note - Detailed Date of Procedure 07/09/24 Pre-op Diagnosis right breast abscess, hx breas CA, lumpectomy and radiation Post-op Diagnosis Same Procedure Performed 1. Incision and drainage of right breast abscess, wound washout, packing 2. Removal of MediPort Surgeon Eli Pires MD Anesthesia MAC Description of Procedure Patient was identified in the preoperative holding area brought to the operating room suite. She was laid supine in the OR table sequential compression devices were applied. Anesthesia was induced without difficulty. Bilateral chest areas were prepped and draped in a sterile fashion. Attention was then turned to the left upper chest where the metal port was placed. A small incision was made overlying the area of the medical floor and the section was carried down through the subcutaneous tissue until the meta port capsule was encountered. This was carefully opened and the MediPort was externalized. A single suture was found and removed. The U-stitch was placed around the catheter entry site into the subcutaneous tissue and this was cinched tight as the metal port and catheter were removed while applying pressure to the infraclavicular area. There was great hemostasis with no bleeding noted. The posterior capsule of the MediPort was excised to improve healing of the cavity. The wound was irrigated with saline hemostasis was assured. The deep dermal layer was then closed with interrupted 3-0 Vicryl followed by 4-0 Monocryl in a subcuticular fashion. Dermabond was applied. Attention was then turned to the right breast. Incision was made in the superior periareolar site of previous incision and the cavity was entered with blunt dissection. This was only approximately 2.5 cm deep and there was no purulent fluid identified. There is significant debris and clots which were evacuated. The cavity was irrigated with copious amount of saline until the fluid was clear. Inspecting the base of the wound and there was no granulation tissue identified, so decision was made to pack this cavity in hopes to increase inflammation granulation this area to allow the wound to heal from inside out. An inch iodoform packing tape was used to pack the cavity, and the incision was then covered with gauze. An ABD pad was placed overlying the incision and gauze followed by a surgical bra. Patient was awoken from anesthesia taken to the recovery area in stable condition. All needles, instruments, and sponge counts were correct as reported by the operating. Patient tolerated the procedure well with immediate complications. Estimated Blood Loss 2 Packing Yes Pathology None sent Complications No immediate complications Condition Stable Disposition PACU [facility] Billing Surgery - Charge Forward: Surgery Billing (CPT 11380, 68749)
[2024-07-09 15:01] LABS: Glucose Point of Care 96 mg/dl (65-105)
== END 2024-07-09 16:22 | disposition home or self-care (01) ==
PROVIDERS: PCP Internal Medicine; Visit Provider Surgery
PROC: (CPT 36590; principal; 2024-07-09 13:30)
PROC: (CPT 36589; 2024-07-09 13:30)
DX: N61.1 Abscess of the breast and nipple (principal); Z85.3 Personal history of malignant neoplasm of breast; Z92.21 Personal history of antineoplastic chemotherapy; Z92.3 Personal history of irradiation; Z45.2 Encounter for adjustment and management of vascular access device; Z79.899 Other long term (current) drug therapy
CPT/HCPCS: 36590; 19020; 82948; 88300; A9270; J0690; J1100; J1596; J2003; J2371; J2405; J2704; J3010; J7120

== ENCOUNTER 2024-08-27 13:13 | Outpatient (CLI) | payer MEDICARE, SELFPAY ==
--- OUTSIDE RECORDS SUMMARY | 2024-08-27 13:32 | XMS_ITS | Clinical Summary ---
Author Organization [facility] Address [address] [place] [address] Care Team Providers Care Web Mobile Designer Name Role Phone Robert Celis MD Primary Care Provider [phone] Source Comments [facility],non-owned Affiliates and Associated Physician Practices is amultiple site organization consisting of ambulatory clinics and hospital sitesin [place], [place], [place] and [place]. This disclosure is being madepursuant to the Care Everywhere program and may not contain all information available regarding this patient. Last updated 18.[facility] [employer] Allergies Active Allergy Reactions Criticality Noted Date Comments Metformin Diarrhea 02/02/2014 Trazodone Dizziness 08/04/2013 Medications * Be aware that medications may not be up to date on this document. Alwaysverify current medications with the patient. omeprazole (PRILOSEC) 20 MG capsule Take 20 mg by mouth daily before breakfast. Active potassium chloride (KLOR-CON) 20 MEQ packet Take 20 mEq by mouth once daily. Active Loratadine (CLARITIN) 10 MG CAPS Take by mouth. Activ e rosuvastatin (CRESTOR) 10 MG tablet Take 10 mg by mouth once daily. Active carbidopa-levod opa (SINEMET) 25-100 MG tablet Take 1 Tab by mouth once daily. Active vitamin B-12 (CYANOCOBALAMIN ) 1000 MCG tablet Take 1,000 mcg by mouth once daily. Active olmesartan (BENICAR) 20 MG tablet Take 20 mg by mouth once daily. Active aspirin 81 MG tablet Take 81 mg by mouth once daily. Active clonazePAM (KLONOPIN) 1 MG tablet Take 1 mg by mouth 3 times daily as needed. Active Cholecalciferol (VITAMIN D-3 PO) Take by mouth. Activ e linagliptin (TRADJENTA) 5 MG tablet Take 5 mg by mouth once daily. Active gabapentin (NEURONTIN) 100 MG capsuleIndicati ons:Insomnia Take 1-3 Caps by mouth at bedtime. 90 Cap 12 02/03/20 14 Active calcium carbonate (TUMS) 500 MG chew tabletIndicatio ns:Osteopenia Take 1 Tab by mouth 2 times daily with morning and evening meal. 90 Tab 0 02/03/20 14 Active acetaminophen (TYLENOL) 500 MG tabletIndicatio ns:RA (rheumatoid arthritis) ([facility]) Take 2 Tabs by mouth 3 times daily. Maximum allowable Acetaminophen amount = 4 Grams (4000 mg) / 24 hours. 02/03/20 14 Active celecoxib (CELEBREX) 200 MG capsuleIndicati ons:RA (rheumatoid arthritis) ([facility]) Take 1 Cap by mouth once daily. For 7 days for flare ups of arthritis 90 Cap 2 02/03/20 14 Active folic acid (FOLVITE) 1 MG tabletIndicatio ns:RA (rheumatoid arthritis) ([facility]) Take 1 Tab by mouth once daily. 90 Tab 3 02/03/20 14 Active predniSONE (DELTASONE) 2.5 MG tabletIndicatio ns:RA (rheumatoid arthritis) ([facility]) Take 1-2 Tabs by mouth once daily. 60 Tab 12 05/06/19 15 Active methotrexate 2.5 MG tabletIndicatio ns:RA (rheumatoid arthritis) ([facility]) Take 8 Tabs by mouth every 7 days before meal. 96 Tab 3 05/06/19 15 Active Additional Information Patient not taking.Reported on 08/01/2017 Tuberculin-Dinh rgy Syringes 25G X 5/8 1 ML MISCIndications :RA (rheumatoid arthritis) ([facility]) Inject 1 mL subcutaneously every 7 days. 4 Each 11 08/12/19 15 Active methotrexate 25 MG/ML injectionIndica tions:RA (rheumatoid arthritis) ([facility]) Inject 1 mL subcutaneously every 7 days. 6 mL 12 08/12/19 15 Active Additional Information Patient not taking.Reported on 08/01/2017 ciprofloxacin-d examethasone (CIPRODEX) 0.3-0.1 % otic suspensionIndic ations:Other infective acute otitis externa of left ear Instill 4 Drops into both ears 2 times daily Shake well before using. 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 Not on file Not on file N ot on file Last Filed Vital Signs Vital [...] yrs (1 - 1-dose 75+ series) 2013 DEPRESSION SCREENING 04/16/2024 MEDICARE AWV CALENDAR YEAR 2024 INFLUENZA VACCINE (Season Ended) 2024 HEPATITIS B VACCINE Aged Out No [...] patient's age to complete this topic Insurance AET AETNA AETNA MEDICARE ADV SELF PAY NO INSURANCE Member Subscriber Plan / Payer (Ef fective for All Dates) Name:Dagoberto San Member ID:Not on file Relation to Subscriber:Not on file Name:DAGOBERTO SAN Subscriber ID:Not on file (Home) Address: [address] [place] [address] Payer ID:Not on file Group ID:Not on file Type:Self Pay Address: [place], [place] AET MEDICARE ADV SELF PAY NO INSURANCE Member Subscriber Plan / Payer (Ef fective for All Dates) Name:Dagoberto San Member ID:Not on file Relation to Subscriber:Not on file Name:DAGOBERTO SAN Subscriber ID:Not on file Address: [address] [place] [address] Payer ID:Not on file Group ID:Not on file Type:Self Pay Address: [place], [place] AETNA MEDICARE ADV SELF PAY NO INSURANCE Member Subscriber Plan / Payer (Ef fective for All Dates) Name:Dagoberto San Member ID:Not on file Relation to Subscriber:Not on file Name:DAGOBERTO SAN Subscriber ID:Not on file Address: [address] [place] [address] Payer ID:Not on file Group ID:Not on file Type:Self Pay Address: [place], [place] AET[place] MEDICARE ADV SELF PAY NO INSURANCE Member Subscriber Plan / Payer (Ef fective for All Dates) Name:Dagoberto San Member ID:Not on file Relation to Subscriber:Not on file Name:DAGOBERTO SAN Subscriber ID:Not on file Address: [address] [place] [address] Payer ID:Not on file Group ID:Not on file Type:Self Pay Address: [place], [place] * Guarantor: DAGOBERTO SAN Account Type Relation to Patient Date of Phone Billing Address Personal/Family [address] [place] [address] AETNA MEDICARE ADV SELF PAY NO INSURANCE Member Subscriber Plan / Payer (Ef fective for All Dates) Name:Dagoberto San Member ID:Not on file Relation to Subscriber:Not on file Name:DAGOBERTO SAN Subscriber ID:Not on file Address: [address] [place] [address] Payer ID:Not on file Group ID:Not on file Type:Self Pay Address: [place], [place] * Guarantor: DAGOBERTO SAN Account Type Relation to Patient Date of Phone Billing Address Personal/Family [address] [place] [address] AETNA MEDICARE ADV SELF PAY NO INSURANCE Member Subscriber Plan / Payer (Ef fective for All Dates) Name:Dagoberto San Member ID:Not on file Relation to Subscriber:Not on file Name:DAGOBERTO SAN Subscriber ID:Not on file Address: [address] [place] [address] Payer ID:Not on file Group ID:Not on file Type:Self Pay Address: [place], [place] * Guarantor: DAGOBERTO SAN Account Type Relation to Patient Date of Phone Billing Address Personal/Family [address] [place] [address] AETNA MEDICARE ADV SELF PAY NO INSURANCE Member Subscriber Plan / Payer (Ef fective for All Dates) Name:Dagoberto San Member ID:Not on file Relation to Subscriber:Not on file Name:DAGOBERTO SAN Subscriber ID:Not on file Address: [address] [place] [address] Payer ID:Not on file Group ID:Not on file Type:Self Pay Address: [place], [place] Care Teams Web Mobile Designer Relationship Specialty Start Date End Date Robert Celis MD [address] [place] [id number] PCP - General Internal Medicine 09/13/12
--- OUTSIDE RECORDS SUMMARY | 2024-08-27 13:32 | XMS_ITS | Continuity of Care Document ---
Author Organization [facility] Address [address] [place] [address] Phone Care Team Providers Care Program Rep Name Role Phone Doser DPMason Valdivia DPM Unavailable Unavailab le Allergies, Adverse Reactions, Alerts Substance Reaction Status Criticality morphine Other Active No Information Medications Medication Instructions Dosage Effective Dates (start - stop) Status Comments Evergreen 5 mg-325 mg tablet take 1 tablet [...] exam foot, minimum 3 views 2021 Office[facility]outpatient visit,[facility] 2021 Advance Directives Directive Yes / No Effective Date File Name No Information Encounters Encounter Description Practice Location Reason(s) For Visit Diagnoses Date Provider Providers Copied on Encounter [facility], [address] [address], [place], [place], [id number], [place] tel:[phone] [facility] 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 [address] [address], [place], [place], [id number] , [place]. tel:[phone] Referring Provider: Mason Mckeon DPM A, [address] [place] [address], [place], [address] . tel:[phone] [facility], [address] [place] [address], [place], [place], [id number], [place] tel:[phone] [facility] No Information 0 2 Doser DPM Mason. [address] [place] [address], [place], [place], [id number] , [place]. tel:[phone] [facility], [address] [place] [address], [place], [place], [id number], [place] tel:[phone] [facility] Pain in left footOther acquired hammer toes of left foot Aug-0 2 Doser DPM Mason. [address] [place] [address], [place], [place], [id number] , [place]. tel:[phone] Referring Provider: Mason Doser CHENTE A, [address] [place] [address], [place], [address] . tel:[phone] [facility], [address] [place] [address], [place], [place], [id number], [place] tel:[phone] [facility] No Information 0 2 Doser DPM Mason. [address] [place] [address], [place], [place], [id number] , [place]. tel:[phone] Referring Provider: Mason Saucedor JELENAM A, [address] [place] [address], [place], [address] . tel:[phone] [facility], [address] [place] [address], [place], [place], [id number], tel:[phone] [facility] Other acquired hammer toes of left footPain in left foot 2 Doser DPM Mason. [address] [facility] [place] [address], [place], [place], [id number] , [place]. tel:[phone] Referring Provider: Mason Mckeon DPM A, [address] [place] [address], [place], [address] . tel:[phone] [facility], [address] [address], [place], [place], [id number], [place] tel:[phone] [facility] Follow Up of left foot sx 09/26/21 (chief complaint) Pain in left footOther acquired hammer toes of left foot 2 Doser DPM Mason. [address] [place] [address], [place], [place], [id number] , [place]. tel:[phone] Referring Provider: Mason Mckeon DPM A, [address] [address], [place], [address] . tel:[phone] [facility], [facility] [address], [place], [place], [id number], [place] tel:[phone] [facility] Pain in left foot 2 Doser DPM Mason. [address] [place] [address], [place] [address], [place], [place], [id number] , [place]. tel:[phone] Referring Provider: Mason Mckeon DPM A, [address] [address], [place], [address] . tel:[phone] [facility], [address] [place] [address], [id number], [place] tel:[phone] [facility] No Information 0 2 Doser DPM Mason. [address] [place] [address], [place] [address], [place], [place], [id number] , [place]. tel:[phone] Referring Provider: Mason Cardona, [address], [place], [address] . tel:[phone] Office/outpat ient visit,new, mod [facility], [address], [place], [place], [id number], [place] tel:[phone] [facility] Toes (chief complaint) Pain in left footOther acquired hammer toes of left foot 2 Doser CHENTE Cuevas. [address] [facility] [address], [place], [place], [id number] , [place]. tel:[phone] Referring Provider: Mason Cardona, [address], [place], [address] . tel:[phone] Family History Family Member Type Diagnosis Age At Onset Brother Problem (finding) Gout Mother Problem (finding) Osteoarthritis Mother Problem (finding) Hypertension Father Problem (finding) Gout Mother Problem (finding) Heart Disease Father Problem (finding) Osteoarthritis Brother Problem (finding) Hypertension Payers Payer name Insurance type Covered green party ID Mary nelson(s) [employer] Medicare [place] [id number] Social History Type Description Quantity Date Captured Comments Alcohol Use Details Unknown Caffeine Use Details Unknown Tobacco Use Status Current non-smoker Smoking Status Never smoker Sex Female Chief Complaint And Reason For Visit From encounter dated '12/06/2021 13:25'. 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
--- OUTSIDE RECORDS SUMMARY | 2024-08-27 13:32 | XMS_ITS | Data Portability ---
Author Organization [facility] Address [address] [place] [address] Care Team Providers Care Fire Tower Keeper Name Role Phone ALONZO WISEMAN Primary Care Provider [phone] Assessment No assessment recorded. Plan of Treatment [...] 0 21:51:03 Urinary tract infectiou s disease 54069788 Active 2013 Urinary tract infection, site not specified; Practice ID: 0001 Not Available [facility] 0 21:51:03 Microscop ic hematuria 948486953 Active 2013 HEMATURIA MICROSCOPI C;Practice ID: 0001 Not Available [facility] 0 21:51:[address] Concept Active 2014 Encntr for general adult medical exam w/o abnormal findings;P ractice ID: 0001 Not Available [facility] 0 21:51:[address] Concept Active 2014 Encntr for line mechanic exam (general) (routine) w/o abn findings;P ractice ID: 0001 Not Available [facility] 0 21:51:03 Finding of sensation of breast Active 2016 Mastodynia ;Practice ID: 0001 Not Available [facility] 0 21:51:03 Disorder of breast 82022350 Active 2016 Disorder of breast, unspecifie d;Practice ID: 0001 Not Available [facility] 0 21:51:03 Tinea corporis 93099449 Active 2016 Tinea corporis;P ractice ID: 0001 Not Available [facility] 0 21:51:03 Menopause present 213557743 Active 2016 Menopausal and female climacteri c states;Pra ctice ID: 0001 Not Available [facility] 0 21:51:04 Micturiti on finding Active 2016 Unspecifie d urinary incontinen ce;Practic e ID: 0001 Not Available [facility] 0 21:51:04 Bone density finding 356809467 Active 2019 Oth disrd of bone density and structure, unspecifie d site;Pract ice ID: 0001 Not Available [facility] 0 21:51:04 Vaginitis and vulvovagi nitis Active 2011 Vaginitis; Recorded Elsewhere: No Locatio n: [facility] rce: EHR Chroni c: N Practice ID: 0001 Billa ble Time: 11:45:00 AM Not Available [facility] 0 21:51:05 Adult health examinati on Active 2010 Routine Medical Exam;Recor ded Elsewhere: No Locatio n: [facility] rce: EHR Chroni c: N Practice ID: 0001 Billa ble Time: 09:15:00 AM Not Available [facility] 0 21:51:05 Urinary incontine nce 006656015 Active 2010 Urinary incontinen ce, unspecifie d;Recorded Elsewhere: No Locatio n: [facility] rce: EHR Chroni c: N Practice ID: 0001 Billchery ble Time: 09:15:00 AM Not Available [facility] 0 21:51:05 Pain of breast 35605766 Active 2010 Mastodynia ;Practice ID: 0001 Not Available [facility] 0 21:51:06 Menopausa l symptom 16788946 Active 2011 Menopausal or female climacteri c states;Pra ctice ID: 0001 Not Available [facility] 0 21:51:06 Problem Notes None recorded. Procedures Surgical History Date Name Laterality Status Provider Name and Address Organization Details Recorded Time 018 Date of Last Pap Smear completed [facility] 12/13/2022 14:06:26 hysterectomy completed GUEVARA Mcclelland [address], [place], [address], [facility] 12/13/2022 14:29:[address] [facility] 12/13/2022 14:11:42 total replacement of left knee joint completed [facility] 12/13/2022 14:12:04 procedure on urinary bladder completed GUEVARA Mcclelland [address], [place], [address], [facility] 12/13/2022 14:26:03 repair of rectovaginal fistula completed GUEVARA [address], [place], [address], [facility] 12/13/2022 14:26:12 Imaging Results None recorded. Procedure Notes None recorded. Medical Equipment None Reported. Allergies Allergen ID Allergen Name Allergen Category Reaction Reaction Severity Criticality Documentation Date Start Date Code Code System Note Provider Name and Address Organization Details Recorded Time 51097 morphine medicatio n Not available Not available Not available 04/02/2020 7052 RxNorm Comme nt: Locat ion: Joshua Nice r; Not Available [facility] 0 14:24:35 Medications Name Sig Start [...] oral suspensio n take 5 millilit er (112537S NITS) by oral route 4 times every day 09/30 completed Prescrib ed Elsewher e: No Locat ion: Jarad goodwin [facility] By: shane neville DateTime : [...] Elsewher e: No Locat ion: Maia buddy [facility] By: shane neville DateTime : [...] Elsewher e: No Locat ion: Jarad goodwin [facility] odify By: gurpreet cabezas DateTime : [...] Elsewher e: No Locat ion: Jarad goodwin [facility] odify By: shane neville DateTime : [...] Elsewher e: Yes Loca tion: Jarad goodwin [facility] odify By: dale Goodwin ncounter DateTime : 12/24/19 11 09:08:36 AM Not Available Not Available Not Available folic acid 1 mg tablet take 1 tablet by oral route every day 12/13 completed Prescrib ed Elsewher e: Yes Loca tion: Jarad goodwin [facility] odify By: dale Goodwin ncounter DateTime : 01/16/20 17 10:00:00 AM Not Available Not Available Not Available magnesium 250 mg tablet 03/06 completed Prescrib ed Elsewher e: No Locat ion: Jarad goodwin [facility] odify By: doc Goodwin ncounter DateTime [...] Elsewher e: Yes Loca tion: Jarad goodwin [facility] odify By: dale de la rosauntraulito [...] Elsewher e: Yes Loca tion: Jarad goodwin [facility] odify By: mary Felipe ntraulito DateTime : 12/24/19 11 09:08:36 AM Not Available Not Available Not Available Sandee Aspirin 325 mg tablet take 1 tablet by oral route every day active Prescrib ed Elsewher e: Yes Loca tion: Jarad goodwin [facility] odify By: jorge herrera DateTime : 12/27/19 11 09:15:00 AM Not Available Not Available Not Available vitamin E 268 mg (400 unit) capsule active Prescrib ed Elsewher e: Yes Loca tion: Jarad goodwin [facility] odify By: dale graham DateTime : 02/13/20 17 11:00:00 AM Not Available Not Available Not Available Estrace 1 mg tablet take 1 tablet (1MG) by oral route every day 12/27 completed Prescrib ed Elsewher e: No Locat ion: Jarad goodwin [facility] odify By: shane neville DateTime : 12/27/19 11 09:15:00 AM Not Available Not Available Not Available oxycodone 5 mg tablet 12/13 completed Not Available Not Available Not Available Estrace 0.01% (0.1 mg/gram) vaginal cream insert (1G) by vaginal route every other day for a month once weekly 02/14 completed Prescrib ed Elsewher e: No Locat ion: Jarad goodwin [facility] odify By: mary Felipe nter DateTime : 02/13/20 17 11:00:00 AM Not Available Not Available Not Available olmesarta n 20 mg tablet TAKE 1 TABLET BY MOUTH EVERY DAY active Not Available Not Available No t Available Benicar 5 mg tablet take 2 tablet by oral route every day 12/13 completed Prescrib ed Elsewher e: Yes Loca tion: Jarad goodwin [facility] odify By: mary Felipe nter DateTime : 12/24/19 11 09:08:36 AM Not Available Not Available Not Available Methotrex ate (Anti-Rhe umatic) 2.5 mg tablets in a dose pack take 2 tablet by oral route every week 03/06 completed Prescrib ed Elsewher e: Yes Loca tion: Jarad goodwin [facility] odify By: doc de la rosauntraulito DateTime : 10/01/19 14 01:30:00 PM Not Available Not Available Not Available Vitamin D3 25 mcg (1,000 unit) capsule 2010 active Prescrib ed Elsewher e: No Locat ion: Jarad goodwin [facility] odify By: jorge herrera DateTime : 12/27/19 11 09:15:00 AM Not Available Not Available Not Available Stalevo 100 25 mg-100 mg-200 mg tablet take 2 tablet by oral route 4 times every day 01/15 completed Prescrib ed Elsewher e: No Locat ion: Jarad goodwin [facility] odify By: dale de la rosauntraulito DateTime : 12/27/19 11 09:15:00 AM Not Available Not Available Not Available Crestor 5 mg tablet take 2 tablet by oral route every day 12/13 completed Prescrib ed Elsewher e: Yes Loca tion: Jarad goodwin [facility] odify By: mary Felipe nter DateTime : 12/24/19 11 09:08:36 AM Not Available Not Available Not Available Klor-Con M10 mEq tablet,ex tended release take 2 tablet (20MEQ) by oral route every day with food 2010 active Prescrib ed Elsewher e: No Locat ion: Jarad goodwin [facility] odify By: jorge Carty r DateTime : 12/27/19 11 09:15:00 AM Not Available Not Available Not Available Prilosec OTC 20 mg tablet,de layed release 12/13 completed Prescrib ed Elsewher e: No Locat ion: Jarad goodwin [facility] odify By: jorge Carty r DateTime [...] Elsewher e: Yes Loca tion: Jarad goodwin [facility] odify By: mary gonzalez DateTime : [...] Elsewher e: No Locat ion: Jarad goodwin [facility] odify By: jorge Carty r DateTime : 12/27/19 11 09:15:00 AM Not Available Not Available Not Available Fish Oil 360 mg-1,200 mg capsule 09/30 completed Prescrib ed Elsewher e: Yes Loca tion: Jarad [facility] odify By: shane neville DateTime : 12/24/19 11 09:08:36 AM Not Available Not Available Not Available Vitals Date Recorded Body height Body mass index (BMI) Body weight Systolic blood pressure Diastolic blood pressure Provider Name and Address Organization Details Last Updated DateTime 12/13/2022 149.86 cm 28.9 kg/m2 20034.71 g 122 mm[Hg] 70 mm[Hg] Nishi Snyder [facility] 14:01:37 Social History Question Answer Notes LastModified by Organizat ion Details LastModified Time Tobacco Smoking Status Never Smoker Nishi Snyder null, [facility] 12/13/2022 14:10:57 Are You Blind Or Do You Have Difficulty Seeing? No Information not available 12/13/2022 Are You Deaf Or Do You Have Serious Difficulty Hearing? No Information not available 12/13/2022 Do You Have Difficulty Walking Or Climbing Stairs? No Information not available 12/13/2022 Sex: Unknown Functional Status Question Answer Note LastModified by Organizat ion Details LastModified Time What is your level of alcohol consumption? None Information not available 12/13/2022 Are you able [...] (Food, seasonal, environmental ) N Other N Blood Transfusion N Drug/Latex Allergies/Reactions N Breast Cancer N Dermatologic Disorders N [...] SNOMED-CT Code Diagnosis ICD10 Code Diagnosis Note [id number] GUEVARA Mcclelland [place] [address] [address] 12/13/2022 13:29:36 12/13/2022 15:05:42 Vaginal discharge [id number] N89.8 exam wnlvaginit is panel sentdiscus sed [...] Guarantor Name 12/13/2022 1 [employer] (MEDICARE REPLACEMENT /ADVANTAGE - PPO) [id number] 1 Jacqueline Farmer [id number] Jacqueline Farmer Notes Date Note Type Note [...] for endometriosis GUEVARA Mcclelland [address], [place], [address], [facility] 12/13/2022 15:03:53 OBGyn Episode Ob Episode Information Episode Created Date Number of Fetuses Patient Bloodtype Patient rh Status Prepregnancy Weight lbs Domestic Partner Domestic Partner Phone Father Name Tobacco Dipper Status 12/14/19 23 1 CLOSED Fetus Data First Name Last Name Admitted to NICU Weight (g) Sex Living Outcome Pediatric Complications Fetus ID Race Codes Race Delivery Type 3770.25 6704 F Full Term 29578 Thierry Calculation Initial Thierry Date Initial Exam [...] Domestic Partner Domestic Partner Phone Father Name Tobacco Dipper Status 12/14/19 23 1 CLOSED Fetus Data First Name Last Name Admitted to NICU Weight (g) Sex Living Outcome Pediatric Complications Fetus ID Race Codes Race Delivery Type 2863.07 2704 F Full Term 63960 Thierry Calculation Initial Thierry Date Initial Exam [...]
--- OUTSIDE RECORDS SUMMARY | 2024-08-27 13:32 | XMS_ITS ---
Author Organization [facility] [employer] [place] ([address]) Address [address] [place] [address] Care Team Providers Care Black Top Roller Name Role Phone Atif Cartagena Primary Care Provider Unavailab Dr. Stefano Stone Unavailable [phone] Araceli Ambrosio Unavailable Unavailable [employer], Provider Unavailable Unavailab le [facility] Conversion Encounter Medications Medication SIG [...] Encounter Location Date Provider Diagnosis [facility] [place] [address] [place] [address] 09/29/2023 Provider CASEY-Jesse Plan Of Treatment No Information Progress Notes * Jacqueline SANDOB: 9 (84 yo F)Acc No.[id number]:09/29/2023 Patient: Jacqueline MADRID Provider: Gracie Molina :1940 A ge:83 Y S ex:Female Date:09/29/2023 Address:[facility] [address] Pcp:Atif Cartagena Subjective: * Chief Complaints: * [...] * Electronic signature of Laina HackettZ-Migration on 08/27/2024 at 01:32 PM CDT Sign off status: Pending * Provider: Gracie Molina Date: 0 09/29/2023 Generated for Suman wilcox/Olga/Megitting on: 0 08/27/2024 01:32 PM CDT
--- OUTSIDE RECORDS SUMMARY | 2024-08-27 13:32 | XMS_ITS | Clinical Summary ---
Author Organization [facility] Address [address] [place] [address] Care Team Providers Care Intelligence Engineer Name Role Phone UrmilaAtif waldron Christiano Primary [...] daily. Active fluticasone propionate (FLONASE) 50 mcg/spray [place], Suspension nasal inhaler Administer 1 [place] in each nostril 1 time daily as [...] times daily. 60 Capsule 04/07/2022 1:21 PM RES COUNSELOR 2 Active simvastatin (ZOCOR) 10 mg tablet Take 10 mg by mouth daily. 2 Active lidocaine-pril ocaine (EMLA) 2.5-2.5 % CreamIndicatio [...] area daily. 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, estrogen receptor negative (CMS/HCC) Dissolve 1 tablet on top of tongue then swallow with saliva every 8 hours as needed for nausea or vomiting 30 Tablet 1 5 Active Active Problems Problem Noted Date Diagnosed Date Chronic low back pain 04/07/2022 Type 2 diabetes mellitus with hyperglycemia 03/17 Trigger point 11/25/2018 Abnormal ultrasound of breast 10/15/2018 Nipple tenderness 10/02/2018 Mastodynia of left breast 10/02/2018 Other signs and symptoms in breast 10/02/2018 Encounters Date Type Department Care Team Description 08/18/2024 Orders Only [facility] - [place] [address] [place] [id number] Kwadwo Barrios MD Malignant neoplasm of upper-outer quadrant of right breast in female, estrogen receptor negative (CMS/HCC) 08/04/2024 Orders Only [facility] - [place] [address] Kwadwo Barrios MD Malignant neoplasm of upper-outer quadrant of right breast in female, estrogen receptor negative (CMS/HCC) 07/21/2024 Orders Only [facility] - [place] [address] Kwadwo Barrios MD Malignant neoplasm of upper-outer quadrant of right breast in female, estrogen receptor negative (CMS/HCC) 07/07/2024 Orders Only [facility] - [place] [address] Kwadwo Barrios MD Malignant neoplasm of upper-outer quadrant of right breast in female, estrogen receptor negative (CMS/HCC) 06/23/2024 Orders Only [facility] - [place] [address] Kwadwo Barrios MD Malignant neoplasm of upper-outer quadrant of right breast in female, estrogen receptor negative (CMS/HCC) 06/19/2024 Telephone [facility] - [place] [address] [place] [phone] Kwadwo Barrios MD [place] 06/16/2024 Telephone [facility] - [place] [address] [place] [address] Kwadwo Barrios MD [place] 06/11/2024 1:00 PM RES COUNSELOR Office Visit [facility] - [place] [address] [place] [address] Kwadwo Barrios MD Malignant neoplasm of upper-outer quadrant of right breast in female, estrogen receptor negative (CMS/HCC) (Primary Dx) 06/09/2024 Orders Only [facility] - [place] [address] [place] [phone] Kwadwo Barrios MD Malignant neoplasm of upper-outer quadrant of right breast in female, estrogen receptor negative (CMS/HCC) 06/06/2024 Orders Only [facility] H[facility] [address] [facility] [address] [place] [phone] Kwadwo Barrios MD 06/04/2024 External Device Data STL ABSTRACTION Provider, Abstract from Last 3 Months Family History Medical [...] Comments Blood Pressure 129/69 06/11/2024 12:59 PM RES COUNSELOR Pulse 80 06/11/2024 12:59 PM RES COUNSELOR Temperature 36.4 C (97.5 F) 06/11/2024 12:59 PM RES COUNSELOR Respiratory Rate 15 06/11/2024 12:59 PM RES COUNSELOR Oxygen Saturation 93% 06/11/2024 12:59 PM RES COUNSELOR Inhaled Oxygen Concentration - - Weight 58.5 kg (129 lb) 06/11/2024 12:59 PM RES COUNSELOR Height 149.9 cm (4' 11 ) 08/08/2023 3:01 PM CDT Body Mass Index 26.05 08/08/2023 3:01 PM CDT Plan of Treatment Upcoming Encounters Date Type Department Care Team (Late st Contact Info) Description 10/09/2024 1:00 PM CDT Office Visit [facility] - [place] [address] [place] [address] Kwadwo Barrios MD [address] [facility] [address] [place] [address] Health Maintenance Due Date Last [...] (#1) 2023 Medical Devices Implanted Type Area Head Girls Golf Coach Device Identifier Shelf Expiration Date Model / Serial / Lot Hemostatic Surgiflo 8ml W/ Thrombin 2994 - [id number] Implanted:Qty : 1 on 04/03/2022 by Anthony Mendoza MD at [facility] Hemostatic N/A: Spine Cervical Posterior [employer] 05/16/2023 [id number] / / [id number] Procedures Procedure Name Priority Date/Time Associated Diagnosis Comments G CA 15 3 Routine 06/04/2024 11:41 AM RES COUNSELOR HEMOGLOBIN A1C Routine 04/04/2022 4:18 AM RES COUNSELOR from Last 3 Months or Most Recently Relevant to Health Maintenance Results * G CA 15 3 (06/04/2024 11:41 AM RES COUNSELOR) Kwadwo Barrios MD [facility] Final Result * (ABNORMAL) HEMOGLOBIN A1C (04/04/2022 4:18 AM RES COUNSELOR) HEMOGLOBIN A1C 6.6(H) <=5.6 % 04/04/2022 8:17 AM RES COUNSELOR [facility] EST. AVG GLUCOSE, A1C 143 mg/dL 04/04/2022 8:17 AM RES COUNSELOR [facility] Blood Venipuncture / Unknown 04/04/2022 4:18 AM RES COUNSELOR 04/04/2022 4:24 AM RES COUNSELOR Narrative [facility] [employer] [facility] - 04/04/2022 8:17 AM RES COUNSELOR HGB A1C INTERPRETATION NORMAL: <5.7% PRE-DIABETES: 5.7 - 6.4% DIABETES: 6.5% OR GREATER Rubina Rosario MD CHEMISTRY ORDERABLES Final Resul t [facility] [employer] [facility] CLIA# [id number] [place] [address] from Last 3 Months or Most Recently Relevant to Health Maintenance Insurance [employer] PPO [facility] AETNA Medicare Part D RX [employer] (INTERNAL) [facility] A[employer] PPO MCR Advance Directives For more information, please contact: [phone] * Full Code (Latest Code Status on File) Date Activated Date Inactivated Comments 04/03/2022 2:48 PM 04/07/2022 5:46 PM Care Teams Intelligence Engineer Relationship Specialty Start Date End Date Atif Cartagena DO [address] [address] PCP - General Internal Medicine 03/15/22
--- OUTSIDE RECORDS SUMMARY | 2024-08-27 13:32 | XMS_ITS | Clinical Summary ---
Author Organization [facility] Address [address] [place] [address] Phone Care Team Providers Care Director Instrumentation Name Role Phone UrmilaAtif waldron Primary Care Provider [phone] Allergies Active Allergy Reactions Criticality Noted Date Comments Metformin Diarrhea Low 02/02/2014 Morphine And Codeine Vomiting,nausea 09/27/2020 Trazodone Dizziness Low 08/04/2013 Medications Aspirin Buf,CaCarb-Mg Carb-MgO, 81 MG tablet Take 81 mg by mouth daily Active calcium carbonate (OS-MARIE) 1250 (500 Ca) MG chewable tablet Chew 1 tablet 02/03/20 14 Active celecoxib (CeleBREX) 200 MG capsule 02/03/20 14 Active cholecalcifer ol (D 1000) 25 MCG (1000 UT) capsule Take by mouth Acti ve cyanocobalami n (VITAMIN B-12) 1000 MCG tablet Take 1,000 mcg by mouth Active folic acid (FOLVITE) 1 MG tablet Take 1 mg by mouth 02/03/20 14 Active gabapentin (NEURONTIN) 100 MG capsule Take 100-300 mg by mouth 02/03/20 14 Active hydroCHLOROth iazide (HYDRODIURIL) 12.5 MG tablet hydrochlorothiazide 12.5 mg tablet Active olmesartan (BENICAR) 20 MG tablet 10/02/19 19 Active omeprazole (PriLOSEC) [address] capsule 04/18/19 19 Active simvastatin (ZOCOR) 10 MG tablet Take 10 mg by mouth every night Active Clobetasol Propionate 0.05 % shampoo SHAMPOO TO SCALP TWICE A WEEK (LEAVE ON FOR 10 MINUTES AND RINSE OFF) 11/29/19 21 Active ketoconazole (NIZORAL) 2 % cream APPLY TO AFFECTED AREA EVERY DAY 11/29/19 Active ketoconazole (NIZORAL) 2 % shampoo SHAMPOO TWICE WEEKLY TO SCALP 11/29/19 Active rOPINIRole (REQUIP) 1 MG tablet TAKE 1 OR 2 TABLETS BY MOUTH EVERY DAY AT BEDTIME 11/29/19 Active Active Problems Problem Noted Date Diagnosed [...] drink = 0.6 oz pur e alcohol) Comments Unknown Sex and Gender Information Value Date Recorded Sex Assigned at Not on file Legal Sex Female 1:25 PM MDT Gender Identity Not on file Sexual Orientation [...] Medium Risk (1 of 4 - PCV) 1988 Influenza Vaccine (Season Ended) 2024 Insurance [employer] MEDICARE ADVANTAGE Care Teams Director Instrumentation Relationship Specialty Start Date End Date Atif Cartagena DO [address] [place] [address] PCP - General Internal Medicine 09/02/20
--- OUTSIDE RECORDS SUMMARY | 2024-08-27 13:32 | XMS_ITS | Continuity of Care Document ---
Author Organization [facility] Address [address] [place] [address] Phone Care Team Providers Care Long Term Acute Care Registered Nurse Name Role Phone Santi Leigh DO Unavailable Unavailable Advance Directives Directive Yes / No Effective Date File Name No Information Encounters Encounter Description Practice Location Reason(s) For Visit Diagnoses Date Provider Providers Copied on Encounter [facility], [address], [place], [place], [address], tel:[phone] [facility] No Information Lu Manuel. [address] [place], [address], [place]. tel: [phone] Family History Family Member Type Diagnosis Age At Onset No Information Payers Payer name Insurance type Covered libertarian ID Authoriza tion(s) [place] [id number] Social History Type Description Quantity Date Captured [...]
--- OUTSIDE RECORDS SUMMARY | 2024-08-27 13:32 | XMS_ITS ---
Author Organization [facility] [place] ([address]) Address [address] [place] [address] Care Team Providers Care Glaze Carrier Name Role Phone Atif Cartagena Primary Care Provider Unavailab Dr. Stefano Stone Unavailable [phone] Araceli Ambrosio Unavailable Unavailable REASON FOR VISIT Headache follow-up Encounters Encounter Location Date Provider Diagnosis [facility] [address] [place] [address] 08/08/2023 Stefano Cramer Plan Of Treatment No Information Progress Notes * Tala SANrobbieDOB: 9 (84 yo F)Acc No.[id number]:08/08/2023 Progress Notes Patient: Jacqueline MADRID Provider: Skip Cramer MD :1940 A ge:83 Y S ex:Female Date:08/08/2023 Address:[address], [id number] Pcp:Atif Cartagena Subjective: * Chief Complaints: * 1 . Headache follow-up. * Medical History: Objective: * Vitals: Assessment: Plan: * Treatment: * Billing Information: * Visit Code: * Procedure Codes: * Electronic signature of Dr. Stefano Cramer MD on 08/27/2024 at 01:31 PM CDT Sign off status: Pending * Provider: Skip Cramer MD Date: 0 08/08/2023 Generated for Suman wilcox/Olga/Ramone on: 0 08/27/2024 01:31 PM GIOVANNYT
--- OUTSIDE RECORDS SUMMARY | 2024-08-27 13:33 | XMS_ITS | Patient Health Record ---
Author Organization [facility] [employer] [place] ([address]) Address [address] [place] [address] Care Team Providers Care Gospel Singer Name Role Phone Atif Cartagena Primary Care Provider Unavailab Dr. 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 Problem Chronic migraine without aura, non-refractory (disorder) (464610561120499 ) Migraine without aura, not intractable, without status migrainosus (G43.009) Active confirmed Problem Migraine with aura (1809490) Migraine with aura, not intractable, without status migrainosus (G43.109) Active confirmed Problem Chronic migraine without aura, not intractable, without status migrainosus (G43.709) Active confirmed Problem Neuralgia (81357286) Neuralgia and neuritis, unspecified (M79.2) Active confirmed Encounters Encounter Location Date Provider Diagnosis [facility] - [address] [place] [address] 09/29/2023 Provider CASEY-Migration Assessments Encounter Date Diagnosis (ICD Code) Assessment Notes Treatment Notes Treatment Clinical Notes Section Notes 09/13/2023 She needs higher dose in L levator, L scalene, R trap, needs dosing in R Splenius. Would increase overall dose Plan Of Treatment No Information Insurance Providers Payer Name Payer Address Payer Phone Subscriber Number Group Number Insured Name Patient Relationship to Insured Coverage Start Date Coverage End Date Aetna Medicare [address] [place] [phone] [id number] Jacqueline Farmer Self - patient is the insured 4 Medical (General) History Medical History History ICD Code DM2 PIEDAD HTN RA OA Hypothyroidism HLD Osteoporosis CKD3 GERD/HH Gout RLS/PLMD Cervical dystonia Surgical History Surgery Date(Month/Year) Craniotomy and C1/C2 laminectomy
--- OUTSIDE RECORDS SUMMARY | 2024-08-27 13:33 | XMS_ITS | Referral Summary ---
Author Organization [facility] Address [address] [place] [address] Phone Care Team Providers Care Outreach Director Name Role Phone Atif Cartagena DO Primary Care Provider [phone] Allergies Active Allergy Reactions Criticality Noted Date [...] on file Legal Sex Female 2:18 AM VALIDATION ARCHITECT Gender Identity Not on file Sexual Orientation [...] on file Insurance AETNA MEDICARE on file [facility] MEDICARE Care Teams Outreach Director Relationship Specialty Start Date End Date Atif Cartagena DO PCP - General Internal Medicine 09/05/21
--- OUTSIDE RECORDS SUMMARY | 2024-08-27 13:33 | XMS_ITS | Clinical Summary ---
Author Organization [facility] Address [address] [place] [address] Phone Care Team Providers Care Gravel Inspector Name Role Phone Atif Cartagnea DO Primary Care Provider [phone] Allergies Active Allergy Reactions Criticality Noted Date [...] on file Legal Sex Female 2:18 AM CHASER TAR Gender Identity Not on file Sexual Orientation [...] season) 2023 01/10/2021, 07/04/2020, 06/13/2020 Influenza Vaccine (Season Ended) 2024 01/10/2021, 01/20/2020, 01/27/2019, Additional history exists DTaP/Tdap/Td Vaccine (2 - Td or Tdap) 02/09/2031 02/09/2021 Insurance [facility] MEDICARE on file [facility] MEDICARE Care Teams Gravel Inspector Relationship Specialty Start Date End Date Atif Cartagena DO PCP - General Internal Medicine 09/05/21
--- OUTSIDE RECORDS SUMMARY | 2024-08-27 13:33 | XMS_ITS | Encounter Summary ---
Author Organization [facility] Address [address] [place] [address] Care Team Providers Care Impregnator And Drier Helper Name Role Phone Robert Celis MD Primary Care Provider [phone] Encounter Details Date Type Department Care Team (Late st Contact Info) Description 02/11/2014 SS Outpatient Visit EXTERNAL NON-[facility] David Cuevas MD Social History Tobacco Use Types Packs/Day Years Used Date Smoking Tobacco: Never Smokeless Tobacco: Never Alcohol Use Standard Drinks/Week Comments Yes 0 (1 standard drink = 0.6 oz pur e alcohol) couple times a year Comments Unknown Sex and Gender Information Value Date Recorded Sex Assigned at Not on file Legal Sex Female 1:46 PM PEDODONTIST Gender Identity Not on file Sexual Orientation Not on file 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
--- OUTSIDE RECORDS SUMMARY | 2024-08-27 13:33 | XMS_ITS | Encounter Summary ---
Author Organization [facility] Address [address] [place] [address] Care Team Providers Care Slag Production Worker Name Role Phone Atif Cartagena DO Primary Care Provider Reason for Visit * Reason Onset Date Comments Post op 04/03/2022 Spoke w/Grace at Dr. 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 Melvin'kalyn exchange/HOGSHEAD FILLER Franky operational meteorologist) Social History Tobacco Use Types Packs/Day Years [...] Coronavirus/COVID-19? No / Unsure 04/03/2022 8:20 AM VASC TECH documented as of this encounter Plan of Treatment Upcoming Encounters Date Type Department Care Team ([facility] Contact Info) Description 10/09/2024 1:00 PM CDT Office Visit [facility] Oncology and Hematology - [place] [address] [address] Kwadwo Barrios MD [address] [facility] [address] [place] [address] documented as of this encounter Visit Diagnoses Not on filedocumented in this encounter Additional Health Concerns Infection Onset Date Last Indicated Resolved Time R/O COVID-19 04/05/2022 04/05/2022 04/05/2022 1:59 PM VASC TECH documented as of this encounter Care Teams Slag Production Worker Relationship Specialty Start Date End Date Atif Cartagena DO [address] [facility] [address] [place] [address] PCP - General Internal Medicine 03/15/22 documented as of this encounter
--- OUTSIDE RECORDS SUMMARY | 2024-08-27 13:33 | XMS_ITS ---
Author Organization [facility] [employer] [place] ([address]) Address [address] [place] [address] Care Team Providers Care Location Man Name Role Phone OsielAtif Primary Care Provider Unavailab Dr. 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 l oss of hearing No. i tching in ears N o. r inging in ears Y es. l oss of balance N o. loss of smell N o. d ry eyes N o. e xcessive tearing N o. i tching eyes No. l oss of taste N o. c onjunctivitis N o. e ar infections N o. C ONSTITUTIONAL: night sweats N o. w eight gain N o. l oss of appetite N o. f ever N o. w eakness N o. w eight loss N o. E NT: cold N o. c ough N o. e pistaxis N o. h earing loss N o. c hange in voice N o. s ore throat N o. r inging in ears Yes. s inus pain Y es. R ESPIRATORY: [...] o. c hest pain N o. p alpitations No. l eg edema N o. s hortness [...] N o. r ecurrent UTI N o. D ERMATOLOGY: rash N o. m ole N o. l umps N o. d ry or sensitive skin N o. h radha (urticaria) N o. a cne N o. s kin cancer N o. N EUROLOGY: headache N o. t ingling numbness N o. s eizures No. i nsomnia N o. m nini loss N o. d izziness N o. g ait abnormality Y es. H EMATOLOGY/LYMPH: Positive for n one. M USCULOSKELETAL: gout N o. j oint stiffness N o. l eg cramps No. j oint pain N o. j oint swelling N o. s ciatica N o. o steoporosis No. f racture N o. c arpal tunnel [...] p elvic pain N o. b reast pain No. n ipple discharge N o. a bnormal [...] substances? No, Are you currently a student? No. E nvironmental History L iving environment: private [...] Age of carpet? 3, Do you have swkr-yn-sqgi carpeting? Yes, What is the age of [...] examination: General appearance: P leasant, well-developed, no distress. HEENT: S he has limited ROM of [...] Management) * Billing Information: * Visit Code: 66525 Office Visit, Est Pt., Level 4. Modifiers: 45925 Office Visit, Est Pt., Level 3. Modifiers: 25 * Procedure Codes: 48080 PT-FOCUSED HLTH RISK ASSMT. G8427 DOC MEDS VERIFIED W/PT OR RE. * Electronic signature of Dr. Stefano Cramer MD on 08/27/2024 at 01:32 PM CDT Sign off status: Pending * Provider: Skip Cramer MD Date: 09/13/2023 Generated for Suman wilcox/Olga/Ramone on: 08/27/2024 01:32 PM CDT History and Physical Notes * [...]
[2024-08-27 14:18] LABS: Anion Gap 9 mmol/L (4-12); Blood Urea Nitrogen 24 mg/dL (7-17); Calcium 8.9 mg/dL (8.4-10.2); Carbon Dioxide 20 mmol/L (22-30); Chloride 107 mmol/L (98-107); Estimated Glomerular Filt Rate 56; Glucose 218 mg/dL (65-110); Potassium 4.2 mmol/L (3.4-5.0); Sodium 136 mmol/L (137-145)
[2024-08-27 14:22] LABS: Prothrombin Time 13.6 Seconds (11.1-14.7)
[2024-08-27 14:23] LABS: Partial Thromboplastin Time 26.5 Seconds (22.3-36.8)
== END 2024-08-27 13:14 | disposition home or self-care (01) ==
LOC: ANHSURGERY 13:20
PROVIDERS: Anesthesiology; PCP Internal Medicine; Visit Provider Surgery
DX: Z01.818 Encounter for other preprocedural examination (principal); N18.9 Chronic kidney disease, unspecified; N63.0 Unspecified lump in unspecified breast
CPT/HCPCS: 36415; 80048; 85610; 85730; 86850; 86900; 86901

== ENCOUNTER 2024-09-03 00:15 | Day surgery (SDC) | payer MEDICARE, SELFPAY ==
[2024-08-27 09:51] VITALS: BMI 26.6
--- NOTE | 2024-08-27 09:53 | PC.NURSE ---
Addendum entered by Debbie Patel RN 08/27/24 10:00: PT STATED STOPPING ASPIRIN AND CELEBREX 5 DAYS PRIOR TO SURGERY DAY Original Note: Report to the Outpatient Waiting Room, entrance under the [facility] located off [facility], at time __0630 on date 09/03/24_. Planned Procedure Time: _0830_.? Time changes happen often and if your time is changed the preop area will call you the afternoon before. - You and your visitor will be asked to self-screen and do not enter if you have any COVID symptoms. Please call surgeon if you need to reschedule. - A mask is optional within the hospital at this time. Patients may have clear liquids (water, carbonated beverages, clear teas, apple juice) until 3 hours prior to surgery with a maximum of 20 ounces. - No food from midnight until time of surgery and no smoking, or chewing tobacco (or any form of nicotine). No chewing gum, candy or mints. - Infants may have breast milk until 4 hours before surgery, formula 6 hours prior to surgery. - Children will be allowed to drink immediately following surgery.? If applicable, please bring a bottle or sippy cup to assist with drinking. Juice, water, soda, and popsicles are readily available.? For infants on formula, please bring formula the day of surgery.? Pacifiers are allowed. Take only the following medications with a SIP of water on the morning of surgery: ___GABAPETIN DO NOT STOP ANY OF YOUR OTHER PRESCRIPTION MEDICATIONS PRIOR TO SURGERY EXCEPT THE FOLLOWING Hold all vitamins and supplements for 3 days per anesthesiologist. Medications to discontinue per physician Date to take last dose Please no make-up, nail thai, hairspray, perfume, deodorant, or body powder the day of surgery.? No jewelry (including any body piercings) or valuables the day of surgery, leave them at home.? Please take a shower or bath the night before, or the morning of, surgery with an antibacterial soap.? Wear comfortable, loose fitting clothing.? Children are encouraged to wear pajamas. - Jewelry must be removed prior to entering the operating room.? Rings and piercings that are not removed may be cut off. - The hospital will not accept responsibility for valuables.? - Please leave all valuables, including medications, at home the day of surgery. If you are going home after surgery, a licensed reefer truck driver must drive you home.? - NO public transportation without another adult if you receive anesthesia. - We recommend that an adult stay with you for 24 hours following discharge. - We also recommend that you do not drive, make important decision, drink alcoholic beverages, or take any drugs that were not prescribed by your health care provider for at least 24 hours after your discharge time. For Pediatric surgeries, we recommend two adults accompany the child home. Follow any additional instructions given to you from your surgeon. Telephone instructions given to ___PATIENT and asked if any additional questions and then verbalized understanding. Patient advised to call surgeon office or pre surgery nurse liaison [phone] if any additional questions.
[2024-09-03] VITALS (11 sets, daily range): BP systolic 116–164; BP diastolic 60–80; PULSE 53–74; RESP 12–20; TEMP 36–36.4; O2SAT 93–100
--- OUTSIDE RECORDS SUMMARY | 2024-09-03 00:18 | XMS_ITS | Continuity of Care Document ---
Author Organization [facility] Address [address] [place] [address] Phone Care Team Providers Care Manager Reimbursement Name Role Phone Snati Leigh DO Unavailable Unavailable Advance Directives Directive Yes / No Effective Date File Name No Information Encounters Encounter Description Practice Location Reason(s) For Visit Diagnoses Date Provider Providers Copied on Encounter [facility], [address], [place], [place], [address], tel:[phone] [facility] No Information Lu Manuel. [address] [place], [address], [place]. tel: [phone] Family History Family Member Type Diagnosis Age At Onset No Information Payers Payer name Insurance type Covered libertarian ID Authoriza tion(s) [place] [id number] Social History Type Description Quantity Date Captured [...]
--- OUTSIDE RECORDS SUMMARY | 2024-09-03 00:18 | XMS_ITS ---
Author Organization [facility] [place] ([address]) Address [address] [place] [address] Care Team Providers Care Coordinator Volunteer Services Name Role Phone Atif Cartagena Primary Care Provider Unavailab Dr. Stefano Stone Unavailable [phone] Araceli Ambrosio Unavailable Unavailable REASON FOR VISIT Headache follow-up Encounters Encounter Location Date Provider Diagnosis [facility] [address] [place] [address] 08/08/2023 Stefano Cramer Plan Of Treatment No Information Progress Notes * MARLENYTala DUPONTrobbieDOB: 9 (84 yo F)Acc No.[id number]:08/08/2023 Progress Notes Patient: Jacqueline MADRID Provider: Skip Cramer MD :1940 A ge:83 Y S ex:Female Date:08/08/2023 Address:[address], [place] Pcp:Atif Cartagena Subjective: * Chief Complaints: * 1 . Headache follow-up. * Medical History: Objective: * Vitals: Assessment: Plan: * Treatment: * Billing Information: * Visit Code: * Procedure Codes: * Electronic signature of Dr. Stefano Cramer MD on 09/03/2024 at 12:17 AM CDT Sign off status: Pending * Provider: Skip Cramer MD Date: 0 08/08/2023 Generated for Suman wilcox/Olga/Ramone on: 0 09/03/2024 12:17 AM CDT
--- OUTSIDE RECORDS SUMMARY | 2024-09-03 00:18 | XMS_ITS | Clinical Summary ---
Author Organization [facility] Address [address] [place] [address] Care Team Providers Care Tank Cooper Name Role Phone UrmilaAtif waldron Christiano Primary [...] daily. Active fluticasone propionate (FLONASE) 50 mcg/spray [place], Suspension nasal inhaler Administer 1 [place] in each nostril 1 time daily as [...] times daily. 60 Capsule 04/07/2022 1:21 PM MOVEMENT ASSEMBLY FINAL INSPECTOR 2 Active simvastatin (ZOCOR) 10 mg tablet [...] Encounters Date Type Department Care Team Description 09/01/2024 Orders Only [facility] Oncology and Hematology - [place] [address] [place] [address] Kwadwo Barrios MD Malignant neoplasm of upper-outer quadrant of right breast in female, estrogen receptor negative (CMS/HCC) 08/18/2024 Orders Only [facility] Oncology and Hematology - [place] [address] Kwadwo Barrios MD Malignant neoplasm of upper-outer quadrant of right breast in female, estrogen receptor negative (CMS/HCC) 08/04/2024 Orders Only [facility] Oncology and Hematology - [place] [address] Kwadwo Barrios MD Malignant neoplasm of upper-outer quadrant of right breast in female, estrogen receptor negative (CMS/HCC) 07/21/2024 Orders Only [facility] Oncology and Hematology - [place] [address] Kwadwo Barrios MD Malignant neoplasm of upper-outer quadrant of right breast in female, estrogen receptor negative (CMS/HCC) 07/07/2024 Orders Only [facility] Oncology and Hematology - [place] [address] Kwadwo Barrios MD Malignant neoplasm of upper-outer quadrant of right breast in female, estrogen receptor negative (CMS/HCC) 06/23/2024 Orders Only [facility] Oncology and Hematology - [place] [address] [place] [phone] Kwadwo Barrios MD Malignant neoplasm of upper-outer quadrant of right breast in female, estrogen receptor negative (CMS/HCC) 06/19/2024 Telephone [facility] Oncology and Hematology - [place] [address] [place] [address] Kwadwo Barrios MD [place] 06/16/2024 Telephone [facility] Oncology and Hematology - [place] [address] [place] [phone] Kwadwo Barrios MD [place] 06/11/2024 1:00 PM MOVEMENT ASSEMBLY FINAL INSPECTOR Office Visit [facility] Oncology and Hematology - [place] [address] [place] [phone] Kwadwo Barrios MD Malignant neoplasm of upper-outer quadrant of right breast in female, estrogen receptor negative (CMS/HCC) (Primary Dx) 06/09/2024 Orders Only [facility] Oncology and Hematology [facility] [address] [place] [address] Kwadwo Barrios MD Malignant neoplasm of upper-outer quadrant of right breast in female, estrogen receptor negative (CMS/HCC) 06/06/2024 Orders Only [facility] Oncology and Hematology [address] [place] [address] Kwadwo Barrios MD from Last 3 Months Family History Medical [...] Comments Blood Pressure 129/69 06/11/2024 12:59 PM MOVEMENT ASSEMBLY FINAL INSPECTOR Pulse 80 06/11/2024 12:59 PM MOVEMENT ASSEMBLY FINAL INSPECTOR Temperature 36.4 C (97.5 F) 06/11/2024 12:59 PM MOVEMENT ASSEMBLY FINAL INSPECTOR Respiratory Rate 15 06/11/2024 12:59 PM MOVEMENT ASSEMBLY FINAL INSPECTOR Oxygen Saturation 93% 06/11/2024 12:59 PM MOVEMENT ASSEMBLY FINAL INSPECTOR Inhaled Oxygen Concentration - - Weight 58.5 kg (129 lb) 06/11/2024 12:59 PM MOVEMENT ASSEMBLY FINAL INSPECTOR Height 149.9 cm (4' 11 ) 08/08/2023 3:01 PM CDT Body Mass Index 26.05 08/08/2023 3:01 PM CDT Plan of Treatment Upcoming Encounters Date Type Department Care Team (Late st Contact Info) Description 10/09/2024 1:00 PM CDT Office Visit [facility] Oncology and Hematology - [place] [address] [facility] [address] [place] [address] Kwadwo Barrios MD [address] [facility] [address] [place] [address] Health Maintenance Due Date Last [...] (#1) 2023 Medical Devices Implanted Type Area Jumpbasting Lining Baster Device Identifier Shelf Expiration Date Model / Serial / Lot Hemostatic Surgiflo 8ml W/ Thrombin 2994 - [id number] Implanted:Qty : 1 on 04/03/2022 by Anthony Mendoza MD at [facility] Hemostatic N/A: Spine Cervical Posterior [employer] 05/16/2023 [id number] / / [id number] Procedures Procedure Name Priority Date/Time Associated Diagnosis Comments HEMOGLOBIN A1C Routine 04/04/2022 4:18 AM MOVEMENT ASSEMBLY FINAL INSPECTOR from Last 3 Months or Most Recently Relevant to Health Maintenance Results * (ABNORMAL) HEMOGLOBIN A1C (04/04/2022 4:18 AM MOVEMENT ASSEMBLY FINAL INSPECTOR) HEMOGLOBIN A1C 6.6(H) <=5.6 % 04/04/2022 8:17 AM MOVEMENT ASSEMBLY FINAL INSPECTOR [facility] EST. AVG GLUCOSE, A1C 143 mg/dL 04/04/2022 8:17 AM MOVEMENT ASSEMBLY FINAL INSPECTOR [facility] Blood Venipuncture / Unknown 04/04/2022 4:18 AM MOVEMENT ASSEMBLY FINAL INSPECTOR 04/04/2022 4:24 AM MOVEMENT ASSEMBLY FINAL INSPECTOR Narrative [facility] - 04/04/2022 8:17 AM MOVEMENT ASSEMBLY FINAL INSPECTOR HGB A1C INTERPRETATION NORMAL: <5.7% PRE-DIABETES: 5.7 - 6.4% DIABETES: 6.5% OR GREATER Rubina Rosario MD CHEMISTRY ORDERABLES Final Resul t [facility] CLIA# [id number] [place] [address] from Last 3 Months or Most Recently Relevant to Health Maintenance Insurance AETNA PPO [facility] RX AETNA Medicare Part D RX [employer] (INTERNAL) [facility] Plans AETNA PPO MCR Advance Directives For more information, please contact: [phone] * Full Code (Latest Code Status on File) Date Activated Date Inactivated Comments 04/03/2022 2:48 PM 04/07/2022 5:46 PM Care Teams Tank Cooper Relationship Specialty Start Date End Date Atif Cartagena DO [address] [facility] [address] [place] [address] PCP - General Internal Medicine 03/15/22
--- OUTSIDE RECORDS SUMMARY | 2024-09-03 00:18 | XMS_ITS | Encounter Summary ---
Author Organization [facility] Address [address] [place] [address] Care Team Providers Care Landfill Gas Collection Operator Name Role Phone Atif Cartagena DO Primary Care Provider Encounter Details Date Type Department Care Team (Late Contact Info) Description 09/01/2024 Orders Only [facility] Oncology and [facility] [address] [place] [address] Kwadwo Barrios MD [address] [place], [place] [address] [address] [place] [address] Malignant neoplasm of upper-outer quadrant of [...] Description 10/09/2024 1:00 PM CDT Office Visit [facility] Oncology and Hematology [facility] [address] [place] [address] [place] [address] [place], [place] [address] [address] [place] [address] documented as of this encounter Visit Diagnoses Diagnosis Malignant neoplasm of upper-outer quadrant of right breast in female, estrogen receptor negative (CMS/HCC) documented in this encounter Care Teams Landfill Gas Collection Operator Relationship Specialty Start Date End Date Atif Cartagena DO [address] [address] PCP - General Internal Medicine 03/15/22 documented as of this encounter
--- OUTSIDE RECORDS SUMMARY | 2024-09-03 00:18 | XMS_ITS ---
Author Organization [facility] [employer] [place] ([address]) Address [address] [place] [address] Care Team Providers Care Floor Covering Installer Name Role Phone Atif Cartagena Primary Care Provider Unavailab Dr. Stefano Stone Unavailable [phone] Araceli Ambrosio Unavailable Unavailable ZZ-Migration, Provider Unavailable Unavailab le [facility] Encounter Medications Medication SIG (Take, Route, [...] Encounter Location Date Provider Diagnosis [facility] [address] [place] [address] 09/29/2023 Provider CASEY-Jesse Plan Of Treatment No Information Progress Notes * Jacqueline SANDOB: 9 (84 yo F)Acc No.[id number]:09/29/2023 Patient: Jacqueline MADRID Provider: Gracie Molina :1940 A ge:83 Y S ex:Female Date:09/29/2023 Address:[facility] [address] [facility] Pcp:Atif Cartagena Subjective: * Chief Complaints: * [...] * Electronic signature of Laina HackettZ-Migration on 09/03/2024 at 12:18 AM CDT Sign off status: Pending * Provider: Gracie Molina Date: 0 09/29/2023 Generated for Suman wilcox/Olga/Megitting on: 0 09/03/2024 12:18 AM CDT
--- OUTSIDE RECORDS SUMMARY | 2024-09-03 00:18 | XMS_ITS | Clinical Summary ---
Author Organization [facility] Address [address] [place] [address] Phone Care Team Providers Care Manager Marketing Sales Name Role Phone UrmilaAtif waldron Primary Care Provider [phone] Allergies Active Allergy Reactions Criticality Noted Date [...] 2024 Insurance AETNA MEDICARE ADVANTAGE Care Teams Manager Marketing Sales Relationship Specialty Start Date End Date Atif Cartagena DO [address] [place] [address] PCP - General Internal Medicine 09/02/20
--- OUTSIDE RECORDS SUMMARY | 2024-09-03 00:18 | XMS_ITS | Continuity of Care Document ---
Author Organization [facility] Address [address] [place] [address] Phone Care Team Providers Care Brand Development Manager Name Role Phone Doser DPMason Valdivia DPM Unavailable Unavailab le Allergies, Adverse Reactions, Alerts Substance Reaction Status Criticality morphine Other Active No Information Medications Medication Instructions Dosage Effective Dates (start - stop) Status Comments [place] 5 mg-325 mg tablet take 1 tablet [...] exam foot, minimum 3 views 2021 Office/outpatient visit,[facility] 2021 Advance Directives Directive Yes / No Effective Date File Name No Information Encounters Encounter Description Practice Location Reason(s) For Visit Diagnoses Date Provider Providers Copied on Encounter [facility], [address] [address], [place], [place], [id number], [place] tel:[phone] [facility] clam picker orthotics (chief complaint) No Information 2 2 Doser DPM Mason. [address] [address], [place], [place], [id number] , [place]. tel:[phone] Referring Provider: Mason Mckeon DPM A, [address] [place] [address], [place], [address] . tel:[phone] [facility], [address] [place] [address], [place], [place], [id number], [place] tel:[phone] [facility] No Information 0 2 Doser DPM Mason. [address] [place] [address], [place], [place], [id number] , [place]. tel:[phone] [facility], [address] [place] [address], [place], [place], [address], [place] tel:[phone] [facility] Pain in left footOther acquired hammer toes of left foot Aug-0 2 Doser DPM Mason. [address] [place] [address], [place], [place], [id number] , [place]. tel:[phone] Referring Provider: Mason Doser CHENTE A, [address] [place] [address], [place], [address] . tel:[phone] [facility], [address] [place] [address], [place], [place], [address], [place] tel:[phone] [facility] No Information 0 2 Doser DPM Mason. [address] [place] [address], [place], [place], [address] , [place]. tel:[phone] Referring Provider: Mason Saucedor JELENAM A, [address] [place] [address], [place], [address] . tel:[phone] [facility], [address] [place] [address], [place], [place], [address], tel:[phone] [facility] Other acquired hammer toes of left footPain in left foot 2 Doser DPM Mason. [address] [facility] [address], [place], [place], [address] , [place]. tel:[phone] Referring Provider: Mason Mckeon DPM A, [address] [place] [address], [place], [address] . tel:[phone] [facility], [address] [address], [place], [place], [address], [place] tel:[phone] [facility] Follow Up of left foot sx 09/26/21 (chief complaint) Pain in left footOther acquired hammer toes of left foot 2 Doser DPM Mason. [address] [place] [address], [place], [place], [address] , [place]. tel:[phone] Referring Provider: Mason Mckeon DPM A, [address] [address], [place], [address] . tel:[phone] [facility], [facility] [address], [place], [place], [address], [place] tel:[phone] [facility] Pain in left foot 2 Doser DPM Mason. [address] [place] [address], [address] [address], [place], [place], [id number] , [place]. tel:[phone] Referring Provider: Mason Mckeon DPM A, [address] [address], [place], [address] . tel:[phone] [facility], [address] [place] [address], [id number], [place] tel:[phone] [facility] No Information 0 2 Doser DPM Mason. [address] [place] [address], [address] [address], [place], [place], [address] , [place]. tel:[phone] Referring Provider: Mason Cardona, [address] [facility] [address], [place], [address] . tel:[phone] Office/outpat ient visit,new, mod [facility], [address], [place], [place], [address], [place] tel:[phone] [facility] Toes (chief complaint) Pain in left footOther acquired hammer toes of left foot 2 Doser CHENTE Cuevas. [address] [facility], [place], [place], [address] , [place]. tel:[phone] Referring Provider: Mason Cardona, [address] [facility], [place], [address] . tel:[phone] Family History Family Member Type Diagnosis Age At Onset Brother Problem (finding) Gout Mother Problem (finding) Osteoarthritis Mother Problem (finding) Hypertension Father Problem (finding) Gout Mother Problem (finding) Heart Disease Father Problem (finding) Osteoarthritis Brother Problem (finding) Hypertension Payers Payer name Insurance type Covered democrat ID Mary nelson(s) Aetna Medicare CI [id number] Social History Type Description Quantity Date Captured Comments Alcohol Use Details Unknown Caffeine Use Details Unknown Tobacco Use Status Current non-smoker Smoking Status Never smoker Sex Female Chief Complaint And Reason For Visit From encounter dated '12/06/2021 13:25'. clam picker orthotics (chief complaint) Reason For Referral Reason For Referral No Information Plan Of Treatment Date Type Action Status Referral Ordered: X-ray exam foot, minimum 3 views LT ordered History Of Present Illness Encounter Date Complaint History Of Prese nt Illness clam picker orthotics Follow Up of left foot sx 2 Toes Functional Status Date Functional Assessmen t No Information Instructions Date Instruction Additional Infor mation No Information Assessments Type Assessment Date No Information Patient Care Teams Name Effective Dates (start - stop) Status Members No Information
--- OUTSIDE RECORDS SUMMARY | 2024-09-03 00:19 | XMS_ITS | Patient Health Record ---
Author Organization [facility] [employer] [place] ([address]) Address [address] [place] [address] Care Team Providers Care Rush Seater Name Role Phone Atif Cartagena Primary Care Provider Unavailab Dr. 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 Problem Chronic migraine without aura, non-refractory (disorder) (399609376772356 ) Migraine without aura, not intractable, without status migrainosus (G43.009) Active confirmed Problem Migraine with aura (4376347) Migraine with aura, not intractable, without status migrainosus (G43.109) Active confirmed Problem Chronic migraine without aura, non-intractable (888644936325670 ) Chronic migraine without aura, not intractable, without status migrainosus (G43.709) Active confirmed Problem Neuralgia (12888168) Neuralgia and neuritis, unspecified (M79.2) Active confirmed Encounters Encounter Location Date Provider Diagnosis [facility] - [address] [place] [address] 09/29/2023 Provider [employer] Assessments Encounter Date Diagnosis (ICD Code) Assessment [...] Coverage End Date Aetna Medicare [address] [place] [address] [id number] Jacqueline Farmer Self - patient is the insured 4 Medical (General) History Medical History History ICD Code DM2 PIEDAD HTN RA OA Hypothyroidism HLD Osteoporosis CKD3 GERD/HH Gout RLS/PLMD Cervical dystonia Surgical History Surgery Date(Month/Year) Craniotomy and C1/C2 laminectomy
--- OUTSIDE RECORDS SUMMARY | 2024-09-03 00:19 | XMS_ITS | Encounter Summary ---
Author Organization [facility] Health Address [address] [facility] [place] [address] Care Team Providers Care Hoeing Row Boss Name Role Phone Robert Celis MD Primary Care Provider [phone] Encounter Details Date Type Department Care Team (Late st Contact Info) Description 02/11/2014 SS Outpatient Visit EXTERNAL NON-[facility] DEPT David Cuevas MD Social History Tobacco Use Types Packs/Day Years Used Date Smoking Tobacco: Never Smokeless Tobacco: Never Alcohol Use Standard Drinks/Week Comments Yes 0 (1 standard drink = 0.6 oz pur e alcohol) couple times a year Comments Unknown Sex and Gender Information Value Date Recorded Sex Assigned at Not on file Legal Sex Female 1:46 PM 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
--- OUTSIDE RECORDS SUMMARY | 2024-09-03 00:19 | XMS_ITS ---
Author Organization [facility] [employer] [place] ([address]) Address [address] [place] [address] Care Team Providers Care Emergency Room Rn Name Role Phone OsielAtif Primary Care Provider Unavailab Dr. Stefano Stone Unavailable [phone] Araceli Ambrosio Unavailable Unavailable Medications Medication SIG [...] Active Encounters Encounter Location Date Provider Diagnosis [facility] [address] [place] [address] 09/13/2023 Stefano Cramer Spasmodic torticolli s G24.3 [...] Reason: Evaluation and Management Progress Notes * MENA JacquelineDOB: 9 (84 yo F)Acc No.[id number]:09/13/2023 Progress Notes Patient: Jacqueline MADRID Provider: Skip Cramer MD :1940 A ge:83 Y S ex:Female Date:09/13/2023 Address:[facility] [address] [facility] Pcp:Atif Cartagena Subjective: * Chief Complaints: * * HPI: * Introduction: I had the pleasure of seeing w jackie presented for follow-up for headaches. [...] Age of carpet? 1, Do you have vpjn-kv-[id number] carpeting? Yes, What is the age of [...] Management) * Billing Information: * Visit Code: 43903 Office Visit, Est Pt., Level 4. Modifiers: 27009 Office Visit, Est Pt., Level 3. Modifiers: 25 * Procedure Codes: 76487 PT-FOCUSED HLTH RISK ASSMT. G8427 DOC MEDS VERIFIED W/PT OR RE. * Electronic signature of Dr. Stefano Cramer MD on 09/03/2024 at 12:18 AM CDT Sign off status: Pending * Provider: Skip Cramer MD Date: 09/13/2023 Generated for Suman wilcox/Olga/Violetasmkathleen on: 09/03/2024 12:18 AM CDT History and Physical Notes * [...]
--- OUTSIDE RECORDS SUMMARY | 2024-09-03 00:19 | XMS_ITS | Clinical Summary ---
Author Organization [facility] Address [address] [facility] [place] [address] Care Team Providers Care Control Systems Engineer Name Role Phone Robert Celis MD Primary Care Provider [phone] Source Comments [facility],non-owned Affiliates and Associated Physician Practices is amultiple site organization consisting of ambulatory clinics and hospital sitesin [place], [place], [place] and [place]. This disclosure is being madepursuant to the Care Everywhere program and may not contain all information available regarding this patient. Last updated 18.[facility] [employer] Allergies Active Allergy Reactions Criticality Noted Date [...] (TYLENOL) 500 MG tabletIndicatio ns:RA (rheumatoid arthritis) ([facility]) Take 2 Tabs by mouth 3 times daily. Maximum allowable Acetaminophen amount = 4 Grams (4000 mg) / 24 hours. 02/03/20 14 Active celecoxib (CELEBREX) 200 MG capsuleIndicati ons:RA (rheumatoid arthritis) ([facility]) Take 1 Cap by mouth once daily. [...] 5/8 1 ML MISCIndications :RA (rheumatoid arthritis) ([facility]) Inject 1 mL subcutaneously every 7 days. 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 Gender Identity Not on file Sexual Orientation [...] on file (Home) Address: [address] [place] [address] Payer ID:Not on file Group ID:Not on file Type:Self Pay Address: [place], [place] AET MEDICARE ADV SELF PAY NO INSURANCE Member Subscriber Plan / Payer (Ef fective for All Dates) Name:Dagoberto San Member ID:Not on file Relation to Subscriber:Not on file Name:DAGOBERTO SAN Subscriber ID:Not on file Address: [address] [place] [address] Payer ID:Not on file Group ID:Not on file Type:Self Pay Address: [place] MED[place] AD[place] SELF PAY NO INSURANCE Member Subscriber Plan / Payer (Ef fective for All Dates) Name:Dagoberto San Member ID:Not on file Relation to Subscriber:Not on file Name:DAGOBERTO SAN Subscriber ID:Not on file Address: [address] [place] [address] Payer ID:Not on file Group ID:Not on file Type:Self Pay Address: [place] AD[place] SELF PAY NO INSURANCE Member Subscriber Plan / Payer (Ef fective for All Dates) Name:Dagoberto San Member ID:Not on file Relation to Subscriber:Not on file Name:DAGOBERTO SAN Subscriber ID:Not on file Address: [address] [place] [address] Payer ID:Not on file Group ID:Not on file Type:Self Pay Address: [place], [place] * Guarantor: DAGOBERTO SAN Account Type Relation to Patient Date of Phone Billing Address Personal/Family [address] [place] [address] AETNA MEDICARE ADV SELF PAY NO INSURANCE Member Subscriber Plan / Payer (Ef fective for All Dates) Name:Dagoberto San Member ID:Not on file Relation to Subscriber:Not on file Name:DAGOBERTO SAN Subscriber ID:Not on file Address: [address] [place] [address] Payer ID:Not on file Group ID:Not on file Type:Self Pay Address: [place], [place] * Guarantor: DAGOBERTO SAN Account Type Relation to Patient Date of Phone Billing Address Personal/Family [address] [place] [address] AETNA MEDICARE ADV SELF PAY NO INSURANCE Member Subscriber Plan / Payer (Ef fective for All Dates) Name:Dagoberto San Member ID:Not on file Relation to Subscriber:Not on file Name:DAGOBERTO SAN Subscriber ID:Not on file Address: [address] [place] [address] Payer ID:Not on file Group ID:Not on file Type:Self Pay Address: [place], [place] * Guarantor: DAGBOERTO SAN Account Type Relation to Patient Date of Phone Billing Address Personal/Family [address] [place] [address] AETNA MEDICARE ADV SELF PAY NO INSURANCE Member Subscriber Plan / Payer (Ef fective for All Dates) Name:Dagoberto San Member ID:Not on file Relation to Subscriber:Not on file Name:DAGOBERTO SAN Subscriber ID:Not on file Address: [address] [place] [address] Payer ID:Not on file Group ID:Not on file Type:Self Pay Address: [place], [place] Care Teams Control Systems Engineer Relationship Specialty Start Date End Date Robert Celis MD [address] [place] [address] PCP - General Internal Medicine 09/13/12
--- OUTSIDE RECORDS SUMMARY | 2024-09-03 00:19 | XMS_ITS | Referral Summary ---
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
--- OUTSIDE RECORDS SUMMARY | 2024-09-03 00:19 | XMS_ITS | Encounter Summary ---
Author Organization [facility] Address [address] [place] [address] Care Team Providers Care Car Sales Consultant Name Role Phone Atif Cartagena DO Primary Care Provider Reason for Visit * Reason Onset Date Comments Post op 04/03/2022 Spoke w/Grace at Dr. Melvin's exchange/DISCHARGE DOOR OPERATOR Franky rn medication Encounter Details Date Type Department Care Team ([facility] Contact Info) Description 04/03/2022 Telephone [facility] Admitting [address] [place] [address] Anthony Mendoza MD [address] [place] [address] Post op (Spoke w/Grace at Dr. Melvin'kalyn exchange/DISCHARGE DOOR OPERATOR Franky rn medication) Social History Tobacco Use Types Packs/Day Years [...] Coronavirus/COVID-19? No / Unsure 04/03/2022 8:20 AM SURVEY WORKER documented as of this encounter Plan of Treatment Upcoming Encounters Date Type Department Care Team ([facility] Contact Info) Description 10/09/2024 1:00 PM CDT Office Visit [facility] Oncology and Hematology - [address] [address] Kwadwo Barrios MD [address] [facility] [address] [place] [address] documented as of this encounter Visit Diagnoses Not on filedocumented in this encounter Additional Health Concerns Infection Onset Date Last Indicated Resolved Time R/O COVID-19 04/05/2022 04/05/2022 04/05/2022 1:59 PM SURVEY WORKER documented as of this encounter Care Teams Car Sales Consultant Relationship Specialty Start Date End Date Atif Cartagena DO [address] [facility] [address] [place] [address] PCP - General Internal Medicine 03/15/22 documented as of this encounter
--- OUTSIDE RECORDS SUMMARY | 2024-09-03 00:19 | XMS_ITS | Clinical Summary ---
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
--- NOTE | 2024-09-03 06:59 | WPDHPUPDATE1 ---
History and Physical Update Update Date/Time: 09/03/24 06:59 - Right total mastectomy and possible adjacent tissue transfer History and Physical has been reviewed, including an updated exam of the patient. There are NO changes in the patient's condition. Risks, benefits, and alternatives have been discussed and questions answered. Patient agrees to proceed with procedure.
--- NOTE | 2024-09-03 07:29 | ECG_ITS ---
Test Date: 2024-09-03 08:01:13 Measurements Intervals [place] Rate: 58 P: 45 ME: 193 QRS: -19 QRSD: 93 T: 15 QT: 403 QTc: 397 Interpretive Statements SINUS BRADYCARDIA LOW QRS VOLTAGE IN PRECORDIAL LEADS [QRS DEFLECTION < 1.0 mV IN CHEST LEADS] ABNORMAL ECG No previous ECG available for comparison Electronically Signed On 09-03-2024 08:23:02 CDT by Ignacio José M.D.
[2024-09-03] MEDS: LACTATED RINGERS 1,000 ML 30 ML IV CONT ×2 (07:45→11:36)
[2024-09-03] MEDS: ACETAMINOPHEN 500 MG TABLET 1000 MG PO (07:53)
--- NOTE | 2024-09-03 08:20 | P.PNAN_ITS ---
Anes - Initial Pre Proc Eval Procedure: Operation Date: 09/03/24 09:00 Proposed Procedures p Right Total Mastectomy, Possible Adjacent Tissue Transfer - Eli Pires MD Date/Time: 09/03/24 08:20 Surgeon: Eli Pires MD Pre Op Diagnosis: delayed wound healing, previous breast CA Patient Data Age: 84 Gender: F Height: 1.5 m Weight: 61 kg Last Vital Signs Temp 36.4 C 09/03/24 07:10 Pulse 74 09/03/24 07:10 Resp 16 09/03/24 07:10 BP 164/62 H 09/03/24 07:10 Pulse Ox 95 09/03/24 07:10 O2 Del Method Room Air 09/03/24 07:10 Allergies Allergy/AdvReac Type Severity Reaction Status Date / Time morphine Allergy Severe SEVERE N/V Verified 09/03/24 07:59 PREFERS NOT TO RECEIVE adhesive Allergy Rash Verified 09/03/24 07:59 ARM AND HAMMER WITH OXYCLEAN Allergy Unknown HIVES ALL Uncoded 09/03/24 07:59 LAUNDRY SOAP OVER BODY Home Medications ?Medication ?Instructions ?Recorded ?Confirmed ?Type aspirin 81 mg tablet,delayed 81 mg PO DAILY #30 tabs 02/20/19 08/27/24 Rx release (Aspir-Low) calcium carbonate 600 mg PO DAILY #90 tabs 02/20/19 08/27/24 Rx cholecalciferol (vitamin D3) 25 1,000 unit PO DAILY #30 caps 02/20/19 08/27/24 Rx mcg (1,000 unit) capsule vitamin B complex (B 1 tablet PO DAILY #30 tabs 02/20/19 08/27/24 Rx Complex-Vitamin B12 tablet) blood sugar diagnostic (Blood #100 ea 02/21/19 08/08/24 Rx Glucose Test strips) ascorbic acid (vitamin C) 1,000 mg 3,000 mg (3 x 1,000 mg) PO DAILY 08/05/19 08/27/24 Rx tablet,extended release #0 tabs cinnamon bark 500 mg capsule 500 mg PO DAILY 12/30/19 08/27/24 History (Cinnamon) coenzyme Q10 10 mg capsule (Co 100 mg PO DAILY 12/30/19 08/27/24 History Q-10) clobetasol 0.05 % shampoo 0.05 ml topical DIRECTED 12/05/21 08/27/24 History simvastatin 10 mg tablet 10 mg PO DAILY #90 tabs 08/06/23 08/27/24 Rx sumatriptan succinate 50 mg tablet See Rx Instructions PO .COMPLEX #9 08/06/23 08/27/24 Rx (Imitrex) tabs azelastine 137 mcg (0.1 %) nasal 137 mcg (0.137 mL) intranasal . 02/04/24 08/27/24 Rx spray q.h.s. chronic seasonal allergic rhinitis #30 mL celecoxib 200 mg capsule 200 mg PO DAILY PRN pain #90 caps 04/03/24 08/27/24 Rx fluticasone propionate 50 1 spray intranasal BID #48 grams 04/03/24 08/27/24 Rx mcg/actuation nasal spray,suspension (Flonase Allergy Relief) ropinirole 0.5 mg tablet 1.5 mg (3 x 0.5 mg) PO QHS #270 04/17/24 08/27/24 Rx tabs omeprazole 40 mg capsule,delayed 40 mg PO DAILY #90 caps 07/30/24 08/27/24 Rx release hydrocodone 5 mg-acetaminophen 325 1 tablet PO Q6H PRN pain #14 tabs 08/07/24 08/27/24 Rx mg tablet hydroxyzine HCl 25 mg tablet 25 mg PO BID PRN itching #20 tabs 08/08/24 08/27/24 Rx olmesartan 20 mg tablet (Benicar) 20 mg PO DAILY #90 tabs 08/08/24 08/27/24 Rx triamcinolone acetonide 0.025 % 1 applic topical DAILY PRN itching 08/08/24 08/27/24 Rx topical cream #80 grams gabapentin 300 mg capsule See Rx Instructions PO .COMPLEX 08/28/24 Rx #270 caps Patient hx anesthesia problems: none Family hx anesthesia problems: none Results Review: All pre-operative results and documents have been reviewed as part of the pre- operative evaluation. [facility] Past Medical History Medical History Triple negative malignant neoplasm of breast CKD (chronic kidney disease) Vitamin D deficiency Basal cell carcinoma Rectal vaginal fistula Rotator cuff arthropathy Prolapsed bladder Restless legs syndrome Surgical History Surgical History H/O craniotomy (~03/2022) H/O toe surgery 11/2021 History of cholecystectomy H/O: hysterectomy Family History Family History Mother Hypertension Heart disease Father , age 92 No problems noted. Social History Social History Social History: 2 cups of caffeine daily Smoking packs per day: 0 Smoking cigarettes per day: 0.0 Years smoked: 0 Smoking pack-years: 0.00 Smoking status: Never smoker Second hand tobacco smoke exposure: No Alcohol intake: former Alcohol use details: rarely Substance use: never Substance use type: does not use Do You Feel Safe in your Home?: Yes Lack of Transportation: No Lack of Food: Never True Current Housing: Decline to Answer Concerned About Future Housing: Decline to Answer Difficulty Paying Gas/Electric Bills: Decline to Answer Difficulty Paying for Meds: Decline to Answer Currently Unemployed: Decline to Answer Education: High School Diploma/GED Difficulty w/ Childcare or Family Care: Decline to Answer Living arrangements: alone Additional living arrangements comments: Spiritual care concerns: No Anes - Eval Final PreProcedure Day of Procedure 09/03/24 08:20 Patient weight: overweight Heart: regular rate and rhythm Lungs: clear to auscultation Airway: Mallampati scale class II Neurological: alert and oriented Last oral intake: >/= 8 hours ASA classification: III Emergent: no Anesthetic plan: proceed Anesthesia type and monitoring: general LMA and standard monitoring Results Review: All pre-operative results and documents have been reviewed as part of the pre- operative evaluation. Informed Consent: The patient's anesthetic plan and its attendant risks and benefits were discussed with the patient/family/POA. Questions were solicited and answers provided to the satisfaction of the patient/family/POA.
[2024-09-03] MEDS: ceFAZolin 2 GM/D5W 50 ML 2 GM/50 ML BAG IVPB (08:36)
[2024-09-03] MEDS: BUPIVACAINE/EPINEPHRINE 0.5% 10 ML VIAL 30 ML INFILTRATE (08:54)
--- NOTE | 2024-09-03 10:56 | W.PM.PROC2 ---
Procedure Note - Detailed Date of Procedure 09/03/24 Pre-op Diagnosis delayed wound healing, previous breast CA, radiation and abscess Post-op Diagnosis Same Procedure Performed 1. Right total mastectomy (CPT 80131) 2. Application skin substitute graft 100cm2 to trunk (CPT 89892) Surgeon Eli Pires MD Anesthesia General Description of Procedure Patient was identified in the preoperative holding area and brought to the operating room suite. She was laid supine in the OR table sequential compression devices were applied. General anesthesia was induced without difficulty. The right chest area was prepped and draped in a sterile fashion. A fish mouth incision encompassing the nipple areola complex was made using a 10 blade, and dissection was then carried out in the thin areolar tissue between the subcutaneous and the breast tissue, superiorly to the? inferior border of the clavicle, medial to the lateral aspect of the sternal border, laterally to the latissimus dorsi, and inferior to the inframammary fold down to the muscle. The? breast tissue along with the pectoralis fascia was then carefully dissected off the pectoralis muscle posteriorly.? Once the entire breast was excised, it was oriented with a short stitch superior and a long stitch lateral and sent to pathology as a fresh specimen. The cavity was irrigated and hemostasis was assured. A flat drain was placed on top of the pectoralis muscle and secured to the skin with a silk suture. The tissue throughout appear healthy with no areas of necrotic tissue or decreased perfusion. I did then excised the extra skin superiorly and inferiorly so that the mastectomy flap incision was nice and flat once closed. Given the previous recent history of radiation I also used micro matrix powder that was sprinkled throughout the pectoralis muscle (a 1000 mg xenograft powder, reference [id number], lot [id number]) and AmnioExcel (10cm x10cm, reference number 79365, lot [id number]) was used along the skin edges and subcutaneous tissue again to optimize healing. The deep dermal layer was closed with interrupted 3-0 Vicryl and the skin was then closed with 4-0 Monocryl in a subcuticular fashion. Dermabond was applied followed by ABD pads and a binder. Patient was awoken from anesthesia and taken to the recovery area in stable condition. All needles, instruments, and sponge counts were correct as reported by the operating room staff. Patient tolerated the procedure well with no immediate complications. Estimated Blood Loss 25 Drains Yes Pathology Yes Complications No immediate complications Condition Stable Disposition PACU [facility] Billing Surgery - Charge Forward: Surgery Billing (CPT 71210, 93402)
[2024-09-03] MEDS: fentaNYL CITRATE INJ (*CRX) 100 MCG/2 ML VIAL 25 MCG IV PUSH ×4 (11:13→11:38)
[2024-09-03] MEDS: HYDROmorphone HCL INJ (*CRX) 1 MG/ML SYR IV PUSH ×2 (12:38→17:00)
[2024-09-03] MEDS: LACTATED RINGERS 1,000 ML 100 ML IV CONT (14:23)
[2024-09-03] MEDS: FLUTICASONE PROPIONATE 0.05% NA SPR 16 GM BTL (*BKC) 1 SPRAY NASAL (16:36)
[2024-09-03] MEDS: DOCUSATE SODIUM 100 MG CAPSULE PO (16:36)
[2024-09-03] MEDS: HYDROcodone/acetaminophen (*CRX) 5-325 MG TABLET 1 TAB PO (19:00)
[2024-09-03] MEDS: GABAPENTIN 300 MG CAPSULE 600 MG PO (20:47)
[2024-09-03] MEDS: AZELASTINE HCL NASAL 0.1% 137 MCG/SPR 30 ML BTL NASAL (20:48)
[2024-09-03] MEDS: SIMVASTATIN 10 MG TABLET PO (20:48)
[2024-09-03] MEDS: rOPINIRole HCL 0.5 MG TABLET 1.5 MG PO (20:48)
[2024-09-04] VITALS: BP 109/51; PULSE 49; RESP 16; TEMP 36.3; O2SAT 95
[2024-09-04] MEDS: HYDROcodone/acetaminophen (*CRX) 5-325 MG TABLET 1 TAB PO ×2 (03:03→08:34)
[2024-09-04 07:20] VITALS: BP 100/47; PULSE 62; RESP 16; TEMP 36.9; O2SAT 95
--- NOTE | 2024-09-04 08:06 | PM.DS ---
DS: Admitting Diagnosis Discharge Date 09/04/2024 Admitting Diagnosis Previous history of right breast cancer status post lumpectomy, adjuvant chemotherapy and radiation. Delayed wound healing after mastitis DS: Discharge Diagnosis Discharge Diagnosis Plan - discharge home today - drain care - follow-up in 1 week DS: Summary Hospital Course Reason for hospitalization: for observation post-op Hospital Course: patient underwent a right total mastectomy on September 03 and was admitted overnight for observation. Patient did well overnight with no acute events. Her pain is well controlled today on p.o. pain medication. She is tolerating a regular diet and ambulating with minimal assistance. She was deemed ready for discharge on postop day 1. Time spent discussing smoking cessation with patient: 3 to 10 minutes Status at Discharge Functional status at discharge: uses cane/walker Time Spent with Patient Time attestation: Total time spent providing and/or coordinating discharge services: Time spent: Less than 30 minutes Exam Const: General: comfortable and no acute distress Eyes: General: appearance normal, both eyes and all related structures Neck: Neck: supple Resp: Effort & Inspection: normal respiratory effort Cardio: Rate: regular rate GI: GI Palp: Yes Soft to palpation Skin: Other: Right mastectomy incision is closed with no open wounds or bleeding. Mastectomy flap is well perfused throughout and viable. No ecchymosis noted. No erythema induration noted. Drain has scant very light serous sanguinous fluid. Extrem: General: normal to inspection Psych: Mental Status: mental status grossly normal DS: Data Data Completed and Pending Pending studies at discharge: Pending at discharge 09/03/24 09:57 Surgical [PTH] Routine Surgical [PTH] Routine Surgical [PTH] Routine Discharge Plan Discharge Patient Disposition: Home Discharge Instructions: Eli Pires MD [facility] [address] [place], [place] [id number] Mastectomy Post-operative Discharge Instructions Diet: As tolerated Activity: Avoid overhead movements with the affected arm/side for 2 weeks. You should walk at least 3-4 times daily, but do not exert yourself. Ok to go up and down stairs. Dressing: Wear the compression bandage or compression bra at all times, including at night while sleeping. Ok to remove for shower. Showering: No showers or baths while drain is in place. Ok for sponge baths. Drain Care: Strip the drain tubing at least once a day, and empty drain. Record the drain output and bring record to your follow up visit. Follow Up: Return to the office in 1 week for post-op follow up visit. Call the office with any questions or concerns in the meantime. If after hours, please call the novelty twister operator to be connected to the surgeon. If you have an emergency , call 911 or go to the nearest ER. Patient Language: Polish Stand Alone Forms: General Discharge Instructions Discharge Medications: New docusate sodium 100 mg Capsule 100 mg PO BID Qty: 20 0RF hydrocodone-acetaminophen 7.5-325 mg Tablet 1 tablet PO Q4H PRN (Reason: Pain Rated 7-10) Qty: 20 0RF Continued coenzyme Q10 [Co Q-10] 10 mg capsule 100 mg PO DAILY cinnamon bark [Cinnamon] 500 mg capsule 500 mg PO DAILY clobetasol 0.05 % shampoo 0.05 ml topical DIRECTED hydroxyzine HCl 25 mg tablet 25 mg PO BID PRN (Reason: itching) Qty: 20 0RF olmesartan [Benicar] 20 mg tablet 20 mg PO DAILY Qty: 90 3RF triamcinolone acetonide 0.025 % cream 1 applic topical DAILY PRN (Reason: itching) Qty: 80 0RF ascorbic acid (vitamin C) 1,000 mg tablet extended release 3,000 mg PO DAILY Qty: 0 0RF simvastatin 10 mg tablet 10 mg PO DAILY Qty: 90 3RF Patient Comments: HS sumatriptan succinate [Imitrex] 50 mg tablet See Rx Instructions PO .COMPLEX Qty: 9 3RF Rx Instructions: take 1 tab at onset of headache; if no relief may repeat 1 tab after at least 2 hrs; max = 4 tabs/24 hr PO calcium carbonate 600 mg calcium (1,500 mg) tablet 600 mg PO DAILY Qty: 90 0RF vitamin B complex [B Complex-Vitamin B12] Tablet 1 tablet PO DAILY Qty: 30 0RF cholecalciferol (vitamin D3) 1,000 unit capsule 1,000 unit PO DAILY Qty: 30 0RF aspirin [Aspir-Low] 81 mg tablet,delayed release (DR/EC) 81 mg PO DAILY Qty: 30 0RF Patient Comments: HOLD 7 DAYS prior (DME) Blood Glucose Test Strip See Rx Instructions .ROUTE .MEDSUPPLY Qty: 100 0RF Rx Instructions: use to test blood sugar daily azelastine 137 mcg (0.1 %) spray,non-aerosol 137 mcg intranasal . q.h.s. Qty: 30 3RF Rx Instructions: administer into each nostril 1 or 2 sprays each nostril q.h.s. at bed celecoxib 200 mg capsule 200 mg PO DAILY PRN (Reason: pain) Qty: 90 1RF Patient Comments: aware to check with Dr Elizondo if ok to take preop fluticasone propionate [Flonase Allergy Relief] 50 mcg/actuation spray,suspension 1 spray intranasal BID Qty: 48 1RF Rx Instructions: administer into each nostril ropinirole 0.5 mg tablet 1.5 mg PO QHS Qty: 270 3RF omeprazole 40 mg capsule,delayed release(DR/EC) 40 mg PO DAILY Qty: 90 0RF gabapentin 300 mg capsule See Rx Instructions PO .COMPLEX Qty: 270 1RF Rx Instructions: orally; take 1 cap in the AM and 2 cap at bedtime; Discontinued hydrocodone-acetaminophen 5-325 mg tablet 1 tablet PO Q6H PRN (Reason: pain) Qty: 14 0RF
[2024-09-04] MEDS: CALCIUM CARBONATE (TUMS) 500 MG (200 MG ELEMENTAL) 600 MG PO (08:30)
[2024-09-04] MEDS: VITAMIN B COMPLEX CAPSULE 1 CAP PO (08:33)
[2024-09-04] MEDS: CHOLECALCIFEROL 1,000 UNITS TABLET 1000 UNITS PO (08:33)
[2024-09-04] MEDS: DOCUSATE SODIUM 100 MG CAPSULE PO (08:34)
[2024-09-04] MEDS: PANTOPRAZOLE 40 MG TABLET PO (08:34)
[2024-09-04] MEDS: AZELASTINE HCL NASAL 0.1% 137 MCG/SPR 30 ML BTL NASAL (08:36)
[2024-09-04] MEDS: FLUTICASONE PROPIONATE 0.05% NA SPR 16 GM BTL (*BKC) 1 SPRAY NASAL (08:37)
[2024-09-04] MEDS: GABAPENTIN 300 MG CAPSULE PO (08:45)
== END 2024-09-04 09:51 | disposition home or self-care (01) ==
LOC: ANHSURGERY 07:34 → ANHOB2 12:28
PROVIDERS: PCP Internal Medicine; Visit Provider Surgery
PROC: (CPT 19307; principal; 2024-09-03 09:00)
DX: N61.1 Abscess of the breast and nipple (principal); N18.9 Chronic kidney disease, unspecified; E55.9 Vitamin D deficiency, unspecified; G25.81 Restless legs syndrome; Y83.8 Other surgical procedures as the cause of abnormal reaction of the patient, or of later complication, without mention of misadventure at the time of the procedure; Z79.82 Long term (current) use of aspirin; Z79.1 Long term (current) use of non-steroidal anti-inflammatories (NSAID); Z79.891 Long term (current) use of opiate analgesic; Z98.890 Other specified postprocedural states; Z90.49 Acquired absence of other specified parts of digestive tract; Z92.3 Personal history of irradiation; Z92.21 Personal history of antineoplastic chemotherapy; Z85.3 Personal history of malignant neoplasm of breast; Z85.828 Personal history of other malignant neoplasm of skin; Z82.49 Family history of ischemic heart disease and other diseases of the circulatory system
CPT/HCPCS: 19303; 15273; 88307; 93005; 99199; A9270; C1713; J0690; J1100; J1171; J2704; J3010; J7120; Q4118; Q9968

== ENCOUNTER 2024-10-01 13:20 | Outpatient (CLI) | payer MEDICARE, SELFPAY ==
[2024-10-01 13:36] LABS: Basophils Absolute Auto 0.1 K/mm3 (0.0-0.1); Basophils Percent Auto 0.7 % (0.2-1.2); Eosinophils Absolute Auto 0.5 K/mm3 (0-0.3); Eosinophils Percent Auto 5.9 % (0-4.4); Hematocrit 34.1 % (37.0-47.0); Hemoglobin 11.4 g/dL (12.0-15.0); Immature Granulocyte Absolute 0.04 K/mm3 (0.00-0.031); Immature Granulocyte Percent A 0.5 % (0-0.5); Lymphocytes Absolute Auto 1.51 K/mm3 (0.9-3.2); Lymphocytes Percent Auto 18.3 % (18.3-44.2); Mean Corpuscular HGB Conc 33.4 g/dl (32-36); Mean Corpuscular Hemoglobin 34.4 pg (26-34); Neutrophils Absolute Auto 5.2 K/mm3 (1.3-6.7); Neutrophils Percent Auto 62.6 % (45.5-73.1); Platelet Count Result 290 k/mm3 (150-375); Red Blood Count 3.31 M/mm3 (4.2-5.4); Red Cell Distribution Width 12.3 % (11.5-14.5); White Blood Count 8.2 K/mm3 (4.5-10.0)
--- OUTSIDE RECORDS SUMMARY | 2024-10-01 14:57 | XMS_ITS | Encounter Summary ---
Author Organization [facility] [employer] Address [address] [place] [address] Care Team Providers Care Roustabout Head Name Role Phone Atif Cartagena Primary Care Provider Encounter Details Date Type Department Care Team (Late Contact Info) Description 09/29/2024 Orders Only [facility] Oncology and [facility] [address] [place] [address] Kwadwo Barrios MD [address] [place] [address] [employer] [address] [place] [address] Malignant neoplasm of upper-outer quadrant of [...] 1:00 PM CDT Office Visit [facility] Oncology and Hematology [facility] [address] [place] [address] [place] [address] [place] [address] [employer] [address] [place] [phone] documented as of this encounter Visit Diagnoses Diagnosis Malignant neoplasm of upper-outer quadrant of right breast in female, estrogen receptor negative (CMS/HCC) documented in this encounter Care Teams Roustabout Head Relationship Specialty Start Date End Date Atif Cartagena DO [address] [address] PCP - General Internal Medicine 03/15/22 documented as of this encounter
--- OUTSIDE RECORDS SUMMARY | 2024-10-01 14:57 | XMS_ITS | Clinical Summary ---
Author Organization [facility] Address [address] [place] [address] Phone Care Team Providers Care Flooring Grader Name Role Phone CarlosAtif edouard Primary Care Provider [phone] Allergies Active Allergy Reactions Criticality Noted Date [...] 2024 Insurance [employer] MED[employer]ARE ADVANTAGE Care Teams Flooring Grader Relationship Specialty Start Date End Date Atif Cartagena DO [address] [place] [address] PCP - General Internal Medicine 09/02/20
--- OUTSIDE RECORDS SUMMARY | 2024-10-01 14:57 | XMS_ITS | Clinical Summary ---
Author Organization [facility] Address [address] [place] [address] Care Team Providers Care R&D Lab Technician Name Role Phone UrmilaAtif waldron Christiano Primary [...] daily. Active fluticasone propionate (FLONASE) 50 mcg/spray [place], Suspension nasal inhaler Administer 1 [place] in each nostril 1 time daily as [...] times daily. 60 Capsule 04/07/2022 1:21 PM PROVIDER SCRIBE 2 Active simvastatin (ZOCOR) 10 mg tablet [...] Encounters Date Type Department Care Team Description 09/29/2024 Orders Only [facility] Oncology and Hematology - [place] [address] [place] [address] Kwadwo Barrios MD Malignant neoplasm of upper-outer quadrant of right breast in female, estrogen receptor negative (CMS/HCC) 09/15/2024 [facility] Oncology and Hematology - [place] [address] Kwadwo Barrios MD Malignant neoplasm of upper-outer quadrant of right breast in female, estrogen receptor negative (CMS/HCC) 09/04/2024 External Device Data STL ABSTRACTION Provider, Abstract 09/03/2024 External Device Data STL ABSTRACTION Provider, Abstract 09/01/2024 Orders Only [facility] Oncology and Hematology - [place] [address] [place] [phone] Kwadwo Barrios MD Malignant neoplasm of upper-outer quadrant of right breast in female, estrogen receptor negative (CMS/HCC) 08/18/2024 Orders Only [facility] Oncology and Hematology - [place] [address] Kwadwo Barrios MD Malignant neoplasm of upper-outer quadrant of right breast in female, estrogen receptor negative (CMS/HCC) 08/04/2024 Orders Only [facility] Oncology and Hematology - [place] [address] [place] [id number] Kwadwo Barrios MD Malignant neoplasm of upper-outer quadrant of right breast in female, estrogen receptor negative (CMS/HCC) 07/21/2024 Orders Only [facility] Oncology and Hematology - [place] [address] Kwadwo Barrios MD Malignant neoplasm of upper-outer quadrant of right breast in female, estrogen receptor negative (CMS/HCC) 07/07/2024 Orders Only [facility] Oncology and Hematology - [place] [address] [place] [id number] Kwadwo Barrios MD Malignant neoplasm of upper-outer [...] Comments Blood Pressure 129/69 06/11/2024 12:59 PM PROVIDER SCRIBE Pulse 80 06/11/2024 12:59 PM PROVIDER SCRIBE Temperature 36.4 C (97.5 F) 06/11/2024 12:59 PM PROVIDER SCRIBE Respiratory Rate 15 06/11/2024 12:59 PM PROVIDER SCRIBE Oxygen Saturation 93% 06/11/2024 12:59 PM PROVIDER SCRIBE Inhaled Oxygen Concentration - - Weight 58.5 kg (129 lb) 06/11/2024 12:59 PM PROVIDER SCRIBE Height 149.9 cm (4' 11) 08/08/2023 3:01 PM CDT Body Mass Index 26.05 08/08/2023 3:01 PM CDT Plan of Treatment Upcoming Encounters Date Type Department Care Team (Late st Contact Info) Description 10/09/2024 1:00 PM CDT Office Visit [facility] Oncology and Hematology - [place] [address] [facility] [address] [place] [address] Kwadwo Barrios MD [address] [facility] [address] [place] [address] Health Maintenance Due Date Last [...] 04/04/2022 INFLUENZA VACCINE (#1) 2023 Medicare Advantage (NE) Prev entative Visit/Annual Wellness Visit 04/16/2024 Medical Devices Implanted Type Area Replacer Device Identifier Shelf Expiration Date Model / Serial / Lot Hemostatic Surgiflo 8ml W/ Thrombin 2994 - [id number] Implanted:Qty : 1 on 04/03/2022 by Anthony Mendoza MD at [facility] Hemostatic N/A: Spine Cervical Posterior [employer] 05/16/2023 [id number] / / [id number] Procedures Procedure Name Priority Date/Time Associated Diagnosis Comments HEMOGLOBIN A1C Routine 04/04/2022 4:18 AM PROVIDER SCRIBE from Last 3 Months or Most Recently Relevant to Health Maintenance Results * (ABNORMAL) HEMOGLOBIN A1C (04/04/2022 4:18 AM PROVIDER SCRIBE) HEMOGLOBIN A1C 6.6(H) <=5.6 % 04/04/2022 8:17 AM PROVIDER SCRIBE [facility] EST. AVG GLUCOSE, A1C 143 mg/dL 04/04/2022 8:17 AM PROVIDER SCRIBE [facility] Blood Venipuncture / Unknown 04/04/2022 4:18 AM PROVIDER SCRIBE 04/04/2022 4:24 AM PROVIDER SCRIBE Narrative [facility] [employer] [facility] - 04/04/2022 8:17 AM PROVIDER SCRIBE HGB A1C INTERPRETATION NORMAL: <5.7% PRE-DIABETES: 5.7 - 6.4% DIABETES: 6.5% OR GREATER us Rubina Rosario MD CHEMISTRY ORDERABLES Final Resul t [facility] CLIA# [id number] [place] [address] from Last 3 Months or Most Recently Relevant to Health Maintenance Insurance AETNA [facility] RX AETNA Medicare Part D RX [employer] (INTERNAL) [facility] Plans [employer] [facility] Advance Directives For more information, please contact: [phone] * Full Code (Latest Code Status on File) Date Activated Date Inactivated Comments 04/03/2022 2:48 PM 04/07/2022 5:46 PM Care Teams R&D Lab Technician Relationship Specialty Start Date End Date Atif Cartagena DO [address] [address] PCP - General Internal Medicine 03/15/22
--- OUTSIDE RECORDS SUMMARY | 2024-10-01 14:57 | XMS_ITS | Continuity of Care Document ---
Author Organization [facility] Address [address] [place] [address] Phone Care Team Providers Care Supervisor Firearms Name Role Phone Santi Leigh DO Unavailable Unavailable Advance Directives Directive Yes / No Effective Date File Name No Information Encounters Encounter Description Practice Location Reason(s) For Visit Diagnoses Date Provider Providers Copied on Encounter [facility], [address], [place], [place], [id number], tel:[phone] [facility] No Information Lu Manuel. [address] [place], [address], [place]. tel: [phone] Family History Family Member Type Diagnosis Age At Onset No Information Payers Payer name Insurance type Covered alliance party ID Authoriza tion(s) [place] [id number] Social History Type Description Quantity Date Captured [...]
--- OUTSIDE RECORDS SUMMARY | 2024-10-01 14:58 | XMS_ITS | Continuity of Care Document ---
Author Organization [facility] Address [address] [place] [address] Phone Care Team Providers Care Pallet Rectifier Name Role Phone Doser DPMason Valdivia DPM Unavailable Unavailab le Allergies, Adverse Reactions, Alerts Substance Reaction Status Criticality morphine Other Active No Information Medications Medication Instructions Dosage Effective Dates (start - stop) Status Comments [place] 5 mg-325 mg tablet take 1 tablet [...] exam foot, minimum 3 views 2021 Office/outpatient visit,[facility] [place] Advance Directives Directive Yes / No Effective Date File Name No Information Encounters Encounter Description Practice Location Reason(s) For Visit Diagnoses Date Provider Providers Copied on Encounter [facility], [address] [address], [place], [place], [id number], [place] tel:[phone] [facility] bulk picker orthotics (chief complaint) No Information 2 2 Doser DPM Mason. [address] [address], [place], [place], [id number] , [place]. tel:[phone] Referring Provider: Mason Mckeon DPM A, [address] [place] [address], [place], [address] . tel:[phone] [facility], [address] [place] [address], [place], [place], [id number], [place] tel:[phone] [facility] No Information 0 2 Doser DPM Mason. [address] [place] [address], [place], [place], [id number] , [place]. tel:[phone] [facility], [address] [place] [address], [place], [id number], [place] tel:[phone] [facility] Pain in left footOther acquired hammer toes of left foot Aug-0 2 Doser DPM Mason. [address] [place] [address], [place], [place], [id number] , [place]. tel:[phone] Referring Provider: Mason Doser CHENTE A, [address] [place] [address], [place], [address] . tel:[phone] [facility], [address] [place] [address], [place], [id number], [place] tel:[phone] [facility] No Information 0 2 Doser DPM Mason. [address] [place] [address], [place], [place], [id number] , [place]. tel:[phone] Referring Provider: Mason Saucedor JELENAM A, [address] [place] [address], [place], [address] . tel:[phone] [facility], [address] [place] [address], [place], [id number], tel:[phone] [facility] Other acquired hammer toes of left footPain in left foot 2 Doser DPM Mason. [address] [facility] [address], [place], [place], [id number] , [place]. tel:[phone] Referring Provider: Mason Mckeon DPM A, [address] [place] [address], [place], [address] . tel:[phone] [facility], [address] [address], [place], [place], [id number], [place] tel:[phone] [facility] Follow Up of left foot sx 09/26/21 (chief complaint) Pain in left footOther acquired hammer toes of left foot 2 Doser DPM Mason. [address] [place] [address], [place], [place], [id number] , [place]. tel:[phone] Referring Provider: Mason Mckeon DPM A, [address] [address], [place], [address] . tel:[phone] [facility], [facility] [address], [place], [place], [id number], [place] tel:[phone] [facility] Pain in left foot 2 Doser DPM Mason. [address] [place] [address], [address] [address], [place], [place], [id number] , [place]. tel:[phone] Referring Provider: Mason Mckeon DPM A, [address] [address], [place], [address] . tel:[phone] [facility], [address] [place] [address], [id number], [place] tel:[phone] [facility] No Information 0 2 Doser DPM Mason. [address] [place] [address], [address] [address], [place], [place], [id number] , [place]. tel:[phone] Referring Provider: Mason Cardona, [address] [facility], [place], [address] . tel:[phone] Office/outpat ient visit,new, mod [facility], [address], [place], [place], [id number], [place] tel:[phone] [facility] Toes (chief complaint) Pain in left footOther acquired hammer toes of left foot 2 Doser CHENTE Cuevas. [address] [facility] [address], [place], [place], [address] , [place]. tel:[phone] Referring Provider: Mason Cardona, [address], [place], [address] . tel:[phone] Family History Family Member Type Diagnosis Age At Onset Brother Problem (finding) Gout Mother Problem (finding) Osteoarthritis Mother Problem (finding) Hypertension Father Problem (finding) Gout Mother Problem (finding) Heart Disease Father Problem (finding) Osteoarthritis Brother Problem (finding) Hypertension Payers Payer name Insurance type Covered libertarian ID Mary nelson(s) Aetna Medicare [place] [id number] Social History Type Description Quantity Date Captured Comments Alcohol Use Details Unknown Caffeine Use Details Unknown Tobacco Use Status Current non-smoker Smoking Status Never smoker Sex Female Chief Complaint And Reason For Visit From encounter dated '12/06/2021 13:25'. bulk picker orthotics (chief complaint) Reason For Referral Reason For Referral No Information Plan Of Treatment Date Type Action Status Referral Ordered: X-ray exam foot, minimum 3 views LT ordered History Of Present Illness Encounter Date Complaint History Of Prese nt Illness bulk picker orthotics Follow Up of left foot sx 2 Toes Functional Status Date Functional Assessmen t No Information Instructions Date Instruction Additional Infor mation No Information Assessments Type Assessment Date No Information Patient Care Teams Name Effective Dates (start - stop) Status Members No Information
--- OUTSIDE RECORDS SUMMARY | 2024-10-01 14:58 | XMS_ITS | Encounter Summary ---
Author Organization [facility] Address [address] [place] [address] Care Team Providers Care Pensionholder Information Clerk Name Role Phone Atif Cartagena DO Primary Care Provider Reason for Visit * Reason Onset Date Comments Post op 04/03/2022 Spoke w/Grace at Dr. Melvin's exchange/BOILERMAKER Franky communications project lead Encounter Details Date Type Department Care Team ([facility] Contact Info) Description 04/03/2022 Telephone [facility] [address] [place] [address] Anthony Mendoza MD [address] [place] [address] Post op (Spoke w/Grace at Dr. Melvin'kalyn exchange/BOILERMAKER Franky communications project lead) Social History Tobacco Use Types Packs/Day Years [...] Coronavirus/COVID-19? No / Unsure 04/03/2022 8:20 AM WATER FILTERER documented as of this encounter Plan of Treatment Upcoming Encounters Date Type Department Care Team ([facility] Contact Info) Description 10/09/2024 1:00 PM CDT Office Visit [facility] Oncology and Hematology - [address] [address] Kwadwo Barrios MD [address] [facility] [address] [facility] [address] [place] [address] documented as of this encounter Visit Diagnoses Not on filedocumented in this encounter Additional Health Concerns Infection Onset Date Last Indicated Resolved Time R/O COVID-19 04/05/2022 04/05/2022 04/05/2022 1:59 PM WATER FILTERER documented as of this encounter Care Teams Pensionholder Information Clerk Relationship Specialty Start Date End Date Atif Cartagena DO [address] [place] [address] PCP - General Internal Medicine 03/15/22 documented as of this encounter
--- OUTSIDE RECORDS SUMMARY | 2024-10-01 14:58 | XMS_ITS | Clinical Summary ---
Author Organization [facility] Address [address] [facility] [place] [address] Care Team Providers Care Comptometer Operator Name Role Phone Robert Celis MD Primary Care Provider [phone] Source Comments [facility],non-owned Affiliates and Associated Physician Practices is amultiple site organization consisting of ambulatory clinics and hospital sitesin [place], [place], [place] and [place]. This disclosure is being madepursuant to the Care Everywhere program and may not contain all information available regarding this patient. Last updated 18.[facility] [employer] Allergies Active Allergy Reactions Criticality Noted Date [...] (TYLENOL) 500 MG tabletIndicatio ns:RA (rheumatoid arthritis) ([facility]) Take 2 Tabs by mouth 3 times daily. Maximum allowable Acetaminophen amount = 4 Grams (4000 mg) / 24 hours. 02/03/20 14 Active celecoxib (CELEBREX) 200 MG capsuleIndicati ons:RA (rheumatoid arthritis) ([facility]) Take 1 Cap by mouth [...] 5/8 1 ML MISCIndications :RA (rheumatoid arthritis) ([facility]) Inject 1 mL subcutaneously every 7 days. 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 Gender Identity Not on file Sexual Orientation [...] A M CDT Height 149.9 cm (4' 11) 08/01/2017 9:58 AM CDT Body Mass Index 31.02 08/01/2017 9:58 AM CDT Plan of Treatment Health Maintenance Due Date Last Done Comments BONE DENSITY TESTING 1938 DTAP/TDAP/TD VACCINES (1 - Tdap) 1957 PNEUMOCOCCAL VACCINE 50+ (1 of 1 - PCV) 1988 ZOSTER VACCINE (1 of 2) 1988 Respiratory Syncytial Virus (RSV) Vaccine Pt: or over 60 yrs (1 - 1-dose 75+ series) 2013 COVID-19 VACCINE (1 - 2023-2 5 season) 2023 DEPRESSION SCREENING 04/16/2024 MEDICARE AWV CALENDAR [...] patient's age to complete this topic Insurance [facility] AETNA T MEDICARE ADV SELF PAY NO INSURANCE Member Subscriber Plan / Payer (Ef fective for All Dates) Name:Dagoberto San Member ID:Not on file Relation to Subscriber:Not on file Name:DAGOBERTO SAN Subscriber ID:Not on file (Home) Address: [address] [place] [address] Payer ID:Not on file Group ID:Not on file Type:Self Pay Address: [place], [place] [facility] MEDICARE ADV SELF PAY NO INSURANCE Member Subscriber Plan / Payer (Ef fective for All Dates) Name:Dagoberto San Member ID:Not on file Relation to Subscriber:Not on file Name:DAGOBERTO SAN Subscriber ID:Not on file Address: [address] [place] [address] Payer ID:Not on file Group ID:Not on file Type:Self Pay Address: [place], [place] A[employer]NA MEDICARE ADV SELF PAY NO INSURANCE Member Subscriber Plan / Payer (Ef fective for All Dates) Name:Dagoberto San Member ID:Not on file Relation to Subscriber:Not on file Name:DAGOBERTO SAN Subscriber ID:Not on file Address: [address] [place] [address] Payer ID:Not on file Group ID:Not on file Type:Self Pay Address: [place], [place] A[employer]NA MEDICARE ADV SELF PAY NO INSURANCE Member Subscriber Plan / Payer (Ef fective for All Dates) Name:Dagoberto San Member ID:Not on file Relation to Subscriber:Not on file Name:DAGOBERTO SAN Subscriber ID:Not on file Address: [address] [place] [address] Payer ID:Not on file Group ID:Not on file Type:Self Pay Address: [place], [place] * Guarantor: DAGOBERTO SAN Account Type Relation to Patient Date of Phone Billing Address Personal/Family [address] [place] [address] AETNA MEDICARE ADV SELF PAY NO INSURANCE Member Subscriber Plan / Payer (Ef fective for All Dates) Name:Dagoberto San Member ID:Not on file Relation to Subscriber:Not on file Name:DAGOBERTO SAN Subscriber ID:Not on file Address: [address] [place] [address] Payer ID:Not on file Group ID:Not on file Type:Self Pay Address: [place], [place] * Guarantor: DAGOBERTO SAN Account Type Relation to Patient Date of Phone Billing Address Personal/Family [address] [place] [address] AETNA MEDICARE ADV SELF PAY NO INSURANCE Member Subscriber Plan / Payer (Ef fective for All Dates) Name:Dagoberto San Member ID:Not on file Relation to Subscriber:Not on file Name:DAGOBERTO SAN Subscriber ID:Not on file Address: [address] [place] [address] Payer ID:Not on file Group ID:Not on file Type:Self Pay Address: [place], [place] * Guarantor: DAGOBERTO SAN Account Type Relation to Patient Date of Phone Billing Address Personal/Family [address] [place] [address] AETNA MEDICARE ADV SELF PAY NO INSURANCE Member Subscriber Plan / Payer (Ef fective for All Dates) Name:Dagoberto San Member ID:Not on file Relation to Subscriber:Not on file Name:DAGOBERTO SAN Subscriber ID:Not on file Address: [address] [place] [address] Payer ID:Not on file Group ID:Not on file Type:Self Pay Address: [place], [place] Care Teams Comptometer Operator Relationship Specialty Start Date End Date Robert Celis MD [address] [place] [address] PCP - General Internal Medicine 09/13/12
--- OUTSIDE RECORDS SUMMARY | 2024-10-01 14:58 | XMS_ITS | Clinical Summary ---
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
--- OUTSIDE RECORDS SUMMARY | 2024-10-01 14:58 | XMS_ITS | Encounter Summary ---
Author Organization [facility] Address [address] [facility] [place] [address] Care Team Providers Care Staff Submarine Warfare Officer Name Role Phone Robert Celis MD Primary Care Provider [phone] Encounter Details Date Type Department Care Team (Late st Contact Info) Description 02/11/2014 [facility] David Cuevas MD Social History Tobacco Use Types Packs/Day Years Used Date Smoking Tobacco: Never Smokeless Tobacco: Never Alcohol Use Standard Drinks/Week Comments Yes 0 (1 standard drink = 0.6 oz pur e alcohol) couple times a year Comments Unknown Sex and Gender Information Value Date Recorded Sex Assigned at Not on file 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
--- OUTSIDE RECORDS SUMMARY | 2024-10-01 14:58 | XMS_ITS | Referral Summary ---
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
[2024-10-01 16:56] LABS: Alanine Aminotransferase 18 U/L (6-35); Albumin Level 3.9 g/dL (3.5-5.1); Alkaline Phosphatase 118 U/L (38-126); Anion Gap 8 mmol/L (4-12); Aspartate Amino Transferase 43 U/L (14-36); Bilirubin,Total 0.6 mg/dL (0.2-1.3); Blood Urea Nitrogen 36 mg/dL (7-17); Calcium 9.6 mg/dL (8.4-10.2); Carbon Dioxide 22 mmol/L (22-30); Chloride 106 mmol/L (98-107); Estimated Glomerular Filt Rate 44; Glucose 106 mg/dL (65-110); Potassium 4.8 mmol/L (3.4-5.0); Sodium 136 mmol/L (137-145); Total Protein 7.4 g/dL (6.3-8.2)
[2024-10-03 00:39] LABS: CA 15-3. 15 U/mL (<32)
== END 2024-10-01 13:21 | disposition home or self-care (01) ==
PROVIDERS: PCP Internal Medicine; Visit Provider Internal Medicine Hematology & Oncology
DX: C50.411 Malignant neoplasm of upper-outer quadrant of right female breast (principal); Z17.1 Estrogen receptor negative status [ER-]
CPT/HCPCS: 36415; 80053; 85025; 86300

== ENCOUNTER 2024-12-29 11:19 | Outpatient (CLI) | payer MEDICARE, SELFPAY ==
--- OUTSIDE RECORDS SUMMARY | 2023-08-08 12:30 | XMS_ITS ---
Author Organization [facility] ([address]) Address [address] [place] [address] Care Team Providers Care Seasoning Mixer Name Role Phone Atif Cartagena Primary Care Provider Unavailab Dr. Stefano Stone Unavailable [phone] Araceli Ambrosio Unavailable Unavailable REASON FOR VISIT Headache follow-up Encounters Encounter Location Date Provider Diagnosis [facility] [address] [place] [address] 08/08/2023 Stefano Cramer Plan Of Treatment No Information Progress Notes * Tala SANrobbieDOB: 9 (84 yo F)Acc No.[id number]:08/08/2023 Progress Notes Patient: Jacqueline MADRID Provider: Skip Cramer MD :1940 A ge:83 Y S ex:Female Date:08/08/2023 Address:[address], [id number] Pcp:Atif Cartagena Subjective: * Chief Complaints: * 1 . Headache follow-up. * Medical History: Objective: * Vitals: Assessment: Plan: * Treatment: * Billing Information: * Visit Code: * Procedure Codes: * Electronic signature of Dr. Stefano Cramer MD on 12/29/2024 at 01:26 PM CDT Sign off status: Pending * Provider: Skip Cramer MD Date: 0 08/08/2023 Generated for Suman wilcox/Olga/Ramone on: 0 12/29/2024 01:26 PM GIOVANNYT
--- OUTSIDE RECORDS SUMMARY | 2023-09-13 12:30 | XMS_ITS ---
Author Organization [facility] [employer] [place] ([address]) Address [address] [place] [address] Care Team Providers Care Av Specialist Name Role Phone OsielAtif Primary Care Provider Unavailab Dr. Stefano Stone Unavailable [phone] Araceli Ambrosio Unavailable Unavailable Medications Medication SIG (Take, Route, Frequency, Duration) Notes Start Date End Date Status CINNAMON 500 mg 2 tab(s) orally once a day Active VITAMIN D3 25 mcg 1 tab(s) orally once a day Active CLONAZEPAM 2 mg 1 tab(s) orally daily Active VITAMIN C 1000 mg 1 tab(s) orally once a day Active OMEPRAZOLE 40 mg 1 cap(s) orally once a day Active HYDROCHLOROTHIAZIDE 12.5 mg 1 tab(s) orally two times per week As needed Active SIMVASTATIN 10 mg 1 tab(s) orally once a day (in the evening) Active OLMESARTAN 20 mg 1 tab(s) orally once a day Active ROPINIROLE 0.5 mg 1 tab(s) orally at bedtime Active GABAPENTIN 300 mg 2 cap(s) orally at bedtime Active CALCIUM CARBONATE 600 mg 2 tab(s) orally once a day Active COQ10 100 mg 2 cap(s) orally once a day Active VITAMIN B12 1000 mcg 1 tab(s) orally onc e a day Active ASPIRIN LOW DOSE 81 mg 1 tab(s) orally o nce a day Active Encounters Encounter Location Date Provider Diagnosis [facility] [address] [place] [address] 09/13/2023 Stefano Chamberser 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 Would increase overall dose 09/13/2023 Neuralgia and neuritis, unspecified (ICD-10 - M79.2) She needs higher dose in L levator, L scalene, R trap, needs dosing in R Splenius. Would increase overall dose Plan Of Treatment Next Appt Details Follow Up: 4 Weeks, Reason: Evaluation and Management Progress Notes * Jacqueline SANDOB: 9 (84 yo F)Acc No.[id number]:09/13/2023 Progress Notes Patient: Jacqueline MADRID Provider: Skip Cramer MD :[id number] A ge:83 Y S ex:Female Date:09/13/2023 Address:[facility] [id number] Pcp:Atif Cartagena Subjective: * Chief Complaints: * * HPI: * Introduction: HPI: w jackie presented for follow-up for headaches. * Initial History: INITIAL VISIT HISTORY: LAST VISIT HISTORY:. * Previous Impression & Plan: Notes P revious Diagnoses: 1 ) 2 ) 3 ) P revious Recommendations: 1 ) 2 ) 3 ) . * Interval History: Notes P harmacologic Treatment: C urrent abortive treatment: P revious abortive treatment: C urrent preventive treatment: P revious preventive treatment: M edication overuse: Present/Not present O ther modalities: Chiropractic, Physical Therapy, Acunpuncture, Biofeedback, Migraine devices H eadache Frequency: I nitial/baseline headache/migraine days/month: / L ast visit headache/migraine days/month: / C urrent headache/migraine days/month: / H eadache Scales: H IT-6: Current score: . Prior score: M IDAS: Current score: . Prior score: I nterval History: L ast visit was on . * ROS: A LLERGY: runny nose N o. s cratchy throat N o. i tchy eyes N o. e ar fullness Y es. s inus congestion N o. S PECIAL SENSES: cataracts N o. g laucoma N o. l oss of hearing?No. i tching in ears N o. r inging in ears Y es. l oss of balance N o.?loss of smell N o. d ry eyes N o. e xcessive tearing N o. i tching eyes No. l oss of taste N o. c onjunctivitis N o. e ar infections N o. C ONSTITUTIONAL: night sweats N o. w eight gain N o. l oss of appetite N o. f ever N o. w eakness N o. w eight loss N o. ? E NT: cold N o. c ough N o. e pistaxis N o. h earing loss N o. c hange in voice N o. s ore throat N o. r inging in ears?Yes. s inus pain Y es. R ESPIRATORY: shortness of breath N o. c hest pain N o. c hest congestion N o. c ough N o. O PHTHALMOLOGY: itching N o. s ensitivity to light N o. d ischarge N o. w atering N o. s welling of the eyelids N o. r edness N o. d iminished vision N o. e ye irritation N o. d rainage from eyes N o. b lurring of vision N o. s easonal eye sx N o. E NDOCRINOLOGY: fatigue N o. p olydipsia N o. p olyuria N o. w eight loss N o. s leep disturbance N o. c old intolerance N o. h eat intolerance N o. d iabetes N o. C ARDIOLOGY: dizziness N o. c hest pain N o. p alpitations?No. l eg edema N o. s hortness of breath N o. G ASTROENTEROLOGY: nausea N o. h emorrhoids N o. v omiting N o. d ysphagia N o. a bdominal pain N o. d iarrhea N o. c onstipation N o. b lood in stool N o. U ROLOGY: difficulty urinating N o. b lood in urine N o. f requent urination N o. u rinary incontinence N o. r ecurrent UTI N o. ? D ERMATOLOGY: rash N o. m ole N o. l umps N o. d ry or sensitive skin N o. h radha (urticaria) N o. a cne N o. s kin cancer N o. N EUROLOGY: headache N o. t ingling numbness N o. s eizures?No. i nsomnia N o. m nini loss N o. d izziness N o. g ait abnormality Y es. H EMATOLOGY/LYMPH: Positive for n one. M USCULOSKELETAL: gout N o. j oint stiffness N o. l eg cramps?No. j oint pain N o. j oint swelling N o. s ciatica N o. o steoporosis?No. f racture N o. c arpal tunnel N o. P SYCHOLOGY: depression N o. h igh stress level N o. s leep disturbances N o. s uicidal ideation N o. e ating disorder N o. m ental or physical abuse N o. a nxiety N o. F EMALE REPRODUCTIVE: Are you ? N o. A re you planning on a future pregancy? N o. f requent yeat infections N o. p elvic pain N o. b reast pain?No. n ipple discharge N o. a bnormal vaginal discharge N o. * Medical History: D M2, PIEDAD, HTN, RA, OA, Hypothyroidism, HLD, Osteoporosis, CKD3, GERD/HH, Gout, RLS/PLMD, Cervical dystonia. * Surgical History: C raniotomy and C1/C2 laminectomy . * Family History: F ather: Yes. M other: Yes. S iblings: Yes. C hildren: Yes. * Social History: M arital Status W hat is your marital status? . A lcohol Screening D o you ever drink alcoholic beverages? Yes, Number of drinks per occasion: 2, Frequency? Every 6 months[address] H [address] you ever smoked tobacco: never smoked, Are you a : never smoker. R ecreational drug use H ave you ever used recreational drugs? No. D etails on consumption of certain products? D o you regularly consume products with aspartame; Equal or NutraSweet? Yes, Do you regularly consume products with artificial coloring? Yes, Have you ever noticed worsening of your rash with these food items? No. A re any of the following personal care products containing fragrance, dye or preservatives used regularly? S hampoo: Yes, Conditioner: Yes, Soap: Yes, Laundry Detergent: Yes, Fabric Softener: Yes, Deodorant: Yes, Perfume, cologne, after shave: No, Air freshners or other scented products: No, Hair coloring dyes or rinses: Yes. O ccupation A re you currenly employed? No, Have you had any job with high exposure to fumes, chemicals, dust or other noxious substances? No, Are you currently a student? No.? E nvironmental History L iving environment: private home, Where [place], Age of home: 3, How long have you lived there? 2-4 years, How many people live in the home? 2. H ome description B asement: No, Any water damage in basement? No, Smokers in the home? No, Smokers outside the home? No, Air Conditioning? Yes, Central Air? Yes, Forced air heating? Yes, Gas or electric? gas, Fireplace? No, Wood burning stove? No, Do you vacuum the home? Yes, Air purification systems? No, Pillow and mattress dust-proof encasings? No, Do you use a humidifier? No, Do you own any pets? No, Fabric softeners used? Yes, Plants in the home? No, Is there carpeting in your bedroom? Yes, Age of carpet? 3, Do you have [id number] carpeting? Yes, What is the age of your carpeting? 3, What is the age of your mattress (years)? 1, What material(s) are used to manufacture your bedding and pillow? synthetic, What is the age of your pillow (years)? 11, What material are your bedding items made of? synthetic, Do you sleep with quilts or blankets or a duvet? Yes, What material? synthetic. N on-smoker. * Medications: T aking CINNAMON 500 mg tablet 2 tab(s) orally once a day , Taking VITAMIN C 1000 mg tablet 1 tab(s) orally once a day , Taking VITAMIN D3 25 mcg tablet 1 tab(s) orally once a day , Taking VITAMIN B12 1000 mcg tablet 1 tab(s) orally once a day , Taking COQ10 100 mg capsule 2 cap(s) orally once a day , Taking ASPIRIN LOW DOSE 81 mg delayed release tablet 1 tab(s) orally once a day , Taking CALCIUM CARBONATE 600 mg tablet 2 tab(s) orally once a day , Taking HYDROCHLOROTHIAZIDE 12.5 mg tablet 1 tab(s) orally two times per week As needed, Taking GABAPENTIN 300 mg capsule 2 cap(s) orally at bedtime , Taking ROPINIROLE 0.5 mg tablet 1 tab(s) orally at bedtime , Taking OLMESARTAN 20 mg tablet 1 tab(s) orally once a day , Taking SIMVASTATIN 10 mg tablet 1 tab(s) orally once a day (in the evening) , Taking OMEPRAZOLE 40 mg delayed release capsule 1 cap(s) orally once a day , Taking CLONAZEPAM 2 mg tablet 1 tab(s) orally daily Objective: * Vitals: * Examination: G eneral examination: General appearance: P leasant, well-developed, no distress.? HEENT: S he has limited ROM of neck extension due to prior surgery referenced above. Persistent abnormal neck posture. Head is tilted left, subtly turned right, also mildly head forward. It doesn't look much different than prior to injections. Neurologic exam: A lert and oriented x 4. Fluent speech. CN II-XII intact. Antalgic gait, walks with a cane. Extremities: S he has limited active/passive ROM R shoulder. Assessment: * Assessment: 1. 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 N euralgia and neuritis, unspecified - M79.2 She needs higher dose in L l evator, L scalene, R trap, needs dosing in R Splenius. Would increase overall dose. Plan: * Treatment: * Procedure Codes: 9 6160 PT-FOCUSED HLTH RISK ASSMT, G8427 DOC MEDS VERIFIED W/PT OR RE * Follow Up: 4 Weeks (Reason: Evaluation and Management) * Billing Information: * Visit Code: 32576 Office Visit, Est Pt., Level 4. Modifiers: 04369 Office Visit, Est Pt., Level 3. Modifiers: 25 * Procedure Codes: 59850 PT-FOCUSED HLTH RISK ASSMT. G8427 DOC MEDS VERIFIED W/PT OR RE. * Electronic signature of Dr. Stefano Cramer MD on 12/29/2024 at 01:27 PM CDT Sign off status: Pending * Provider: Sikp Cramer MD Date: 0 09/13/2023 Generated for Suman wilcox/Olga/eTransmitting on: 0 12/29/2024 01:27 PM CDT History and Physical Notes * HPI (History of Present Illness) Category Sub-Category Detail Notes Category Not es *Introduction HPI: who presented fo r follow-up for headaches *Initial History INITIAL VISIT HISTORY: LAST VISIT HISTORY: *Previous Impression & Plan Notes Previous Diagnoses: 1) 2) 3) Previous Recommendations: 1) 2) 3) *Interval History Notes Pharmacologic Treatment:Current abortive treatment:Previous abortive treatment:Current preventive treatment:Previous preventive treatment:Medication overuse: Present/Not presentOther modalities: Chiropractic, Physical Therapy, Acunpuncture, Biofeedback, Migraine devicesHeadache Frequency:Initial/baseline headache/migraine days/month: /Last visit headache/migraine days/month: /Current headache/migraine days/month: /Headache Scales:HIT-6: Current score: . Prior score: MIDAS: Current score: . Prior score: Interval History:Last visit was on Examination Category Sub-Category Detail Notes Category Not es General examination HEENT: She has limi elliot ROM of neck extension due to prior surgery referenced above. Persistent abnormal neck posture. Head is tilted left, subtly turned right, also mildly head forward. It doesn't look much different than prior to injections Extremities: She has limited acti ve/passive ROM R shoulder General appearance: Pleasant, well-devel oped, no distress Neurologic exam: Alert and oriented x 4. Fluent speech. CN II-XII intact. Antalgic gait, walks with a cane
--- OUTSIDE RECORDS SUMMARY | 2023-09-29 16:30 | XMS_ITS ---
Author Organization [facility] [employer] [facility] [employer] ([address]) Address [address] [facility] [address] [place] [address] Care Team Providers Care Engineer Design And Construction Name Role Phone Atif Cartagena Primary Care Provider Unavailab Dr. Stefano Stone Unavailable [phone] Araceli Ambrosio Unavailable Unavailable ZZ-Migration, Provider Unavailable Unavailab le [facility] Conversion Encounter Medications Medication SIG (Take, Route, Frequency, Duration) Notes Start Date End Date Status Olmesartan Medoxomil 20 MG 1 tab(s) oral ly once a day Active Simvastatin 10 MG 1 tab(s) orally once a day (in the evening) Active Gabapentin 300 MG 2 cap(s) orally at bedtime Active rOPINIRole HCl 0.5 MG 1 tab(s) orally at bedtime Active hydroCHLOROthiazide 12.5 MG 1 tab(s) ora lly two times per week Active Vitamin D3 25 MCG 1 tab(s) orally once a day Active Calcium Carbonate 600 MG 2 tab(s) orally once a day Active Co Q 10 100 MG 2 cap(s) orally once a day Active Aspirin Low Dose 81 MG 1 tab(s) orally o nce a day Active B-12 1000 MCG 1 tab(s) orally once a day Active Vitamin C 1000 MG 1 tab(s) orally once a day Active Omeprazole 40 MG 1 cap(s) orally once a day Active clonazePAM 2 MG 1 tab(s) orally daily Active Cinnamon 500 MG 2 tab(s) orally once a day Active Encounters Encounter Location Date Provider Diagnosis [facility] [place] [address] 09/29/2023 Provider CASEY-Jesse Plan Of Treatment No Information Progress Notes * Jacqueline SANDOB: 9 (84 yo F)Acc No.[id number]:09/29/2023 Patient: Jacqueline MADRID Provider: Gracie Molina :1940 A ge:83 Y S ex:Female Date:09/29/2023 Address:[facility] [id number] Pcp:Atif Cartagena Subjective: * Chief Complaints: * 1 . Mult[facility] To Med[facility]pan Conversion Encounter. * Medical History: * Medications: T aking Cinnamon 500 MG Tablet 2 tab(s) orally once a day , Taking Vitamin C 1000 MG Tablet 1 tab(s) orally once a day , Taking Vitamin D3 25 MCG Tablet 1 tab(s) orally once a day , Taking B-12 1000 MCG Tablet 1 tab(s) orally once a day , Taking Co Q 10 100 MG Capsule 2 cap(s) orally once a day , Taking Aspirin Low Dose 81 MG Tablet Delayed Release 1 tab(s) orally once a day , Taking Calcium Carbonate 600 MG Tablet 2 tab(s) orally once a day , Taking hydroCHLOROthiazide 12.5 MG Tablet 1 tab(s) orally two times per week , Taking Gabapentin 300 MG Capsule 2 cap(s) orally at bedtime , Taking rOPINIRole HCl 0.5 MG Tablet 1 tab(s) orally at bedtime , Taking Olmesartan Medoxomil 20 MG Tablet 1 tab(s) orally once a day , Taking Simvastatin 10 MG Tablet 1 tab(s) orally once a day (in the evening) , Taking Omeprazole 40 MG Capsule Delayed Release 1 cap(s) orally once a day , Taking clonazePAM 2 MG Tablet 1 tab(s) orally daily Objective: * Vitals: Assessment: Plan: * Treatment: * Billing Information: * Visit Code: * Procedure Codes: * Electronic signature of Laina HackettZ-Migration on 12/29/2024 at 01:27 PM CDT Sign off status: Pending * Provider: Gracie Molina Date: 0 09/29/2023 Generated for Suman wilcox/Olga/Megitting on: 0 12/29/2024 01:27 PM CDT
--- OUTSIDE RECORDS SUMMARY | 2024-12-29 13:27 | XMS_ITS | Clinical Summary ---
Author Organization [facility] Address [address] [place] [address] Phone Care Team Providers Care Emergency Department Aide Name Role Phone CarlosAtif edouard Primary Care Provider [phone] Allergies Active Allergy Reactions Criticality Noted Date [...] / Low and Medium Risk (1 of 2 - PCV) 1988 Influenza Vaccine (#1) 2024 Insurance AETNA MEDICARE ADVANTAGE Care Teams Emergency Department Aide Relationship Specialty Start Date End Date Atif Cartagena DO [address] [place] [address] PCP - General Internal Medicine 09/02/20
--- OUTSIDE RECORDS SUMMARY | 2024-12-29 13:27 | XMS_ITS | Clinical Summary ---
Author Organization [facility] Address [address] [facility] [place] [address] Care Team Providers Care Personal Care Service Provider Name Role Phone Robert Celis MD Primary Care Provider Source Comments [facility],non-owned Affiliates and Associated Physician Practices is amultiple site organization consisting of ambulatory clinics and hospital sitesin [place], [place], [place] and [place]. This disclosure is being madepursuant to the Care Everywhere program and may not contain all information available regarding this patient. Last updated 18.[facility] [employer] Allergies Active Allergy Reactions Criticality Noted Date [...] (TYLENOL) 500 MG tabletIndicatio ns:RA (rheumatoid arthritis) ([facility]) Take 2 Tabs by mouth 3 times daily. Maximum allowable Acetaminophen amount = 4 Grams (4000 mg) / 24 hours. 02/03/20 14 Active celecoxib (CELEBREX) 200 MG capsuleIndicati ons:RA (rheumatoid arthritis) ([facility]) Take 1 Cap by mouth [...] 5/8 1 ML MISCIndications :RA (rheumatoid arthritis) ([facility]) Inject 1 mL subcutaneously every 7 days. 4 Each 11 08/12/19 15 Active methotrexate 25 MG/ML injectionIndica tions:RA (rheumatoid arthritis) ([facility]) Inject 1 mL subcutaneously every [...] on file Legal Sex Female 1:46 PM RN MEDICATION Gender Identity Not on file Sexual Orientation [...] SCREENING 04/16/2024 MEDICARE AWV CALENDAR YEAR 2024 COVID-19 VACCINE (1 - 2023-2 5 season) 2024 INFLUENZA VACCINE (#1) 2024 HEPATITIS B VACCINE Aged Out No [...] patient's age to complete this topic [facility] AETNA T MEDICARE ADV SELF PAY NO INSURANCE Member Subscriber Plan / Payer (Ef fective for All Dates) Name:Dagoberto San Member ID:Not on file Relation to Subscriber:Not on file Name:DAGOBERTO SAN Subscriber ID:Not on file (Home) Address: [address] [place] [address] Payer ID:Not on file Group ID:Not on file Type:Self Pay Address: [place], [place] [facility] MEDICARE ADV SELF PAY NO INSURANCE Member Subscriber Plan / Payer (Ef fective for All Dates) Name:Dagoberto San Member ID:Not on file Relation to Subscriber:Not on file Name:DAGOBERTO SAN Subscriber ID:Not on file Address: [address] [place] [address] Payer ID:Not on file Group ID:Not on file Type:Self Pay Address: [place], [place] AETNA MEDICARE ADV SELF PAY NO INSURANCE Member Subscriber Plan / Payer (Ef fective for All Dates) Name:Dagoberto San Member ID:Not on file Relation to Subscriber:Not on file Name:DAGOBERTO SAN Subscriber ID:Not on file Address: [address] [place] [address] Payer ID:Not on file Group ID:Not on file Type:Self Pay Address: [place], [place] AETNA MEDICARE ADV SELF PAY NO INSURANCE Member Subscriber Plan / Payer (Ef fective for All Dates) Name:Dagoberto San Member ID:Not on file Relation to Subscriber:Not on file Name:DAGOBERTO SAN Subscriber ID:Not on file Address: [address] [place] [address] Payer ID:Not on file Group ID:Not on file Type:Self Pay Address: [place], [place] * Guarantor: DAGOBERTO SAN Account Type Relation to Patient Date of Phone Billing Address Personal/Family [address] [place] [address] AETNA MEDICARE ADV SELF PAY NO INSURANCE Member Subscriber Plan / Payer (Ef fective for All Dates) Name:Dagoberto San Member ID:Not on file Relation to Subscriber:Not on file Name:DAGOBERTO SAN Subscriber ID:Not on file Address: [address] [place] [address] Payer ID:Not on file Group ID:Not on file Type:Self Pay Address: [place], [place] * Guarantor: DAGOBERTO SAN Account Type Relation to Patient Date of Phone Billing Address Personal/Family [address] [place] [address] AETNA MEDICARE ADV SELF PAY NO INSURANCE Member Subscriber Plan / Payer (Ef fective for All Dates) Name:Dagoberto San Member ID:Not on file Relation to Subscriber:Not on file Name:DAGOBERTO SAN Subscriber ID:Not on file Address: [address] [place] [address] Payer ID:Not on file Group ID:Not on file Type:Self Pay Address: [place], [place] * Guarantor: DAGOBERTO SAN Account Type Relation to Patient Date of Phone Billing Address Personal/Family [address] [place] [address] AETNA MEDICARE ADV SELF PAY NO INSURANCE Member Subscriber Plan / Payer (Ef fective for All Dates) Name:Dagoberto San Member ID:Not on file Relation to Subscriber:Not on file Name:DAGOBERTO SAN Subscriber ID:Not on file Address: [address] [place] [address] Payer ID:Not on file Group ID:Not on file Type:Self Pay Address: [place], [place] Care Teams Personal Care Service Provider Relationship Specialty Start Date End Date Robert Celis MD [address] [place] [address] PCP - General Internal Medicine 09/13/12
--- OUTSIDE RECORDS SUMMARY | 2024-12-29 13:27 | XMS_ITS | Clinical Summary ---
Author Organization [facility] Address [address] [place] [address] Care Team Providers Care Geospatial Imagery Intelligence Analyst Name Role Phone UrmilaAtif waldron Christiano Primary [...] daily. Active fluticasone propionate (FLONASE) 50 mcg/spray [place], Suspension nasal inhaler Administer 1 [place] in each nostril 1 time daily as [...] times daily. 60 Capsule 04/07/2022 1:21 PM HISTOPATHOLOGY TECHNICIAN 2 Active simvastatin (ZOCOR) 10 mg tablet [...] Encounters Date Type Department Care Team Description 11/19/2024 External Device Data ST[facility] ABSTRACTION Provider, Abstract 10/29/2024 External Device Data [facility] ABSTRACTION Provider, Abstract 10/29/2024 External Device Data [facility] ABSTRACTION Provider, Abstract 10/14/2024 External Device Data [facility] ABSTRACTION Provider, Abstract 10/13/2024 Orders Only [facility] Oncology and Hematology - [address] [place] [id number] Kwadwo Barrios MD 10/10/2024 Orders Only [facility]ology - [address] [place] [phone] Kwadwo Barrios MD 10/09/2024 1:00 PM CDT Office Visit [facility] On[facility] Hematology - [address] [place] [phone] Kwadwo Barrios MD Malignant neoplasm of upper-outer quadrant of right breast in female, estrogen receptor negative (CMS/HCC) (Primary Dx) 09/29/2024 Orders Only [facility] On[facility] and Hematology - [address] [place] [phone] Kwadwo Barrios MD Malignant neoplasm of upper-outer [...] Sign Reading Time Taken Comments Blood Pressure 150/79 10/09/2024 1:06 PM CDT Pulse 75 10/09/2024 1:03 PM CDT Temperature 36.5 C (97.7 F) 10/09/2024 1:03 PM CDT Respiratory Rate 15 10/09/2024 1:03 PM CDT Oxygen Saturation 92% 10/09/2024 1:03 PM CDT Inhaled Oxygen Concentration - - Weight 59.9 kg (132 lb) 10/09/2024 1:03 PM CDT Height 149.9 cm (4' 11) 08/08/2023 3:01 PM CDT Body Mass Index 26.66 08/08/2023 3:01 PM CDT Plan of Treatment Upcoming Encounters Date Type Department Care Team (Late st Contact Info) Description 02/10/2025 1:00 PM CDT Office Visit [facility] Oncology and Hematology - [place] [address] [facility] [address] [place] [address] Kwadwo Barrios MD [address] [facility] [address] [place] [address] Health Maintenance Due Date Last [...] 6 MONTHS 10/03/2022 04/04/2022 INFLUENZA VACCINE (#1) 2024 Medical Devices Implanted Type Area Track Subway Repair Supervisor Device Identifier Shelf Expiration Date Model / Serial / Lot Hemostatic Surgiflo 8ml W/ Thrombin 2994 - [id number] Implanted:Qty : 1 on 04/03/2022 by Anthony Mendoza MD at [facility] Hemostatic N/A: Spine Cervical Posterior [employer] 05/16/2023 [id number] / / [id number] Procedures Procedure Name Priority Date/Time Associated Diagnosis Comments CANCER ANTIGEN 15-3 Routine 10/01/2024 2 :24 PM CDT CBC WITH DIFFERENTIAL Routine 10/01/2024 1:51 PM CDT HEMOGLOBIN A1C Routine 04/04/2022 4:18 AM HISTOPATHOLOGY TECHNICIAN from Last 3 Months or Most Recently Relevant to Health Maintenance Results * CANCER ANTIGEN 15-3 (10/01/2024 2:24 PM CDT) Blood Kwadwo Barrios MD CHEMISTRY ORDERABLES Final Resu lt * CBC WITH DIFFERENTIAL (10/01/2024 1:51 PM CDT) Blood Kwadwo Barrios MD HEMATOLOGY ORDERABLES Final Res ult * (ABNORMAL) HEMOGLOBIN A1C (04/04/2022 4:18 AM HISTOPATHOLOGY TECHNICIAN) HEMOGLOBIN A1C 6.6(H) <=5.6 % 04/04/2022 8:17 AM HISTOPATHOLOGY TECHNICIAN [facility] [employer] [facility] EST. AVG GLUCOSE, A1C 143 mg/dL 04/04/2022 8:17 AM HISTOPATHOLOGY TECHNICIAN [facility] [employer] [facility] Blood Venipuncture / Unknown 04/04/2022 4:18 AM HISTOPATHOLOGY TECHNICIAN 04/04/2022 4:24 AM HISTOPATHOLOGY TECHNICIAN Narrative [facility] [employer] [facility] - 04/04/2022 8:17 AM HISTOPATHOLOGY TECHNICIAN HGB A1C INTERPRETATION NORMAL: <5.7% PRE-DIABETES: 5.7 - 6.4% DIABETES: 6.5% OR GREATER Rubina Rosario MD CHEMISTRY ORDERABLES Final Resul t [facility] [employer] [facility] CLIA# [id number] [place] [address] from Last 3 Months or Most Recently Relevant to Health Maintenance Insurance AENA O [facility] RX AETNA Medicare Part D RX [employer] (INTERNAL) [facility] Plans AETNA PPO [facility] Advance Directives For more information, please contact: [phone] * Full Code (Latest Code Status on File) Date Activated Date Inactivated Comments 04/03/2022 2:48 PM 04/07/2022 5:46 PM Care Teams Geospatial Imagery Intelligence Analyst Relationship Specialty Start Date End Date Atif Cartagena DO [address] [phone] PCP - General Internal Medicine 03/15/22
--- OUTSIDE RECORDS SUMMARY | 2024-12-29 13:27 | XMS_ITS | Encounter Summary ---
Author Organization [facility] Address [address] [facility] [place] [address] Care Team Providers Care Unix Manager Name Role Phone Robert Celis MD Primary Care Provider [phone] Encounter Details Date Type Department Care Team (Late st Contact Info) Description 02/11/2014 [facility] Visit EXTERNAL NON-[facility] DEPT David Cuevas MD Social History Tobacco Use Types Packs/Day Years Used Date Smoking Tobacco: Never Smokeless Tobacco: Never Alcohol Use Standard Drinks/Week Comments Yes 0 (1 standard drink = 0.6 oz pur e alcohol) couple times a year Comments Unknown Sex and Gender Information Value Date Recorded Sex Assigned at Not on file Legal Sex Female 1:46 PM INSTRUMENTAL MUSICIAN Gender Identity Not on file Sexual Orientation Not on file 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
--- OUTSIDE RECORDS SUMMARY | 2024-12-29 13:27 | XMS_ITS | Clinical Summary ---
Author Organization 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 Gender Identity Not on file Sexual Orientation [...] Pneumococcal vaccine 65+ (2 of 2 - PCV20 or PCV21) 02/05/2018 02/05/2017, 01/23/2005 Covid-19 Vaccine (4 - 2024-2 6 season) 2024 01/10/2021, 07/04/2020, 06/13/2020 Influenza Vaccine (#1) 2024 , 01/20/2020, 01/27/2019, Additional history exists DTaP/Tdap/Td Vaccine (2 - Td or Tdap) 02/09/2031 02/09/2021 Insurance AETNA MEDICARE on file [facility] MEDICARE [id number] [place] [id number] Care Teams Gasoline Truck Crane Operator Relationship Specialty Start Date End Date Atif Cartagena DO PCP - General Internal Medicine 09/05/21
--- OUTSIDE RECORDS SUMMARY | 2024-12-29 13:27 | XMS_ITS | Encounter Summary ---
Author Organization [facility] Address [address] [place] [address] Care Team Providers Care Foundry Finisher Name Role Phone Atif Cartagena DO Primary Care Provider Reason for Visit * Reason Onset Date Comments Post op 04/03/2022 Spoke w/Grace at Dr. Melvin's exchange/SURG PHYSICIAN ASST Franky probation and patrol agent Encounter Details Date Type Department Care Team ([facility] Contact Info) Description 04/03/2022 Telephone [facility] [address] [place] [address] Anthony Mendoza MD [address] [place] [phone] Post op (Spoke w/Grace at Dr. Melvin'kalyn exchange/SURG PHYSICIAN ASST Franky probation and patrol agent) Social History Tobacco Use Types Packs/Day Years [...] Coronavirus/COVID-19? No / Unsure 04/03/2022 8:20 AM OLIVING MACHINE OPERATOR documented as of this encounter Plan of Treatment Upcoming Encounters Date Type Department Care Team ([facility] Contact Info) Description 02/10/2025 1:00 PM CDT Office Visit [facility] Oncology and Hematology - [address] [address] Kwadwo Barrios MD [address] [facility] [address] [place] [address] documented as of this encounter Visit Diagnoses Not on filedocumented in this encounter Additional Health Concerns Infection Onset Date Last Indicated Resolved Time R/O COVID-19 04/05/2022 04/05/2022 04/05/2022 1:59 PM OLIVING MACHINE OPERATOR documented as of this encounter Care Teams Foundry Finisher Relationship Specialty Start Date End Date Atif Cartagena DO [address] [facility] [address] [place] [address] PCP - General Internal Medicine 03/15/22 documented as of this encounter
--- OUTSIDE RECORDS SUMMARY | 2024-12-29 13:27 | XMS_ITS | Patient Health Record ---
Author Organization [facility] ([address]) Address [address] [place] [address] Care Team Providers Care Solar Water Heater Installer Name Role Phone Atif Cartagena Primary Care Provider Unavailab Dr. 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 Problem Chronic migraine without aura, non-refractory (disorder) (381053932037262 ) Migraine without aura, not intractable, without status migrainosus (G43.009) Active confirmed Problem Migraine with aura (3473975) Migraine with aura, not intractable, without status migrainosus (G43.109) Active confirmed Problem Chronic migraine without aura, non-intractable (544020336877082 ) Chronic migraine without aura, not intractable, without status migrainosus (G43.709) Active confirmed Problem Neuralgia (84963784) Neuralgia and neuritis, unspecified (M79.2) Active confirmed Plan Of Treatment No Information Insurance Providers Payer Name Payer Address Payer Phone Subscriber Number Group Number Insured Name Patient Relationship to Insured Coverage Start Date Coverage End Date A[employer] Medicare [address] [place] [address] [id number] Jacqueline Farmer Self - patient is the insured 4 Medical (General) History Medical History History ICD Code DM2 PIEDAD HTN RA OA Hypothyroidism HLD Osteoporosis CKD3 GERD/HH Gout RLS/PLMD Cervical dystonia Surgical History Surgery Date(Month/Year) Craniotomy and C1/C2 laminectomy
[2024-12-29 18:46] LABS: Alanine Aminotransferase 29 U/L (6-35); Albumin Level 3.9 g/dL (3.5-5.1); Alkaline Phosphatase 112 U/L (38-126); Anion Gap 6 mmol/L (4-12); Aspartate Amino Transferase 70 U/L (14-36); Bilirubin,Total 0.4 mg/dL (0.2-1.3); Blood Urea Nitrogen 33 mg/dL (7-17); Calcium 9.3 mg/dL (8.4-10.2); Carbon Dioxide 28 mmol/L (22-30); Chloride 98 mmol/L (98-107); Estimated Glomerular Filt Rate 47; Glucose 127 mg/dL (65-110); Potassium 4.9 mmol/L (3.4-5.0); Sodium 132 mmol/L (137-145); Total Protein 7.5 g/dL (6.3-8.2)
[2024-12-29 18:55] LABS: Hematocrit 36.4 % (37.0-47.0); Hemoglobin 11.6 g/dL (12.0-15.0); Immature Granulocyte Percent A 0.5 % (0-0.5); Lymphocytes Absolute Auto 1.45 K/mm3 (0.9-3.2); Mean Corpuscular HGB Conc 31.9 g/dl (32-36); Mean Corpuscular Hemoglobin 33.8 pg (26-34); Mean Corpuscular Volume 106.1 fl (80-100); Nucleated Red Blood Cells Absolute Auto 0.000 K/mm3 (0.0-0.012); Nucleated Red Blood Cells Perc 0.0 % (0.0-0.2); Platelet Count Result 254 k/mm3 (150-375); Red Blood Count 3.43 M/mm3 (4.2-5.4); White Blood Count 8.0 K/mm3 (4.5-10.0)
[2024-12-29 19:25] LABS: Thyroid Stimulating Hormone 3.410 uIU/mL (0.465-4.680)
[2024-12-29 19:50] LABS: Hemoglobin A1C 6.6 % (<5.7)
== END 2024-12-29 11:20 | disposition home or self-care (01) ==
LOC: ANHGOSHLAB 11:20
PROVIDERS: PCP Internal Medicine; Visit Provider Nurse Practitioner
DX: E11.9 Type 2 diabetes mellitus without complications (principal); E03.9 Hypothyroidism, unspecified
CPT/HCPCS: 36415; 80053; 83036; 84443; 85025

== ENCOUNTER 2025-02-02 11:13 | Outpatient (CLI) | payer MEDICARE, SELFPAY ==
[2025-02-02 11:38] LABS: Hematocrit 37.5 % (37.0-47.0); Hemoglobin 12.1 g/dL (12.0-15.0); Immature Granulocyte Percent A 0.5 % (0-0.5); Lymphocytes Absolute Auto 1.50 K/mm3 (0.9-3.2); Mean Corpuscular HGB Conc 32.3 g/dl (32-36); Mean Corpuscular Hemoglobin 34.3 pg (26-34); Mean Corpuscular Volume 106.2 fl (80-100); Nucleated Red Blood Cells Absolute Auto 0.000 K/mm3 (0.0-0.012); Nucleated Red Blood Cells Perc 0.0 % (0.0-0.2); Platelet Count Result 228 k/mm3 (150-375); Red Blood Count 3.53 M/mm3 (4.2-5.4); White Blood Count 8.5 K/mm3 (4.5-10.0)
[2025-02-02 14:37] LABS: Anion Gap 9 mmol/L (4-12); Blood Urea Nitrogen 34 mg/dL (7-17); Calcium 9.5 mg/dL (8.4-10.2); Carbon Dioxide 24 mmol/L (22-30); Chloride 101 mmol/L (98-107); Estimated Glomerular Filt Rate 41; Glucose 126 mg/dL (65-110); Potassium 5.3 mmol/L (3.4-5.0); Sodium 134 mmol/L (137-145)
== END 2025-02-02 11:14 | disposition home or self-care (01) ==
PROVIDERS: PCP Nurse Practitioner; Visit Provider Internal Medicine Hematology & Oncology
DX: C50.411 Malignant neoplasm of upper-outer quadrant of right female breast (principal); Z17.1 Estrogen receptor negative status [ER-]
CPT/HCPCS: 36415; 80048; 85025; 86300

== ENCOUNTER 2025-03-23 14:07 | Observation (INO) | payer MEDICARE, SELFPAY ==
[2025-03-23] VITALS (17 sets, daily range): BP systolic 134–196; BP diastolic 47–95; PULSE 66–76; RESP 14–17; TEMP 36.4–36.7; O2SAT 94–100; BMI 28.2
--- NOTE | ~2025-03-23 | MR_ITS ---
EXAMINATION: MRI lumbosacral spine with and without contrast: DATE: 03/24/2025 INDICATION: Rule out discitis. Follow-up of CT lumbar spine findings. History of breast cancer. TECHNIQUE: Axial coronal and sagittal images following standard protocol including postcontrast series with MultiHance IV were obtained. COMPARISON: CT lumbar spine dated 03/23/2025, FINDINGS: Some of the images are significantly compromised in quality due to motion artifacts. Fracture of the inferior endplate of L1 vertebra is noted with mild bone marrow edema consistent with subacute fracture of L1. The cortical margin of the inferior endplate is preserved. There is no evidence of paravertebral abscess. There is no MRI evidence to suggest osteomyelitis or discitis. Severe degenerative disc disease and facet arthropathy at L3-4 level with Modic type I inflammatory changes. Moderate significant compromise of both lateral recess and neural foramina at this level. At L4-5 level, as well as L5-S1 level, degenerative disc disease and facet arthropathy are causing moderately significant compromise of both neural foramen. Paravertebral soft tissues are unremarkable. IMPRESSION: 1. Motion compromised examination. 2. Acute or subacute fracture of inferior endplate of L1 vertebra with bone marrow edema and enhancement. No evidence to suggest metastatic disease lumbar spine. No MRI evidence to suggest acute discitis or osteomyelitis. 3. Severe degenerative disc disease and facet arthropathy. L3-4 level and to a lesser degree L4-5 and L5-S1 levels. Reviewed, dictated and finalized at location T. PEDS IMPRESSION: 1. Motion compromised examination. 2. Acute or subacute fracture of inferior endplate of L1 vertebra with bone mar row edema and enhancement. No evidence to suggest metastatic disease lumbar spi ne. No MRI evidence to suggest acute discitis or osteomyelitis. 3. Severe degenerative disc disease and facet arthropathy. L3-4 level and to a lesser degree L4-5 and L5-S1 levels.
--- NOTE | ~2025-03-23 | XR_ITS ---
EXAMINATION: XR hip LT 2V w AP pelvis DATE: 03/23/2025 15:45 INDICATION: Pain. No mention of trauma. History of breast cancer TECHNIQUE: AP pelvis and 2 views of the left hip were obtained. COMPARISON: None. FINDINGS: Severe diffuse osteopenia bones is suggested. Mild osteoarthritis of hip and sacroiliac joint. No acute bony lesions. Significant calcific atherosclerotic changes of the femoral artery. IMPRESSION: 1. Mild osteoarthritis of left SI joint. No acute bony lesions. Severe degenerative disc disease of lower lumbar spine to the limited extent visualized. 2. Significant osteopenia. Please correlate with DEXA densitometry. 3. If symptoms are localized and persistent, MRI or nuclear bone scan is suggested. Reviewed, dictated and finalized at location T. ER PROGRAM COORDINATOR IMPRESSION: 1. Mild osteoarthritis of left SI joint. No acute bony lesions. Severe degenera tive disc disease of lower lumbar spine to the limited extent visualized. 2. Significant osteopenia. Please correlate with DEXA densitometry. 3. If symptoms are localized and persistent, MRI or nuclear bone scan is sugges elliot.
--- NOTE | ~2025-03-23 | CT_ITS ---
EXAM/PROCEDURE: CT lumbar spine wo con HISTORY: lower back pain COMPARISON: None available. TECHNIQUE: Lumbar spine CT FINDINGS: 25% compression fracture of L1 with fracture of the inferior endplate, and moderately extensive intervertebral disc gaseous accumulation along with slight widening noted. The proximal 4 mm of retropulsion of the inferior cortex of L1 with no severe spinal canal stenosis. No other acute or aggressive bony or soft tissue process seen. No gross paraspinal or prevertebral soft tissue swelling or hematoma seen. Diffuse degenerative changes throughout the remainder of the lumbar spine probable moderately severe spinal canal stenosis at L3-4. No large disc herniation seen. IMPRESSION: 1. 25% compression fracture of L1 involving the inferior endplate probably acute with mild retropulsion but no severe spinal canal stenosis at the L1-2 level. 2. Significant gaseous accumulation in the L1-2 interspace and mild widening of the intervertebral disc could represent developing discitis. Correlate with C- reactive protein and white count; lumbar spine MRI may provide more beneficial evaluation/information. 3. Other findings as above. Reviewed, dictated and finalized at location A. TTING MACHINE OPERATOR HELPER IMPRESSION: 1. 25% compression fracture of L1 involving the inferior endplate probably acut e with mild retropulsion but no severe spinal canal stenosis at the L1-2 level. 2. Significant gaseous accumulation in the L1-2 interspace and mild widening of the intervertebral disc could represent developing discitis. Correlate with C- reactive protein and white count; lumbar spine MRI may provide more beneficial evaluation/information. 3. Other findings as above.
--- NOTE | 2025-03-23 15:22 | ED_ITS ---
HPI - General Adult General Chief complaint: Back Pain/Injury <MADDIE Esquivel - Last Filed: 03/23/25 15:32> Stated complaint: lower left hip and back pain <MADDIE Esquivel - Last Filed: 03/23/25 15:32> Time Seen by Provider: 03/23/25 16:24 <MADDIE Esquivel - Last Filed: 03/23/25 15:32> Focused HPI: 84 year old female presenting with sharp left hip pain that radiates laterally down her leg to just above the knee, The pain began around Thanksgiving and has progressed since then. Denies any history of recent trauma, numbness/tingling, saddle anesthesia, and urinary/bowel incontinence/retention. Patient reports that she is still able to ambulate with a walker. GENERAL: Mild distress. HEAD: Normocephalic, atraumatic. CHEST: Clear to auscultation. ?No respiratory distress. HEART: Regular rate and rhythm.? NEURO: ?Alert and oriented x3. Patient screened in triage and initial orders placed.? ?Additional care and disposition to be based upon?diagnostic testing and treatment. <MADDIE Esquivel - Last Filed: 03/23/25 15:32> Source: patient, RN notes reviewed and old records reviewed <Rakel Zurita MD - Last Filed: 03/23/25 21:16> Mode of arrival: ambulatory <Rakel Zurita MD - Last Filed: 03/23/25 21:16> History of Present Illness HPI narrative: This is an 84 year old female with history of right breast cancer s/p mastectomy, hypertension, hyperlipidemia who presents for evaluation left hip pain radiating down her leg. She states her pain started Thanksgiving. She reports pain is getting worse and it is not improving with tylenol and ibuprofen. She think is it because her pelvis gets out of alignment, and she is evaluated by her chiropractor closely. She had appointment last week and she had an adjustment. She also reports she has appointment tomorrow. She denies abdominal pain, urinary symptoms, leg numbness or weakness. She does report she had breast cancer in which she initially had right lumpectomy with radiation. She reports she developed an infection postoperative and she eventually had right total mastectomy 7 months ago. She is not currently receiving chemo. Oncologist is Dr. Barrios <Rakel Zurita MD - Last Filed: 03/23/25 21:16> Related Data Home medications: Home Medications ?Medication ?Instructions ?Recorded ?Confirmed ?Last Taken ?Type cinnamon bark 500 mg capsule 500 mg PO DAILY 12/30/19 10/13/24 08/27/24 History (Cinnamon) coenzyme Q10 10 mg capsule (Co 100 mg PO DAILY 0 10/13/24 08/27/24 History Q-10) clobetasol 0.05 % shampoo 0.05 ml topical DIRECTED 12/05/21 10/13/24 Unknown History docusate sodium 100 mg capsule 100 mg PO BID 01/21/25 Unknown History <MADDIE Esquivel - Last Filed: 03/23/25 15:32> Allergies/adverse reactions: Allergies Allergy/AdvReac Type Severity Reaction Status Date / Time morphine Allergy Severe SEVERE N/V Verified 03/05/25 13:00 PREFERS NOT TO RECEIVE adhesive Allergy Rash Verified 03/05/25 13:00 ARM AND HAMMER WITH OXYCLEAN Allergy Unknown HIVES ALL Uncoded 03/05/25 13:00 LAUNDRY SOAP OVER BODY <MADDIE Esquivel - Last Filed: 03/23/25 15:32> FORMERLY [facility], [facility] Past Medical History Medical History: Medical History BMI 27.0-27.9,adult Triple negative malignant neoplasm of breast CKD (chronic kidney disease) Vitamin D deficiency Basal cell carcinoma Rectal vaginal fistula Rotator cuff arthropathy Prolapsed bladder Restless legs syndrome <MADDIE Esquivel - Last Filed: 03/23/25 15:32> Surgical History Surgical History: Surgical History Hx of mastectomy H/O craniotomy (~03/2022) H/O toe surgery 11/2021 History of cholecystectomy H/O: hysterectomy <MADDIE Esquivel - Last Filed: 03/23/25 15:32> Family History Family History: Family History Mother Hypertension Heart disease Father , age 92 No problems noted. Sibling No problems noted. <MADDIE Esquivel - Last Filed: 03/23/25 15:32> Social History Social History: Social History Social History: 2 cups of caffeine daily Smoking packs per day: 0 Smoking cigarettes per day: 0.0 Years smoked: 0 Smoking pack-years: 0.00 Smoking status: Never smoker Second hand tobacco smoke exposure: No Alcohol intake: current Alcohol use details: rarely Substance use: never Substance use type: does not use Lack of Transportation: No Lack of Food: Never True Current Housing: I Have Housing Concerned About Future Housing: No Difficulty Paying Gas/Electric Bills: No Difficulty Paying for Meds: No Currently Unemployed: No Education: High School Diploma/GED Difficulty w/ Childcare or Family Care: No Living arrangements: with family Additional living arrangements comments: Occupation/Education: retired 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 Gender identity (if verbalized by the patient): Female Spiritual care concerns: No <MADDIE Esquivel - Last Filed: 03/23/25 15:32> Exam 2 Const: General: alert <Rakel Zurita MD - Last Filed: 03/23/25 21:16> Nutritional Appearance: well nourished <Rakel Zurita MD - Last Filed: 03/23/25 21:16> Orientation/consciousness: patient oriented x3 <Rakel Zurita MD - Last Filed: 03/23/25 21:16> HENMT: Head: normal to inspection <Rakel Zurita MD - Last Filed: 03/23/25 21:16> Eyes: EOM: EOMs intact bilaterally <Rakel Zurita MD - Last Filed: 03/23/25 21:16> Resp: Effort & Inspection: normal respiratory effort <Rakel Zurita MD - Last Filed: 03/23/25 21:16> Auscultation: clear to auscultation bilaterally <Rakel Zurita MD - Last Filed: 03/23/25 21:16> Cardio: Rate: regular rate <Rakel Zurita MD - Last Filed: 03/23/25 21:16> Rhythm: regular rhythm <Rakel Zurita MD - Last Filed: 03/23/25 21:16> GI: GI Palp: Yes Soft to palpation, No Tenderness to palpation present (GI) and No Guarding due to palpation present (GI) <Rakel Zurita MD - Last Filed: 03/23/25 21:16> Auscultation: normal bowel sounds <Rakel Zurita MD - Last Filed: 03/23/25 21:16> Skin: General skin exam: normal color <Rakel Zurita MD - Last Filed: 03/23/25 21:16> Neuro: General: patient oriented x3, moves all extremities and CN's II-XI intact bilaterally <Rakel Zurita MD - Last Filed: 03/23/25 21:16> Psych: Mental Status: mental status grossly normal <Rakel Zurita MD - Last Filed: 03/23/25 21:16> Affect: normal affect <Rakel Zurita MD - Last Filed: 03/23/25 21:16> Attitude: cooperative <Rakel Zurita MD - Last Filed: 03/23/25 21:16> Course Reevaluation(s) Reevaluation #1: I discussed with patient and family plan to admit for lumbar fracture and possible infection. They are agreeable to admission <Rakel Zurita MD - Last Filed: 03/23/25 21:16> Date: 03/23/25 <Rakel Zurita MD - Last Filed: 03/23/25 21:16> Time: 18:00 <Rakel Zurita MD - Last Filed: 03/23/25 21:16> Consultations Neurosurgery: Time of Consult: 17:46 <Rakel Zurita MD - Last Filed: 03/23/25 21:16> I have discussed the care of this patient with the following provider: Dr. Delcid with neurosurgery. notified of CT with fracture /possible discit <Rakel Zurita MD - Last Filed: 03/23/25 21:16> Hospitalist: Time of Consult: 17:50 <Rakel Zurita MD - Last Filed: 03/23/25 21:16> I have discussed the care of this patient with the following provider: Advanced provider Trav accepts to hospitalist for MRI and pain control <Rakel Zurita MD - Last Filed: 03/23/25 21:16> Vital Signs Vital signs: Vital Signs Temperature 97.9 F 03/23/25 14:09 Pulse Rate 73 03/23/25 14:09 Respiratory Rate 16 03/23/25 14:09 Blood Pressure 162/60 H 03/23/25 14:09 Pulse Oximetry 100 03/23/25 14:09 Oxygen Delivery Room Air 03/23/25 14:09 Temperature 97.6 F 03/23/25 18:27 Pulse Rate 66 03/23/25 18:27 Respiratory Rate 14 03/23/25 18:27 Blood Pressure 162/72 H 03/23/25 20:46 Pulse Oximetry 100 03/23/25 20:48 Oxygen Delivery Room Air 03/23/25 14:09 <MADDIE Esquivel - Last Filed: 03/23/25 15:32> Vital Signs Temperature 97.9 F 03/23/25 14:09 Pulse Rate 73 03/23/25 14:09 Respiratory Rate 16 03/23/25 14:09 Blood Pressure 162/60 H 03/23/25 14:09 Pulse Oximetry 100 03/23/25 14:09 Oxygen Delivery Room Air 03/23/25 14:09 Temperature 97.6 F 03/23/25 18:27 Pulse Rate 66 03/23/25 18:27 Respiratory Rate 14 03/23/25 18:27 Blood Pressure 162/72 H 03/23/25 20:46 Pulse Oximetry 100 03/23/25 20:48 Oxygen Delivery Room Air 03/23/25 14:09 <Rakel Zurita MD - Last Filed: 03/23/25 21:16> MDM MDM Narrative Medical decision making narrative: Patient presented with back pain for over [address] lumbar spine was ordered and she was given hydrocodone for pain. CT shows L1 fracture with mild retropulsion and possible discitis so I ordered cbc, crp to assess. Her labs returned with normal wbc of 9 with elevated crp 4. I spoke with neurosurgery about CT. He recommends admission for pain control and MRI lumbar spine with contrast and without contrast. He will arrange for back brace for patient as well. I spoke with hospitalist who accepts to service. Patient was found to have UTI so I ordered blood culture and she was given rocephin for UTI. Patient does not have neurodeficits at this time. <Rakel Zurita MD - Last Filed: 03/23/25 21:16> Differential Diagnosis Differential Diagnosis: sciatica, lumbar radiculopathy, spinal fracture, metastatic disease, discitis <Rakel Zurita MD - Last Filed: 03/23/25 21:16> Medical Records I have reviewed the following patient records and this information was taken into consideration when formulating the assessment and plan.: previous labs, previous hospitalizations and previous clinic visits < Rakel Zurita MD - Last Filed: 03/23/25 21:16> Lab Data MDM Lab Attestation statement: I personally reviewed the patient's lab results. <Rakel Zurita MD - Last Filed: 03/23/25 21:16> Result diagrams: 03/23/25 16:56 03/23/25 16:56 <MADDIE Esquivel - Last Filed: 03/23/25 15:32> Labs: Lab Results 03/23/25 Range/Units 16:56 WBC 9.1 (4.5-10.0) K/mm3 RBC 3.42 L (4.2-5.4) M/mm3 Hgb 11.7 L (12.0-15.0) g/dL Hct 34.8 L (37.0-47.0) % MCV 101.8 H (80-100) fl MCH 34.2 H (26-34) pg MCHC 33.6 (32-36) g/dl RDW 13.5 (11.5-14.5) % Plt Count 293 (150-375) k/mm3 MPV 8.8 (7.4-10.4) fl Immature Gran % (Auto) 0.9 H (0-0.5) % Neut % (Auto) 67.0 (45.5-73.1) % Lymph % (Auto) 17.8 L (18.3-44.2) % [place] % (Auto) 12.9 H (2.6-8.5) % Eos % (Auto) 1.0 (0-4.4) % Baso % (Auto) 0.4 (0.2-1.2) % Lymph # (Auto) 1.62 (0.9-3.2) K/mm3 [place] # (Auto) 1.2 H (0.1-0.6) K/mm3 Eos # (Auto) 0.1 (0-0.3) K/mm3 Baso # (Auto) 0.0 (0.0-0.1) K/mm3 Abs Immat Gran (auto) 0.08 H (0.00-0.031) K/mm3 Absolute Neuts (auto) 6.1 (1.3-6.7) K/mm3 Absolute Nucleated RBC 0.000 (0.0-0.012) K/mm3 Nucleated RBC % 0.0 (0.0-0.2) % ESR 79 H (0-20) mm/hr PT 13.3 (11.1-14.7) Seconds INR 1.0 APTT 31.1 (22.3-36.8) Seconds Sodium 129 L (137-145) mmol/L Potassium 5.1 H (3.4-5.0) mmol/L Chloride 99 (98-107) mmol/L Carbon Dioxide 26 (22-30) mmol/L Anion Gap 4 (4-12) mmol/L BUN 32 H (7-17) mg/dL Creatinine 1.37 H (0.7-1.0) mg/dL Estim Creat Clear Calc Not Reportable Estimated GFR 37 L (59 - ) Glucose 126 H (65-110) mg/dL Calcium 9.3 (8.4-10.2) mg/dL Total Bilirubin 0.8 (0.2-1.3) mg/dL AST 44 H (14-36) U/L ALT 30 (6-35) U/L Alkaline Phosphatase 152 H (38-126) U/L C-Reactive Protein 4.7 H (<1.0) mg/dL Total Protein 7.5 (6.3-8.2) g/dL Albumin 3.9 (3.5-5.1) g/dL Urine Color Yellow (Yellow) Urine Appearance Turbid H (Clear) Urine pH 5.0 (5.0-9.0) Ur Specific [place] 1.014 (1.001-1.035) Urine Protein Trace (Negative) mg/dL Urine Glucose (UA) Negative (Negative) mg/dL Urine Ketones Negative (Negative) mg/dL Ur Blood (Man) 2+ H (Negative) Urine Nitrate Negative (Negative) Urine Bilirubin Negative (Negative) Urine Urobilinogen 1.0 (<2.0) mg/dL Leukocyte Esterase Rfl 3+ H (Negative) NE/UL Urine RBC 6-10 H (0-2) /hpf Urine WBC >100 H (0-3) /hpf Ur Squamous Epith Cells None seen (Few) /hpf Urine Bacteria 4+ H /hpf Urine Casts 0-2 <MADDIE Esquivel - Last Filed: 03/23/25 15:32> Lab Results 03/23/25 Range/Units 16:56 WBC 9.1 (4.5-10.0) K/mm3 RBC 3.42 L (4.2-5.4) M/mm3 Hgb 11.7 L (12.0-15.0) g/dL Hct 34.8 L (37.0-47.0) % MCV 101.8 H (80-100) fl MCH 34.2 H (26-34) pg MCHC 33.6 (32-36) g/dl RDW 13.5 (11.5-14.5) % Plt Count 293 (150-375) k/mm3 MPV 8.8 (7.4-10.4) fl Immature Gran % (Auto) 0.9 H (0-0.5) % Neut % (Auto) 67.0 (45.5-73.1) % Lymph % (Auto) 17.8 L (18.3-44.2) % [place] % (Auto) 12.9 H (2.6-8.5) % Eos % (Auto) 1.0 (0-4.4) % Baso % (Auto) 0.4 (0.2-1.2) % Lymph # (Auto) 1.62 (0.9-3.2) K/mm3 [place] # (Auto) 1.2 H (0.1-0.6) K/mm3 Eos # (Auto) 0.1 (0-0.3) K/mm3 Baso # (Auto) 0.0 (0.0-0.1) K/mm3 Abs Immat Gran (auto) 0.08 H (0.00-0.031) K/mm3 Absolute Neuts (auto) 6.1 (1.3-6.7) K/mm3 Absolute Nucleated RBC 0.000 (0.0-0.012) K/mm3 Nucleated RBC % 0.0 (0.0-0.2) % ESR 79 H (0-20) mm/hr PT 13.3 (11.1-14.7) Seconds INR 1.0 APTT 31.1 (22.3-36.8) Seconds Sodium 129 L (137-145) mmol/L Potassium 5.1 H (3.4-5.0) mmol/L Chloride 99 (98-107) mmol/L Carbon Dioxide 26 (22-30) mmol/L Anion Gap 4 (4-12) mmol/L BUN 32 H (7-17) mg/dL Creatinine 1.37 H (0.7-1.0) mg/dL Estim Creat Clear Calc Not Reportable Estimated GFR 37 L (59 - ) Glucose 126 H (65-110) mg/dL Calcium 9.3 (8.4-10.2) mg/dL Total Bilirubin 0.8 (0.2-1.3) mg/dL AST 44 H (14-36) U/L ALT 30 (6-35) U/L Alkaline Phosphatase 152 H (38-126) U/L C-Reactive Protein 4.7 H (<1.0) mg/dL Total Protein 7.5 (6.3-8.2) g/dL Albumin 3.9 (3.5-5.1) g/dL Urine Color Yellow (Yellow) Urine Appearance Turbid H (Clear) Urine pH 5.0 (5.0-9.0) Ur Specific [place] 1.014 (1.001-1.035) Urine Protein Trace (Negative) mg/dL Urine Glucose (UA) Negative (Negative) mg/dL Urine Ketones Negative (Negative) mg/dL Ur Blood (Man) 2+ H (Negative) Urine Nitrate Negative (Negative) Urine Bilirubin Negative (Negative) Urine Urobilinogen 1.0 (<2.0) mg/dL Leukocyte Esterase Rfl 3+ H (Negative) NE/UL Urine RBC 6-10 H (0-2) /hpf Urine WBC >100 H (0-3) /hpf Ur Squamous Epith Cells None seen (Few) /hpf Urine Bacteria 4+ H /hpf Urine Casts 0-2 <Rakel Zurita MD - Last Filed: 03/23/25 21:16> Imaging Data Radiologist's impression: ITS Impressions Hip/Pelvis X-Ray 03/23/25 15:45 IMPRESSION: 1. Mild osteoarthritis of left SI joint. No acute bony lesions. Severe degenerative disc disease of lower lumbar spine to the limited extent visualized. 2. Significant osteopenia. Please correlate with DEXA densitometry. 3. If symptoms are localized and persistent, MRI or nuclear bone scan is suggested. Lumbar Spine CT 03/23/25 15:55 IMPRESSION: 1. 25% compression fracture of L1 involving the inferior endplate probably acute with mild retropulsion but no severe spinal canal stenosis at the L1-2 level. 2. Significant gaseous accumulation in the L1-2 interspace and mild widening of the intervertebral disc could represent developing discitis. Correlate with C- reactive protein and white count; lumbar spine MRI may provide more beneficial evaluation/information. 3. Other findings as above. <MADDIE Esquivel - Last Filed: 03/23/25 15:32> ITS Impressions Hip/Pelvis X-Ray 03/23/25 15:45 IMPRESSION: 1. Mild osteoarthritis of left SI joint. No acute bony lesions. Severe degenerative disc disease of lower lumbar spine to the limited extent visualized. 2. Significant osteopenia. Please correlate with DEXA densitometry. 3. If symptoms are localized and persistent, MRI or nuclear bone scan is suggested. Lumbar Spine CT 03/23/25 15:55 IMPRESSION: 1. 25% compression fracture of L1 involving the inferior endplate probably acute with mild retropulsion but no severe spinal canal stenosis at the L1-2 level. 2. Significant gaseous accumulation in the L1-2 interspace and mild widening of the intervertebral disc could represent developing discitis. Correlate with C- reactive protein and white count; lumbar spine MRI may provide more beneficial evaluation/information. 3. Other findings as above. <Rakel Zurita MD - Last Filed: 03/23/25 21:16> Discharge Plan Discharge Clinical Impression: Closed compression fracture of L1 vertebra, UTI (urinary tract infection), Hyponatremia <MADDIE Esquivel - Last Filed: 03/23/25 15:32> Patient Disposition: Still a Patient <MADDIE Esquivel - Last Filed: 03/23/25 15:32> Condition: Stable <MADDIE Esquivel - Last Filed: 03/23/25 15:32>
[2025-03-23] MEDS: HYDROcodone/acetaminophen (*CRX) 5-325 MG TABLET 1 TAB PO ×2 (16:19→21:23)
[2025-03-23] MEDS: ONDANSETRON HCL ODT 4 MG TABLET PO (16:19)
[2025-03-23 17:03] LABS: Hematocrit 34.8 % (37.0-47.0); Hemoglobin 11.7 g/dL (12.0-15.0); Immature Granulocyte Percent A 0.9 % (0-0.5); Lymphocytes Absolute Auto 1.62 K/mm3 (0.9-3.2); Mean Corpuscular HGB Conc 33.6 g/dl (32-36); Mean Corpuscular Hemoglobin 34.2 pg (26-34); Mean Corpuscular Volume 101.8 fl (80-100); Nucleated Red Blood Cells Absolute Auto 0.000 K/mm3 (0.0-0.012); Nucleated Red Blood Cells Perc 0.0 % (0.0-0.2); Platelet Count Result 293 k/mm3 (150-375); Red Blood Count 3.42 M/mm3 (4.2-5.4); White Blood Count 9.1 K/mm3 (4.5-10.0)
[2025-03-23 17:14] LABS: INR 1.0; Partial Thromboplastin Time 31.1 Seconds (22.3-36.8); Prothrombin Time 13.3 Seconds (11.1-14.7)
[2025-03-23 17:28] LABS: Alanine Aminotransferase 30 U/L (6-35); Albumin Level 3.9 g/dL (3.5-5.1); Alkaline Phosphatase 152 U/L (38-126); Anion Gap 4 mmol/L (4-12); Aspartate Amino Transferase 44 U/L (14-36); Bilirubin,Total 0.8 mg/dL (0.2-1.3); Blood Urea Nitrogen 32 mg/dL (7-17); CRP 4.7 mg/dL (<1.0); Calcium 9.3 mg/dL (8.4-10.2); Carbon Dioxide 26 mmol/L (22-30); Chloride 99 mmol/L (98-107); Estimated Glomerular Filt Rate 37; Glucose 126 mg/dL (65-110); Potassium 5.1 mmol/L (3.4-5.0); Sodium 129 mmol/L (137-145); Total Protein 7.5 g/dL (6.3-8.2)
--- NOTE | 2025-03-23 17:30 | PC.NURSE ---
Dr. Zurita at bedside updating pt. and pt. family member.
[2025-03-23 17:53] LABS: Add Urine Microscopic? YES; Appearance Urine Turbid (Clear); Glucose Urine UA Negative (Negative); Leukocyte Esterase Ur 3+ LEU/UL (Negative); Nitrate Urine Negative (Negative); Non Pathogenic Casts 0-2; Specific Grav Ur 1.014 (1.001-1.035)
[2025-03-23] MEDS: SODIUM CHLORIDE 0.9% IV 1,000 ML 999 ML IV CONT (18:33)
[2025-03-23] MEDS: cefTRIAXone 1 GM in SODIUM CHLORIDE 0.9% IV 50 ML 100 ML IVPB (18:35)
[2025-03-23] MEDS: ACETAMINOPHEN 325 MG TABLET 650 MG PO ×2 (18:37→23:15)
--- OUTSIDE RECORDS SUMMARY | 2025-03-23 19:31 | XMS_ITS | Clinical Summary ---
Author Organization [facility] Address [address] [place] [address] Care Team Providers Care Sand Molder Name Role Phone Alex Wilson Primary Care Provider [phone] Allergies Active Allergy Reactions Criticality Noted Date [...] daily. Active fluticasone propionate (FLONASE) 50 mcg/spray [place], Suspension nasal inhaler Administer 1 [place] in each nostril 1 time daily as [...] times daily. 60 Capsule 04/07/2022 1:21 PM [employer] 2 Active simvastatin (ZOCOR) 10 mg tablet [...] Encounters Date Type Department Care Team Description 02/10/2025 1:00 PM CDT Office Visit [facility] Oncology and Hematology - [place] [address] [place] [address] Kwadwo Barrios MD Malignant neoplasm of upper-outer quadrant of right breast in female, estrogen receptor negative (CMS/HCC) (Primary Dx) 02/04/2025 Orders Only [facility] Oncology and Hematology - [place] [address] [place] [id number] Kwadwo Barrios MD 02/03/2025 Orders Only [facility] Oncology and Hematology - [place] [address] [place] [address] Kwadwo Barrios MD 12/30/2024 External Device Data STL ABSTRACTION Provider, Abstract [...] Sign Reading Time Taken Comments Blood Pressure 150/73 02/10/2025 1:06 PM CDT Pulse 80 02/10/2025 1:02 PM CDT Temperature 36.3 C (97.4 F) 02/10/2025 1:02 PM CDT Respiratory Rate 16 02/10/2025 1:02 PM CDT Oxygen Saturation 91% 02/10/2025 1:02 PM CDT Inhaled Oxygen Concentration - - Weight 61 kg (134 lb 6.4 oz) 02/10/2025 1:02 PM CDT Height 149.9 cm (4' 11) 08/08/2023 3:01 PM CDT Body Mass Index 27.15 08/08/2023 3:01 PM CDT Plan of Treatment Upcoming Encounters Date Type Department Care Team (Late st Contact Info) Description 05/14/2025 2:00 PM [employer] Office Visit [facility] Oncology and Hematology - [place] [address] [place] [id number] Kwadwo Barrios MD [address] [facility] [address] [place] [address] Health Maintenance Due Date Last [...] (#1) 2024 Medical Devices Implanted Type Area Mathematics Professor Device Identifier Shelf Expiration Date Model / Serial / Lot Hemostatic Surgiflo 8ml W/ Thrombin 2994 - [id number] Implanted:Qty : 1 on 04/03/2022 by Anthony Mendoza MD at [facility] Hemostatic N/A: Spine Cervical Posterior [employer] 05/16/2023 [id number] / / [id number] Procedures Procedure Name Priority Date/Time Associated Diagnosis Comments CBC WITH AUTODIFFERENTIAL Routine 02/02/2025 1:47 PM CDT [facility] CA 15 3 Routine 02/02/2025 9:51 AM CDT HEMOGLOBIN A1C Routine 04/04/2022 4:18 AM [employer] from Last 3 Months or Most Recently Relevant to Health Maintenance Results * CBC WITH AUTODIFFERENTIAL (02/02/2025 1:47 PM CDT) Blood us Kwadwo Barrios MD HEMATOLOGY ORDERABLES Final Res ult * CHG CA 15 3 (02/02/2025 9:51 AM CDT) us Kwadwo Barrios MD [facility] - LABORATORY Final Result * (ABNORMAL) HEMOGLOBIN A1C (04/04/2022 4:18 AM [employer]) HEMOGLOBIN A1C 6.6(H) <=5.6 % 04/04/2022 8:17 AM [employer] [facility] [email or web address] [facility] EST. AVG GLUCOSE, A1C 143 mg/dL 04/04/2022 8:17 AM [facility] [email or web address] [facility] Blood Venipuncture / Unknown 04/04/2022 4:18 AM [employer] 04/04/2022 4:24 AM [employer] Narrative [facility] [email or web address] [facility] - 04/04/2022 8:17 AM [employer] HGB A1C INTERPRETATION NORMAL: <5.7% PRE-DIABETES: 5.7 - 6.4% DIABETES: 6.5% OR GREATER Rubina Rosario MD CHEMISTRY ORDERABLES Final Resul t [facility] [email or web address] [facility] CLIA# [id number] [address] [place] [address] from Last 3 Months or Most Recently Relevant to Health Maintenance Insurance [employer] [facility] RX AETNA Medicare Part D RX [employer] (INTERNAL) [facility] AENA PPO MCR Advance Directives For more information, please contact: [phone] * Full Code (Latest Code Status on File) Date Activated Date Inactivated Comments 04/03/2022 2:48 PM 04/07/2022 5:46 PM Care Teams Sand Molder Relationship Specialty Start Date End Date Alex Wilson DO [address] [facility] [address] [place] [address] PCP - General Internal Medicine 02/10/25
--- OUTSIDE RECORDS SUMMARY | 2025-03-23 19:31 | XMS_ITS | Clinical Summary ---
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
--- OUTSIDE RECORDS SUMMARY | 2025-03-23 19:31 | XMS_ITS | Encounter Summary ---
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
--- OUTSIDE RECORDS SUMMARY | 2025-03-23 19:31 | XMS_ITS | Clinical Summary ---
Author Organization [facility] Address [address] [place] [address] Care Team Providers Care Hand Coke Drawer Name Role Phone Robert Celis MD Primary Care Provider + Allergies No known active allergies Medications omeprazole (PriLOSEC) 40 MG capsule 04/18/2018 Active gabapentin (NEURONTIN) 400 MG capsule TAKE 2 CAPSULES BY MOUTH EVERY NIGHT AT BEDTIME 0 2018 Active clonazePAM (KlonoPIN) 1 MG tablet TAKE 1 TABLET BY MOUTH 3 TIMES A DAY NEEDED 0 03/18/2018 Active ANECREAM 4 % cream TICO SML AMT EXT TO RASH Q 4 H PRF PAIN RELIEF 0 03/06/2018 Active Social History Tobacco Use Types Packs/Day Years Used Date Smoking Tobacco: Never Smokeless Tobacco: Never Tobacco Cessation:Counseling Given: Yes Comments No Sex and Gender Information Value Date Recorded Sex Assigned at Not on file Legal Sex Female 11:46 AM EST Gender Identity Not on file Sexual Orientation Not on file Last Filed Vital Signs Vital Sign Reading Time Taken Comments Blood Pressure 108/68 06/03/2018 1:14 PM EST Pulse 63 06/03/2018 1:14 PM EST Temperature 36.3 C (97.3 F) 06/03/2018 1:14 PM EST Respiratory Rate - - Oxygen Saturation 97% 06/03/2018 1:14 PM EST Inhaled Oxygen Concentration - - Weight - - Height - - Body Mass Index - - Plan of Treatment Not on file Medical Devices Not on file Care Teams Hand Coke Drawer Relationship Specialty Start Date End Date Robert Celis MD PCP - Greenhouse Laborer 06/03/18
--- OUTSIDE RECORDS SUMMARY | 2025-03-23 19:31 | XMS_ITS | Clinical Summary ---
Author Organization [facility] Address [address] [facility] [place] [address] Care Team Providers Care Space And Missile Operations Spacelift Name Role Phone Robert Celis MD Primary Care Provider [phone] Source Comments [facility],non-owned Affiliates and Associated Physician Practices is amultiple site organization consisting of ambulatory clinics and hospital sitesin [place], [place], [place] and [place]. This disclosure is being madepursuant to the Care Everywhere program and may not contain all information available regarding this patient. Last updated 18.[facility] eEvent Allergies Active Allergy Reactions Criticality Noted Date [...] 500 MG tabletIndicatio ns:RA (rheumatoid arthritis) (FORMERLY [facility]) Take 2 Tabs by mouth 3 times daily. Maximum allowable Acetaminophen amount = 4 Grams (4000 mg) / 24 hours. 02/03/20 14 Active celecoxib (CELEBREX) 200 MG capsuleIndicati ons:RA (rheumatoid arthritis) (FORMERLY [facility]) Take 1 Cap by mouth once daily. [...] 1 ML MISCIndications :RA (rheumatoid arthritis) (FORMERLY [facility]) Inject 1 mL subcutaneously every 7 days. 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 Gender Identity Not on file Sexual Orientation [...] MEDICARE AWV CALENDAR YEAR 2024 INFLUENZA VACCINE (#1) 2024 HEPATITIS B [...] patient's age to complete this topic Insurance AETNA AETNA AETNA MEDICARE ADV SELF PAY NO INSURANCE Member Subscriber Plan / Payer (Ef fective for All Dates) Name:Dagoberto San Member ID:Not on file Relation to Subscriber:Not on file Name:DAGOBERTO SAN Subscriber ID:Not on file (Home) Address: [address] [place] [address] Payer ID:Not on file Group ID:Not on file Type:Self Pay Address: [place], [place] AETNA MEDICARE ADV SELF PAY NO INSURANCE Member Subscriber Plan / Payer (Ef fective for All Dates) Name:Dagoberto San Member ID:Not on file Relation to Subscriber:Not on file Name:DAGOBERTO SAN Subscriber ID:Not on file Address: [address] [place] [address] Payer ID:Not on file Group ID:Not on file Type:Self Pay Address: [place], [place] AETNA MEDICARE ADV SELF PAY NO INSURANCE Member Subscriber Plan / Payer (Ef fective for All Dates) Name:Dagoberto San Member ID:Not on file Relation to Subscriber:Not on file Name:DAGOBERTO SAN Subscriber ID:Not on file Address: [address] [place] [address] Payer ID:Not on file Group ID:Not on file Type:Self Pay Address: [place], [place] AETNA MEDICARE ADV SELF PAY NO INSURANCE Member Subscriber Plan / Payer (Ef fective for All Dates) Name:Dagoberto San Member ID:Not on file Relation to Subscriber:Not on file Name:DAGOBERTO SAN Subscriber ID:Not on file Address: [address] [place] [address] Payer ID:Not on file Group ID:Not on file Type:Self Pay Address: [place], [place] * Guarantor: DAGOBERTO SAN Account Type Relation to Patient Date of Phone Billing Address Personal/Family [address] [place] [address] AETNA MEDICARE ADV SELF PAY NO INSURANCE Member Subscriber Plan / Payer (Ef fective for All Dates) Name:Dagoberto San Member ID:Not on file Relation to Subscriber:Not on file Name:DAGOBERTO SAN Subscriber ID:Not on file Address: [address] [place] [address] Payer ID:Not on file Group ID:Not on file Type:Self Pay Address: [place], [place] * Guarantor: DAGOBERTO SAN Account Type Relation to Patient Date of Phone Billing Address Personal/Family [address] [place] [address] AETNA MEDICARE ADV SELF PAY NO INSURANCE Member Subscriber Plan / Payer (Ef fective for All Dates) Name:Dagoberto San Member ID:Not on file Relation to Subscriber:Not on file Name:DAGOBERTO SAN Subscriber ID:Not on file Address: [address] [place] [address] Payer ID:Not on file Group ID:Not on file Type:Self Pay Address: [place], [place] * Guarantor: DAGOBERTO SAN Account Type Relation to Patient Date of Phone Billing Address Personal/Family [address] [place] [address] AETNA MEDICARE ADV SELF PAY NO INSURANCE Member Subscriber Plan / Payer (Ef fective for All Dates) Name:Dagoberto San Member ID:Not on file Relation to Subscriber:Not on file Name:DAGOBERTO SAN Subscriber ID:Not on file Address: [address] [place] [address] Payer ID:Not on file Group ID:Not on file Type:Self Pay Address: [place], [place] Care Teams Space And Missile Operations Spacelift Relationship Specialty Start Date End Date Robert Celis MD [address] [place] [phone] PCP - General Internal Medicine 09/13/12
--- OUTSIDE RECORDS SUMMARY | 2025-03-23 19:31 | XMS_ITS | Clinical Summary ---
Author Organization [facility] Address [address] [place] [id number] Phone Care Team Providers Care Transport Aide Name Role Phone CarlosAtif edouard Primary Care Provider [phone] Allergies Active Allergy Reactions Criticality Noted Date [...] 2024 Insurance AETNA MEDICARE ADVANTAGE Care Teams Transport Aide Relationship Specialty Start Date End Date Atif Cartagena DO [address] [place] [address] PCP - General Internal Medicine 09/02/20
--- OUTSIDE RECORDS SUMMARY | 2025-03-23 19:31 | XMS_ITS | Encounter Summary ---
Author Organization [facility] Address 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 Jay exchange/BASEBALL PITCHER Franky solutions engineer) Social History Tobacco Use Types Packs/Day Years [...] Coronavirus/COVID-19? 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 documented as of this encounter Plan of Treatment Upcoming Encounters Date Type Department Care Team ([facility] Contact Info) Description 05/14/2025 2:00 PM PARKING LOT SUPERVISOR Office Visit [facility] Oncology and Hematology - [address] [place] [address] Kwadwo Barrios MD [address] [facility] [address] [place] [address] documented as of this encounter Visit Diagnoses Not on filedocumented in this encounter Additional Health Concerns Infection Onset Date Last Indicated Resolved Time R/O COVID-19 04/05/2022 04/05/2022 04/05/2022 1:59 PM PARKING LOT SUPERVISOR documented as of this encounter Care Teams Director Long Term Care Relationship Specialty Start Date End Date Alex Wilson DO [address] [facility] [address] [place] [phone] PCP - General Internal Medicine 02/10/25 documented as of this encounter
[2025-03-23] MEDS: SODIUM CHLORIDE 0.9% IV 1,000 ML 125 ML IV CONT (20:58)
--- NOTE | 2025-03-23 20:59 | WPCEDHO ---
ED Hand Off Checklist All vitals saved:YES IV Site documented:YES All med administrations documented:YES Triage Note Triage Note PT TO ED VIA [facility] FROM HOME 03/23/25 16:14 FOR EVAL OF L HIP/LOWER BACK PAIN WITH RADIATION DOWN L. THIGH. DENIES ANY INJURY. HAS BEEN HAPPENING SINCE , GETTING PROGRESSIVELY WORSE. Allergies morphine Allergy (Severe, Verified 03/05/25 13:00) SEVERE N/V PREFERS NOT TO RECEIVE 11/08/09 PT STATES SEVERE N/V PREFERS NOT TO RECEIVE MORPHINE. adhesive Allergy (Verified 03/05/25 13:00) Rash IF STAYS ON LONGER THAN 3 DAYS ARM AND HAMMER WITH OXYCLEAN LAUNDRY SOAP Allergy (Unknown, Uncoded 03/05/25 13:00) HIVES ALL OVER BODY 11/08/09 CONFIRMED WITH PT ON ARRIVAL. Family History (Last Reviewed 03/05/25 @ 13:05 by Cathleen Martinez, [facility]) Mother Hypertension Heart disease Father No problems noted. Sibling No problems noted. Active Medications including assessments/comments Sodium Chloride (Normal Saline Iv) 1,000 mls @ 125 mls/hr IV CONT .Q8H [facility] Last Admin: 03/23/25 20:58 Dose: 125 mls/hr Documented By: SLIME Infusion/Titration Document 03/23/25 20:58 [facility] (Rec: 03/23/25 20:58 [facility] [id number]) Intake IV Site Peripheral Access Left Antecubital Container Volume 1,000 Waste Amount 0 Dosing Infusion Rate 125 Cumulative Dose Not Applicable Increase/Decrease Started Elapsed Time Elapsed Time ( 0m minutes) Administered/Completed Medications Discontinued Medications Acetaminophen (Acetaminophen 325 Mg Tablet) 650 mg PO ONCE STA Stop: 03/23/25 18:09 Last Admin: 03/23/25 18:37 Dose: 650 mg Documented By: HIWOT Hydrocodone Bitart/Acetaminophen (Hydrocodone/Acetaminophen (*Crx) 5-325 Mg Tablet) 1 tab PO ONCE STA Stop: 03/23/25 15:27 Last Admin: 03/23/25 16:19 Dose: 1 tab Documented By: MARCEL Sodium Chloride (Normal Saline Iv) 1,000 mls @ 999 mls/hr IV CONT .Q1H1M STA Stop: 03/23/25 19:05 Last Infusion: 03/23/25 19:54 Dose: Infused Documented By: Admin: 03/23/25 18:33 Dose: 999 mls/hr Documented By: HIWOT Ceftriaxone Sodium 1 gm/ (Sodium Chloride) 50 mls @ 100 mls/hr IVPB ONCE STA Stop: 03/23/25 18:34 Last Infusion: 03/23/25 19:54 Dose: Infused Documented By: Admin: 03/23/25 18:35 Dose: 100 mls/hr Documented By: HIWOT Ondansetron HCl (Ondansetron Hcl Odt 4 Mg Tablet) 4 mg PO ONCE STA Stop: 03/23/25 15:27 Last Admin: 03/23/25 16:19 Dose: 4 mg Documented By: MARCEL Notes 03/23/25 17:30 (created 03/23/25 17:46) Nurse Note by Sunita Mullins Dr. at bedside updating pt. and pt. family member. Initialized on 03/23/25 17:46 - END OF NOTE Interventions/Assessments IV / Saline Lock, Insert Start: 03/23/25 14:08 Freq: Status: Active Protocol: Document 03/23/25 18:33 HIWOT (Rec: 03/23/25 18:34 KED [id number]) IV Assessment Peripheral Access Left Antecubital IV Catheter Access Initiated IV Insertion Date 03/23/25 IV Insertion Time 18:34 Catheter Gauge 20 IV Site Assessment WNL IV Care and WNL Maintenance PA: Musculoskeletal Assessment Start: 03/23/25 14:08 Freq: Status: Active Protocol: Document 03/23/25 16:14 KJT (Rec: 03/23/25 16:17 KJT [id number]) Musculoskeletal Assessment Left Leg(s) Musculoskeletal Joint Pain,Joint Pain With Movement,Muscle Pain,Muscle Symptoms Pain With Movement Limb Description Normal Able to Dorsiflex Yes Able to Plantar Flex Yes Strength Strong Last Vital Signs Temperature 97.6 F 03/23/25 18:27 Pulse Rate 66 03/23/25 18:27 Respiratory Rate 14 03/23/25 18:27 Pulse Oximetry 100 03/23/25 20:48 Blood Pressure 162/72 H 03/23/25 20:46 Blood Pressure Mean 93 03/23/25 20:46 Blood Pressure Position Sitting 03/23/25 18:27 Oxygen Delivery Room Air 03/23/25 14:09 Weight 60.45 kg 03/23/25 14:09 Last Result - Abnormals Only RBC 3.42 M/mm3 (4.2-5.4) L 03/23/25 16:56 Hgb 11.7 g/dL (12.0-15.0) L 03/23/25 16:56 Hct 34.8 % (37.0-47.0) L 03/23/25 16:56 MCV 101.8 fl (80-100) H 03/23/25 16:56 MCH 34.2 pg (26-34) H 03/23/25 16:56 Immature Gran % (Auto) 0.9 % (0-0.5) H 03/23/25 16:56 Lymph % (Auto) 17.8 % (18.3-44.2) L 03/23/25 16:56 Garfield % (Auto) 12.9 % (2.6-8.5) H 03/23/25 16:56 Garfield # (Auto) 1.2 K/mm3 (0.1-0.6) H 03/23/25 16:56 Abs Immat Gran (auto) 0.08 K/mm3 (0.00-0.031) H 03/23/25 16:56 ESR 79 mm/hr (0-20) H 03/23/25 16:56 Sodium 129 mmol/L (137-145) L 03/23/25 16:56 Potassium 5.1 mmol/L (3.4-5.0) H 03/23/25 16:56 BUN 32 mg/dL (7-17) H 03/23/25 16:56 Creatinine 1.37 mg/dL (0.7-1.0) H 03/23/25 16:56 Estimated GFR 37 (59-) L 03/23/25 16:56 Glucose 126 mg/dL (65-110) H 03/23/25 16:56 AST 44 U/L (14-36) H 03/23/25 16:56 Alkaline Phosphatase 152 U/L (38-126) H 03/23/25 16:56 C-Reactive Protein 4.7 mg/dL (<1.0) H 03/23/25 16:56 Urine Appearance Turbid (Clear) H 03/23/25 16:56 Ur Blood (Man) 2+ (Negative) H 03/23/25 16:56 Leukocyte Esterase Rfl 3+ NE/UL (Negative) H 03/23/25 16:56 Urine RBC 6-10 /hpf (0-2) H 03/23/25 16:56 Urine WBC >100 /hpf (0-3) H 03/23/25 16:56 Urine Bacteria 4+ /hpf H 03/23/25 16:56 Most Recent Suicide Severity Rating Suicide Severity Rating NO RISK INDICATED 03/23/25 16:14
--- NOTE | 2025-03-23 21:43 | ADMGEN ---
This patient, Jacqueline Farmer, was admitted to [facility] Surg Room 325-02. Patient/family oriented to hospital policies and general routines including ID bracelet, bed and alarms, visiting hours, pain management, procedures, bathroom and other care routines, personal items, smoking policy, room service/diet, and visiting hours. Information on how to activate the Rapid Response Team has been discussed. Patient/Family are encouraged to report perceived risks to care and to ask questions if they do not understand what they are told or what they should do.
[2025-03-24] MEDS: HYDROcodone/acetaminophen (*CRX) 5-325 MG TABLET 1 TAB PO ×4 (01:28→21:02)
[2025-03-24] MEDS: SODIUM CHLORIDE 0.9% IV 1,000 ML 125 ML IV CONT (04:39)
[2025-03-24 04:52] VITALS: BP 127/56; PULSE 71; RESP 17; TEMP 36.6; O2SAT 94
--- NOTE | 2025-03-24 05:42 | PM.IMHP2 ---
H&P: HPI History of Present Illness Date/Time: 03/24/25 05:42 Chief Complaint: Left hip pain since Thanksgiving Narrative: 84-year-old female with a past medical history of breast cancer status post chemotherapy, radiation therapy and mastectomy, cervical spine stenosis status post suboccipital decompression C1-C2 March 2022, rheumatoid arthritis, chronic kidney disease stage III and other comorbidities who presented to the ER from home via EMS due to worsening left hip pain that radiates down the left leg. The patient reported that the symptoms started around Thanksgiving and have progressively gotten worse despite trying Tylenol and ibuprofen. She has whom that the pain was due to her pelvis becoming on aligned and she has been following with a chiropractor. Her last chiropractor appointment was last week. She denied any recent falls or injury. She has not been having any numbness tingling or loss of bowel or bladder control. She reports that she feels like she has a pinched nerve in her buttock and that it wraps around to the front of her left leg. At the time my evaluation she states the pain is a 9/10 in intensity in she relates that it is worse due to her having to lay in the bed in not be able to move around. She also reports that the pain is worse when she tries to sit up for change positions. She feels that the pain does improve after she sees her chiropractor. She does have chronic urinary frequency but denies any dysuria increased urinary urgency or loss of bladder control. She reports that she has been having some constipation recently due to taking Aleve and ibuprofen for her pain. Her constipation has been relieved with Colace and MiraLax. She denies any loss of sensation to her lower extremities. Denies any fevers or chills. She does report decreased appetite due to pain. The patient was uncertain if she had a history of rheumatoid arthritis but I did find documentation that the patient used to be on leflunomide several years ago and was discontinued due to side effects.. She denies history of obstructive sleep apnea but has had a polysomnogram in 2021 which demonstrated mild obstructive sleep apnea. It was recommended she get an auto PAP at that time. Review of Systems Review of Systems: 12 systems were reviewed with pertinent positives and negatives per HPI. Except as documented in the HPI, all other systems were reviewed and are negative. [facility] Past Medical History Medical History Type 2 diabetes mellitus without complications Rheumatoid arthritis involving multiple sites Hyperlipidemia, unspecified Megaloblastic anemia due to B12 deficiency Essential (primary) hypertension GERD (gastroesophageal reflux disease) Osteoporosis Periodic limb movement disorder PIEDAD (obstructive sleep apnea) Scoliosis OAB (overactive bladder) Migraines, neuralgic Occipital neuralgia Chronic seasonal allergic rhinitis Chronic eustachian tube dysfunction Left-sided temporomandibular joint pain-dysfunction syndrome Mixed hearing loss, bilateral Triple negative malignant neoplasm of breast CKD (chronic kidney disease) Vitamin D deficiency Basal cell carcinoma Rectal vaginal fistula Rotator cuff arthropathy Restless legs syndrome Surgical History Surgical History (Updated 03/24/25 @ 06:24 by Marnie Cruz DO) History of bilateral knee replacement S/P lumpectomy, right breast History of bladder suspension procedure X2 Hx of mastectomy Right breast lumpectomy August 2023 complicated by postop seroma and abscess I&D June 2024 and subsequent mastectomy 09/03/2024 H/O craniotomy (~03/2022) H/O toe surgery 11/2021 History of cholecystectomy Family History Family History Mother Hypertension Heart disease Father , age 92 No problems noted. Sibling No problems noted. Social History Social History (Updated 03/24/25 @ 08:51 by Marnie Cruz DO) Social History: Patient lives with her of 47 years she reports that today (03/24/2025) is their wedding anniversary. They raised 1 daughter. She is a lifelong nonsmoker and does not drink alcohol or use illicit substances. She ambulates with a walker. Code status: Full code (she states that for now she would want to remain a full code until she could discuss further goals of care with her .) Surrogate decision maker: Smoking status: Never smoker Second hand tobacco smoke exposure: No Alcohol intake: never Alcohol use details: rarely Substance use: never Substance use type: does not use Lack of Transportation: No Lack of Food: Never True Current Housing: I Have Housing Concerned About Future Housing: No Difficulty Paying Gas/Electric Bills: No Difficulty Paying for Meds: No Currently Unemployed: No Education: High School Diploma/GED Difficulty w/ Childcare or Family Care: No Living arrangements: with family Additional living arrangements comments: Occupation/Education: retired Additional occupation/education comments: [employer] Gender identity (if verbalized by the patient): Female Spiritual care concerns: No Meds Home Medications and Allergies Home Medications ?Medication ?Instructions ?Recorded ?Confirmed ?Type aspirin 81 mg tablet,delayed 81 mg PO DAILY #30 tabs 02/20/19 03/23/25 Rx release (Aspir-Low) calcium carbonate 600 mg PO DAILY #90 tabs 02/20/19 03/23/25 Rx cholecalciferol (vitamin D3) 25 1,000 unit PO DAILY #30 caps 02/20/19 03/23/25 Rx mcg (1,000 unit) capsule vitamin B complex (B 1 tablet PO DAILY #30 tabs 02/20/19 03/23/25 Rx Complex-Vitamin B12 tablet) ascorbic acid (vitamin C) 1,000 mg 3,000 mg (3 x 1,000 mg) PO DAILY 08/05/19 03/23/25 Rx tablet,extended release #0 tabs cinnamon bark 500 mg capsule 500 mg PO DAILY 12/30/19 03/23/25 History (Cinnamon) coenzyme Q10 10 mg capsule (Co 100 mg PO DAILY 12/30/19 03/23/25 History Q-10) clobetasol 0.05 % shampoo 0.05 ml topical DIRECTED 12/05/21 03/23/25 History sumatriptan succinate 50 mg tablet See Rx Instructions PO .COMPLEX #9 08/06/23 03/23/25 Rx (Imitrex) tabs fluticasone propionate 50 1 spray intranasal BID #48 grams 04/03/24 03/23/25 Rx mcg/actuation nasal spray,suspension (Flonase Allergy Relief) olmesartan 20 mg tablet (Benicar) 20 mg PO DAILY #90 tabs 08/08/24 03/23/25 Rx gabapentin 300 mg capsule See Rx Instructions PO .COMPLEX 08/28/24 03/23/25 Rx #270 caps simvastatin 10 mg tablet 10 mg PO DAILY #90 tabs 09/09/24 03/23/25 Rx omeprazole 40 mg capsule,delayed 40 mg PO DAILY #90 caps 12/01/24 03/23/25 Rx release docusate sodium 100 mg capsule 100 mg PO BID PRN constipation 01/21/25 03/23/25 History latanoprost 0.005 % eye drops 1 drp EACH EYE QPM 03/23/25 03/23/25 History ropinirole 0.5 mg tablet 0.5 mg PO HS 03/23/25 03/23/25 History Allergies Allergy/AdvReac Type Severity Reaction Status Date / Time morphine Allergy Severe SEVERE N/V Verified 03/23/25 21:49 PREFERS NOT TO RECEIVE adhesive Allergy Rash Verified 03/23/25 21:49 ARM AND HAMMER WITH OXYCLEAN Allergy Unknown HIVES ALL Uncoded 03/05/25 13:00 LAUNDRY SOAP OVER BODY Vital Signs Vital Signs - 24 hr 03/23/25 14:09 03/23/25 18:27 03/23/25 19:21 Temperature 97.9 F 97.6 F Pulse Rate 73 66 Respiratory Rate 16 14 Blood Pressure 162/60 H 134/76 196/64 H Pulse Oximetry 100 97 96 Oxygen Delivery Room Air 03/23/25 19:30 03/23/25 19:31 03/23/25 19:45 Temperature Pulse Rate Respiratory Rate Blood Pressure 151/60 H Pulse Oximetry 97 98 99 Oxygen Delivery 03/23/25 19:46 03/23/25 20:00 03/23/25 20:01 Temperature Pulse Rate Respiratory Rate Blood Pressure 147/76 H 144/80 H Pulse Oximetry 99 100 99 Oxygen Delivery 03/23/25 20:15 03/23/25 20:16 03/23/25 20:30 Temperature Pulse Rate Respiratory Rate Blood Pressure 193/90 H Pulse Oximetry 94 94 100 Oxygen Delivery 03/23/25 20:31 03/23/25 20:46 03/23/25 20:48 Temperature Pulse Rate Respiratory Rate Blood Pressure 162/95 H 162/72 H Pulse Oximetry 100 100 Oxygen Delivery 03/23/25 22:00 03/23/25 22:58 03/24/25 04:52 Temperature 98.1 F 97.8 F Pulse Rate 76 76 71 Respiratory Rate 17 17 17 Blood Pressure 143/47 H 127/56 L Pulse Oximetry 94 94 94 Oxygen Delivery Room Air Exam Narrative: Weight 63.4 kg BMI 28.5 Const: Other: No acute distress, overweight, appears stated age HENMT: Other: Mucous membranes are tacky, no oral pharyngeal erythema, crowded posterior oropharynx Eyes: Other: Pupils are equal and reactive with bilateral lens implants noted, no scleral icterus, positive conjunctival pallor Neck: Other: No JVD, no lymphadenopathy Resp: Other: Clear to auscultation bilaterally, no increased work of breathing Cardio: Other: Regular rate, regular rhythm, 2+ bilateral radial and pedal pulses, no JVD GI: Other: Soft, nontender, nondistended, positive bowel sounds : Other: Pure wick catheter in place Back/Spine/Pelvis: Other: Patient has pain over the spinous process with palpation at the level of L1, Skin: Other: Mild pallor, non jaundice Neuro: Other: Alert oriented x4, speech is clear, no facial asymmetry, intact sensation in bilateral lower extremities, Extrem: Other: No clubbing, cyanosis or edema, moves all extremities Psych: Other: Appropriate mood and affect, pleasant and cooperative, judgment and insight intact Results Labs Labs: 03/23/25 03/24/25 16:56 05:59 WBC 9.1 Pending RBC 3.42 L Pending Hgb 11.7 L Pending Hct 34.8 L Pending MCV 101.8 H Pending MCH 34.2 H Pending MCHC 33.6 Pending RDW 13.5 Pending Plt Count 293 Pending MPV 8.8 Pending Immature Gran % (Auto) 0.9 H Pending Neut % (Auto) 67.0 Pending Lymph % (Auto) 17.8 L Pending Posey % (Auto) 12.9 H Pending Eos % (Auto) 1.0 Pending Baso % (Auto) 0.4 Pending Lymph # (Auto) 1.62 Pending Posey # (Auto) 1.2 H Pending Eos # (Auto) 0.1 Pending Baso # (Auto) 0.0 Pending Abs Immat Gran (auto) 0.08 H Pending Absolute Neuts (auto) 6.1 Pending Absolute Nucleated RBC 0.000 Pending Nucleated RBC % 0.0 Pending ESR 79 H PT 13.3 INR 1.0 APTT 31.1 Sodium 129 L Pending Potassium 5.1 H Pending Chloride 99 Pending Carbon Dioxide 26 Pending Anion Gap 4 Pending BUN 32 H Pending Creatinine 1.37 H Pending Estim Creat Clear Calc Not Reportable Pending Estimated GFR 37 L Pending Glucose 126 H Pending Calcium 9.3 Pending Total Bilirubin 0.8 Pending AST 44 H Pending ALT 30 Pending Alkaline Phosphatase 152 H Pending C-Reactive Protein 4.7 H Total Protein 7.5 Pending Albumin 3.9 Pending Urine Color Yellow Urine Appearance Turbid H Urine pH 5.0 Ur Specific Combs 1.014 Urine Protein Trace Urine Glucose (UA) Negative Urine Ketones Negative Ur Blood (Man) 2+ H Urine Nitrate Negative Urine Bilirubin Negative Urine Urobilinogen 1.0 Leukocyte Esterase Rfl 3+ H Urine RBC 6-10 H Urine WBC >100 H Ur Squamous Epith Cells None seen Urine Bacteria 4+ H Urine Casts 0-2 Impressions Hip/Pelvis X-Ray 03/23/25 15:45 IMPRESSION: 1. Mild osteoarthritis of left SI joint. No acute bony lesions. Severe degenerative disc disease of lower lumbar spine to the limited extent visualized. 2. Significant osteopenia. Please correlate with DEXA densitometry. 3. If symptoms are localized and persistent, MRI or nuclear bone scan is suggested. Lumbar Spine CT 03/23/25 15:55 IMPRESSION: 1. 25% compression fracture of L1 involving the inferior endplate probably acute with mild retropulsion but no severe spinal canal stenosis at the L1-2 level. 2. Significant gaseous accumulation in the L1-2 interspace and mild widening of the intervertebral disc could represent developing discitis. Correlate with C-reactive protein and white count; lumbar spine MRI may provide more beneficial evaluation/information. 3. Diffuse degenerative changes throughout the remainder of the lumbar spine probable moderately severe spinal canal stenosis L3-L4. No large disc herniation seen Quality VTE Prophylaxis VTE prophylaxis: mechanical ordered (SCDs) Assessment and Plan Assessment and plan (1) Closed compression fracture of L1 vertebra: Qualifiers: Encounter type: initial encounter Qualified Code(s): S32.010A - Wedge compression fracture of first lumbar vertebra, initial encounter for closed fracture Code(s): S32.010A - Wedge compression fracture of first lumbar vertebra, initial encounter for closed fracture Status: Acute (2) Elevated erythrocyte sedimentation rate: Code(s): R70.0 - Elevated erythrocyte sedimentation rate Status: Acute (3) Elevated C-reactive protein (CRP): Code(s): R79.82 - Elevated C-reactive protein (CRP) Status: Acute (4) Acute kidney injury superimposed on stage 3a chronic kidney disease: Code(s): N17.9 - Acute kidney failure, unspecified; N18.31 - Chronic kidney disease, stage 3a Status: Acute (5) Hyponatremia: Code(s): E87.1 - Hypo-osmolality and hyponatremia Status: Acute (6) Abnormal urinalysis: Code(s): R82.90 - Unspecified abnormal findings in urine Status: Acute Plan Patient has L1 compression fracture with radicular pain down the left leg. Imaging suggest possible diskitis. Patient does have an elevated CRP and ESR which could be related to infection but could also be related to the patient's chronic rheumatoid arthritis with resultant elevation in inflammatory markers. Patient has a normal white count and has not had any fevers or chills. Will hold off on any antibiotic therapy for possible diskitis until MRI results are obtained. Will repeat electrolyte panel in a.m. to ensure patient's creatinine has improved prior to receiving gadolinium contrast. Will continue Tylenol and [place] as needed for pain. Patient reports that her pain is been so in controlled overnight that she has not been able sleep. Will give a dose of Dilaudid in see if this does help her pain at least for short-term then re-evaluate. Neurosurgery has been consulted and will await further recommendations. Will continue patient's home gabapentin that she has been on for long-term for cervical radiculopathy. Will also resume her home medications for restless leg. Patient has Celebrex listed on her home med rec but this has not been filled since 2023. Given the patient's chronic kidney disease it is not recommended for her to continue with Celebrex. This likely should not be on her active med rec since it has not been filled in over a year. Will avoid other nephrotoxic medications. Patient does have some mild worsening of her chronic hyponatremia possibly due to hypovolemia verses SIADH from acute pain. Will continue IV fluid hydration and repeat electrolyte panel in a.m. to re-evaluate. If creatinine is stable/improved will resume the patient's home angiotensin receptor tanya. Patient has an abnormal urinalysis with 4+ bacteria greater than 100 wbc's and 3+ leukocyte esterase. She did receive 1 dose of empiric antibiotic therapy with Rocephin in the ER to treat for possible UTI. However the patient denies any acute urinary symptoms. At this time is likely bacteriuria not indicative of acute UTI so will not continue with antibiotic therapy. Patient has been admitted as observation status. MEDICAL DECISION MAKING NARRATIVE -Spoke with the ED provider in detail regarding patient's evaluation, workup and management -Patient seen and examined at bedside -Collaborated with patient's nurse at the bedside in detail and addressed all concerns -Labs, electrolytes, radiology, investigations and test results personally reviewed and interpreted unless otherwise specified -ED/Consult/Nursing/Ancilliary notes on the chart reviewed and appreciated -applicable past medical records and labs were reviewed and unless stated otherwise. -Spoke with patient at bedside and diagnosis, plan of care was discussed and questions answered. Prior Studies I have reviewed the following patient records and this information was taken into consideration when formulating the assessment and plan.: previous labs, previous ER visits, previous hospitalizations and previous clinic visits Hospitalist [facility] Advance Care Plan I have confirmed that the patient's Advanced Care Plan is present, code status is documented, or surrogate decision maker is listed in patient medical record.: Yes Medication Reconciliation I have utilized all available resources to obtain, update and review the patients current medications (includes all prescriptions, OTC, herbals, cannabis, and nutritional supplements).: Yes
[2025-03-24 06:22] LABS: Hematocrit 33.1 % (37.0-47.0); Hemoglobin 10.8 g/dL (12.0-15.0); Immature Granulocyte Percent A 0.7 % (0-0.5); Lymphocytes Absolute Auto 1.37 K/mm3 (0.9-3.2); Mean Corpuscular HGB Conc 32.6 g/dl (32-36); Mean Corpuscular Hemoglobin 34.7 pg (26-34); Mean Corpuscular Volume 106.4 fl (80-100); Nucleated Red Blood Cells Absolute Auto 0.000 K/mm3 (0.0-0.012); Nucleated Red Blood Cells Perc 0.0 % (0.0-0.2); Platelet Count Result 268 k/mm3 (150-375); Red Blood Count 3.11 M/mm3 (4.2-5.4); White Blood Count 6.7 K/mm3 (4.5-10.0)
[2025-03-24 06:50] LABS: Alanine Aminotransferase 22 U/L (6-35); Albumin Level 3.4 g/dL (3.5-5.1); Alkaline Phosphatase 124 U/L (38-126); Anion Gap 3 mmol/L (4-12); Aspartate Amino Transferase 33 U/L (14-36); Bilirubin,Total 0.6 mg/dL (0.2-1.3); Blood Urea Nitrogen 26 mg/dL (7-17); Calcium 8.6 mg/dL (8.4-10.2); Carbon Dioxide 24 mmol/L (22-30); Chloride 107 mmol/L (98-107); Estimated Glomerular Filt Rate 41; Glucose 99 mg/dL (65-110); Potassium 4.7 mmol/L (3.4-5.0); Sodium 134 mmol/L (137-145); Total Protein 6.8 g/dL (6.3-8.2)
[2025-03-24 07:06] LABS: Microcytosis 1+ (NORMAL); Schistocytes None Seen
--- NOTE | 2025-03-24 07:45 | PC.NURSE ---
Nurse called into patients room. Patient has been messing with her IV. Patient states that she clamped it because it was beeping. Education provided to patient on only a nurse being able to clamp or handle an IV. IV is infiltrated and a new one needs to be placed. A float nurse came in to replace IV and pt is refusing a new IV at this time. made aware. Pt refusing to be cleaned up at this time as well.
[2025-03-24] MEDS: ASPIRIN 81 MG ENTERIC TABLET PO (09:03)
[2025-03-24] MEDS: OLMESARTAN MEDOXOMIL 20 MG TABLET PO (09:04)
[2025-03-24] MEDS: PANTOPRAZOLE 40 MG TABLET PO ×2 (09:04→21:00)
[2025-03-24] MEDS: CALCIUM CARBONATE (OSCAL) 500 MG TABLET PO (09:04)
[2025-03-24] MEDS: CHOLECALCIFEROL (VITAMIN D3) 25 MCG (1,000 UNITS) TABLET PO (09:04)
[2025-03-24] MEDS: FLUTICASONE PROPIONATE 0.05% NA SPR 16 GM BTL (*BKC) 1 SPRAY NASAL (09:07)
[2025-03-24 14:00] VITALS: BP 170/82; PULSE 90; RESP 16; TEMP 36.9; O2SAT 96
--- NOTE | 2025-03-24 14:01 | PM.IMPN2 ---
Assessment and Plan Assessment and Plan (1) Closed compression fracture of L1 vertebra: Qualifiers: Encounter type: initial encounter Qualified Code(s): S32.010A - Wedge compression fracture of first lumbar vertebra, initial encounter for closed fracture Code(s): S32.010A - Wedge compression fracture of first lumbar vertebra, initial encounter for closed fracture Status: Acute (2) Elevated erythrocyte sedimentation rate: Code(s): R70.0 - Elevated erythrocyte sedimentation rate Status: Acute (3) Elevated C-reactive protein (CRP): Code(s): R79.82 - Elevated C-reactive protein (CRP) Status: Acute (4) Acute kidney injury superimposed on stage 3a chronic kidney disease: Code(s): N17.9 - Acute kidney failure, unspecified; N18.31 - Chronic kidney disease, stage 3a Status: Acute (5) Hyponatremia: Code(s): E87.1 - Hypo-osmolality and hyponatremia Status: Acute (6) Abnormal urinalysis: Code(s): R82.90 - Unspecified abnormal findings in urine Status: Acute Plan L1 compression fracture with radicular pain down the left leg. CT lumbar showed possible L1-2 discitis in addition to compression fracture of l1 MRI pending, Neurosurgery consulted PRN pain control with norco and tylenol PT/OT neurosurgery consulted Hyponatremia, resolved Na 134 Encourage oral intake Asymptomatic bacteriuria monitor, no Abx DVT prophylaxis sq lovenox Subjective Date/time seen: 03/24/25 14:01 Interval history: Comfortable at bedside awaiting Neurosurgery eval Review of Systems Review of Systems: 12 systems were reviewed with pertinent positives and negatives per HPI. Except as documented in the HPI, all other systems were reviewed and are negative. Exam Narrative: Weight 63.4 kg BMI 28.5 Const: Other: No acute distress, overweight, appears stated age HENMT: Other: Mucous membranes are tacky, no oral pharyngeal erythema, crowded posterior oropharynx Eyes: Other: Pupils are equal and reactive with bilateral lens implants noted, no scleral icterus, positive conjunctival pallor Neck: Other: No JVD, no lymphadenopathy Resp: Other: Clear to auscultation bilaterally, no increased work of breathing Cardio: Other: Regular rate, regular rhythm, 2+ bilateral radial and pedal pulses, no JVD GI: Other: Soft, nontender, nondistended, positive bowel sounds : Other: Pure wick catheter in place Back/Spine/Pelvis: Other: Patient has pain over the spinous process with palpation at the level of L1, Skin: Other: Mild pallor, non jaundice Neuro: Other: Alert oriented x4, speech is clear, no facial asymmetry, intact sensation in bilateral lower extremities, Extrem: Other: No clubbing, cyanosis or edema, moves all extremities Psych: Other: Appropriate mood and affect, pleasant and cooperative, judgment and insight intact Objective Data Vital Signs Vital Signs: Vital Signs - 24 hr 03/23/25 14:09 03/23/25 18:27 03/23/25 19:21 Temperature 97.9 F 97.6 F Pulse Rate 73 66 Respiratory Rate 16 14 Blood Pressure 162/60 H 134/76 196/64 H Pulse Oximetry 100 97 96 Oxygen Delivery Room Air 03/23/25 19:30 03/23/25 19:31 03/23/25 19:45 Temperature Pulse Rate Respiratory Rate Blood Pressure 151/60 H Pulse Oximetry 97 98 99 Oxygen Delivery 03/23/25 19:46 03/23/25 20:00 03/23/25 20:01 Temperature Pulse Rate Respiratory Rate Blood Pressure 147/76 H 144/80 H Pulse Oximetry 99 100 99 Oxygen Delivery 03/23/25 20:15 03/23/25 20:16 03/23/25 20:30 Temperature Pulse Rate Respiratory Rate Blood Pressure 193/90 H Pulse Oximetry 94 94 100 Oxygen Delivery 03/23/25 20:31 03/23/25 20:46 03/23/25 20:48 Temperature Pulse Rate Respiratory Rate Blood Pressure 162/95 H 162/72 H Pulse Oximetry 100 100 Oxygen Delivery 03/23/25 22:00 03/23/25 22:58 03/24/25 04:52 Temperature 98.1 F 97.8 F Pulse Rate 76 76 71 Respiratory Rate 17 17 17 Blood Pressure 143/47 H 127/56 L Pulse Oximetry 94 94 94 Oxygen Delivery Room Air 03/24/25 08:00 Temperature Pulse Rate Respiratory Rate Blood Pressure Pulse Oximetry Oxygen Delivery Room Air Intake/Output Intake/Output: Intake & Output 03/21/25 03/22/25 03/23/25 03/24/25 23:59 23:59 23:59 23:59 Intake Total 1050 759.6 Output Total 200 0 Balance 850 759.6 Meds/Results Medications: Active Medications Generic Name Dose Route Start Last Admin Trade Name Freq PRN Reason Stop Dose Admin Acetaminophen 650 mg 03/23/25 18:05 03/23/25 23:15 Acetaminophen 325 Mg Tablet PO 650 mg Q4H PRN Administration Mild Pain (1-3) or Fever Hydrocodone Bitart/Acetaminophen 1 tab 03/23/25 18:05 03/24/25 09:08 Hydrocodone/Acetaminophen (*Crx) 5-325 Mg Tablet PO 1 tab Q4H PRN Administration Pain Rated 4-6 Aspirin 81 mg 03/24/25 09:00 03/24/25 09:03 Aspirin 81 Mg Enteric Tablet PO 81 mg DAILY MUNIRA Administration Calcium Carbonate 200 mg 03/23/25 20:33 Calcium Carbonate (Tums) 500 Mg (200 Mg Elemental) PO Q6H PRN Indigestion Calcium Carbonate 500 mg 03/24/25 09:00 03/24/25 09:04 Calcium Carbonate (Oscal) 500 Mg Tablet PO 500 mg QAM MUNIRA Administration Docusate Sodium 100 mg 03/24/25 06:46 Docusate Sodium 100 Mg Capsule PO BID PRN Constipation Fluticasone Propionate 1 spray 03/24/25 09:00 03/24/25 09:07 Fluticasone Propionate 0.05% Na Spr 16 Gm Btl (*Bkc) NASAL 1 spray Q12HR MUNIRA Administration Gabapentin 300 mg 03/24/25 09:00 03/24/25 12:15 Gabapentin 300 Mg Capsule PO Not Given QAM MUNIRA Gabapentin 600 mg 03/24/25 21:00 Gabapentin 300 Mg Capsule PO HS MUNIRA Hydromorphone HCl 0.5 mg 03/24/25 07:58 Hydromorphone Hcl Inj (*Crx) 1 Mg/Ml Syr IV PUSH Q3H PRN Pain Rated 7-10 Sodium Chloride 1,000 mls @ 125 mls/hr 03/23/25 18:05 03/24/25 12:14 Normal Saline Iv IV CONT Not Given .Q8H MUNIRA Latanoprost 1 drop 03/24/25 18:00 Latanoprost 0.005% Op Soln 2.5 Ml Btl EACH EYE QPM MUNIRA Non-Formulary Medication 1 each 03/24/25 07:01 Nonformulary Nutritional Supplement XX 03/25/25 07:00 PRN PRN PROTOCOL Olmesartan 20 mg 03/24/25 09:00 03/24/25 09:04 Olmesartan Medoxomil 20 Mg Tablet PO 20 mg DAILY MUNIRA Administration Ondansetron HCl 4 mg 03/23/25 18:05 Ondansetron Inj 4 Mg/2 Ml Vial IV PUSH Q4H PRN Nausea Pantoprazole Sodium 40 mg 03/24/25 09:00 03/24/25 09:04 Pantoprazole 40 Mg Tablet PO 40 mg Q12HR MUNIRA Administration Ropinirole HCl 0.5 mg 03/24/25 21:00 Ropinirole Hcl 0.5 Mg Tablet PO HS MUNIRA Vitamin D 25 mcg 03/24/25 09:00 03/24/25 09:04 Cholecalciferol (Vitamin D3) 25 Mcg (1,000 Units) Tablet PO 25 mcg DAILY MUNIRA Administration Radiology Results: ITS Impressions Hip/Pelvis X-Ray 03/23/25 15:45 IMPRESSION: 1. Mild osteoarthritis of left SI joint. No acute bony lesions. Severe degenerative disc disease of lower lumbar spine to the limited extent visualized. 2. Significant osteopenia. Please correlate with DEXA densitometry. 3. If symptoms are localized and persistent, MRI or nuclear bone scan is suggested. Lumbar Spine CT 03/23/25 15:55 IMPRESSION: 1. 25% compression fracture of L1 involving the inferior endplate probably acute with mild retropulsion but no severe spinal canal stenosis at the L1-2 level. 2. Significant gaseous accumulation in the L1-2 interspace and mild widening of the intervertebral disc could represent developing discitis. Correlate with C-reactive protein and white count; lumbar spine MRI may provide more beneficial evaluation/information. 3. Other findings as above. Labs Labs: Laboratory Results - last 24 hr 03/23/25 03/24/25 16:56 05:59 WBC 9.1 6.7 RBC 3.42 L 3.11 L Hgb 11.7 L 10.8 L Hct 34.8 L 33.1 L MCV 101.8 H 106.4 H MCH 34.2 H 34.7 H MCHC 33.6 32.6 RDW 13.5 13.6 Plt Count 293 268 MPV 8.8 8.8 Immature Gran % (Auto) 0.9 H 0.7 H Neut % (Auto) 67.0 61.4 Lymph % (Auto) 17.[address] [place] % (Auto) 12.9 H 14.5 H Eos % (Auto) 1.0 2.4 Baso % (Auto) 0.4 0.6 Lymph # (Auto) 1.[address] [place] # (Auto) 1.2 H 1.0 H Eos # (Auto) 0.1 0.2 Baso # (Auto) 0.0 0.0 Abs Immat Gran (auto) 0.08 H 0.05 H Absolute Neuts (auto) 6.1 4.1 Absolute Nucleated RBC 0.000 0.000 Band Neutrophils % Not Reportable Nucleated RBC % 0.0 0.0 Platelet Estimate Adequate Microcytosis 1+ Schistocytes None seen ESR 79 H PT 13.3 INR 1.0 APTT 31.1 Sodium 129 L 134 L Potassium 5.1 H 4.7 Chloride 99 107 Carbon Dioxide 26 24 Anion Gap 4 3 L BUN 32 H 26 H Creatinine 1.37 H 1.25 H Estim Creat Clear Calc Not Reportable Not Reportable Estimated GFR 37 L 41 L Glucose 126 H 99 Calcium 9.3 8.6 Total Bilirubin 0.8 0.6 AST 44 H 33 ALT 30 22 Alkaline Phosphatase 152 H 124 C-Reactive Protein 4.7 H Total Protein 7.5 6.8 Albumin 3.9 3.4 L Urine Color Yellow Urine Appearance Turbid H Urine pH 5.0 Ur Specific [place] 1.014 Urine Protein Trace Urine Glucose (UA) Negative Urine Ketones Negative Ur Blood (Man) 2+ H Urine Nitrate Negative Urine Bilirubin Negative Urine Urobilinogen 1.0 Leukocyte Esterase Rfl 3+ H Urine RBC 6-10 H Urine WBC >100 H Ur Squamous Epith Cells None seen Urine Bacteria 4+ H Urine Casts 0-2 Quality VTE Prophylaxis VTE prophylaxis: mechanical ordered (SCDs)
[2025-03-24] MEDS: LATANOPROST 0.005% OP SOLN 2.5 ML BTL 1 DROP EACH EYE (17:43)
[2025-03-24 22:00] VITALS: BP 148/50; PULSE 77; RESP 16; TEMP 36.2; O2SAT 94
[2025-03-25] MEDS: HYDROcodone/acetaminophen (*CRX) 5-325 MG TABLET 1 TAB PO ×3 (02:22→10:55)
[2025-03-25] MEDS: GABAPENTIN 300 MG CAPSULE 600 MG PO (02:30)
[2025-03-25 06:00] VITALS: BP 183/92; PULSE 74; RESP 18; TEMP 36.6; O2SAT 98
[2025-03-25 08:37] LABS: Hematocrit 35.0 % (37.0-47.0); Hemoglobin 11.3 g/dL (12.0-15.0); Immature Granulocyte Percent A 0.6 % (0-0.5); Lymphocytes Absolute Auto 1.30 K/mm3 (0.9-3.2); Mean Corpuscular HGB Conc 32.3 g/dl (32-36); Mean Corpuscular Hemoglobin 34.2 pg (26-34); Mean Corpuscular Volume 106.1 fl (80-100); Nucleated Red Blood Cells Absolute Auto 0.000 K/mm3 (0.0-0.012); Nucleated Red Blood Cells Perc 0.0 % (0.0-0.2); Platelet Count Result 296 k/mm3 (150-375); Red Blood Count 3.30 M/mm3 (4.2-5.4); White Blood Count 7.9 K/mm3 (4.5-10.0)
[2025-03-25 09:01] LABS: Alanine Aminotransferase 21 U/L (6-35); Albumin Level 3.5 g/dL (3.5-5.1); Alkaline Phosphatase 113 U/L (38-126); Anion Gap 3 mmol/L (4-12); Aspartate Amino Transferase 36 U/L (14-36); Bilirubin,Total 0.6 mg/dL (0.2-1.3); Blood Urea Nitrogen 16 mg/dL (7-17); Calcium 9.0 mg/dL (8.4-10.2); Carbon Dioxide 25 mmol/L (22-30); Chloride 106 mmol/L (98-107); Estimated Glomerular Filt Rate 51; Glucose 108 mg/dL (65-110); Magnesium 1.9 mg/dL (1.6-2.3); Potassium 4.3 mmol/L (3.4-5.0); Sodium 134 mmol/L (137-145); Total Protein 6.9 g/dL (6.3-8.2)
[2025-03-25] MEDS: SODIUM CHLORIDE 0.9% IV 1,000 ML 125 ML IV CONT (09:11)
[2025-03-25] MEDS: OLMESARTAN MEDOXOMIL 20 MG TABLET PO (09:12)
[2025-03-25] MEDS: CALCIUM CARBONATE (OSCAL) 500 MG TABLET PO (09:12)
[2025-03-25] MEDS: ASPIRIN 81 MG ENTERIC TABLET PO (09:12)
[2025-03-25] MEDS: GABAPENTIN 300 MG CAPSULE PO (09:12)
[2025-03-25] MEDS: PANTOPRAZOLE 40 MG TABLET PO (09:12)
[2025-03-25] MEDS: CHOLECALCIFEROL (VITAMIN D3) 25 MCG (1,000 UNITS) TABLET PO (09:12)
[2025-03-25] MEDS: ENOXAPARIN 40 MG/0.4 ML SYRINGE SUB-Q (09:15)
--- NOTE | 2025-03-25 12:17 | P.DS_ITS ---
DS: Admitting Diagnosis Discharge Date 03/25/2025 Admitting Diagnosis Left hip pain DS: Discharge Diagnosis Discharge Diagnosis (1) Closed compression fracture of L1 vertebra: Qualifiers: Encounter type: initial encounter Qualified Code(s): S32.010A - Wedge compression fracture of first lumbar vertebra, initial encounter for closed fracture Code(s): S32.010A - Wedge compression fracture of first lumbar vertebra, initial encounter for closed fracture Status: Acute DS: Summary Hospital Course Hospital Course: Reason for Admission: 84-year-old female with extensive comorbidities (including breast cancer s/p mastectomy, CKD stage III, rheumatoid arthritis, osteoporosis, and prior cervical spine surgery) presented with severe, progressive left hip and leg pain since [place], refractory to outpatient management. Patient was managed for L1 compression, was put on a brace. MRI lumbar negative for mets, osteo, discitis. Patient discharged on PRN norco. PT/OT evaluated and recommended home discharge. F/u with PCP in 3-5 days continue other home meds Time Spent with Patient Time attestation: Total time spent providing and/or coordinating discharge services: DS: Data Data Completed and Pending Labs on day of discharge: Labs from last 24 hours 03/25/25 08:10 WBC 7.9 RBC 3.30 L Hgb 11.3 L Hct 35.0 L MCV 106.1 H MCH 34.2 H MCHC 32.3 RDW 13.8 Plt Count 296 MPV 8.7 Immature Gran % (Auto) 0.6 H Neut % (Auto) 67.1 Lymph % (Auto) 16.5 L [place] % (Auto) 11.7 H Eos % (Auto) 3.6 Baso % (Auto) 0.5 Lymph # (Auto) 1.30 [place] # (Auto) 0.9 H Eos # (Auto) 0.3 Baso # (Auto) 0.0 Abs Immat Gran (auto) 0.05 H Absolute Neuts (auto) 5.3 Absolute Nucleated RBC 0.000 Nucleated RBC % 0.0 Sodium 134 L Potassium 4.3 Chloride 106 Carbon Dioxide 25 Anion Gap 3 L BUN 16 D Creatinine 1.02 H Estim Creat Clear Calc Not Reportable Estimated GFR 51 L Glucose 108 Calcium 9.0 Magnesium 1.9 Total Bilirubin 0.6 AST 36 ALT 21 Alkaline Phosphatase 113 Total Protein 6.9 Albumin 3.5 Preliminary micro results at discharge 03/23/25 16:56 - Preliminary Urine Clean Catch Gram negative bacilli isolated Discharge Plan Discharge Attending physician on discharge: Mook Sotelo Consulting providers: Mook Sotelo Discharging Clinician: Mook Sotelo Anticipated Discharge Date/Time: 03/25/25 12:10 Patient Disposition: Home Activity: as tolerated Diet: as tolerated and regular Patient Instructions: Antibiotic Form Patient Language: [place] Stand Alone Forms: General Discharge Information Follow-up/Referrals: Atif De Luna APRN [Primary Care Provider, Internal Medicine] Referral Note: F/u with PCP in 3-5 days Discharge Medications: New hydrocodone-acetaminophen 5-325 mg Tablet 1 tablet PO Q4H PRN (Reason: Pain Rated 4-6) 7 Days Qty: 12 0RF Continued coenzyme Q10 [Co Q-10] 10 mg capsule 100 mg PO DAILY cinnamon bark [Cinnamon] 500 mg capsule 500 mg PO DAILY clobetasol 0.05 % shampoo 0.05 ml topical DIRECTED olmesartan [Benicar] 20 mg tablet 20 mg PO DAILY Qty: 90 3RF ascorbic acid (vitamin C) 1,000 mg tablet extended release 3,000 mg PO DAILY Qty: 0 0RF sumatriptan succinate [Imitrex] 50 mg tablet See Rx Instructions PO .COMPLEX Qty: 9 3RF Rx Instructions: take 1 tab at onset of headache; if no relief may repeat 1 tab after at least 2 hrs; max = 4 tabs/24 hr PO docusate sodium 100 mg capsule 100 mg PO BID PRN (Reason: constipation) ropinirole 0.5 mg tablet 0.5 mg PO HS latanoprost 0.005 % drops 1 drp EACH EYE QPM calcium carbonate 600 mg calcium (1,500 mg) tablet 600 mg PO DAILY Qty: 90 0RF vitamin B complex [B Complex-Vitamin B12] Tablet 1 tablet PO DAILY Qty: 30 0RF cholecalciferol (vitamin D3) 1,000 unit capsule 1,000 unit PO DAILY Qty: 30 0RF aspirin [Aspir-Low] 81 mg tablet,delayed release (DR/EC) 81 mg PO DAILY Qty: 30 0RF Patient Comments: HOLD 7 DAYS prior fluticasone propionate [Flonase Allergy Relief] 50 mcg/actuation spray,suspension 1 spray intranasal BID Qty: 48 1RF Rx Instructions: administer into each nostril gabapentin 300 mg capsule See Rx Instructions PO .COMPLEX Qty: 270 1RF Rx Instructions: orally; take 1 cap in the AM and 2 cap at bedtime; simvastatin 10 mg tablet 10 mg PO DAILY Qty: 90 3RF Patient Comments: HS omeprazole 40 mg capsule,delayed release(DR/EC) 40 mg PO DAILY Qty: 90 0RF Date of admission: 03/23/25 18:06 Primary Care Provider: Atif De Luna Admitting Provider: Sam Lee Attending physician on admission: Sam Lee Condition: Stable
== END 2025-03-25 15:43 | disposition home or self-care (01) ==
LOC: ANHED 16:36 → ANH3MEDSUR 18:32
PROVIDERS: Admitting Provider Family Medicine; Emergency Provider General Practice; PCP Nurse Practitioner; Visit Provider Internal Medicine
DX: S32.010A Wedge compression fracture of first lumbar vertebra, initial encounter for closed fracture (principal); R70.0 Elevated erythrocyte sedimentation rate; R79.82 Elevated C-reactive protein (CRP); E87.1 Hypo-osmolality and hyponatremia; R82.90 Unspecified abnormal findings in urine; I12.9 Hypertensive chronic kidney disease with stage 1 through stage 4 chronic kidney disease, or unspecified chronic kidney disease; N18.31 Chronic kidney disease, stage 3a; Z17.32 Human epidermal growth factor receptor 2 negative status; Z17.1 Estrogen receptor negative status [ER-]; Z85.3 Personal history of malignant neoplasm of breast; E55.9 Vitamin D deficiency, unspecified; Z85.828 Personal history of other malignant neoplasm of skin; G25.81 Restless legs syndrome; N81.10 Cystocele, unspecified; M46.1 Sacroiliitis, not elsewhere classified; M51.361 Other intervertebral disc degeneration, lumbar region with lower extremity pain only; M85.89 Other specified disorders of bone density and structure, multiple sites; M48.02 Spinal stenosis, cervical region; E11.9 Type 2 diabetes mellitus without complications; E78.5 Hyperlipidemia, unspecified; K21.9 Gastro-esophageal reflux disease without esophagitis; M06.9 Rheumatoid arthritis, unspecified; R35.0 Frequency of micturition; M81.0 Age-related osteoporosis without current pathological fracture; G25.9 Extrapyramidal and movement disorder, unspecified; G47.33 Obstructive sleep apnea (adult) (pediatric); M54.81 Occipital neuralgia; J30.2 Other seasonal allergic rhinitis; H69.80 Other specified disorders of Eustachian tube, unspecified ear; H90.6 Mixed conductive and sensorineural hearing loss, bilateral; Z79.82 Long term (current) use of aspirin; Z79.51 Long term (current) use of inhaled steroids; Z96.653 Presence of artificial knee joint, bilateral; Z90.10 Acquired absence of unspecified breast and nipple; Z90.49 Acquired absence of other specified parts of digestive tract; Z99.89 Dependence on other enabling machines and devices; Z82.49 Family history of ischemic heart disease and other diseases of the circulatory system
CPT/HCPCS: 36415; 72131; 72158; 73502; 80053; 81001; 83735; 85025; 85610; 85652; 85730; 86140; 87040; 87086; 87147; 87186; 96361; 96365; 96372; 97161; 97166; 99285; A9270; A9577; G0378; J0696; J1650; J7030